=== PATIENT | female | born 1950 | race African-American/Black ===

== ENCOUNTER 2019-09-17 02:02 | Inpatient (IN) | payer MEDICARE, BC ==
[~2019-09-17] VITALS: Ht 162.6 cm; Wt 114.5 kg
--- NOTE | ~2019-09-17 | HEMODYNAMI ---
PATIENT:RENEE HELM MEDICAL RECORD: [id number] : 48 [facility] AD[facility] DATE: 09/17/19 Generatedon:09/23/201911:48 Patient name: RENEE HELM Patient #: [id number] SSN: [id number] : 1950 Date of study: 09/23/2019 Page: Of Hemodynamic Procedure Report Patient Data Patient Demographics Procedure consent was obtained First Name: RENEE Gender: Female Last Name: ALICJA : 1950 Patient #: [id number] Age: 69 year(s) Race: Black SSN: [id number] Additional ID: [id number] Contact details Address: [address] [place] [address] State: [place] City: [place] Zip code: [address] Past Medical History Allergies Allergen Reaction Date Comments Reported Other allergy 09/18/2019 CONTRAST, TAPE, CEPHALEXIN, LATEX Other allergy 09/19/2019 IODINATED CONTRAST/TAPE/MORE SEE LIST Sulfa drugs 09/23/2019 IV contrast dye 09/23/2019 Admission Admission Data Admission Date: 09/17/2019 Admission Time: 3:59 Arrival Date: 09/18/2019 Arrival Time: 0:00 Admit Source: Other Insurance Payor: Medicare Room #: D.CV02 [facility] #: [id number] Height (in.): 64 BSA: 2.24 (m2) Height (cm.): 162.56 BMI: 47.03 (kg/m2) Weight (lbs.): 274 Weight (kg.): 124.28 Lab Results Lab Result Date: 09/18/2019 Lab Result Time: 0:00 Biochemistry Name Units Result Min Max BUN mg/dl 66 --(----)-* 7 18 Creatinine mg/dl 8.9 --(----)-* 0.6 1.3 eGFR ml/min 6 *-(----)-- 90 120 AM CBC Name Units Result Min Max Hematocrit % 42.2 --(*---)-- 42 54 Hemoglobin g/dl 13.4 -*(----)-- 13.5 17.5 Procedure Procedure Types Cath Procedure Peripheral Cath Diagnostic Procedure Elastic Assembler Peripheral Procedures IVC Filter Procedure Description Procedure Date Procedure Date: 09/23/2019 Procedure Start Time: 11:36 Procedure Staff Name Function Cosme Lynch MD Performing Physician Tejal Francisco RT Building Insulation Supervisor Tess Renteria RN Nurse Ameya Gurrola RT Scrub Procedure Data Cath Procedure Fluoroscopy Diagnostic fluoroscopy Total fluoroscopy Time: 1 time: 1 min min Diagnostic fluoroscopy Total fluoroscopy dose: 1 dose: 1 mGy mGy Contrast Material Contrast Material Type Amount (ml) Isovue 300 35 Diagnostic catheters Device Type Used For End Catheter Placement Phigenix Pharmaceutical CHG-B 5FR 65CM catheter ([id number]) Hemodynamics Rest BSA: 2.24 (m2) O2 Consumption: Estimated: 304.64 (ml/min) O2 Consumption indexed : Estimated:136 (ml/min/m) Pre Cath Intra NCS Post Cath Procedure Log Time Note 10:28:29 Patient Height : 64 inches 10:28:29 Patient Weight : 274 lbs 10:35:41 Use device set IR Diagnostic 10:59:46 DOC .035 wire (L59923) opened to sterile field. 10:59:47 SHEATH 5FR Carson (JRC558) opened to sterile field. 10:59:49 TUBING Contrast Injection High Pressure (MMZ801B) opened to sterile field. 10:59:50 PERCUTANEOUS ENTRY 19GA needle opened to sterile field. 10:59:50 Tegaderm 4 x 4 (1626W) opened to sterile field. 10:59:52 Sterile Angiographic Pack opened to sterile field. 10:59:53 Bag Decanter () opened to sterile field. 10:59:53 ACIST Manifold (78316) opened to sterile field. 10:59:54 ACIST Hand Control (75613) opened to sterile field. 10:59:56 ACIST Syringe (75572) opened to sterile field. 10:59:59 - 17:39 Time tracking: Call back (After hours or weekends) 11:18:33 Plan of Care:Hemodynamics will remain stable., Cardiac rhythm will remain stable., Comfort level will be maintained., Respiratory function will remain adequate., Patient/ family verbilizes understanding of procedure., Procedure tolerated without complication., Recovers from procedure without complications.. :18:39 Patient received from CVICU to IR On ventilator. Tansferred to table in Supine position. 11:18:46 Signed procedure consent form obtained from guardian. 11:18:54 H&P Date Dictated: 09/23/2019 Within 30 days and on chart.. 11:19:01 - 11:19:09 Family in waiting room. 11:19:12 Patient NPO since Midnight. 11:20:17 Patient allergic to Sulfa drugs 11:20:24 Patient allergic to IV contrast dye 11:20:48 - 11:20:49 ----Pre-sedation anethsthesia assessment.----unable to obtain information due to patient on ventilator 11:22:00 Left groin area was prepped with chlora-prep and draped in sterile fashion 11:22:05 Right groin area was prepped with chlora-prep and draped in sterile fashion 11:22:08 - 11:22:16 Fire Safety Assessment: A--An alcohol-based skin anteseptic being used preoperatively., C--Open oxygen or nitrous oxide is being used. 11:22:53 5) <15 or on dialysis Very severe, or end stage kidney failure. 11:31:36 monitoring with portable monitor 11:34:25 Physician arrived 11:34:26 --------ALL STOP TIME OUT------ 11:: Final Timeout: patient, procedure, and site verified with staff and physician. All members of the team are in agreement. 11:36:52 Procedure started. 11:36:53 Full Disclosure recording started 11:36:56 Local anesthetic to right femoral artery with Lidocaine 1% by Cosme Lynch MD.INITIAL ACCESS ONLY 11:43:40 Cristy Femoral IVC filter was placed below renal veins. 11:44:11 FILTER Cristy Vena Cava ([id number]) opened to sterile field. 11:44:33 Procedure ended.(Physican Out) 11:45:21 A Phigenix Pharmaceutical CHG-B 5FR 65CM catheter ([id number]) was advanced over the wire and used for . 11:46:49 Fluoroscopy time 01.00 minutes. 11:47:31 Fluoroscopy dose: 1 mGy 11:47:31 Flurop Dose total: 1 11:47:35 Dose Area Product 331 mGy/cm. 11:47:43 Contrast amount:Isovue 300 35ml. 11:47:45 Procedure and supply charges have been captured, reviewed, submitted an d are correct. 11:48:25 Report given to CVICU. Device Usage Item Name Manufacture Quantity Catalog Hospital Part Current Minimal Lot# / Number Charge Number Stock Stock Serial# Code DOC .035 Cook Medical 1 [id number] [id number] 5 wire ([id number]) SHEATH 5FR Terumo 1 [id number] 970212 239809 535854 5 Carson (KFW523) TUBING Merit 1 [id number] 665810 541805 545892 5 Contrast Medical Injection High Pressure (JRD078W) PERCUTANEOUS Cook Medical 1 H06353 696383 536335 5 [id number] ENTRY 19GA needle Tegaderm 4 x 3M 1 1626W 394155 560513 624637 5 4 (1626W) Sterile Cardinal 1 [id number] 776487 951855 5 Angiographic Health Pack Bag Decanter Microtek 1 2001S 606041 23704 784439 5 (2001S) Medical Inc. ACIST Acist 1 44708 694584 340416 953912 5 Manifold Medical (33641) Systems Inc ACIST Hand Acist 1 23683 361846 408556 012594 5 Control Medical (87288) Systems Inc ACIST Acist 1 66235 468215 392486 503844 20 Syringe Medical (87091) Systems Inc FILTER Bard 1 ZR273D 248535 217665 103396 5 [id number] Cristy Vena Cava (JJ703B) Cook CHG-B Phigenix Pharmaceutical Medical 1 N40529 951965 509111 504981 5 5FR 65CM catheter (N65398) Signature Audit [place] Stage Time Signature Unsigned Intra-Procedure 09/23/2019 Tejal Francisco 11:48:39 AM RT(R) [id number] [place] [address]
--- NOTE | ~2019-09-17 | HEMODYNAMI ---
PATIENT:RENEE HELM MEDICAL RECORD: [id number] : 48 LOCATION:[facility] D213 ADMISSION DATE: 09/17/19 Generatedon:09/19/201917:17 Patient name: RENEE HELM Patient #: [id number] SSN: [id number] : 1950 Date of study: 09/19/2019 Page: Of Hemodynamic Procedure Report Patient Data Patient Demographics Procedure consent was obtained First Name: RENEE Gender: Female Last Name: ALICJA : 1950 Patient #: [id number] Age: 69 year(s) Race: Black SSN: [id number] Additional ID: [id number] Contact details [address]: [address] [place] [address] State: [place] City: [place] Zip code: [address] Past Medical History Allergies Allergen Reaction Date Comments Reported Other allergy 09/18/2019 CONTRAST, TAPE, CEPHALEXIN, LATEX Other allergy 09/19/2019 IODINATED CONTRAST/TAPE/MORE SEE LIST Admission Admission Data Admission Date: 09/17/2019 Admission Time: 3:59 Arrival Date: 09/18/2019 Arrival Time: 0:00 Admit Source: Other Insurance Payor: Medicare Room #: D.2131 [facility] #: [id number] Height (in.): 64 BSA: 2.06 (m2) Height (cm.): 162.56 BMI: 38.87 (kg/m2) Weight (lbs.): 226.46 Weight (kg.): 102.72 Lab Results Lab Result Date: 09/18/2019 Lab Result Time: 0:00 Biochemistry Name Units Result Min Max BUN mg/dl 66 --(----)-* 7 18 Creatinine mg/dl 8.9 --(----)-* 0.6 1.3 eGFR ml/min 6 *-(----)-- 90 120 AM CBC Name Units Result Min Max Hematocrit % 42.2 --(*---)-- 42 54 Hemoglobin g/dl 13.4 -*(----)-- 13.5 17.5 Procedure Procedure Types Cath Procedure Diagnostic Procedure Intra-Aortic Balloon Pump Sedation Charges Moderate Sedation up to 15 minutes Procedure Description Procedure Date Procedure Date: 09/19/2019 Procedure Start Time: 16:41 Procedure End Time: 16:54 Procedure Staff Name Function Jassi Bryan MD Performing Physician Yasmin Suarez RT Monitor Aisha Musa RT Scrub Rahul Zarate RN Nurse Shaila Saunders RT Scrub Procedure Data Cath Procedure Fluoroscopy Diagnostic fluoroscopy Total fluoroscopy Time: 1.6 time: 1.6 min min Diagnostic fluoroscopy Total fluoroscopy dose: 114 dose: 114 mGy mGy Contrast Material Contrast Material Type Amount (ml) Isovue 300 0 Entry Location Entry Primary Successful Side Size Upsize Upsize Entry Closure Succes sful Closure Location (Fr) 1 (Fr) 2 (Fr) Remarks Device Remarks Femoral Right 7 Fr Sheath artery Short sutured in place Estimated blood loss: 5 ml Procedure Complications No complications Procedure Medications Medication Administration Route Dosage Oxygen etCO2 Nasal cannula 2 l/min Lidocaine 2% added to field 20 Heparin Flush Bag added to field 2 bags (1000units/500ml NS) 0.9% NaCl I.V. Versed I.V. 1 mg Fentanyl I.V. 100 mcg Versed I.V. 1 mg Fentanyl I.V. 50 mcg Fentanyl I.V. 50 mcg Heparin Drip I.V. drip 800 units/hr (21864kkhzv/250 D5W) Mechanical Ventricular Support IABP: Inserted during procedure and prior to PCI Hemodynamics Rest BSA: 2.06 (m2) HGB: 13.4 (g/dl) O2 Consumption: Estimated: 209.25 (ml/min) O2 Co nsumption indexed: Estimated:101.58 (ml/min/m) Heart Rate: 95 (bpm) Snapshots Pre Cath Intra NCS Post Cath Vital Signs Time Heart Resp SPO2 etCO2 NIBP Rhythm Pain Sedation Rate (ipm) (%) (mmHg) (mmHg) Status Level (bpm) 16:35:33 84 16 96 25.4 158/49(93) NSR 0 (11) 10(A) , No pain 16:39:51 90 14 96 13.4 117/65(90) NSR 0 (11) 10(A) , No pain 16:44:58 89 13 100 19.4 129/60(87) NSR 0 (11) 9(A) , No pain 16:49:12 86 15 100 32.9 135/46(81) NSR 0 (11) 9(A) , No pain 16:55:33 87 12 100 32.9 Out of NSR 0 (11) 10(A) range , No pain 16:59:27 88 10 100 33.7 Time NSR 0 (11) 10(A) Exceeded , No pain Medications Time Medication Route Dose Verified Delivered Reason No kathy Effectiveness by by 16:34:27 Oxygen etCO2 2 l/min Jassi Kay used for Nasal St Pedro Zarate RN procedure cannula 16:34:36 Lidocaine 2% added 20ml Jassi Jassi for local to vial [facility] anesthetic field MD ELY 16:34:42 Heparin Flush added 2 bags Jassi Jassi used for Bag to [facility] procedure (1000units/500ml field MD ELY NS) 16:34:51 0.9% NaCl I.V. kvo Jassi aKy Per physician ml/hr St Pedro Zarate RN, MD 16:40:00 Fentanyl I.V. 100 mcg Jassi Kay for sedation [facility] Pedro Zarate RN, MD 16:40:55 Versed I.V. 1 mg Jassi Kay for sedation St Pedro Zarate RN, MD 16:45:49 Versed I.V. 1 mg Jassi Kay for sedation St Pedro Zarate RN, MD 16:45:54 Fentanyl I.V. 50 mcg Jassi aKy for sedation St Pedro Zarate RN, MD 16:50:06 Fentanyl I.V. 50 mcg Jassi Kay for sedation St Pedro Zarate RN, MD 16:58:46 Heparin Drip I.V. 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 16:09:28 Rahul Zarate RN sent for patient. Start room use. 16:17:59 Time tracking: Regular hours (M-F 7:00 - 5:00) 16:18:08 Plan of Care:Hemodynamics will remain stable., Cardiac rhythm will remain stable., Comfort level will be maintained., Respiratory function will remain adequate., Patient/ family verbilizes understanding of procedure., Procedure tolerated without complication., Recovers from procedure without complications.. 16:19:00 Patient allergic to Other allergyIODINATED CONTRAST/TAPE/MORE SEE LIST 16:34:14 Vital chart was started 16:34:27 Oxygen 2 l/min etCO2 Nasal cannula was administered by Rahul Zarate RN; used for procedure; Verbal order read back and verified. 16:34:36 Lidocaine 2% 20ml vial added to field was administered by Jassi Bryan MD; for local anesthetic; Verbal order read back and verified. 16:34:42 Heparin Flush Bag (1000units/500ml NS) 2 bags added to field was administered by Jassi Bryan MD; used for procedure; Verbal order read back and verified. 16:34:51 0.9% NaCl kvo ml/hr I.V. was administered by Rahul Zarate RN; Per physician; Verbal order read back and verified. 16:37:12 IABP : Inserted during procedure and prior to PCI 16:37:19 Patient received from Med II to CCL 2 Alert and oriented. Tansferred to table in Supine position. 16:37:21 Signed procedure consent form obtained from patient. 16:37:21 Warm blankets applied, and kristan hugger turned on for patient comfort. 16:37:22 Correct patient and procedure confirmed by team. 16:37:22 ECG and BP/O2 sat monitors applied to patient. 16:37:23 Baseline sample Acquired. 16:37:28 Rhythm: sinus rhythm 16:37:29 Full Disclosure recording started 16:37:32 H&P Date Dictated: 09/19/2019 Within 30 days and on chart., H&P Addendum completed by physician on day of procedure. (MUST COMPLETE FOR ALL OUTPATIENTS). 16:37:33 Pre-procedure instructions explained to patient. 16:37:34 Pre-op teaching completed and patient verbalized understanding. 16:37:36 Family in patients room. 16:37:37 Patient NPO since Midnight. 16:37:40 Is the patient allergic to Iodine/contrast media? Yes. 16:38:45 Was the patient premedicated? Yes 16:38:47 Is patient on blood thinner?Yes 16:38:53 ACC The patient was administered the following blood thiners within the last 24 hours: ACCHeparin 16:39:00 Patient diabetic? No. 16:39:02 Previous problem with sedation/anesthesia? No ? 16:39:04 Snore? Yes 16:39:05 Sleep apnea? Yes 16:39:06 Deviated septum? No 16:39:07 Opens mouth fully? Yes 16:39:08 Sticks out tongue? Yes 16:39:15 Airway obstruction? No ? 16:39:17 Dentures? No ? 16:39:20 Pre procedure: right dorsailis pedis pulse 1+ Palpable, but thready & weak; easily obliterated 16:39:29 Pre procedure: left dorsailis pedis pulse 1+ Palpable, but thready & weak; easily obliterated 16:39:31 Patient pain scale 0/10 ?. 16:39:37 IV patent on arrival in right antecubital with 0.9% NaCl at [facility]. 16:39:40 Lab results completed and on chart. 16:39:48 Right groin area was prepped with chlora-prep and draped in sterile fashion 16:39:49 Alarms reviewed by R. N. 16:39:49 Sharps counted by scrub and verified by R.N. 16:39:50 Physician arrived 16:39:51 --------ALL STOP TIME OUT------ 16:39:51 Final Timeout: patient, procedure, and site verified with staff and physician. All members of the team are in agreement. 16:39:53 Right groin site verified by team. 16:39:56 Fire Safety Assessment: A--An alcohol-based skin anteseptic being used preoperatively., C--Open oxygen or nitrous oxide is being used., D--An ESU, laser, or fiber-optic light is being used. 16:39:59 Physical assessment completed. ASA score P 2 - A patient with mild systemic disease as per Jassi Bryan MD. 16:40:00 Fentanyl 100 mcg I.V. was administered by Rahul Zarate RN; for sedation; Verbal order read back and verified. 16:40:13 5) <15 or on dialysis Very severe, or end stage kidney failure. 16:40:23 Maximum allowable contrast dose (3.7 X eGFR X 0.75)11 ml. 16:40:28 Sedation plan: IV Moderate Sedation Medication:Versed, Fentanyl 16:40:38 Use device set CATH PACK 16:40:40 ACIST Syringe (39992) opened to sterile field. 16:40:40 ACIST Hand Control (13940) opened to sterile field. 16:40:41 ACIST Manifold (15332) opened to sterile field. 16:40:41 Medline Cath Pack ([id number]) opened to sterile field. 16:40:42 Bag Decanter (2002S) opened to sterile field. 16:40:55 Versed 1 mg I.V. was administered by Rahul Zarate RN; for sedation; Verbal order read back and verified. 16:40:55 TUBING High Pressure Extension (IABP) opened to sterile field. 16:40:57 IABP 34cm balloon catheter ([id number]) opened to sterile field. 16:41:00 Procedure started. 16:41:03 Local anesthetic to right femoral artery with Lidocaine 2% by Jassi Bryan MD.INITIAL ACCESS ONLY 16:41:14 A 7 Fr Short sheath was inserted into the Right Femoral artery 16:43:40 SHEATH 7FR Wellman (HBZ780) opened to sterile field. 16:43:56 34cc IABP inserted into the RFA . 16:43:58 Augmentation: 1:1 per physician. 16:45:49 Versed 1 mg I.V. was administered by Rahul Zarate RN; for sedation; Verbal order read back and verified. 16:45:54 Fentanyl 50 mcg I.V. was administered by Rahul Zarate RN; for sedation; Verbal order read back and verified. 16:48:48 Trigger: Pressure 16:50:06 Fentanyl 50 mcg I.V. was administered by Rahul Zarate RN; for sedation; Verbal order read back and verified. 16:52:46 2-0 Silk 685H opened to sterile field. 16:52:47 2-0 Silk 685H opened to sterile field. 16:52:53 Tegaderm 4 x 4 (1626W) opened to sterile field. 16:52:54 Tegaderm 4 x 4 (1626W) opened to sterile field. 16:52:54 Tegaderm 4 x 4 (1626W) opened to sterile field. 16:53:33 Sheath removed intact; hemostasis achieved with Sheath sutured in place to the Right Femoral artery. 16:53:35 Procedure ended.(Physican Out) 16:53:46 Fluoroscopy time 01.60 minutes. 16:53:49 Fluoroscopy dose: 114 mGy 16:53:49 Flurop Dose total: 114 16:53:55 Dose Area Product 29646 mGy/cm. 16:54:00 Contrast amount:Isovue 300 0ml. 16:54:02 Maximum allowable dose exceeded? No. 16:54:03 Sharps counted by scrub and verified by R.N. 16:54:04 Insertion/operative site no bleeding no hematoma. 16:54:16 Post right femoral artery:stable 16:54:18 Post Procedure Pulses reassessed and unchanged 16:54:20 Post procedure rhythm: unchanged. 16:54:23 Estimated blood loss: 5 ml 16:54:24 Post procedure instruction explained to patient.Patient verbalizes understanding. 16:54:24 Patient needs reinforcement of post procedure teaching. 16:54:39 Procedure type changed to Cath procedure, Diagnostic procedure, Intra-Aortic Balloon Pump, Sedation Charges, Moderate Sedation up to 15 minutes 16:54:40 Procedure and supply charges have been captured, reviewed, submitted and are correct. 16:54:45 Procedure Complication : No complications 16:54:47 Vital chart was stopped 16:54:50 Operative report dictated upon procedure completion. 16:54:51 See physician's report for complete and final results. 16:54:54 Report given to CVICU. 16:54:57 Patient transfered to CVICU with Stretcher. 16:54:59 Procedure ended. 16:54:59 Full Disclosure recording stopped 16:55:03 End room use (Document Last) 16:58:03 End room use (Document Last) 16:58:46 Heparin Drip (34343jonqa/250 D5W) 800 units/hr I.V. drip was administered by Rahul Zarate RN; for anticoagulation; verified with jamia farmer rn Verbal order read back and verified. Device Usage Item Name Manufacture Quantity Catalog Number [facility] Minimal Lot# / Charge Number Stock Stock Serial# Code ACIST Syringe Acist 1 89045 595287 975969 [id number] 20 (18406) Photo Rankr Inc ACIST Hand Acist 1 37287 816172 099702 848927 5 Control (46858) Medical Systems Inc ACIST Manifold Acist 1 32742 019681 255927 058154 5 (79843) Medical Systems Inc Medline Cath Medline 1 [id number] 176224 77277 572940 5 Pack ([id number]) Bag Decanter Microtek 1 2002S 757419 72548 466077 5 (2001S) Medical Inc. TUBING High Merit 1 [id number] 590919 160007 420572 5 Pressure Medical Extension (IABP) IABP [facility]cm [facility] 1 [id number] 323474 425742 242329 1 Relead [facility] catheter (233297) ([id number]) SHEATH 7FR Terumo 1 IGO126 676061 457437 887848 5 Wellman (JDH754) 2-0 Silk 685H Ethicon 2 685H 929892 18460 266920 5 Tegaderm 4 x 4 3M 3 1626W 196915 949648 616868 5 (1626W) Signature Audit [place] Stage Time Signature Unsigned Intra-Procedure 09/19/2019 Yasmin Suarez 4:57:43 PM RT(R) Intra-Procedure 09/19/2019 Rahul Zarate RN 4:58:03 PM Intra-Procedure 09/19/2019 Jassi Schmitz 5:17:13 PM Pedro ELY Signatures Performing Physician : Signature : Jassi Bryan MD Date : Time : Monitor : Yasmin Suarez RT Signature : Date : Time : Nurse : Rahul Zarate RN Signature : Date : Time : [facility] [address] [place] [address]
--- NOTE | ~2019-09-17 | HEMODYNAMI ---
PATIENT:RENEE HELM MEDICAL RECORD: [id number] : 48 [facility] ADMISSION DATE: 09/17/19 Generatedon:09/18/20198:15 Patient name: RENEE HELM Patient #: [id number] SSN: [id number] : 1950 Date of study: 09/18/2019 Page: Of Hemodynamic Procedure Report Patient Data Patient Demographics Procedure consent was obtained First Name: RENEE Gender: Female Last Name: ALICJA : 1950 Patient #: [id number] Age: 69 year(s) Race: Black SSN: [id number] Additional ID: [id number] Contact details [address]: [address] [place] [address] State: [place] City: [place] Zip code: [address] Past Medical History Allergies Allergen Reaction Date Comments Reported Other allergy 09/18/2019 CONTRAST, TAPE, CEPHALEXIN, LATEX Admission Admission Data Admission Date: 09/17/2019 Admission Time: 3:59 Arrival Date: 09/18/2019 Arrival Time: 0:00 Admit Source: Other Insurance Payor: Medicare Room #: D.2131 [facility] #: [id number] Height (in.): 64 BSA: 2.06 (m2) Height (cm.): 162.56 BMI: 38.87 (kg/m2) Weight (lbs.): 226.46 Weight (kg.): 102.72 Lab Results Lab Result Date: 09/18/2019 Lab Result Time: 0:00 Biochemistry Name Units Result Min Max BUN mg/dl 66 --(----)-* 7 18 Creatinine mg/dl 8.9 --(----)-* 0.6 1.3 eGFR ml/min 6 *-(----)-- 90 120 AM CBC Name Units Result Min Max Hematocrit % 42.2 --(*---)-- 42 54 Hemoglobin g/dl 13.4 -*(----)-- 13.5 17.5 Procedure Procedure Types Cath Procedure Diagnostic Procedure [facility] w/Coronaries Sedation Charges Moderate Sedation up to 15 minutes Procedure Description Procedure Date Procedure Date: 09/18/2019 Procedure Start Time: 7:48 Procedure End Time: 8:14 Procedure Staff Name Function Tez Samson MD Performing Physician Vivek Dxion RN Nurse Ida Taylor RT Monitor Aisha Musa RT Scrub Procedure Data Cath Procedure Fluoroscopy Diagnostic fluoroscopy Total fluoroscopy Time: 2.2 time: 2.2 min min Diagnostic fluoroscopy Total fluoroscopy dose: 926 dose: 926 mGy mGy Contrast Material Contrast Material Type Amount (ml) Isovue 370 57 Entry Location Entry Primary Successful Side Size Upsize Upsize Entry Closure Succes sful Closure Location (Fr) 1 (Fr) 2 (Fr) Remarks Device Remarks Femoral Right 5 Fr Exoseal artery Estimated blood loss: 5 ml Diagnostic catheters Device Type Used For End Catheter Placement MULTIPACK JL 4.0 5Fr Procedure catheter MULTIPACK 3DRC 5Fr Procedure catheter MULTIPACK Pigtail 5 Fr Procedure catheter Procedure Complications No complications Procedure Medications Medication Administration Route Dosage 0.9% NaCl I.V. 10 ml/hr Oxygen etCO2 Nasal cannula 2 l/min Heparin Flush Bag added to field 2 bags (1000units/500ml NS) Lidocaine 2% added to field 20 Versed I.V. 1 mg Fentanyl I.V. 50 mcg Fentanyl I.V. 50 mcg Versed I.V. 1 mg Hemodynamics Rest BSA: 2.06 (m2) HGB: 13.4 (g/dl) O2 Consumption: Estimated: 213.51 (ml/min) O2 Co nsumption indexed: Estimated:103.65 (ml/min/m) Heart Rate: 100 (bpm) Pressure Samples Time Site Value (mmHg) Purpose Heart Use Rate(bpm) 7:58 LV 97/20,29 Snapshot 99 7:59 AO 97/54(70) Pullback 99 7:59 LV 101/12,20 Pullback 99 Gradients Valve Time Site 1 Site 2 Mean SEP/DFP Peak To Heart Use (mmHg) (sec/min) Peak Rate (mmHg) (bpm) Aortic 7:59 LV AO 11 11 4 99 101/12,20 97/54(70) Calculations Valve P-P Mean Valve Index Valve Source Name Gradient Area Flow (cm2) Aortic 4 11 4 11 Snapshots Pre Cath Intra NCS Post Cath Vital Signs Time Heart Resp SPO2 etCO2 NIBP (mmHg) Rhythm Pain Sedation Rate (ipm) (%) (mmHg) Status Level (bpm) 7:38:08 102 14 95 35 129/93(109) NSR 0 (11) 10(A) , No pain 7:42:34 98 18 93 32.8 110/65(81) NSR 0 (11) 10(A) , No pain 7:47:03 103 14 96 34.3 112/69(84) NSR 0 (11) 10(A) , No pain 7:51:25 105 13 94 33.5 132/92(104) NSR 0 (11) 10(A) , No pain 7:56:01 99 16 97 32.8 124/71(94) NSR 0 (11) 9(A) , No pain 8:00:36 98 13 98 44.8 122/73(95) NSR 0 (11) 9(A) , No pain 8:05:04 99 13 99 38.8 123/73(101) NSR 0 (11) 9(A) , No pain 8:09:34 99 25 99 36.6 113/98(106) NSR 0 (11) 9(A) , No pain Medications Time Medication Route Dose Verified Delivered Reason Notes Effe ctiveness by by 7:36:31 0.9% NaCl I.V. 10 Vivek Vivek Per ml/hr Destiny Dixon physician RN RN 7:36:44 Oxygen etCO2 2 Vivek Vivek for low 02 Nasal l/min Lorigan Lorigan sats cannula RN RN 7:36:55 Heparin Flush added 2 Vivek Vivek used for Bag to bags Lorigan Lorigan procedure (1000units/500ml field RN RN NS) 7:37:05 Lidocaine 2% added 20ml Vivek Vivek for local to vial Lorigan Lorigan anesthetic field RN RN 7:51:17 Versed I.V. 1 mg Vivek Vivek for Lorigan Lorigan sedation RN RN 7:51:26 Fentanyl I.V. 50 Vivek Vivek for mcg Lorigan Lorigan sedation RN RN 7:54:00 Fentanyl I.V. 50 Vivek Vivek for mcg Lorigan Lorigan sedation RN RN 7:55:27 Versed I.V. 1 mg Vivek Vivek for Lorigan Destiny sedation RN video poker floorman Log Time Note 7:03:11 Informed consent obtained and on chart 7:06:07 Diagnostic Cath Status : Urgent 7:06:36 Admit Source: Other 7:06:42 ACC Patient presents with Non-STEMI CCS Anginal Class 2--Slight limitation of ordinary activity. 7:06:45 Procedure Status Urgent Heart Cath (IP). 7:06:52 Charlotte Dasilva RT(R) sent for patient. Start room use. 7:07:43 Arrival Date: 09/18/2019 12:00:00 AM 7:07:50 Insurance Payor : Medicare 7:08:14 Patient Height : 64 inches 7:08:23 Patient Weight : 226.46 lbs 7:09:02 Lab Result : BUN 66 mg/dl 7:09:02 Lab Result : Hemoglobin 13.4 g/dl 7:09:02 Lab Result : eGFR AM 6 ml/min 7:09:02 Lab Result : Creatinine 8.9 mg/dl 7:09:02 Lab Result : Hematocrit 42.2 % 7:09:55 Patient allergic to Other allergyCONTRAST, TAPE, CEPHALEXIN, LATEX 7:10:08 Time tracking: Regular hours (M-F 7:00 - 5:00) 7:10:13 Plan of Care:Hemodynamics will remain stable., Cardiac rhythm will remain stable., Comfort level will be maintained., Respiratory function will remain adequate., Patient/ family verbilizes understanding of procedure., Procedure tolerated without complication., Recovers from procedure without complications.. 7:10:24 H&P Date Dictated: 09/17/2019 Within 30 days and on chart.. 7:10:26 Pre-procedure instructions explained to patient. 7:10:26 Pre-op teaching completed and patient verbalized understanding. 7:10:29 Patient NPO since Midnight. 7:10:35 Lab results completed and on chart. 7:10:39 Stress Test: no; N/A ? 7:12:29 Risk of Mortality: 0.8 7:12:32 Risk of blood transfusion: 3.1 7:12:36 Risk of FRANCIA: 13.0 7:12:38 Alarms reviewed by R. N. 7:12:39 Sharps counted by scrub and verified by R.N. 7:23:18 Patient received from [email or web address] to CCL 1 Alert and oriented. Tansferred to table in Supine position. 7:23:20 Warm blankets applied, and kristan hugger turned on for patient comfort. 7:23:21 Correct patient and procedure confirmed by team. 7:23:22 ECG and BP/O2 sat monitors applied to patient. 7:36:31 0.9% NaCl 10 ml/hr I.V. was administered by Vivek Dixon RN; Per physician; Verbal order read back and verified. 7:36:33 Vital chart was started 7:36:44 Oxygen 2 l/min etCO2 Nasal cannula was administered by Vivek Dixon RN; for low 02 sats; Verbal order read back and verified. 7:36:55 Heparin Flush Bag (1000units/500ml NS) 2 bags added to field was administered by Vivek Dixon RN; used for procedure; Verbal order read back and verified. 7:37:05 Lidocaine 2% 20ml vial added to field was administered by Vivek Dixon RN; for local anesthetic; Verbal order read back and verified. 7:39:46 Baseline sample Acquired. 7:39:47 Full Disclosure recording started 7:39:55 Rhythm: sinus tachycardia 7:40:00 Is the patient allergic to Iodine/contrast media? Yes. 7:40:02 Was the patient premedicated? Yes 7:40:04 Is patient on blood thinner?Yes 7:40:09 ACC The patient was administered the following blood thiners within the last 24 hours: ACCAspirin, ACCHeparin 7:40:12 Patient diabetic? Yes. 7:40:14 If diabetic: On Metformin? No 7:40:17 Patient not . Patient is over age 55. 7:40:17 ----Pre-sedation anethsthesia assessment.---- 7:40:22 Previous problem with sedation/anesthesia? No ? 7:40:22 Snore? Yes 7:40:24 Sleep apnea? Yes 7:40:25 Deviated septum? No 7:40:26 Opens mouth fully? Yes 7:40:27 Sticks out tongue? Yes 7:40:32 Airway obstruction? Yes ASTHMA 7:40:34 Dentures? No ? 7:40:48 Patient pain scale 0/10 PAIN ALL OVER. 7:40:56 IV patent on arrival in right forearm with 0.9% NaCl at [facility]. 7:41:03 Right groin area was prepped with chlora-prep and draped in sterile fashion 7:41:07 Use device set Femoral Dx 7:41:09 ACIST Syringe (05356) opened to sterile field. 7:41:09 Bag Decanter (2002S) opened to sterile field. 7:41:10 Medline Cath Pack ([id number]) opened to sterile field. 7:41:11 ACIST Hand Control (59129) opened to sterile field. 7:41:11 ACIST Manifold (48958) opened to sterile field. 7:41:12 DIAGNOSTIC Multipack 5Fr catheter set (OF5679) opened to sterile field. 7:41:13 SHEATH 5FR [place] (LOQ515) opened to sterile field. 7:41:14 EMERALD Guide Wire (648-512) opened to sterile field. 7:43:04 --------ALL STOP TIME OUT------ 7:43:05 Final Timeout: patient, procedure, and site verified with staff and physician. All members of the team are in agreement. 7:43:06 Right groin site verified by team. 7:43:18 Fire Safety Assessment: A--An alcohol-based skin anteseptic being used preoperatively., C--Open oxygen or nitrous oxide is being used., D--An ESU, laser, or fiber-optic light is being used. 7:43:24 Physical assessment completed. ASA score P 2 - A patient with mild systemic disease as per Tez Samson MD. 7:43:28 5) <15 or on dialysis Very severe, or end stage kidney failure. 7:43:31 Maximum allowable contrast dose (3.7 X eGFR X 0.75)22 ml. 7:43:35 Sedation plan: IV Moderate Sedation Medication:Versed, Fentanyl 7:48:21 Procedure started. 7:48:46 Local anesthetic to right femoral artery with Lidocaine 2% by Tez Samson MD.INITIAL ACCESS ONLY 7:50:51 A 5 Fr sheath was inserted into the Right Femoral artery 7:51:17 Versed 1 mg I.V. was administered by Vivek Dixon RN; for sedation; Verbal order read back and verified. 7:51:26 Fentanyl 50 mcg I.V. was administered by Vivek Dixon RN; for sedation; Verbal order read back and verified. 7:52:27 A MULTIPACK JL 4.0 5Fr catheter was advanced over the wire and used for Procedure. 7:52:30 LCA angiography performed. 7:54:00 Fentanyl 50 mcg I.V. was administered by Vivek Dixon RN; for sedation; Verbal order read back and verified. 7:54:11 Catheter exchanged over wire. 7:55:12 A MULTIPACK 3DRC 5Fr catheter was advanced over the wire and used for Procedure. 7:55:17 RCA angiography performed. 7:55:27 Versed 1 mg I.V. was administered by Vivek Dixon RN; for sedation; Verbal order read back and verified. 7:55:34 ACCDominant side:Co-Dominant 7:56:35 Catheter exchanged over wire. 7:57:20 A MULTIPACK Pigtail 5 Fr catheter was advanced over the wire and used for Procedure. 7:58:20 LV gram done using RODGERS 7:58:31 Injector settings: Ml/sec: 5, Volume: 15, 7:58:33 LV hemodynamics recorded. 7:58:52 EF : 40 % 8:03:08 Catheter exchanged over wire. 8:03:19 GOING BACK IN WITH JL4. 8:04:05 LCA angiography performed. 8:07:53 Catheter removed. 8:07:57 EXOSEAL 5Fr (EX500) opened to sterile field. 8:08:26 Sheath removed intact; hemostasis achieved with Exoseal to the Right Femoral artery. 8:08:31 Fluoroscopy time 02.20 minutes. 8:08:37 Fluoroscopy dose: 926 mGy 8:08:37 Flurop Dose total: 926 8:08:44 Dose Area Product 08942 mGy/cm. 8:08:48 Contrast amount:Isovue 370 57ml. 8:08:51 Maximum allowable dose exceeded? Yes. 8:09:01 Procedure ended.(Physican Out) 8:09:15 Sharps counted by scrub and verified by R.N. 8:09:20 Post-op/insertion site Right Femoral artery dressed using a 4 x 4 and Tegaderm. 8:09:26 Post right femoral artery:stable, soft, clean and dry 8:09:29 Post Procedure Pulses reassessed and unchanged 8:09:34 Post-procedure physical assessment completed. ASA score P 2 - A patient with mild systemic disease as per Tez Samson MD. 8:09:37 Post procedure rhythm: unchanged. 8:09:40 Estimated blood loss: 5 ml 8:09:42 Post procedure instruction explained to patient.Patient verbalizes understanding. 8:09:42 Patient needs reinforcement of post procedure teaching. 8:10:45 Procedure type changed to Cath procedure, Diagnostic procedure, LHC, [facility] w/Coronaries, Sedation Charges, Moderate Sedation up to 15 minutes 8:11:03 Procedure and supply charges have been captured, reviewed, submitted and are correct. 8:11:08 Procedure Complication : No complications 8:11:12 Vital chart was stopped 8:11:22 [facility] Findings: MVD- MD will discuss options w/ pt 8:11:26 Operative report dictated upon procedure completion. 8:11:27 See physician's report for complete and final results. 8:11:29 Report given to [facility]. 8:11:33 Patient transfered to [facility] with Bed. 8:14:05 Procedure ended. 8:14:05 Full Disclosure recording stopped 8:14:26 End room use (Document Last) 8:14:49 End room use (Document Last) Device Usage Item Name Manufacture Quantity Catalog Hospital Part Current Minimal L ot# / Number Charge Number Stock Stock Serial# Code ACIST Acist 1 16364 [id number] 028953 514497 20 Syringe Medical (95324) Systems Inc Bag Microtek 1 2001S 890042 08932 599767 5 Decanter Medical Inc. () Medline Medline 1 [id number] 033136 09223 675778 5 Cath Pack ([id number]) ACIST Hand Acist 1 77960 899031 079846 824782 5 Control Medical (80592) Systems Inc ACIST Acist 1 25808 600394 417444 456307 5 Manifold Medical (99582) Systems Inc DIAGNOSTIC Cardinal 1 RF7037 906149 63982 411105 30 Multipack 120 Sports 5Fr catheter set (NU8451) SHEATH 5FR Terumo 1 OTM263 684335 952272 667465 5 [place] (UMB476) EMERALD Cardinal 1 502-455 078087 888601 474965 5 Guide Wire 120 Sports (502-455) MULTIPACK Cardinal 1 560837 5 JL 4.0 5Fr Health catheter MULTIPACK Cardinal 1 518143 5 3DRC 5Fr Health catheter MULTIPACK Cardinal 1 487546 5 Pigtail 5 Health Fr catheter EXOSEAL 5Fr Cardinal 1 EX500 373205 675238 647600 10 (EX500) Health Signature Audit [place] Stage Time Signature Unsigned Intra-Procedure 09/18/2019 Ida Taylor 8:14:26 AM RT(R) Intra-Procedure 09/18/2019 Vivek 8:14:49 AM Destiny STILES Intra-Procedure 09/18/2019 Tez Samson MD 8:15:20 AM [facility] [address] [id number]
--- NOTE | 2019-09-17 00:40 | NUR ---
I have reviewed this patient and I concur with the Shift Assessment completed by the Licensed Practical Nurse today this shift.
[2019-09-17 03:02] LABS: BASOPHILS 0.4 % (0-2); EOSINOPHILS 1.7 % (0-7); HEMATOCRIT 44.5 % (36.0-48.0); HEMOGLOBIN 14.7 g/dL (12-16); IMMATURE GRANULOCYTES 0.5 % (0-5); LYMPHOCYTES 17.3 % (15-50); MCH 30.8 pg (26.0-34.0); MCV 93.3 fL (80.0-100.0); MEAN PLATELET VOLUME 9.4 fL (7.4-10.4); MONOCYTES 5.8 % (2-11); NEUTROPHILS 74.3 % (40-80); PLATELET COUNT 312 10x3/uL (130-400); RBC 4.77 10x6/uL (4.00-5.40); RDW 15.3 % (11.5-14.5); WBC 12.1 10x3/uL (4.8-10.8)
[2019-09-17] MEDS ORDERED: NORCO-7.51 TAB PO (03:06)
[2019-09-17] MEDS ORDERED: PROTONIX40 MG PO (03:06)
[2019-09-17] MEDS ORDERED: NITROSTAT0.4 MG SL (03:07)
[2019-09-17] MEDS ORDERED: ATARAX 25 MG TA25 MG PO (03:07)
[2019-09-17] MEDS ORDERED: ALPHAGAN P15 ML EACH EYE (03:08)
[2019-09-17] MEDS ORDERED: PAZEO2.5 ML EACH EYE (03:08)
[2019-09-17] MEDS ORDERED: MIDODRINE HCL5 MG PO (03:08)
[2019-09-17] MEDS ORDERED: DOK100 MG PO (03:08)
[2019-09-17] MEDS ORDERED: SINGULAIR10 MG PO (03:09)
[2019-09-17] MEDS ORDERED: SODIUM BICARBO650 MG PO (03:09)
[2019-09-17] MEDS ORDERED: FOSRENOL1000 MG PO (03:10)
[2019-09-17] MEDS ORDERED: TUMS X-STR300 MG PO (03:10)
[2019-09-17] MEDS ORDERED: XALATAN 0.0052.5 ML EACH EYE (03:10)
[2019-09-17] MEDS ORDERED: MUCINEX DM ER1 EAC1 PO (03:12)
[2019-09-17] MEDS ORDERED: VITAMIN B COMPLEX (03:13)
[2019-09-17] MEDS ORDERED: VITAMIN D10000 UNI1 PO (03:14)
[2019-09-17] MEDS ORDERED: BAYER CHEWABLE81 MG PO (03:14)
[2019-09-17] MEDS ORDERED: INCRUSE ELLI62.5 MCG INH (03:14)
[2019-09-17] MEDS ORDERED: FLUTICASONE PRO16 GM NASAL (03:15)
[2019-09-17 03:32] LABS: ALBUMIN 3.8 g/dL (3.4-5.0); ALKALINE PHOSPHATASE 91 U/L (30-120); ALT (SGPT) 21 U/L (10-68); BILIRUBIN - TOTAL 0.46 mg/dL (0.2-1.3); CALC OSMOLALITY 302 mosm/kg (275-300); CALCIUM 9.6 mg/dL (8.5-10.1); CARBON DIOXIDE 20.9 mmol/L (21.0-32.0); CHLORIDE - SERUM 95 mmol/L (98-107); CKMB 24.8 U/L (0.0-3.6); CREATINE KINASE 161 UL (21-215); CREATININE - SERUM 11.8 mg/dL (0.6-1.3); GLUCOSE 105 mg/dL (74-106); SODIUM 135 mmol/L (136-145); UREA NITROGEN 104 mg/dL (7-18); eGFR NON AFRICAN AMERICAN 3 mL/min (90-120)
[2019-09-17 03:34] LABS: POTASSIUM - SERUM 6.2 mmol/L (3.5-5.1); TROPONIN-I 3.478 ng/mL (0.000-0.060)
[2019-09-17 03:36] VITALS: BP 99/63
[2019-09-17 04:39] VITALS: BP 97/50
[2019-09-17 04:57] VITALS: BP 96/58
--- NOTE | 2019-09-17 05:48 | NUR ---
RECEIVED VIA STRECHER FROM ER, TISHA @10-R.WRIST, PLACED ON TELEMTRY, BED IS LOW, SRX2, CALL LIGHT IN REACH,PT HAS OWN C-PAP AT BEDSIDE, FAMILY AT BEDSIDE, WILL CONTINUE PLAN OF CARE
--- NOTE | 2019-09-17 05:55 | NUR ---
ARRIVED AT PT ROOM TO DO HER ICT SUPPORT ENGINEER ASSESSMENT. ALL LIGHTS OUT IN ROOM, PT ASLEEP ON HER CPAP AND BOTH PARENTS AT BEDSIDE INDICATED THAT PT WAS SLEEPING AND NOT TO BE BOTHERED. HEPARIN DRIP INFUSING AT 10ML/HR. WHEN ATTEMPTED TO JUST TRY AND SEE PATIENT, ROOM WAS TOO DARK. DAYSHIFT NURSE INFORMED THAT ICT SUPPORT ENGINEER ASSESSMENT NEEDS TO BE DONE THIS AM.
[2019-09-17 08:43] VITALS: BP 115/70
[2019-09-17 09:20] LABS: CHOL - HDL RATIO 4.2 ratio (2.3-4.1); LDL-HDL RATIO 2.9 ratio (1.5-3.5)
--- NOTE | 2019-09-17 12:45 | NUR ---
PT AWAKE AND ORIENTED, CURRENTLY IN DIALYISIS . BATHED THIS A.M. PT HAS DIFFICULTY MOVING D/T SEVERE BACK PAIN. DIFFICULT TO ROLL. NO COMPLAITNS O R CONCERNS AT THIS TIME, ANSWERED QUESTIONS TO THE BEST OF MY ABILITY.PT HAS TRILOGY IN ROOM. AND DAUGHTER AT BEDSIDE. CL IN REACH, SRX2.
[2019-09-17 15:02] VITALS: BMI 38.9
[2019-09-17 17:02] VITALS: BMI 38.9
--- NOTE | 2019-09-17 18:21 | NUR ---
I have reviewed this patient and I concur with the Shift Assessment completed by the Licensed Practical Nurse today this shift.
--- NOTE | 2019-09-17 18:33 | NUR ---
PT AWAKE AND ORIENTED. AFTER SPEAKING IWTH HER AND DAUGHTER, CHECKING BLOOD SUGAR, PT STATES SHE TAKE NOVALOG AT HOME, ON A WEIRD SCALE WHICH SHE DETERMINES HERSELF, FOR INSTANCE SHE IS HAVING A SANDWHICH AND WS 229, SHE STATES SHE NEEDS 20 UNITS WHERE SHE WOULD USUALLY TAKE 48U BEFORE EACH MEAL REGARDLESS UNSLESS SHE FEELS OTHERWISE. SPOKE TO PHARMACY, WE DONT CARE NOVALOG. PT STATES SHE'LL TAKE HUMALOG TONIGHT AND TOMORROW HAVE HER DAUGHTER BRING HER NOVALOG AND THEN BEGIN TAKING THAT INSTEAD. CALLED FELICITY PINON, SHE STATES THAT THE IS AN OK ROUT TO TAKE. ORDERS PLACED. CL IN REACH, SRX2, DAUGHTER AT BEDSIDE.
--- NOTE | 2019-09-17 19:00 | NUR ---
EVENING ROUNDS COMPLETE. PT SITTING UP IN BED. NO SIGNS OF DISTRESS. PT DENIES ANY PAIN OR NEEDS AT THIS TIME. CL IN REACH, BED IN LOWEST POSITION.
[2019-09-17 20:34] VITALS: BP 92/59
[2019-09-18 00:31] VITALS: BP 91/54
[2019-09-18 05:19] VITALS: BP 91/59
[2019-09-18 06:05] LABS: BASOPHILS 0.1 % (0-2); EOSINOPHILS 0 % (0-7); HEMATOCRIT 42.2 % (36.0-48.0); HEMOGLOBIN 13.4 g/dL (12-16); IMMATURE GRANULOCYTES 0.5 % (0-5); LYMPHOCYTES 13.4 % (15-50); MCHC 31.8 g/dL (31.0-37.0); MCV 94.6 fL (80.0-100.0); MEAN PLATELET VOLUME 9.3 fL (7.4-10.4); MONOCYTES 11.1 % (2-11); NEUTROPHILS 74.9 % (40-80); PLATELET COUNT 292 10x3/uL (130-400); RBC 4.46 10x6/uL (4.00-5.40); RDW 15.7 % (11.5-14.5); WBC 11.3 10x3/uL (4.8-10.8)
[2019-09-18 06:23] LABS: ANION GAP 22.6 mmol/L (8-16); CALCIUM 9.1 mg/dL (8.5-10.1); CARBON DIOXIDE 24.4 mmol/L (21.0-32.0); CREATININE - SERUM 8.9 mg/dL (0.6-1.3); MAGNESIUM - SERUM 2.8 mg/dL (1.8-2.4); PHOSPHOROUS 7.2 mg/dL (2.5-4.9)
[2019-09-18 09:55] LABS: APTT 29.6 SECONDS (22.8-39.4); INR 1.05 (0.85-1.17); PROTIME 13.6 SECONDS (11.6-15.0)
[2019-09-18 10:11] VITALS: BP 106/69
--- NOTE | 2019-09-18 11:22 | NUR ---
PT LYING SEMI FOWLERS. CALL LIGHT W/I REACH. FAMILY AT BEDSIDE. RR EVEN AND UNLABORED ON CPAP. RIGHT FEMORAL CATH SITE IS C/D/I WITH NO S/S OF HEMATOMA PRESENT. PERIPHERAL PULSES BILATERALLY EVEN AND STRONG. ONE TIME 5000UNIT OF HEPARIN DOSE ADMININSTERED FOLLOWED BY HEPARIN DRIP @800UNITS/HER VIA R.HAND PIV. D50 AND INSULIN ADMININSTERED PER ORDER. WILL CTM.
[2019-09-18 14:23] VITALS: BP 121/69
[2019-09-18 14:28] VITALS: Ht 162.6 cm; Wt 114.5 kg
[2019-09-18 16:00] VITALS: BP 100/56
--- NOTE | 2019-09-18 16:04 | NUR ---
I have reviewed this patient and I concur with the Shift Assessment completed by the Licensed Practical Nurse today this shift.
[2019-09-18 16:22] LABS: BASOPHILS 0 % (0-2); EOSINOPHILS 0 % (0-7); HEMATOCRIT 38.9 % (36.0-48.0); HEMOGLOBIN 12.5 g/dL (12-16); IMMATURE GRANULOCYTES 0.3 % (0-5); LYMPHOCYTES 4.9 % (15-50); MCH 30.1 pg (26.0-34.0); MCHC 32.1 g/dL (31.0-37.0); MCV 93.7 fL (80.0-100.0); MEAN PLATELET VOLUME 8.8 fL (7.4-10.4); MONOCYTES 1.2 % (2-11); NEUTROPHILS 93.6 % (40-80); PLATELET COUNT 268 10x3/uL (130-400); RBC 4.15 10x6/uL (4.00-5.40); RDW 15.4 % (11.5-14.5); WBC 13.8 10x3/uL (4.8-10.8)
[2019-09-18 17:07] LABS: ALBUMIN 3.4 g/dL (3.4-5.0); ANION GAP 22.4 mmol/L (8-16); BILIRUBIN - TOTAL 0.43 mg/dL (0.2-1.3); CALCIUM 8.4 mg/dL (8.5-10.1); CARBON DIOXIDE 23.5 mmol/L (21.0-32.0); PHOSPHOROUS 7.2 mg/dL (2.5-4.9); POTASSIUM - SERUM 5.9 mmol/L (3.5-5.1); PROTEIN - SERUM 6.6 g/dL (6.4-8.2); T4 THYROXIN - FREE 0.83 ng/dL (0.76-1.46); THYROID STIMULATING HORMONE 0.72 uIU/mL (0.36-3.74); URIC ACID 6.2 mg/dL (2.6-7.2)
[2019-09-18 17:33] LABS: APTT 102.4 SECONDS (22.8-39.4); INR 1.46 (0.85-1.17); PROTIME 17.6 SECONDS (11.6-15.0)
--- NOTE | 2019-09-18 17:59 | NUR ---
STOPPED HEPARIN @1750 PER PROTOCOL. WILL DECREASE TO 600UNITS/HR @1820. WILL CTM.
--- NOTE | 2019-09-18 19:52 | NUR ---
EVENING ROUNDS COMPLETE. PT LAYING IN BED. NO SIGNS OF DISTRESS. AAOX4. PT DENIES ANY PAIN OR NEEDS AT THIS TIME. CL IN REACH, BED IN LOWEST POSITION.
[2019-09-18 21:17] VITALS: BP 111/62
[2019-09-19] VITALS (28 sets, daily range): BP systolic 90–120; BP diastolic 37–88
--- NOTE | 2019-09-19 07:10 | NUR ---
REPORT RECEIVED FROM RAILROAD OPERATOR AND PATIENT CARE ASSUMED. PATIENT LAYING IN BED ON BACK AWAKE, ALERT AND ORIENTED X 4. PATIENT IS STABLE AND VSS. PATIENT NPO AWAITING BALLOON PROCEDURE. FAMILY AT BS. WILL CONTINUE WITH PLAN OF CARE. SR UP X 2 BED IN LOW POSITION AND CALL LIGHT IN REACH.
[2019-09-19 08:43] LABS: BASOPHILS 0.1 % (0-2); EOSINOPHILS 0 % (0-7); HEMATOCRIT 40.9 % (36.0-48.0); HEMOGLOBIN 13.4 g/dL (12-16); IMMATURE GRANULOCYTES 0.6 % (0-5); LYMPHOCYTES 14.5 % (15-50); MCH 30.2 pg (26.0-34.0); MCHC 32.8 g/dL (31.0-37.0); MCV 92.3 fL (80.0-100.0); MEAN PLATELET VOLUME 9.7 fL (7.4-10.4); MONOCYTES 7.8 % (2-11); PLATELET COUNT 278 10x3/uL (130-400); RBC 4.43 10x6/uL (4.00-5.40); RDW 15.6 % (11.5-14.5); WBC 12.6 10x3/uL (4.8-10.8)
[2019-09-19 09:48] LABS: ANION GAP 20.8 mmol/L (8-16); CALCIUM 8.6 mg/dL (8.5-10.1); CARBON DIOXIDE 24.4 mmol/L (21.0-32.0); CREATININE - SERUM 10.9 mg/dL (0.6-1.3); POTASSIUM - SERUM 5.2 mmol/L (3.5-5.1)
--- NOTE | 2019-09-19 12:28 | NUR ---
UNABLE TO CLLECT URINE SPECIMEN, PATIENT IS ANURIC.
--- NOTE | 2019-09-19 12:30 | NUR ---
PATIENT RETURNED FROM DIALYSIS VIA HOSPITAL BED AND ACCOMPANIED BY HOSPITAL STAFF. PATIENT IS STABLE AND VSS. PATIENT DENIES ANY NEEDS OR PAIN. WILL CONTINUE TO MONITOR. SR UP X 2 BED IN LOW POSITION AND CALL LIGHT IN REACH.
--- NOTE | 2019-09-19 15:18 | NUR ---
PATIENT RESTING QUIETLY WITH FAMILY AT BS. PATIENT IS STABLE AND VSS. PATIENT DENIES ANY NEEDS OR PAIN. PATIENT REMAINS NPO AWAITING BALLOON PROCEDURE. WILL CONTINUE TO MONITOR. SR UP X 2 BED IN LOW POSITION AND CALL LIGHT IN REACH.
--- NOTE | 2019-09-19 15:31 | NUR ---
PATIENT IS STABLE AND VSS. PATIENT TO DIALYSIS VIA HOPSITAL BED ACCOMPANIED BY HOSPITAL STAFF.
--- NOTE | 2019-09-19 16:20 | NUR ---
PATIENT IS STABLE AND VSS. PATIENT DENIES ANY NEEDS OR PAIN. PATIENT TO REFUGE WORKER VIA HOSPITAL BED ACCOMPANIED BY REFUGE WORKER STAFF.
--- NOTE | 2019-09-19 17:01 | NUR ---
PER CAFE AIDE TEAM, PATIENT TRANSFER TO CVICU POST CATH. PATIENT FAMILY AND BELONGINGS TAKEN TO CVICU.
--- NOTE | 2019-09-19 17:15 | NUR ---
PT RECIEVED FROM [facility] VIA BED. MONITOR EQUIP ESTABLISHED. VSS. AFEBRILE. AWAKE AND ORIENTED. PULSES PALPABLE. DENIESE PAIN. IABP. VERBALIZES UNDERSTANDING OF IMPORTANCE OF KEEPING LEG STRAIGHT.
--- NOTE | 2019-09-19 17:40 | NUR ---
PRESSURE BAG FOR IABP IS LEAKING THE PRESSURE OFF AND BLOOD IS RETURNED INTO TUBE. UNABLE TO FLUSH TUBE. GO TUTTLE ATTEMPTED TO FLUSH WELL WITH NO SUCCESS. PRESSURE BAG REPLACED. WILL CALL DR MARTINEZ.
--- NOTE | 2019-09-19 18:10 | NUR ---
PRESSURE LINE IS FLUSHED AND MARGARETTE PRESSURE MATCHES CUFF PRESSURE AFTER BEING LEVELED AND ZEROED.
--- NOTE | 2019-09-19 18:10 | NUR ---
TALKED WITH DR MARTINEZ VIA PHONE. UPDATED ON IABP PRESSURE TUBING. ORDER RECIEVED TO FLUSH LINE WITH HEPARIN AND IF THAT DOESNT WORK IT CAN BE FIXED TOMORROW.
--- NOTE | 2019-09-19 20:00 | NUR ---
[employer] FAMILY MEM[employer]ERS VISITING PT, UPDATED AND QUESTIONS ANSWERED, WILL CONTINUE TO ASSESS NEEDS, PT AWAKE AND ALERT RESTING IN BED WITH BLE STRAIGHT, IABP 1:1 FREQUENCY SETTING, PT TOLLERATING WITH NO S/S OF ACUTE DISTRESS, VSS, REPOSITIONED PT FOR COMFORT FREQUENTLY D/T LOWER BACK DISCOMFORT, ICE CHIPS GIVEN PER REQUEST NO SWALLOWING DIFFICULTY NOTED, PRODUCTIVE COUGH NOTED WITH GUERRA/YELLOW THICK MUCOUS PRODUCED, PT DENIES FURTHER NEEDS AT THIS TIME, WILL CONTINUE TO MONITOR
[2019-09-20] VITALS (63 sets, daily range): BP systolic 54–125; BP diastolic 23–87
--- NOTE | 2019-09-20 01:11 | NUR ---
CALLED R/T SBP ON IABP AND ART LINE BELOW 90, UPDATE GIVEN INCLUDING V/S, PT AAOx4 CALM DENIES PAIN, NO Sx OF BLEEDING NOTED ALL DRSG'S C/D/I, NO ORDERS RECEIVED FROM AND IS OKAY WITH PT, NO FURTHER AT THIS TIME, WILL CONTINUE TO MONITOR
--- NOTE | 2019-09-20 03:40 | NUR ---
PAGED R/T CONCERNS WITH PT BLOOD PRESSURE ON IABP/ART/NIBP, UPDATE GIVEN, NO NEW ORDERS RECEIVED FROM , WILL CONTINUE TO MONITOR
--- NOTE | 2019-09-20 05:38 | NUR ---
DR. NIÑO CALLED CVICU, ORDERS RECEIVED TO GIVE PREOP MEDS, CONSENTS SIGNED AND IN PT CHART, NO FURTHER AT THIS TIME
--- NOTE | 2019-09-20 05:45 | NUR ---
ORDERS RECEIVED FROM TO STOP HEPRIN DRIP NOW, NO FURTHER AT THIS TIME
[2019-09-20 06:33] LABS: BASOPHILS 0.2 % (0-2); HEMATOCRIT 39.5 % (36.0-48.0); HEMOGLOBIN 12.6 g/dL (12-16); IMMATURE GRANULOCYTES 0.9 % (0-5); LYMPHOCYTES 22.3 % (15-50); MCH 29.9 pg (26.0-34.0); MCHC 31.9 g/dL (31.0-37.0); MCV 93.8 fL (80.0-100.0); MEAN PLATELET VOLUME 9.3 fL (7.4-10.4); MONOCYTES 9.4 % (2-11); NEUTROPHILS 65.2 % (40-80); PLATELET COUNT 265 10x3/uL (130-400); RBC 4.21 10x6/uL (4.00-5.40); RDW 15.6 % (11.5-14.5); WBC 11.3 10x3/uL (4.8-10.8)
[2019-09-20 06:51] LABS: ANION GAP 23.7 mmol/L (8-16); CALCIUM 8.2 mg/dL (8.5-10.1); CARBON DIOXIDE 21.8 mmol/L (21.0-32.0); CREATININE - SERUM 9.6 mg/dL (0.6-1.3); POTASSIUM - SERUM 5.5 mmol/L (3.5-5.1)
--- NOTE | 2019-09-20 07:08 | NUR ---
IABP MEAN 57, CARDIAC INDEX 1.5. LEVOPHED AT 0.07MCG/KG/MIN. DR. EATON NOTIFIED.
--- NOTE | 2019-09-20 12:29 | NUR ---
Nutrition Follow-up: Noted plans for CABG today. woven label designer yesterday. Wt: 238# (09/19); 226# (09/16) Last BM: 09/18 per chart Labs noted: Na 133, K+ 5.5, Glu 158, Ca 8.2 Meds noted: Reglan, Pepcid, Tums, Protonix, Colace, Zofran, Fosrenol, Humalog -Rec resume renal ADA diet following surgery as medically feasible. -Monitor wt. -RD following.
--- NOTE | 2019-09-20 15:00 | NUR ---
PT ARRIVED TO UNIT AT 1450. ON VENT, IABP IN PLACE. RIGHT RADIAL MARGARETTE. MIDSTERSNAL INCISION WITH DRESSING C/D/I. SUBSTERNAL CT X 2 CONNECTED TO 20CM SUCTION. NO AIR LEAK NOTED. LARGE AMOUNT OF BLOODY DRAINAGE NOTED. CHAD DRAIN IN PLACE WITH BLOODY DRAINAGE NOTED. BARAJAS CATHETER IN PLACE. NO URINE NOTED. RIGHT LEG WRAPPED IN COBAND DRESSING. SWAN KAREEM TO LEFT IJ. PLASMOLYTE AT 100, AMIODARONE AT 33.3 ML/HR. BETH AT 0.7MCG/KG/MIN. WRIST RESTRAINTS APPLIED UPON ARRIVAL PER ORDER. CONNECTED TO CLINICAL DOCUMENTATION NURSE. WILL CONTINUE TO MONITOR.
--- NOTE | 2019-09-20 15:12 | NUR ---
IABP MEAN 56-[address] EATON NOTIFIED. ORDERED 1 UNIT PRBCS.
--- NOTE | 2019-09-20 15:30 | NUR ---
PEDAL PULSES NOT AUIDBLE WITH DOPPLER. DR. EATON MADE AWARE.
--- NOTE | 2019-09-20 15:35 | NUR ---
RECEIVED PATIENT TO ROOM CV02 AT APPROX. 1505 AND PLACED ON VENTILATOR. PER DR. EATON WILL NOT TRY AND WEAN OFF VENTILATOR AT THIS TIME. AFTER X-RAY PER DR EATON PULLED ETT TO 19CM. DECREASED FIO2 TO 40% PER ABG RESULTS.
--- NOTE | 2019-09-20 15:36 | NUR ---
BS 259 AT THIS TIME. INSULIN DRIP INITIATED AT 5UNITS/HR PER DR. EATON.
--- NOTE | 2019-09-20 15:38 | NUR ---
2 AMPS OF BICARB GIVEN PER DR. EATON'S ORDERS.
[2019-09-20 15:39] LABS: INR 1.26 (0.85-1.17); PROTIME 15.7 SECONDS (11.6-15.0)
[2019-09-20 15:40] LABS: HEMATOCRIT 31.1 % (36.0-48.0); HEMOGLOBIN 9.9 g/dL (12-16); MCH 29.1 pg (26.0-34.0); MCHC 31.8 g/dL (31.0-37.0); MCV 91.5 fL (80.0-100.0); MEAN PLATELET VOLUME 8.7 fL (7.4-10.4); PLATELET COUNT 261 10x3/uL (130-400); RDW 16.6 % (11.5-14.5)
--- NOTE | 2019-09-20 16:00 | NUR ---
PT REMAINS HYPOTENSIVE. CARDIAC INDEX 1.5. 250ML BOLUS TO BE GIVEN OVER [address] EATON.
--- NOTE | 2019-09-20 16:19 | NUR ---
1 AMP BICARB GIVEN PER DR. EATON.
[2019-09-20 16:28] LABS: EOSINOPHILS 1 % (0-7); LYMPHOCYTES 9 % (15-50); MONOCYTES 3 % (2-11); NEUTROPHILS 87 % (40-80); PLATELET ESTIMATE NORMAL
--- NOTE | 2019-09-20 16:34 | NUR ---
BLOOD GLUCOSE 249. INSULIN INCREASED TO 10UNITS.
--- NOTE | 2019-09-20 16:58 | NUR ---
250CC FROM CHEST TUBES NOTED AT THIS TIME. DR. EATON NOTIFIED. ORDERED 1 UNIT FFP, 250 BOLUS OVER 1HR, AND 1 AMP BICARB TO BE GIVEN OVER 3MIN.
--- NOTE | 2019-09-20 17:16 | NUR ---
BLOOD GLUCOSE 205. INSULIN DRIP INCREASED TO 11.5 PER SLIDING SCALE.
--- NOTE | 2019-09-20 17:16 | NUR ---
BS 205; INSULIN INCREASED TO 11.5 PER PROTOCOL.
--- NOTE | 2019-09-20 17:22 | NUR ---
IABP MEAN 45. DR. EATON NOTIFIED. 2 UNITS PRBC'S ORDERED. 1 AMP OF CALCIUM ORDERED.
--- NOTE | 2019-09-20 18:20 | NUR ---
CHEST TUBE CANISTER CHANGED AT THIS TIME.
--- NOTE | 2019-09-20 18:30 | NUR ---
IABP MEAN 75. BLOOD INFUSING. UP DATE GIVEN TO DR. EATON. ORDERED TO WEAN LEVOPHED.
--- NOTE | 2019-09-20 19:08 | NUR ---
IABP 57, CARDIAC INDEX 1.5, LEVOPHED AT 0.07MCG/KG/MIN. DR. EATON NOTIFIED. ABG'S ORDERED.
--- NOTE | 2019-09-20 19:16 | NUR ---
NOTIFIED DR. EATON OF [facility]. ORDERED 1 G CALCIUM. ORDERED 2 UNITS PRBC'S TO BE INFUSED OVER 1HR.
--- NOTE | 2019-09-20 19:50 | NUR ---
REPORT RECEIVED, SHIFT ASSESSMENT COMPLETED PER FLOW SHEET, SEE FOR DETAILS. INFORMED BY DAY SHIFT RN Dain PAZ THAT DR. EATON AWARE OF BLOOD CLOTS IN LEFT CHAD DRAIN, HE IS AWARE OF ABSENT PEDAL PULSES, AND PER DR. EATON ORDERS KEEP IABP MEAN 60 OR GREATER.
--- NOTE | 2019-09-20 21:59 | NUR ---
SPOKE TO DR. EATON, INFORMED HIM OF PATIENT'S STATUS, VITAL SIGNS, IABP, CI/CO, IV DRIPS AND I&0'S REVIEWED, NEW ORDERS RECEIVED FOR 200 ML NS BOLUS WHILE WAITING ON BLOOD PRODUCTS, 1 AMP OF BICARB-50 MEQ, SEE ORDERS FOR DETAILS. 2200 [address] ML [address]ING PER [address]. EATON'S ORDERS. 2300 REASSESSMENT COMPLETED PER FLOW SHEET, SEE FOR DETAILS. 0100 NO ACUTE DISTRESS NOTED, WILL CONTINUE TO MONITOR. 0300 REASSESSMENT COMPLETED PER FLOW SHEET, SEE FOR DETAILS. 0500 SUBSTERNAL DRESSING CHANGED, TOLERATED WELL, WILL CONTINUE TO MONITOR.
[2019-09-21] VITALS (86 sets, daily range): BP systolic 86–135; BP diastolic 31–79
--- NOTE | 2019-09-21 04:50 | NUR ---
SPOKE TO DR. EATON, UPDATED HIM ON PATIENT'S STATUS, INFORMED HIM OF RECENT ABG'S, VITAL SIGNS, IV DRIPS, CI/CO, IABP, I&O'S, NEW ORDERS FOR 1 AMP OF BICARB-50 MEQ, CONTINUE TO TITRATE LEVOPHED, AND ABG IN 1 HR.
[2019-09-21 05:21] LABS: BASOPHILS 0.1 % (0-2); EOSINOPHILS 0.1 % (0-7); HEMOGLOBIN 9.3 g/dL (12-16); LYMPHOCYTES 3.5 % (15-50); MCH 29.2 pg (26.0-34.0); MCHC 34.4 g/dL (31.0-37.0); MEAN PLATELET VOLUME 9.1 fL (7.4-10.4); MONOCYTES 8.2 % (2-11); NEUTROPHILS 87.1 % (40-80); RBC 3.19 10x6/uL (4.00-5.40); WBC 15.2 10x3/uL (4.8-10.8)
[2019-09-21 05:38] LABS: MCV 84.6 fL (80.0-100.0); PLATELET COUNT 142 10x3/uL (130-400)
--- NOTE | 2019-09-21 06:15 | NUR ---
SPOKE TO DR. EATON, UPDATED HIM ON PATIENT'S STATUS, ORDERS RECEIVED TO GIVE 1 AMP OF BICARB-50 MEQ.
[2019-09-21 07:38] LABS: ALBUMIN 2.7 g/dL (3.4-5.0); ANION GAP 29.2 mmol/L (8-16); BILIRUBIN - TOTAL 0.58 mg/dL (0.2-1.3); CALCIUM 8.8 mg/dL (8.5-10.1); CARBON DIOXIDE 21.3 mmol/L (21.0-32.0); CREATININE - SERUM 8.5 mg/dL (0.6-1.3); POTASSIUM - SERUM 5.5 mmol/L (3.5-5.1)
--- NOTE | 2019-09-21 09:20 | OP ---
PATIENT NAME: RENEE HELM MEDICAL RECORD: [id number] :48 LOCATION:D.CVI D.CV02 ADMISSION DATE:09/17/19 SURGEON: LUIS EATON MD DATE OF OPERATION: 09/20/2019 SURGEON: Luis Eaton MD PROCEDURE: 1. Coronary artery bypass graft times 3 (left internal mammary to LAD, reverse saphenous vein graft from aorta to first diagonal and aorta to distal PDA). 2. Endoscopic saphenous vein harvest. PREOPERATIVE DIAGNOSES: Coronary artery disease including severe left main stenosis, myocardial infarction, and chronic kidney failure, on hemodialysis. ANESTHESIA: General endotracheal anesthesia. ESTIMATED BLOOD LOSS: Total cardiopulmonary bypass with Cell Saver retransfusion, 1 packed red blood cells 2, platelets, 2 FFP. COMPLICATIONS: Coagulopathy. SPECIMENS: None. CONDITION: Critical. DISPOSITION: ICU. OPERATIVE FINDINGS: 1. Good quality greater saphenous vein harvested endoscopically right lower extremity. 2. Good quality left internal mammary artery. There was somewhat thin walled and a relatively restrictive chest. 3. Large right heart as expected in a patient on hemodialysis with left upper extremity arteriovenous fistula. 4. Transesophageal echocardiography with 2+ mitral regurgitation, 1+ tricuspid regurgitation, 40% ejection fraction with septal dyskinesis. Prior cardiopulmonary bypass slightly improved septal wall motion after bypass of the LAD. 5. Severe disease all vessels throughout with anastomosis only in the mid portion of the LAD where the wall still had some eggshell type calcification, in one site of the diagonal, and at the very distal and deep intramyocardial portion of the PDA. The obtuse marginal was completely calcified top to bottom and no site for distal anastomosis. 6. LAD 2.0 intramyocardial. 7. First diagonal 1.5 mm. 8. Distal posterior descending artery 1.5 and deep intramyocardial. OPERATIVE INDICATION: Coronary artery disease, myocardial infarction. DESCRIPTION OF PROCEDURE: The patient was brought to the operating suite. General anesthesia was obtained, the patient was prepped and draped. Greater saphenous vein harvested endoscopically, right lower extremity. Side branch divided with electrocautery. Vessel was ligated proximally and distally, removed. Side branches were clipped or tied and made ready for anastomosis. OPERATIVE REPORT [id number] RENEE HELM The leg was irrigated and closed in 2 layers. Medial sternotomy incision was made. Subcutaneous tissue was divided by electrocautery. The sternum was divided with a saw. The left hemisternum was elevated. Left pleural cavity was entered. The left internal mammary vein was taken as a pedicle graft. Sternal retractor was placed. Pericardium was opened. Heparin was given. Aorta was cannulated. Dual stage venous cannula was inserted. Activated clotting time was appropriately elevated. The patient was placed on cardiopulmonary bypass. The sites for distal anastomoses were selected. The internal mammary was clipped distally and made ready for anastomosis. Antegrade cardioplegic cannula was inserted. The patient was cooled. Crossclamp was placed. Cardioplegia was given antegrade and this was repeated at 15-minute intervals including down the completed vein grafts. Distal anastomosis was performed in standard technique. Proximal anastomosis with single cross-clamp technique. Aorta root was deaired. Proximal anastomoses tied down. The vein graft deaired. The proximal and distal anastomosis sites inspected for bleeding. Some bleeding from the intramyocardial portion of the posterior descending artery. The patient with good Doppler signal, fully rewarmed, weaned from cardiopulmonary bypass and was stable. The patient was decannulated. The cannula sites were oversewn. Protamine was given. Thorough irrigation was undertaken. A long period of observation due to coagulopathy and platelets and FFP were given. A drain was placed in the mediastinum and left pleural cavity. Pericardial fat was approximated over the great vessels. Internal mammary harvest site inspected for bleeding. The left chest was evacuated and irrigated with the chest closed and stable. Fascia was closed. Subcutaneous tissue was closed. Skin was closed with clips. The patient to CV ICU. TRANSINT:[id number] Voice Confirmation ID: [id number] DOCUMENT ID: [id number] LUIS EATON MD at 0920 CC: ALESSIA JENSEN M.D. [id number] DICTATION DATE: 09/20/19 1555 DIRECTOR OF CLOUD SERVICES: 09/21/19 0043 ADM IN [facility] [address] [id number]
[2019-09-21 10:35] LABS: INR 1.34 (0.85-1.17); PROTIME 16.5 SECONDS (11.6-15.0)
--- NOTE | 2019-09-21 11:29 | NUR ---
0700-RECIEVED PT PER FLOW SHEET-RESPONDS TO VERBAL-R GROING IABP IN PLACE-SITE INTACT-1;1-R RADIAL MARGARETTE TO MONITOR-EVANS SERNA TO REINFORCING ROD LAYER MONITOR 0715-ABG DRAWN-CHEMISTRY REDRAWN -RESULTS SENT TO DR EATON 0800-DR EATON AT BEDSIDE-BROUGHT DAUGHTER TO BEDSIDE REQUESTED BY DR EATON-CURRENT CONDITION AND PLANNED COURSE OF ACTION OUTLINED BY DR EATON-BENEFIT TO PT -CONSENTS OBTAINED FROM DAUGHTER FOR EXPLORATION OF CHEST 899-DR KIM AT BEDSIDE-SPOKE WITH DR EATON -D50W 10UNITS OF INSULIN AND 1 AMP OF CAGLUCONATE GIVEN DIRECTED 0945-PT TO OR WITH CARDIAC OR TEAM-BAGGED 100%-AIR OVERLAY ORDERED
--- NOTE | 2019-09-21 12:25 | NUR ---
Nutrition Follow-up: Intubated. POD 1 CABG. Noted plans to return to OR today for washout. Diet: NPO Wt: 257.9# (09/20); 238# (09/19); 226.6# (09/16); noted I/Os (+1936.6 cc on 09/19) Last BM: 09/18 per chart Labs noted: Na 146, K+ 5.5, Glu 201, Alb 2.7 Meds noted: Levophed, Diprivan, Calcium Chloride, Sodium Bicarbonate -If pt remains intubated, rec initiate support within 24-48 hrs if [address]. RD available for assistance if needed. -Monitor wt. -RD following.
[2019-09-21 13:37] LABS: BASOPHILS 0.1 % (0-2); EOSINOPHILS 0.1 % (0-7); IMMATURE GRANULOCYTES 0.8 % (0-5); LYMPHOCYTES 7.9 % (15-50); MCH 29.8 pg (26.0-34.0); MCHC 34.5 g/dL (31.0-37.0); MCV 86.4 fL (80.0-100.0); MEAN PLATELET VOLUME 9.3 fL (7.4-10.4); MONOCYTES 7.6 % (2-11); NEUTROPHILS 83.5 % (40-80); RBC 3.76 10x6/uL (4.00-5.40); RDW 16.2 % (11.5-14.5)
[2019-09-21 13:39] LABS: HEMATOCRIT 32.5 % (36.0-48.0); HEMOGLOBIN 11.2 g/dL (12-16); PLATELET COUNT 64 10x3/uL (130-400); WBC 19.2 10x3/uL (4.8-10.8)
[2019-09-21 13:52] LABS: ALBUMIN 2.7 g/dL (3.4-5.0); ANION GAP 22.9 mmol/L (8-16); BILIRUBIN - TOTAL 0.63 mg/dL (0.2-1.3); CALCIUM 9.3 mg/dL (8.5-10.1); CARBON DIOXIDE 25.1 mmol/L (21.0-32.0); CREATININE - SERUM 7.9 mg/dL (0.6-1.3); PROTEIN - SERUM 5.2 g/dL (6.4-8.2)
[2019-09-21 14:19] LABS: PLATELET ESTIMATE DECREASED
--- NOTE | 2019-09-21 16:23 | NUR ---
1230-RECIEVED FROM OR WITH HEART TEAM-PLACED TO VENT-A/C 14 550 60%-PT ABLE TO RESPOND TO VERBAL STIMULI-L IJ PLACED TO SETTER OFF SG--IABP IN SITU-1:1-R PP WITH DOPPLER-NOTED GENERALIZED EDEMA TO ALL EXTREMITIES EPINEPHRINE GTT TITRATED TO 0.019MCG PER MEAN PARAMETER-65 1300-EPINEPHRINE GTT TIT
--- NOTE | 2019-09-21 17:18 | NUR ---
1600-FAMILY AT BEDSIDE-EXPRESSED CONCERN REGARDING VENT AND PT COUGHING AGAINST VENT-DAUGHTER STATED PT HAS OBSTRUCTIVE APNEA-PT ON AIR MATTRESS AND REVERSE TRENDELENBURG OF 10 10 DEGREES-ATTEMPTED TO PLACE PILLOW BEHIND HEAD-PEAK VENT PRESSURES INCREASED FROM 24 TO 36-REMOVED PILLOW WITH PEAK RETURN TO 26-POOR UNDERSTANDING FROM FAMILY MEMBER-STRESSED ET TUBE IS OPEN TUBE-NO CHANCE OF OBSTRUCTION FROM SLEEP OBSTRUCTION DISORDER-NOTED AN OBSTRUCTION WHEN HEAD ON PILLOW-CAUSING KINK OR BEND IN TUBING
--- NOTE | 2019-09-21 19:10 | NUR ---
REPORT REC'D AND CARE ASSUMED, REC'D PT SEDATED ON VENT, WILL OPEN EYES TO VERBAL STIMULI, NODS HEAD YES AND NO APPROPRIATELY, GENERALIZED EDEMA 2-3+ EDEMA, SCLERAL EDEMA NOTED, ON VENT VIA 7.5 ETT TAPED SECURELY @ 22CM LIPLINE, SEE FLOWSHEET FOR VENT SETTINGS, CM-SR @ 95, MIDSTERNAL DRSG CDI, LIJ SWAN KAREEM WITH CORDIS MANNIFOLDS TO PROXIMAL INJECTATE WITH PLASMALYTE @ 100CC/HR, INSULIN @ 3 UNITS/HR, NEXTERONE @ 0.5 MG/MIN OR 16.7CC/HR, DIPRIVAN @ 5MCG/KG/MIN OR 3.2CC/HR, AND EPINEPHRINE 0.02 MCG/KG/MIN OR 13CC/HR, RIGHT RADIAL MARGARETTE WITH FLEXION BOARD IN USE, LINE LEVELED AND ZEROED WITH RETURN OR APPROPRIATE WAVEFORM, MEDIASTINAL CT'S X 2 AND LEFT SUBSTERNAL CHAD DRAIN COMPRESSED WITH SEROSANGUINOUS DRAINAGE, CT'S TO 20CM H2O SUCTION, NO AIR LEAK NOTED, ABD ROUND BS ABSENT, RIGHT GROIN IABP 1:1 WITH ECG TRIGGER, DRSG CDI NO BLEEDING OR HEMATOMA NOTED, COBAN DRSG INTACT TO RIGHT LEG, BARAJAS PATENT WITH NO DRAINAGE NOTED, PT WITH ESRD, LEFT UPPER ARM FISTULA, AUDIBLE BRUIT, RADIAL PULSES WEAK TO PALPATION, LOWER EXT'S COOL TO TOUCH, PULSES INTERMITTENT WITH DOPPLER, AIR OVERLAY MATTRESS IN USE, BILAT SOFT WRIST RESTRAINTS INTACT, 1:1 NURSING IN USE.
[2019-09-21 19:11] LABS: HEMATOCRIT 31.6 % (36.0-48.0); MCH 29.6 pg (26.0-34.0); MCHC 34.8 g/dL (31.0-37.0); MCV 85.2 fL (80.0-100.0); MEAN PLATELET VOLUME 9.5 fL (7.4-10.4); RBC 3.71 10x6/uL (4.00-5.40); WBC 19.5 10x3/uL (4.8-10.8)
[2019-09-21 19:23] LABS: ANION GAP 27.7 mmol/L (8-16); CALCIUM 9.1 mg/dL (8.5-10.1); CARBON DIOXIDE 22.8 mmol/L (21.0-32.0); CREATININE - SERUM 8.2 mg/dL (0.6-1.3); MAGNESIUM - SERUM 2.7 mg/dL (1.8-2.4); PHOSPHOROUS 7.1 mg/dL (2.5-4.9); POTASSIUM - SERUM 5.5 mmol/L (3.5-5.1)
--- NOTE | 2019-09-21 20:15 | NUR ---
FAMILY @ BS, UPDATE GIVEN AND QUESTIONS ANSWERED.
--- NOTE | 2019-09-21 21:00 | NUR ---
EVENING MEDS GIVEN, PT REPOSITIONED FOR COMFORT, ORAL CARE PROVIDED, FAMILY AT BS INTERMITTENTLY FOR UPDATES.
--- NOTE | 2019-09-21 21:31 | MORECARE ---
CASE MANAGEMENT DISCHARGE SUMMARY PATIENT: RENEE HELM UNIT: [id number] ADM DATE: 09/17/19 AGE: 69 : 49 SEX: F ROOM/BED: [facility] [place] AUTHOR: DILEEP RAMIREZ PHYSICIAN: REFERRING PHYSICIAN: BARBARA MAC MD DATE OF SERVICE: 09/21/19 Discharge Plan Patient Name: RENEE HELM [facility] [facility] 1950 Planned Disposition: Anticipated Discharge Date: Discharge Date: Expected LOS: Initial Reviewer: [email or web address] Initial Review Date: 09/17/2019 Generated: 09/21/19 10:30 pm Patient Name: RENEE HELM Page [phone] at 2131 All edits/amendments must be made on the electronic document DICTATION DATE: 09/21/192129 SELF RISING FLOUR MIXER: EDWAR 09/21/192129 RPT#: [id number] DC DATE: STATUS: ADM IN [facility] [address] [place] [address] END OF REPORT
--- NOTE | 2019-09-21 21:37 | MORECARE ---
CASE MANAGEMENT DISCHARGE SUMMARY PATIENT: RENEE HELM UNIT: [id number] ADM DATE: 09/17/19 AGE: 69 : 49 SEX: F [facility] AUTHOR: DILEEP RAMIREZ PHYSICIAN: REFERRING PHYSICIAN: BARBARA MAC MD DATE OF SERVICE: 09/21/19 Discharge Plan Patient Name: RENEE HELM [facility] : 1950 Planned Disposition: Anticipated Discharge Date: Discharge Date: Expected LOS: Initial Reviewer: [email or web address] Initial Review Date: 09/17/2019 Generated: 09/21/19 10:37 pm DCPIA - Discharge Planning Initial Assessment Updated by [email or web address]: Lesia Hernandez on 09/21/19 9:32 pm * How many steps to enter\exit or inside your home? * PCP SINDI RYDER * [facility]acy [facility] * Preadmission Environment Home with Family * ADLs Independent * Equipment CPAP * Other Equipment W/C, WALKER * List name and contact numbers for known caregivers / representatives who currently or will assist patient after discharge: ANNMARIE HELM - DAUGHTER- [phone] * Verbal permission to speak to the caregivers and representatives has been obtained from the patient. N/A * Community resources currently utilized None * Additional services required to return to the preadmission environment? No * Can the patient safely return to the preadmission environment? Yes * Has this patient been hospitalized within the prior 30 days at any hospital? No Last DP export: 09/21/19 8:31 pm Patient Name: RENEE HELM Page [phone] at 2137 All edits/amendments must be made on the electronic document DICTATION DATE: 09/21/192136 ACCOUNTS PAYABLE REPRESENTATIVE: EDWAR 09/21/192136 RPT#: [id number] DC DATE: STATUS: ADM IN [facility] [address] [place] [address] END OF REPORT
--- NOTE | 2019-09-21 21:51 | MORECARE ---
CASE MANAGEMENT DISCHARGE SUMMARY PATIENT: RENEE HELM UNIT: [id number] ADM DATE: 09/17/19 AGE: 69 : 49 SEX: F ROOM/BED: [facility] AUTHOR: ASHLEY,DOC PHYSICIAN: REFERRING PHYSICIAN: BARBARA MAC MD DATE OF SERVICE: 09/21/19 Discharge Plan Patient Name: RENEE HELM Facility: [facility]:[place] : 1950 Planned Disposition: Anticipated Discharge Date: Discharge Date: Expected LOS: Initial Reviewer: [email or web address] Initial Review Date: 09/17/2019 Generated: 09/21/19 10:50 pm Comments DCP- Discharge Planning Updated by [email or web address]: Lesia Hernandez on 09/21/19 8:[address] Patient Name: RENEE HELM Admission Status: ER Accout number: [id number] Admission Date: 09-17-2019 : 1950 Admission Diagnosis: Attending: BARBARA MAC Current LOS: 4 Anticipated DC Date: Planned Disposition: Primary Insurance: MEDICARE A & B Discharge Planning Comments: CM met with patient's daughter Grzegorz to complete initial dc planning assessment. CM educated Grzegorz on the CM role and verbal consent given by patient to complete assessment. Patient lives at home with her daughter and spouse where she is partially dependent with her care. CM discussed with daughter Inpatient rehab options SHERRY signed for [facility] CM discussed availability of home health, rehab services, and medical equipment. Patient has dialysis MWF in [place] @ 0600. Patient's daughter transports her. Patient's daughter uncertain of discharge needs at this time. CM will continue to follow and will assist as needed with dc plans/needs. Instrument Checker: Lesia Hernandez DCPIA - Discharge Planning Initial Assessment Updated by [email or web address]: Lesia Hernandez on 09/21/19 9:32 pm * How many steps to enter\exit or inside your home? * PCP SINDI RYDER * Pharmacy [facility] * Preadmission Environment Home with Family * ADLs Independent * Equipment CPAP * Other Equipment W/C, WALKER * List name and contact numbers for known caregivers / representatives who currently or will assist patient after discharge: GRZEGORZ HELM - DAUGHTER- [phone] * Verbal permission to speak to the caregivers and representatives has been obtained from the patient. N/A * Community resources currently utilized None * Additional services required to return to the preadmission environment? No * Can the patient safely return to the preadmission environment? Yes * Has this patient been hospitalized within the prior 30 days at any hospital? No Last DP export: 09/21/19 8:37 pm Patient Name: RENEE HELM Page [phone] at 2151 All edits/amendments must be made on the electronic document DICTATION DATE: 09/21/192149 PLASTIC FABRICATOR: EDWAR 09/21/192149 RPT#: [id number] DC DATE: STATUS: ADM IN [facility] [address] [place] [address] END OF REPORT
--- NOTE | 2019-09-21 22:05 | NUR ---
DR. VIGIL AT BS, INFORMED OF DECREASED MEAN 58-60, VERBAL ORDER REC'D TO RESUME NEOSYNEPHRINE TO MAINTAIN MEAN GREATER THAN 60.
--- NOTE | 2019-09-21 23:00 | NUR ---
REASSESSMENT COMPLETED, TITRATING INSULIN FOR EFFECT, BP IMPROVED AFTER NEOSYNEPRHINE RESUMED, WILL MONITOR CLOSELY FOR CHANGES.
[2019-09-22] VITALS (99 sets, daily range): BP systolic 77–138; BP diastolic 35–65
--- NOTE | 2019-09-22 01:24 | NUR ---
NO CHANGES IN STATUS AT THIS TIME, GLUCOSE 145, INSULIN CONTINUES @ 4 UNITS/HR WILL CONT TO MONITOR CLOSELY FOR CHANGES.
[2019-09-22 06:08] LABS: HEMATOCRIT 29.1 % (36.0-48.0); MCH 29.3 pg (26.0-34.0); MCHC 34.4 g/dL (31.0-37.0); MCV 85.3 fL (80.0-100.0); MEAN PLATELET VOLUME 9.4 fL (7.4-10.4); PLATELET COUNT 71 10x3/uL (130-400); RBC 3.41 10x6/uL (4.00-5.40); RDW 16.4 % (11.5-14.5); WBC 22.9 10x3/uL (4.8-10.8)
[2019-09-22 06:10] LABS: ALBUMIN 2.5 g/dL (3.4-5.0); ANION GAP 20.3 mmol/L (8-16); BILIRUBIN - TOTAL 0.85 mg/dL (0.2-1.3); CALCIUM 8.5 mg/dL (8.5-10.1); CARBON DIOXIDE 26.7 mmol/L (21.0-32.0); CREATININE - SERUM 8.5 mg/dL (0.6-1.3)
[2019-09-22 07:16] LABS: ANISOCYTOSIS 1+; LYMPHOCYTES 7 % (15-50); MONOCYTES 8 % (2-11); NEUTROPHILS 82 % (40-80); PLATELET ESTIMATE DECREASED
--- NOTE | 2019-09-22 09:39 | NUR ---
0800-DAUGHTER AT BEDSIDE-NOTED PT MADE STRONG EFFORT-DEMONSTRATED BY FACIAL MOVEMENT TO WAKE UP-PT POSITIONED TO SUPINE/REVERSE TREDELENBERG 10DEGREES-MARKED UPPER TORSO EDEMA 0900-R RADIAL BLOOD CULTURE SENT
--- NOTE | 2019-09-22 09:48 | NUR ---
DR VIGIL CALLED UNIT-ORDER GIVEN TO CHANGE IABP 1:2-SAME DONE-1 PLATELET UNIT ORDERED DIRECTED
--- NOTE | 2019-09-22 17:51 | NUR ---
1140-DR VIGIL AT BEDSIDE-DIRECTED TO GIVE PLATELET UNIT FOR PRE PROCEDURAL REMOVAL OF IABP-SETTING CHANGED TO 1:[address] VIGIL-R PP WITH DOPPLE ONLY WARM TO TOUCH-PLATELET UNIT STARTED VIA L JUGULAR 1215-DR VIGIL AT BEDSIDE-R GROIN DRG REMOVED AND PENICULUM SECURED FOR CLEAR VIEW OF R FEM ENTRY POINT-DIPRIVAN TITRATED TO 40MCG-TO PREVENT MOVEMENT BY PT -AND PREVENTION OF HIGH RISK R FEMEROL HEMATOMA-FEMSTOP PLACED PER DIRECTION OF DR VIGIL-IABP PLACED ON HOLD 1230-IABP PULLED AND FEMSTOP PLACED AT 60MMHG-LOSS OF PP WITH DOPPLER-DECREASED PRESSURE TO 55HG-WITH RETURN OF PP WITH DOPPLER-HEMOSTASIS OBTAINED AT GROIN ENTRY SITE-FEMSTOP REMAINS IN FLATED -PT KARIN 1 DIRECTED-DR MCKINLEY AT BEDSIDE-STATUS REPORT GIVEN-DR ARNOLD AT BEDSIDE -STATUS REPORT GIVEN 1245-PP WITH DOPPLER -NO HEMATOMA OR SANG DRAINAGE-FEMSTOP DECREASED TO 50MMHG 1300-PP WITH DOPPLER -NO HEMATOMA /SANG DRAINAGE-FEMSTOP DECREASED TO 45-KARIN AT 1-PT REMAINS FLAT [id number]-[id number]-CN WITH DOP.-NO HEMATOMA/SANG-DECREASED TO 40 1330-PP WITH DOPPLER-FEMSTOP DECREASED TO 35-SITE REMAINS STABLE-1345 SITE RDKYOG-FIWIGZVWG-YEPLRZJDM TO 30 1400-PPD -SITE STABLE -FEMSTOP REMAINS AT 30-TO PROVIDE SPLINTING AGAINST FREQUENT UQRWXSOA-1622-RACDR 1-NO FURTHER COUGHING AT THIS TIME-SITE STABLE PP WITH DOPPLER-DECREASED TO 20-1445DIALYSIS SET UP IN PROGRESS-NEOSYNEPHRINE STARTED AT 0.1 FOR BP SUPPORT DURING DIALYSIS-MEAN 74 1500-FAMILY AT [facility] -CONCERNS ADDRESSED -OUTLINED INTENT FOR DIALYSIS-NEED FOR INCREASED SEDATION FEMSTOP USAGE AND PURPOSE-GOAL REMOVAL FOR DIALYSIS VOLUME-1515DIALYSIS MUBYLBURD-9933-RMGADNHIDXKZK INCREASED TO 0.2-TO MAINTAIN MEAN OF 66-RPP WITH DOPPLER-FEMSTOP SITE STABLE AND DECREASED TO 10-KARIN 1 1600-DR MCKINLEY CALLED UNIT REGARDING CURRENT STATUS AND COURSE OF ACTION-DIALYSIS CONTINUED NEOSYNEPHRINE TITRATED TO 0.3 TO MAINTAIN PARAMETER OF >60 MEAN NOTED SVR 863-9148-KNSPPUAXGENBF TITRATED TO .4-MAINTAIN PARAMETER 1630-DIALYSIS IN PROGRESS-FEMSTOP BELT REMAINS ON SPLINT FOR FREQUENT COUGH-SITE REMAINS STABLE-NEOSYNEPHRINE GTT TITRATED TO 0.5 --SVR 998-MEAN 83-0617-EOJXFLVKMNXMH AT 0.6-R GROIN SITE REMAINS STABLE-KARIN 1 1715-GROIN STABLE -PP WITH RPQWPXY-1596-PXFGYWLS CONTINUED-BETH TITRATED TO 0.8 1815-BETH TITRATED TO 0.9 DIALYSIS IN PROGRESS R PPD -R GROIN SITE STABLE FEM STOP BELT REMAINS IN PLACE SPLINT-KARIN 1 182-DIALYSIS COMPLETED-RESP RX STARTED -SUCTIONED FOR COPIOUS AMOUNT OF YELLOW MUCOUS-US AT BEDSIDE FOR REPEAT DVT ASSESSMENT 60
--- NOTE | 2019-09-22 19:00 | NUR ---
PT ASSESSMENT COMPLETED AT THIS TIME, NO CHANGES NOTED FROM NURSE REPORT, PT SEDATED ON VENT SUPPORT, PT WILL REPSOND TO LIGHT STIMULATION, NURSE REPORT VSS MORE STABLE WITH TITRATION OF BETH-SYNEPHRINE DRIP, WILL MONITOR AND TITRATE MEDS ORDERED
--- NOTE | 2019-09-22 21:05 | NUR ---
DR VIGIL CALLED AND UPDATED ON PATIENTS COND, NEW ORDERS GIVEN FOR ABG, AND TO CALL BACK WITH RESULTS
--- NOTE | 2019-09-22 23:00 | NUR ---
PT REASSESSMENT COMPLETED AT THIS TIME, NO CHANGES NOTED FROM PREVIOUS EXAM, VSS MORE STABLE AT THIS TIME, WILL MONITOR FOR CHANGES
[2019-09-23] VITALS (88 sets, daily range): BP systolic 85–148; BP diastolic 38–93
--- NOTE | 2019-09-23 01:00 | NUR ---
PT SEDATED ON VENT SUPPORT, NO CHANGES NOTED, WEANING OFF BETH-SYNEPHRINE AT THIS TIME, VSS, WILL MONITOR FOR CHANGES
--- NOTE | 2019-09-23 03:00 | NUR ---
PT REASSESSMENT COMPLETED AT THIS TIME, NO CHANGES NOTED FROM PREVIOUS EXAM, VSS, WILL MONITOR FOR CHANGES
[2019-09-23 06:23] LABS: BASOPHILS 0 % (0-2); EOSINOPHILS 0.3 % (0-7); HEMATOCRIT 26.5 % (36.0-48.0); HEMOGLOBIN 8.8 g/dL (12-16); IMMATURE GRANULOCYTES 0.9 % (0-5); LYMPHOCYTES 7.3 % (15-50); MCH 29.6 pg (26.0-34.0); MCHC 33.2 g/dL (31.0-37.0); MCV 89.2 fL (80.0-100.0); MEAN PLATELET VOLUME 10.3 fL (7.4-10.4); MONOCYTES 8.4 % (2-11); NEUTROPHILS 83.1 % (40-80); PLATELET COUNT 121 10x3/uL (130-400); RBC 2.97 10x6/uL (4.00-5.40); WBC 21.3 10x3/uL (4.8-10.8)
[2019-09-23 06:44] LABS: ANION GAP 18.9 mmol/L (8-16); BILIRUBIN - TOTAL 0.92 mg/dL (0.2-1.3); CALCIUM 8.7 mg/dL (8.5-10.1); CARBON DIOXIDE 28.5 mmol/L (21.0-32.0); MAGNESIUM - SERUM 2.5 mg/dL (1.8-2.4); POTASSIUM - SERUM 4.4 mmol/L (3.5-5.1); PROTEIN - SERUM 5.7 g/dL (6.4-8.2)
[2019-09-23 06:46] LABS: ALBUMIN 3.3 g/dL (3.4-5.0); CREATININE - SERUM 6.1 mg/dL (0.6-1.3)
--- NOTE | 2019-09-23 18:38 | NUR ---
0715-COMPLETE AM CARE DONE-LIFTING PAD PLACED BEHIND PT--URINE SENT FOR C AND S-SPUTUM SENT FOR C AND S-CHEST TUBE DRG CHANGED-PER ORDER-PACER WIRES INTACT-CHEST TUBES X3 IN PLACE AND SECURED WITH SUTURE-L LATERAL CHAD IN PLACE-DIPRIVI AT 40MCG-KARIN AT 1-R FEMSTOP BELT REMOVED-BETADINE AND OPSITE PLACED- 929-RADIOLOGY CALLED UNIT STATED PT SCHEDULED NOW FOR IVC FILTER 939-DR MCKINLEY CALLED UNIT AND GAVE ORDER FOR IVC FILTER WITH DR MEDLEY-DAUGHTER CALLED WITH UPDATE AND CURRENT PLAN-CONSENT OBTAINED 1010-DAUGHTER AT BEDSIDE-GIVEN PAPER INFO FOR IVC FILTER AND BENEFIT VERSUS RISK-BENEFIT OUT [place] RISK OF CRITICAL TRANSPORT TO SPECIAL SUITE-DR MEDLEY CALLED UNIT WITH ORDER TO GIVE 200MG HYDROCORTISONE IV STAT AND 50MG BENEDRYL 1040-PT TRANSPORTED ON PORT VENT AND MONITOR TO SPECIAL WITH RRTX2-RNX2 RESP THERAPIST X2-PLACED ON SPECIAL TABLE AND MONITORED BY SAME-DR MCKINLEY AND GALINDO PRESENT AND SPOKE WITH DAUGHTER REGARDING PROCEDURE AND ADDITIONAL PLANNED IFFAKVFZGH-6922-VHKBJMEG TO CV2-PLACED TO MONITORS-NO CHANGE IN IV GTSS-R GROIN USED FOR INSERTION-SOFT TO TOUCH NO YEPEKUSW-1623-FH WARREN AT BEDSIDE-STATUS REPORT GIVEN -AGREED WITH DR ARNOLD PLAN TO DIALYSIS 3-4L TODAY WELL-R GROIN SOFT TO LBFEM-UHYS-5804-DR MCKINLEY AT BEDSIDE -BRONCH STARTED--SEE PAPER NOTE OF DR MCKINLEY FOR NCKOYKWG-3261-VYBNHNMP STARTED AT UEPTTTJ-3447-EVCF-77-INSULIN GTT TURNED OFF 1600-TOLERATING DIALYSIS WELL NEOSYNEPHRINE-TITIRATED FOR MEAN >07-7838-CCVVKXZS COMPLETED-LAB DRAWN FOR VANCOMYCIN R LEVEL ORDERED BY DR ARNOLD-NEOSYNEPHRINE AT 0.5
--- NOTE | 2019-09-23 19:00 | NUR ---
PT ASSESSMENT COMPLETED AT THIS TIME, NO CHANGES NOTED FROM NURSE REPORT, VSS STABLE WITH TITRATION OF BETH-SYNEPHRINE, PT SEDATED ON VENT SUPPORT, ARTIERAL LINE TO RIGHT WRIST, SWAN GIOVANNAUNZ TO LEFT IJ, WILL MONITOR FOR CHANGES
--- NOTE | 2019-09-23 21:00 | NUR ---
PT'S FAMILY AT BEDSIDE AND UPDATED ON PATIENTS COND. VSS, ON VASSOPRESSORS, WILL MONITOR FOR CHANGES
--- NOTE | 2019-09-23 23:00 | NUR ---
PT REASSESSMENT COMPLETED AT THIS TIME, PT SEDATED ON VENT SUPPRTO, NO CHANGES, IV DRIPS CHANGED TO REFLECT UPDATED WEIGHT, SOME RATE CHANGES NOTED DUE TO PAITENTS RAPID WEIGHT LOSS. VSS, WILL MONITOR FOR CHANGES
[2019-09-24] VITALS (105 sets, daily range): BP systolic 86–138; BP diastolic 33–68
--- NOTE | 2019-09-24 01:00 | NUR ---
PT SEDATED ON VENT SUPPORT. VSS AT THIS TIME, NO DISTRESS NOTED, WILL MONITOR FOR CHANGES
--- NOTE | 2019-09-24 03:00 | NUR ---
PT REASSESSMENT COMPLETED AT THIS TIME, NO CHANGES NOTED FROM PREVIOUS EXAM, VSS, WILL MONITOR FOR CHANGES
[2019-09-24 06:45] LABS: HEMATOCRIT 27.8 % (36.0-48.0); HEMOGLOBIN 9.2 g/dL (12-16); MCH 29.4 pg (26.0-34.0); MCHC 33.1 g/dL (31.0-37.0); MCV 88.8 fL (80.0-100.0); MEAN PLATELET VOLUME 10.4 fL (7.4-10.4); RBC 3.13 10x6/uL (4.00-5.40); RDW 16.8 % (11.5-14.5); WBC 23.2 10x3/uL (4.8-10.8)
--- NOTE | 2019-09-24 07:00 | NUR ---
SHIFT REPORT RECEIVED. ON VENT AC, R-14, TV 550, FIO2 40%, PEEP 5. ETT 7.5 24CM AT LIP LEFT SIDE. SWAN KAREEM TO LEFT IJ APPROX 52CM. DRESSING CHANGED AT THIS TIME. RIGHT RADIAL LINE SECURED IN PLACE WITH WRIST PROTECTOR. MIDSTERNAL DRESSING C/D/I. SUBTERNAL CT X 2 TO 20CM SUCTION. NO AIR LEAK NOTED. LEFT CHAD DRAIN IN PLACE WITH SMALL AMOUNT OF SEROSANG DRAINAGE NOTED. TPM WIRES IN PLACE. RIGHT LE HARVEST SITES [employer]. RIGHT GROIN DRESSING C/D/I. BARAJAS CATH IN PLACE. NO URINE NOTED. PEDAL PULSES AUDIBLE WITH DOPPLER. WRIST RESTRAINTS IN PLACE PER ORDER. CHG BATH GIVEN. MODERATE AMOUNT OF YELLOW/BRONW STOOL NOTED AT THIS TIME. BARAJAS CATHETER CARE PROVIDED. RIJ DRESSING CHANGED PER PROTOCOL. COMPLETE LINEN CHANGE PROVIDED. NO FURTHER NEEDS AT THIS TIME. SAFETY MEASURES IN PLACE. WILL CONTINUE TO MONITOR.
[2019-09-24 07:31] LABS: ANION GAP 18.2 mmol/L (8-16); BILIRUBIN - TOTAL 0.61 mg/dL (0.2-1.3); CARBON DIOXIDE 26.9 mmol/L (21.0-32.0); CREATININE - SERUM 5.2 mg/dL (0.6-1.3); POTASSIUM - SERUM 4.1 mmol/L (3.5-5.1); PROTEIN - SERUM 5.8 g/dL (6.4-8.2); VANCOMYCIN - RANDOM 26.2 ug/mL (10.0-20.0)
--- NOTE | 2019-09-24 09:00 | NUR ---
RESTING COMFORTABLY. CONTINUES ON VENT. NURSE AT BEDSIDE FOR CLOSE MONITORING. WILL CONTINUE TO MONITOR.
--- NOTE | 2019-09-24 10:46 | NUR ---
EPINEPHRINE DRIP DECREASED TO 0.01MCG/KG/MIN PER DR. EATON.
--- NOTE | 2019-09-24 10:50 | OP ---
PATIENT NAME: RENEE HELM MEDICAL RECORD: [id number] :[birth year] LOCATION:D.CVI D.CV02 ADMISSION DATE:09/17/19 SURGEON: LUIS EATON MD DATE OF OPERATION: 09/21/2019 SURGEON: Luis Eaton MD PROCEDURE: Mediastinal exploration for hemorrhage. DIAGNOSES: Mediastinal hematoma status post coronary artery bypass graft with postoperative coagulopathy and chronic kidney disease on hemodialysis. ANESTHESIA: General endotracheal anesthesia. ESTIMATED BLOOD LOSS: 100 cc. COMPLICATIONS: None. SPECIMENS: None. CONDITION: Critical. DISPOSITION: ICU. OPERATIVE FINDINGS: Well-formed hematoma and clotted blood inferior to the right ventricle in the area of the deep intramyocardial dissection for the PDA graft, no active bleeding. Moderate left hemothorax evacuated. No other active bleeding at the sternal edges, proximal or distal anastomoses, internal mammary harvest site. Good Doppler signal during diastole in all grafts. INDICATION: Mediastinal hematoma and hypotension. DESCRIPTION OF PROCEDURE: The patient was brought to the operating suite, prepped and draped, old skin closure and sutures were removed. Wires were removed. No significant clotted blood anteriorly and the chest tubes were patent. The clot below the right ventricle was removed. The deep opening in the inferior wall of the right ventricle over the posterior descending artery was thoroughly visualized and had no active bleeding. Thorough irrigation was undertaken. FloSeal was applied to this area. Left chest was evacuated and irrigated. Grafts lay appropriately and had good Doppler signals. Antibiotic irrigation of left chest, closure with wires, fascia, subcutaneous and subcuticular, and returned to the ICU. TRANSINT:[id number] Voice Confirmation ID: [id number] DOCUMENT ID: [id number] LUIS EATON MD at 1050 CC: [id number] DICTATION DATE: 09/21/19 1152 NAIL MAKING MACHINE TENDER: 09/21/19 1506 ADM IN [facility] [id number] [place] [address]
--- NOTE | 2019-09-24 11:25 | NUR ---
EVANS SERNA DC'D AT THIS TIME PER ORDER. PROPOFOL DECREASED TO 15MCG/KG/MIN. WILL CONTINUE TO MONITOR.
--- NOTE | 2019-09-24 12:51 | OP ---
PATIENT NAME: RENEE HELM MEDICAL RECORD: [id number] :49 LOCATION:D.CVI D.CV02 ADMISSION DATE:09/17/19 SURGEON: HERIBERTO MARTINEZ MD DATE OF OPERATION: 09/19/2019 PROCEDURE: Intraaortic balloon pump placement. DESCRIPTION OF PROCEDURE: Right femoral artery was cannulated via modified Seldinger technique under fluoroscopic guidance. The intraaortic balloon was placed at the level of the kiana and sutured in place. Balloon augmentation was begun at 1:1 inflation. The sheath and balloon pump itself were then sewn in place. IMPRESSION: Successful balloon pump placement on Renee Helm. COMPLICATIONS: None. DISPOSITION: To the ICU on heparin drip. TRANSINT:[id number] Voice Confirmation ID: [id number] DOCUMENT ID: [id number] HERIBERTO MARTINEZ MD at 1251 CC: TOMA CAMACHO MD [id number] DICTATION DATE: 09/19/19 165 TELEGRAPH MESSENGER: 09/20/19 0351 ADM IN [facility] [address] [place] [address]
--- NOTE | 2019-09-24 13:04 | NUR ---
Nutrition Follow-up: POD 4 CABG. Remains intubated. No nutrition support. Wt: 268.8# (09/23); 257.9# (09/20); 226.6# (09/16) Last BM: 09/23 per chart Labs noted: K+ 4.1, Glu 174, Ca 8.0, elev LFTs, Alb 3.0 Meds noted: Protonix, Diprivan, Humulin -If pt is to remain intubated, rec start nutrition support; NPO since CABG on 09/19. -Monitor wt. -RD following.
--- NOTE | 2019-09-24 13:43 | NUR ---
EPINEPHRINE DRIP OFF AT THIS TIME PER DR. EATON.
--- NOTE | 2019-09-24 14:29 | NUR ---
PROPOFOL OFF AT THIS TIME PER DR. FONSECA.
--- NOTE | 2019-09-24 14:32 | NUR ---
ON CPAP TRIAL AT THIS TIME. FIO2 40%. DR. FONSECA SPOKE WITH DAUGHTER VIA PHONE. NO FURTHER NEEDS. WILL CONTINUE TO MONITOR.
--- NOTE | 2019-09-24 15:19 | NUR ---
DR. FONSECA PAGED TO DISCUSS NUTRITION FOR PATIENT.
--- NOTE | 2019-09-24 15:32 | NUR ---
SPOKE WITH DR. FONSECA REGARDING NUTRITION. WILL ADDRESS NUTRITION STATUS T[place] WHEN PT IS EXTUBATED.
--- NOTE | 2019-09-24 16:22 | NUR ---
PT CONTINUES ON CPAP TRIAL. SEDETION REMAINS OFF. OPENS EYES AND FOLLOWS COMMANDS. DAUGTHER AT BEDSIDE AT THIS TIME. NO FURTHER NEEDS. WILL CONTINUE TO MONITOR.
--- NOTE | 2019-09-24 17:23 | NUR ---
MARGARETTE HAS POOR WAVE FORM. FLUSHED LINE SEVERAL TIMES. CONTINUED TO HAVE POOR WAVE FORM. DR. EATON NOTIFIED. OKAY TO CECILY PFEIFFER.
--- NOTE | 2019-09-24 19:00 | NUR ---
PT ASSESSMENT COMPLETED AT THIS TIME, NO CHANGES NOTED FROM NURSE REPORT, PT SEDATED ON VENT SUPPORT, PT AWAKES AND OPENS EYES TO NAME, PT SHAKES HEAD YES AND NO FOR ANSWERS. VSS AT THIS TIME, WILL MONITOR AND TITRATE MEDS NEEDED
--- NOTE | 2019-09-24 21:00 | NUR ---
PT RESTING ON SEDATION WITH VENT SUPPORT, PT WILL WAKE UP AND SHAKE HEAD YES AND NO, VSS AT THIS TIME, WILL MONITOR FOR CHANGES
--- NOTE | 2019-09-24 23:00 | NUR ---
PT REASSESSMENT COMPLETED AT THIS TIME, NO CHANGES NOTED FROM PREVIOUS EXAM, VSS, WILL MONITOR FOR CHANGES
[2019-09-25] VITALS (93 sets, daily range): BP systolic 82–131; BP diastolic 32–70
--- NOTE | 2019-09-25 02:47 | NUR ---
PT SEDATED ON VENT SUPPORT, NO CHANGES NOTED AT THIS TIME WILL MONTIOR FOR CHANGES
--- NOTE | 2019-09-25 05:00 | NUR ---
PT SEDATED ON VENT, VSS STABLE AT THIS TIME ON BETH-SYNEPHRINE DRIP, WILL MONTIOR FOR CHANGES
[2019-09-25 06:47] LABS: ALBUMIN 2.6 g/dL (3.4-5.0); ANION GAP 19.6 mmol/L (8-16); BILIRUBIN - TOTAL 0.64 mg/dL (0.2-1.3); CALCIUM 7.7 mg/dL (8.5-10.1); CARBON DIOXIDE 25.6 mmol/L (21.0-32.0); CREATININE - SERUM 6.4 mg/dL (0.6-1.3); POTASSIUM - SERUM 4.2 mmol/L (3.5-5.1); PROTEIN - SERUM 5.5 g/dL (6.4-8.2)
[2019-09-25 06:54] LABS: PHOSPHOROUS 6.8 mg/dL (2.5-4.9)
[2019-09-25 07:22] LABS: HEMATOCRIT 27.4 % (36.0-48.0); HEMOGLOBIN 8.9 g/dL (12-16); MCH 29.2 pg (26.0-34.0); MCHC 32.5 g/dL (31.0-37.0); MCV 89.8 fL (80.0-100.0); MEAN PLATELET VOLUME 10.4 fL (7.4-10.4); RBC 3.05 10x6/uL (4.00-5.40); RDW 17.1 % (11.5-14.5); WBC 19.6 10x3/uL (4.8-10.8)
--- NOTE | 2019-09-25 08:27 | NUR ---
0700 PT RECIEVED LIGHTLY SEDATED ON VENT, AROUSES AND ABLE TO FOLLOW COMMANDS, ETT SECURED, R IJ CVL DRESSING INTACT, SEE IV FLOWSHEET, MIDSTERNAL AND SUBSTERNAL DRESSINGS CDI WITH SUBSTERNAL TPM WIRES ATTACHED TO TPM AND TPM OFF, CTX3 WITH 2 Y'D TOGETHER, 20CM SUCTION NO AIR LEAK, CHAD DRAIN COMPRESSED, RLE HARVEST SITES CDI, TEDS IN PLACE, PULSES DOPPLERED, BARAJAS IN PLACE, ANEURIC, LUE FISTULA THRILL AND BRUIT PRESENT [address] FONSECA FOR SPONTANOUS TRAILS, RT NOTIFIED 0820 FAMILY HERE FOR VISITATION
--- NOTE | 2019-09-25 11:11 | NUR ---
[address] aleman to ask if dialysis nurse could start soon, called dialysis unit multiple times and paged overhead with no response
--- NOTE | 2019-09-25 11:23 | NUR ---
RECIEVED CALL FROM DR FONSECA ORDERS FOR [facility]
--- NOTE | 2019-09-25 11:44 | NUR ---
[facility] CALLED TO DR FONSECA, ORDERS FOR NIF AND VITAL AND STATED HE WOULD BE IN UNIT SHORTLY, RT AWARE. DR EATON NOTIFIED, STATED TO DANGLE AT BEDSIDE WHEN ABLE AFTER EXTUBATION
--- NOTE | 2019-09-25 12:19 | NUR ---
[address] aleman, orders to extubate 1210 extubated and restraints removed, on bipap 40%. daughter spoke with dr aleman
--- NOTE | 2019-09-25 13:19 | NUR ---
PT CONTINUES ON BIPAP WITHOUT ANY DIFFICULTY, DR FONSECA CALLED FOR UPDATE
--- NOTE | 2019-09-25 14:30 | NUR ---
CT DCD BY DR EATON. A LINE DCD TIP INTACT NO SIGNS OF BLEEDING
--- NOTE | 2019-09-25 16:07 | NUR ---
BIPAP REMOVED, 4L O2 NC, 500X10 BREATHES ON IS, TOLERATING ICE CHIPS WELL, DIALYSIS NURSE AT BEDSIDE AND INITIALIZING DIALYSIS
--- NOTE | 2019-09-25 16:16 | NUR ---
CULTURE RESULTS CALLED TO DR FONSECA NO NEW ORDERS
--- NOTE | 2019-09-25 17:27 | NUR ---
PAGED FURNITURE DELIVERY DRIVER RENAL MD THROUGH ANSWERING SERVICE TO NOTIFY THAT PT HAS HAD PVCS INCREASING IN FREQUENCY SINCE BEGINNING DIALYSIS APPROX 1.5 HOURS AGO. AWAITING CALL BACK
--- NOTE | 2019-09-25 17:53 | NUR ---
SPOKE WITH DR ARNOLD ABOUT PVCS, STATED IF THEY INCREASED OR REMAINED VERY FREQUENT TO HAVE DIALYSIS NURSE SLOW RATE AND IF CONTINUED TO ORDER CMP AFTER DIALYSIS.
[2019-09-25 18:08] LABS: ACID FAST SMEAR Negative (()); AFB SPECIMEN PROCESSING Concentration (())
--- NOTE | 2019-09-25 18:30 | NUR ---
PT USING IS HOURLY WITH ENCOURAGEMENT FROM STAFF AND DAUGHTER
[2019-09-25 20:38] LABS: ALBUMIN 2.7 g/dL (3.4-5.0); ANION GAP 18.4 mmol/L (8-16); BILIRUBIN - TOTAL 0.61 mg/dL (0.2-1.3); CARBON DIOXIDE 27.3 mmol/L (21.0-32.0); POTASSIUM - SERUM 3.7 mmol/L (3.5-5.1); PROTEIN - SERUM 5.9 g/dL (6.4-8.2)
[2019-09-25 20:55] LABS: CREATININE - SERUM 4.5 mg/dL (0.6-1.3)
--- NOTE | 2019-09-25 21:00 | NUR ---
DAUGHTER AT BEDSIDE, UPDATE GIVEN AND QUESTIONS ANSWERED, NO FURTHER NEEDS AT THIS TIME, PT AAOx4 DENIES PAIN OR NEEDS, VSS, WILL CONTINUE TO MONITOR
--- NOTE | 2019-09-25 21:21 | NUR ---
NOTIFIED OF [facility]MP LAB'S S/P DIALYSIS, INFORMED K+ 3.7 WITH OCCASIONAL PVC'S ON CM, ASKED IF HE WOULD LIKE TO TREAT POTASSIU, STATED "NO", WILL CONTINUE TO MONITOR
--- NOTE | 2019-09-25 22:30 | NUR ---
PT C/O ITCHING IN BOTH EYES, PT BELEIVES IT IS THE EYE DROP MEDICATION SHE RECEIVES, PT STATES SHE HAS TO TAKE PERSONAL EYE MEDICATION "XALATAN 0.005% DROPS" AND " ALPHAGAN P 0.1% DROPS", PT STATED HER DAUGHTER HAS HOME EYE DROPS, INFORMED PT AND DAUGHTER THAT PHARMACY AND PHYSICIAN WILL HAVE TO REVIEW MEDICATION IN MORNING AND THAT THEY WILL BE NOTIFIED, PT'S EYES CLEANED WITH FLUSH, PT STATED "EYES FEEL BETTER", VSS, WILL CONTINUE TO MONITOR, DAUGHTER AT BEDSIDE, NO FURTHER NEEDS STATED AT THIS TIME
--- NOTE | 2019-09-25 23:00 | NUR ---
REASSESSMENT COMPLETE PER FLOW SHEET, NO ACUTE CHANGES FROM PRIOR ASSESSMENT, PT AWAKE AND ALERT, DENIES PAIN OR NEEDS AT THIS TIME, ORAL CARE COMPLETED, REPOSITIONED IN BED FOR COMFORT, EXTREMITIES ELEVATED ON PILLOWS, ROM COMPLETED IN EXTREMITIES, OCCASIONAL PRODUCTIVE COUGH WITH THICK GUERRA MUCOUS SUCTIONED FROM MOUTH, ALL DRSG'S C/D/I, SUBSTERNAL CHAD DRAIN COMPRESSED, PULSES PRESENT IN ALL EXTREMITIES, TAISHA HOSE ON BLE, I/S COMPLETED [id number], TCDB DONE WITH GOOD EFFORT, CALL LIGHT PLACED IN PT HAND AND REVIEWED TEACHING OF USE WITH PT, BED ALARM ON, VSS, NSR WITH OCCASIONAL PVC'S NOTED ON CM, ICE CHIPS AND SMALL SIPS OF ICE WATER GIVEN PER REQUEST, NO DIFFICULTY SWALLOWING NOTED, WILL CONTINUE TO MONITOR
--- NOTE | 2019-09-25 23:30 | NUR ---
PT PLACED ON BIPAP @ 40% FiO2, VSS, NO ACUTE S/S OF DISTRESS, WILL CONTINUE TO MONITOR
[2019-09-26] VITALS (92 sets, daily range): BP systolic 86–137; BP diastolic 19–87
--- NOTE | 2019-09-26 00:30 | NUR ---
BIPAP REMOVED PER REQUEST, PLACED ON 4L/MIN O2 VIA NC, I/S COMPLETED [id number], TCDB DONE WITH PRODUCTIVE COUGH WITH THICK GUERRA MUCOUS SUCTIONED FROM MOUTH, VSS, REPOSITIONED PT FOR COMFORT, ICE CHIPS GIVEN PER REQUEST, FSBG 122 NO INTERVENTION DONE PER ORDERS/MAR, PT DENIES PAIN OR NEEDS AT THIS TIME, CALL LIGHT IN HAND, PT WATCHING TV CALM AND COMFORTABLE IN BED, ROM COMPLETED IN ALL EXTREMITIES, WILL CONTINUE TO MONITOR
--- NOTE | 2019-09-26 00:50 | NUR ---
PT PRESSED CALL LIGHT, PT PRODUCTIVE COUGHING THICH GUERRA MUCOUS AND NEEDED ASSISTANCE WITH SUCTIONING, I/S COMPLETED [id number] WITH GOOD EFFORT, SpO2 SENSOR REPLACED AND GOOD WAVEFORM NOTED ON MONIOTOR, OTHER VSS, PT DENIES OTHER NEEDS, WILL CONTINUE TO MONITOR
--- NOTE | 2019-09-26 02:30 | NUR ---
I/S COMPLETED [id number], TCDB DONE, PRODUCTIVE STRONG COUGH WITH THICK GUERRA MUCOUS SUCTIONED FROM MOUTH, VSS, REPOSITIONED FOR COMFORT, CALL LIGHT IN HAND, WILL CONTINUE TO MONITOR
--- NOTE | 2019-09-26 05:00 | NUR ---
CHG BATH AND COMPLETE LINEN AND GOWN CHANGED, PT TOLLERATED BATH WITH NO ACUTE S/S OF DISTRESS, VSS, LEFT IJ CVL DRSG CHANGED PER PROTOCOL, CVL SITE AND DRSG C/D/I, REPOSITIONED PT FOR COMFORT, DAUGHTER AT BEDSIDE, WILL CONTINUE TO MONITOR
[2019-09-26 06:27] LABS: HEMATOCRIT 29.4 % (36.0-48.0); HEMOGLOBIN 9.5 g/dL (12-16); MCH 28.9 pg (26.0-34.0); MCHC 32.3 g/dL (31.0-37.0); MCV 89.4 fL (80.0-100.0); MEAN PLATELET VOLUME 9.8 fL (7.4-10.4); RBC 3.29 10x6/uL (4.00-5.40); RDW 16.9 % (11.5-14.5); WBC 15.9 10x3/uL (4.8-10.8)
--- NOTE | 2019-09-26 08:04 | NUR ---
0700 PT RECIEVED IN BED ALERT, VSS, DENIES ALL NEEDS, O2 4L NC, L IJ CVLDRESSING CDI WITH PLASMALYTE AND BETH INFUSING SEE IV FLOWSHEET, MIDSTERNAL AND SUBSTERNAL DRESSINGS CDI WITH SUBSTERNAL TPM WIRES COILED, CHAD DRAIN COMPRESSED, RLE HARVEST SITES CHIEF RADIOLOGIC TECHNOLOGIST, BARAJAS IN PLACE, LUE FISTULA THRILL AND BRUIT PRESENT, CALL LIGHT WITHIN REACH, IS X10 BREATHES PULLING 1000, GOOD EFFORT WITH COUGH, WILL CONTINUE TO MONITOR
--- NOTE | 2019-09-26 08:58 | NUR ---
PER DR EATON CALLED DR MAC TO ASK ABOUT SWITCHING INSULIN TO SUBQ FROM A GTT, SPOKE WITH ALE IN DIALYSIS OFFICE AND SHE STATED SHE WOULD ASK DR MAC AND CALL BACK.
--- NOTE | 2019-09-26 09:31 | NUR ---
PER DR EATON CALLED VASCULAR ACCESS FOR PICC LINE, STATED SHE NEEDED RENAL APPROVAL,CALLED RENAL OFFICE AND THEY STATED SHE WOULD PAGE ARCHITECT INTERNSHIP MD
--- NOTE | 2019-09-26 09:41 | NUR ---
dr jarrett with renal returned call and okayed picc line placement. bobo vascular access notified
--- NOTE | 2019-09-26 10:57 | NUR ---
0900 ASSISTED UP TO CHAIR BY THERAPY, HAD JERE BM, JENN DCD BY PROJECT ENGINEERING DIRECTOR CLAUDIO ESPARZA
--- NOTE | 2019-09-26 11:21 | NUR ---
Nutrition Follow-up: Extubated yesterday. ST eval pending. Receiving no nutrition at this time. Diet: NPO Wt: 268.9# (09/25); 268.8# (09/23); 226.6# (admit) Last BM: 09/25 Labs reviewed Meds reviewed -Rec ADAT to renal carb consistent when ok with ST. If unable to advance diet, pt will need nutrition support. -Monitor wt. -RD following.
[2019-09-26 12:10] LABS: FUNGUS STAIN Final report (())
--- NOTE | 2019-09-26 13:35 | NUR ---
PT THROUGHOUT DAY COMPLAINING OF PAIN TO BUTTOCKS FROM SITTING IN CHAIR, PINK EGG CRATE CUSHION APPLIED, PILLOWS APPLIED TO ASSIST IN SHIFTING SIDE TO SIDE AND PULLED UP FREQUENTLY FOR REPOSITIONING UPON REQUEST, PTS DAUGHTER STATED SHE WANTED PT IN BED AND EXPLAINED THAT PER DR EATON PT IS TO STAY IN CHAIR FOR BENEFITS TO LUNGS AND TO PREVENT BEDSORES, PTS DAUGHTER STATED SHE HAS A SORE SPOT FROM A PREVIOUS HOSPITALIZATION. ASSURED DAUGHTER THAT PT HAS NO OPEN AREAS ON BOTTOM BUT THAT I WILL NOTIFY DR WYMAN NURSE, ALSO REQUESTED LIDOCAINE PATCH. SPOKE WITH DR WYMAN NURSE MAMTA WHO STATED SHE WOULD TELL DR EATON AND HE CAN SPEAK WITH PTS DAUGHTER SHORTLY AND THAT PT HAS TO STAY IN THE CHAIR. PT AND DAUGHTER NOTIFIED.
--- NOTE | 2019-09-26 15:08 | NUR ---
PT ASSISTED BACK TO BED BY THERAPY. PTS DAUGHTER SPOKE WITH DR EATON AND STATED SHE UNDERSTOOD PT BEING IN CHAIR. PT CONTINUES TO DENY NEEDS
--- NOTE | 2019-09-26 17:26 | NUR ---
L IJ CORDIS DCD TIP INTACTNO SIGNS OF BLEEDING
--- NOTE | 2019-09-26 18:29 | NUR ---
PT ATE 50% DINNER WITH ASSIST
[2019-09-27] VITALS (94 sets, daily range): BP systolic 81–185; BP diastolic 12–109
--- NOTE | 2019-09-27 06:10 | NUR ---
AT BEDSIDE, UPDATE GIVEN, DR. MAC WOULD LIKE BETH INFUSION TO BE TITRATED DOWN MUCH POSSIBLE, PT DAUGHTER AT BEDSIDE AT TIME PHYSICIAN IN ROOM, QUESTIONS ANSWERED, PT AWAKE AND ALERT, DENIES NEEDS AT THIS TIME, BATH GIVEN WITH ASSIST FROM DAUGHTER PER REQUEST OF PT, AM LABS DRAWN AND SENT TO LAB, WILL CONTINUE TO MONITOR
[2019-09-27 06:31] LABS: HEMATOCRIT 30.7 % (36.0-48.0); HEMOGLOBIN 10.1 g/dL (12-16); MCH 29.3 pg (26.0-34.0); MCHC 32.9 g/dL (31.0-37.0); MEAN PLATELET VOLUME 9.4 fL (7.4-10.4); RBC 3.45 10x6/uL (4.00-5.40); RDW 16.8 % (11.5-14.5); WBC 15.2 10x3/uL (4.8-10.8)
[2019-09-27 08:15] LABS: ALBUMIN 2.5 g/dL (3.4-5.0); ANION GAP 19.6 mmol/L (8-16); BILIRUBIN - TOTAL 0.48 mg/dL (0.2-1.3); CALCIUM 7.3 mg/dL (8.5-10.1); POTASSIUM - SERUM 3.6 mmol/L (3.5-5.1); PROTEIN - SERUM 5.7 g/dL (6.4-8.2)
[2019-09-27 08:20] LABS: CREATININE - SERUM 6.4 mg/dL (0.6-1.3)
--- NOTE | 2019-09-27 10:49 | NUR ---
0700 PT RECIEVED ALERT AND ORIENTED VSS DENIES PAIN SEE SHIFT ASSESSMENT FOR DETAILS [address] EATON ABOUT BP CUFF NOT READING CONSISTENTLY IN RFA DUE TO PT MOVEMENT AND UNABLE TO OBTAIN IN RLE DUE TO SIZE, FISTULA IN L ARM AND DVT IN LLE. STATED TO ATTEMPT TO TAKE A BP IN RUE OVER PICC LINE ONCE AN HOUR, PT DENIES ALL SYMPTOMS OF HYPOTENSION 0930 SPOKE WITH CINDI COBB ABOUT PTS BP CUFF, STATED TO TREAT THE PT SHE IS ASYMPTOMATIC. PTS DAUGHTER SPOKE WITH MYSELF AND CINDI ABOUT PTS BP. PT HOB LOWERED WITH NO CHANGE IN BP, INCREASED BETH WITH NO CHANGE IN BP, PT STATED "I AM JUST SLEEPY QUIT BOTHERING ME ABOUT IT" 1000 SPOKE WITH CINDI COBB AGAIN ABOUT DAUGHTERS CONCERNS AND THAT PT STATED SHE IS FINE, MOVES ALL EXTREMETIES ON COMMAND ETC NO NEW ORDERS 1030 ASSISTED TO SITTING ON SIDE OF BED WITH THERAPY, TOLERATED WELL
--- NOTE | 2019-09-27 11:16 | NUR ---
REHAB PRESCREENING Rehab referral received and chart reviewed. Ms. Fair is a good candidate for Acute Inpatient Rehab. Rehab would like to see patient be able to take a few steps as PT notes currently state bed mobility is max assist and that the patient is unable to take steps from bed to chair. Rehab will continue to follow for increased mobility. We will then accept this patient when approvals are in place and her physicians feel she is appropriate for discharge. Thank you for this referral! Tiffani Younger, BEATER OUT Rehab PD
--- NOTE | 2019-09-27 17:26 | NUR ---
OT NOTE: PT COMPLETED UE AAROM EXS FOR INCREASED ROM WITH FUNCTIONAL TASKS. [id number] THANK YOU,ORLIN MALDONADO
--- NOTE | 2019-09-27 18:31 | NUR ---
[address] EATON AND RENAL FIRE SPRINKLER INSPECTOR ABOUT BP CUFF WITH NO NEW ORDERS 1700 ATE 50% DINNER WITH MUCH ENCOURAGEMENT FROM STAFF AND DAUGHTER 1800 SMALL BM NOTED, LINENS CHANGED WITH PERICARE PROVIDED
--- NOTE | 2019-09-27 20:26 | NUR ---
CONTACTED HUSEYIN JOHNSON APN TO DISCUSS WHETHER OR NOT I SHOULD PROCEED WITH DIALYSIS TREATMENT, WE WERE CUT OFF AND UNABLE TO RESUME CONVERSATION. CONTACTED KATHRIN BALL APN, WAS GIVEN ORDERS TO GIVE PATIENT PROAMATINE 10MG PO NOW, GO AHEAD AND INITIATE DIALYSIS, KEEP BP READINGS ABOUT THE SAME THEY ARE NOW, IF PATIENT APPEARS TO NOT BE TOLERATING TO TAKE HER OFF TREATMENT.
--- NOTE | 2019-09-27 21:30 | NUR ---
WITH NEPHROLOGY AT BEDSIDE, DISCUSSED LABILE B/P WITH NIBP CUFF PLACEMENT DIFFICULTY, UPDATED ON PT WITH PAST Hx AND LABS, DISCUSSED WITH THERAPEUTIC RECREATION ASSISTANT MARIELLA ABOUT DIALYSIS Tx PLAN FOR TONIGHT, PT AWAKE AND ALERT RESTING IN BED, NO ACUTE DISTRESS NOTED, WILL CONTINUE TO MONITOR, DAUGHTER AT BEDSIDE THROUGHOUT
--- NOTE | 2019-09-27 22:45 | NUR ---
PT AND DAUGHTER STATED CONCERNS OF GLUCOSE CONTROLL MEDICATION INSULIN TYPE, PT STATED SHE TAKES "NOVOLOG" AT HOME AND [facility] HOME MEDICATION WOULD CONTROL GLUCOSE BETTER THAN WHAT SHE IS RECEIVING CURRENTLY, PT AND DAUGHTER WOULD LIKE TO DISCUSS WITH IN THE MORNING ABOUT TAKING NOVOLOG, WILL NOTIFY DAY SHIFT RN AND IN MORNING PER FAMILY REQUEST
[2019-09-28] VITALS (74 sets, daily range): BP systolic 63–155; BP diastolic 10–95
[2019-09-28 06:06] LABS: HEMATOCRIT 28.2 % (36.0-48.0); HEMOGLOBIN 9.2 g/dL (12-16); MCH 29.2 pg (26.0-34.0); MCHC 32.6 g/dL (31.0-37.0); MCV 89.5 fL (80.0-100.0); RBC 3.15 10x6/uL (4.00-5.40); RDW 16.8 % (11.5-14.5); WBC 16.5 10x3/uL (4.8-10.8)
[2019-09-28 07:47] LABS: ALBUMIN 2.7 g/dL (3.4-5.0); ANION GAP 18.1 mmol/L (8-16); BILIRUBIN - TOTAL 0.52 mg/dL (0.2-1.3); CALCIUM 7.1 mg/dL (8.5-10.1); CARBON DIOXIDE 25.6 mmol/L (21.0-32.0); CREATININE - SERUM 5.8 mg/dL (0.6-1.3); MAGNESIUM - SERUM 2.4 mg/dL (1.8-2.4); PHOSPHOROUS 6.1 mg/dL (2.5-4.9); POTASSIUM - SERUM 3.7 mmol/L (3.5-5.1)
--- NOTE | 2019-09-28 11:00 | NUR ---
Nutrition Follow-up: Daughter reports pt has been eating fairly well overall. Reports nausea without vomiting last night requiring Zofran but none at time of visit this AM. Daughter requests diet info. Diet: Renal ADA, Mech Soft w/ Ground Meat Wt: 271.7# (09/27); 268.9# (09/25); 226.6# (admit) Last BM: 09/26 per chart Labs noted: Glu 181, K+ 3.7, PO4 6.1, Ca 7.1, Alb 2.7 Meds noted: Humalog, Protonix, Zofran -Encourage PO intake and honor food preferences within diet restrictions. -MD may consider PO4 binder 2/2 hyperphosphatemia. -Monitor wt. -Discussed diet with diet; will provide written info as well prior to d/c. -RD following.
--- NOTE | 2019-09-28 19:00 | NUR ---
REPORT RECEIVED. RECEIVED PATIENT IN BED RESTING WITH EYES CLOSED, EASILY ROUSED AND ALERT. MONITORS CONNECTED TO PATIENT WITH ALARMS SET. VSS. ASSESSMENT COMPLETED PER FLOW SHEET WITH NO ACUTE DISTRESS OBSERVED. CALL LIGHT IN REACH AND ABLE TO UTILIZE TO MAKE NEEDS KNOWN.
--- NOTE | 2019-09-28 21:00 | NUR ---
RESTING WITH EYES CLOSED, EASILY ROUSED AND ALERT. DAUGHTER AT BEDSIDE. QUESTIONS ANSWERED.
--- NOTE | 2019-09-28 23:00 | NUR ---
REASSESSMENT COMPLETED PER FLOW SHEET WITH NO ACUTE DISTRESS OBSERVED. VSS. CALL LIGHT IN REACH
[2019-09-29] VITALS (87 sets, daily range): BP systolic 72–164; BP diastolic 12–89
--- NOTE | 2019-09-29 01:00 | NUR ---
RESTING WITH EYES CLOSED, EASILY ROUSED AND ALERT. VSS
--- NOTE | 2019-09-29 03:00 | NUR ---
REASSESSMENT COMPLETED PER FLOW SHEET WITH NO ACUTE DISTRESS OBSERVED. VSS. CALL LIGHT IN REACH
--- NOTE | 2019-09-29 05:00 | NUR ---
RESTING WITH EYES CLOSED, EASILY ROUSED AND ALERT. VSS. CALL LIGHT IN REACH
[2019-09-29 06:40] LABS: ANION GAP 17.4 mmol/L (8-16); BILIRUBIN - TOTAL 0.48 mg/dL (0.2-1.3); CALCIUM 7.3 mg/dL (8.5-10.1); CARBON DIOXIDE 27.2 mmol/L (21.0-32.0); CREATININE - SERUM 5.1 mg/dL (0.6-1.3); POTASSIUM - SERUM 3.6 mmol/L (3.5-5.1); PROTEIN - SERUM 5.7 g/dL (6.4-8.2)
--- NOTE | 2019-09-29 18:33 | NUR ---
ORAL CARE DONE WITH PERIDEX
--- NOTE | 2019-09-29 19:00 | NUR ---
REPORT RECEIVE AND CARE ASSUMED. RECEIVED PATIENT SITTING UP IN BED. AWAKE ALERT AND ORIENTED X 4. VISITING WITH DAUGHTER AT BEDSIDE. ASSESSMENT COMPLETED PER FLOW SHEET WITH NO ACUTE DISTRESS OBSERVED. MONITORS CONNECTED TO PATIENT WITH ALARMS SET. VSS. CONTINUES ON IV PRESSOR TITRATED PER ORDER. DENIES COMPLAINTS AT THIS TIME. CALL LIGHT IN REACH AND ABLE TO UTILIZE TO MAKE NEEDS KNOWN.
--- NOTE | 2019-09-29 21:00 | NUR ---
RESTING WITH EYES CLOSED, EASILY ROUSED AND ALERT. VSS. PM MEDS ADMIN WITHOUT DIFF. CALL LIGHT IN REACH
--- NOTE | 2019-09-29 23:00 | NUR ---
REASSESSMENT COMPLETED PER FLOW SHEET WITH NO ACUTE DISTRESS OBSERVED. VSS. CALL LIGHT IN REACH
[2019-09-30] VITALS (41 sets, daily range): BP systolic 83–159; BP diastolic 14–52
--- NOTE | 2019-09-30 01:00 | NUR ---
RESTING WITH EYES CLOSED, EASILY ROUSED AND ALERT. VSS
--- NOTE | 2019-09-30 03:00 | NUR ---
REASSESSMENT COMPLETED PER FLOW SHEET WITH NO ACUTE DISTRESS OBSERVED. VSS. CALL LIGHT IN REACH
--- NOTE | 2019-09-30 05:00 | NUR ---
RESTING WITH EYES CLOSED, EASILY ROUSED AND ALERT. VSS. CALL LIGHT IN REACH
[2019-09-30 05:49] LABS: BASOPHILS 0.1 % (0-2); EOSINOPHILS 2.4 % (0-7); HEMATOCRIT 27.6 % (36.0-48.0); HEMOGLOBIN 8.9 g/dL (12-16); IMMATURE GRANULOCYTES 1.4 % (0-5); LYMPHOCYTES 9.6 % (15-50); MCHC 32.2 g/dL (31.0-37.0); MCV 89.9 fL (80.0-100.0); MEAN PLATELET VOLUME 8.8 fL (7.4-10.4); MONOCYTES 11.7 % (2-11); NEUTROPHILS 74.8 % (40-80); PLATELET COUNT 331 10x3/uL (130-400); RBC 3.07 10x6/uL (4.00-5.40)
[2019-09-30 07:36] LABS: ALBUMIN 2.8 g/dL (3.4-5.0); ANION GAP 18.7 mmol/L (8-16); BILIRUBIN - TOTAL 0.45 mg/dL (0.2-1.3); CALCIUM 7.2 mg/dL (8.5-10.1); CARBON DIOXIDE 26.7 mmol/L (21.0-32.0); MAGNESIUM - SERUM 2.2 mg/dL (1.8-2.4); POTASSIUM - SERUM 3.4 mmol/L (3.5-5.1); PROTEIN - SERUM 5.6 g/dL (6.4-8.2)
[2019-09-30 07:38] LABS: CREATININE - SERUM 6.4 mg/dL (0.6-1.3)
[2019-10-01] VITALS (47 sets, daily range): BP systolic 73–150; BP diastolic 12–97
--- NOTE | 2019-10-01 10:05 | NUR ---
0700 PT RECIEVED AWAKE ALERT AN DORIENTED VSS DENIES PAIN R PICC SL, L FISTULA BRUIT AND THRILL PRESENT, DENIES ALL NEEDS, REPOSITIONED 0800 REPOSITIONED FOR BREAKFAST 0930 PTS DAUGHTER STATED SHE FEELS PT IS NOT NEUROLOGICALLY SHE WAS BEFORE SURGERY, DR EATON NOTIFIED WITH ORDERS TO CONSULT NEURO,NO NEURO COVERAGE UNTIL TUESDAY AND DR EATON AWARE, SHE IS ALSO CONCERNED ABOUT BP CUFF AND DR EATON TOLD HER HE DOES NOT FEEL IT IS ACCURATE.
[2019-10-01 10:06] LABS: BASOPHILS 0.3 % (0-2); EOSINOPHILS 2.3 % (0-7); HEMATOCRIT 27.5 % (36.0-48.0); HEMOGLOBIN 8.7 g/dL (12-16); IMMATURE GRANULOCYTES 1.1 % (0-5); LYMPHOCYTES 9.5 % (15-50); MCH 28.8 pg (26.0-34.0); MCHC 31.6 g/dL (31.0-37.0); MCV 91.1 fL (80.0-100.0); MEAN PLATELET VOLUME 9.3 fL (7.4-10.4); MONOCYTES 10.5 % (2-11); NEUTROPHILS 76.3 % (40-80); PLATELET COUNT 374 10x3/uL (130-400); RBC 3.02 10x6/uL (4.00-5.40); RDW 17.2 % (11.5-14.5); WBC 16.7 10x3/uL (4.8-10.8)
[2019-10-01 10:08] LABS: FUNGUS MYCOLOGY CULTURE Preliminary report (())
[2019-10-01 10:14] LABS: ALBUMIN 2.7 g/dL (3.4-5.0); ANION GAP 20.8 mmol/L (8-16); BILIRUBIN - TOTAL 0.44 mg/dL (0.2-1.3); CARBON DIOXIDE 23.8 mmol/L (21.0-32.0); CREATININE - SERUM 7.7 mg/dL (0.6-1.3); POTASSIUM - SERUM 3.6 mmol/L (3.5-5.1); PROTEIN - SERUM 6.2 g/dL (6.4-8.2)
--- NOTE | 2019-10-01 10:52 | NUR ---
CHAD [place] TPM WIRES DCD BY DR EATON
--- NOTE | 2019-10-01 11:01 | NUR ---
PT TO CT WITH CT STAFF
--- NOTE | 2019-10-01 11:20 | NUR ---
BACK FROM CT, HALF OF MIDSTERNAL YSABEL REMOVED
--- NOTE | 2019-10-01 12:10 | NUR ---
PER DR EATON WHEN PICC LINE DCD MOVED BP CUFF TO RUE, BP CUFF READING LOW BUT PT STATES SHE FEELS FINE, CALLED DR WYMAN NURSE MAMTA AND RELAYED THAT DR EATON HAD SAID THAT HE DID NOT BELIEVE BP CUFF WAS ACCURATE BEFORE AND WHERE DID THEY WANT BP TAKEN/ WHAT TO DO ABOUT CUFF READING IN 70S. DR MAC ENTERED UNIT AND STATED TO GIVE PROAMATINE TIME TO WORK AND THAT PT SEEMED CONFUSED AND TO MOVE CUFF TO FOREARM. CUFF MOVED TO FOREARM WITH BP IN 90S. WHEN MOVING CUFF PT CLEARLY STATED "WHEN IS DIALYSIS HE DIDNT TELL ME" EXPLAINED THAT DR THOUGHT SHE WAS CONFUSED WHEN HE TALKED TO HER AND SHE STATED "I AM NOT CONFUSED I ASKED WHEN DIALYSIS WAS I AM FINE". DR MAC GONE FROM UNIT AT THIS TIME AND UNABLE TO LOCATE IN ANOTHER UNIT. CALLED DR WYMAN NURSE AND NOTIFIED OF THIS AND SHE STATED TO CALL DR MAC AND NOTIFY OF CONVERSATION AND THAT DR EATON DID WANT PT TO HAVE DIALYSIS TODAY. AWAITING PAGE BACK FROM DR MAC
--- NOTE | 2019-10-01 12:32 | NUR ---
Nutrition Follow-up: Nursing reports pt ate well this AM. Diet: Renal ADA, Mech Soft w/ Ground Meat PO intake: 75% avg x 6 meals Wt: 254# (09/30); 271.1# (09/27); 226.6# (admit) Last BM: 09/30 Labs noted: Glu 174, K+ 3.6, PO4 7.6, Ca 7.0, Alb 2.7 Meds noted: Humalog, Protonix, Zofran -Continue current diet as tolerated. -MD may consider PO4 binders 2/2 hyperphosphatemia. -Monitor wt. -RD following.
--- NOTE | 2019-10-01 14:03 | NUR ---
DR MCKINLEY NOTIFIED OF UNABLE TO GIVE ABT DUE TO NO IV ACCESS AND POOR VEINS. NO NEW ORDERS
--- NOTE | 2019-10-01 14:19 | NUR ---
Rehab Note- Reviewed patient's medical record and noted not ready for transfer per Nephrology at this time due to hypotensive and unable to HD at this time due to being unstable. Spoke with MARCELA Graf and we will continue to follow at this time. Thank you for this referral! Bella Roberts RN CLinical Liaison, [facility] Re[facility]
--- NOTE | 2019-10-01 15:18 | NUR ---
OT NOTE: ASSISTED PT WITH BED MOB INCLUDING ROLLING SIDE TO SIDE WITH MAX ASSIST; SUPINE TO SIT WITH MAX ASSIST; MOD/MAX ASSIST FOR UPRIGHT STATIC SITTING. EDUCATION ON POSITIONING AND TRUNK CONTROL; A/AROM EXS..PT REMAINS VERY WEAK IN UES. BACK TO BED WITH MAX ASSIST; EXT ASSIST WITH ADLS INCLUDING HOLDING YONKER FOR PHLEM REMOVAL. ELYSSA YUSUF, OTR/L [phone]
--- NOTE | 2019-10-01 16:47 | NUR ---
PT REPOSITIONED AND DINNER TRAY SERVED
--- NOTE | 2019-10-01 18:34 | NUR ---
DIALYSIS NURSE MARTINA IN ROOM AND STATED SHE WOULD NOT BE DOING DIALYSIS BECAUSE BP CUFF DOES NOT READ CORRECTLY AND READS LOW DUE TO PLACEMENT ON FOREARM, CHECKED BP ON DIALYSIS MACHINE BP 97/17 MAP 44, MARTINA STATED SHE WOULD BE BACK IN AM TO DO DIALYSIS.
--- NOTE | 2019-10-01 19:16 | NUR ---
ORAL CARE DONE WITH PERIDEX
--- NOTE | 2019-10-01 19:55 | NUR ---
PT RECEIVED WITH EYES CLOSED AND CHEST RISING. ON HOME CPAP. EASILY AWOKEN TO VERBAL STIMULI. NO COMPLAINTS OF PAIN NOTED. FRESH ICE WATER GIVEN PER REQUEST. NO S/S OF DISTRESS. CALL LIGHT IN REACH. WILL CONTNUE TO OBSERVE.
--- NOTE | 2019-10-01 21:55 | NUR ---
MEDICATIONS RECEIVED, TOLERATED WELL. NO NEEDS MADE KNOWN. CALL LIGHT IN REACH. DAUGHTER IN RM ON PHONE, OFF PHONE SHORTLY UPON ENTRY, ANSWERED QUESTIONS. WILL CONTINUE TO OBSERVE.
--- NOTE | 2019-10-01 22:15 | NUR ---
DAUGHTER LEFT ROOM AND WENT TO WAITING ROOM.
--- NOTE | 2019-10-01 23:33 | NUR ---
PT WITH EYES OPEN WATCHING TV. NO NEEDS OR COMPLAINTS MADE KNOWN. CALL LIGHT IN REACH. WILL CONTINUE TO OBSERVE.
[2019-10-02] VITALS (35 sets, daily range): BP systolic 79–146; BP diastolic 13–92
--- NOTE | 2019-10-02 02:01 | NUR ---
PT RESTING WITH EYES CLOSED AND CHEST RISING. NO S/S OF DISTRESS. CONTINUES HOME CPAP. WILL CONTINUE TO OBSERVE.
--- NOTE | 2019-10-02 03:45 | NUR ---
PT RESTING WITH EYES CLOSED AND CHEST RISING. EASILY AWOKEN TO VERBAL STIMULI. CONTINUES HOME CPAP. NO NEEDS MADE KNOWN. WILL CONTINUE TO OBSERVE.
--- NOTE | 2019-10-02 06:11 | NUR ---
PT WITH MEDIUM SOFT FORMED BM. PERICARE AND BATH GIVEN. SUBSTERNAL DRESSING CHANGED. CHANGED TO N/C AT 2LPM PRIOR TO BATH AND BACK TO HOME CPAP PER REQUEST WHEN COMPLETED. PT TOLERATED WELL. WILL CONTINUE TO OBSERVE.
--- NOTE | 2019-10-02 07:00 | NUR ---
RECEIVED BEDSIDE REPORT ON PATIENT AND ASSUMED CARE. PATIENT RESTING QUIETLY ON HOME CPAP MACHINE, EASILY AROUSED BY VOICE, ALERT AND ORIENTED X 4, VSS. BBS - CLEAR, DIMINISHED IN THE BASES, SHALLOW, SPO2 98%, PLACED ON NC AT 2 LPM. HEAD TO TOE ASSESSMENT COMPLETED. REPOSITIONED IN BED.
[2019-10-02 07:57] LABS: BASOPHILS 0.2 % (0-2); EOSINOPHILS 1.6 % (0-7); HEMATOCRIT 26.9 % (36.0-48.0); HEMOGLOBIN 8.3 g/dL (12-16); IMMATURE GRANULOCYTES 1.1 % (0-5); LYMPHOCYTES 7.7 % (15-50); MCH 28.5 pg (26.0-34.0); MCHC 30.9 g/dL (31.0-37.0); MCV 92.4 fL (80.0-100.0); MONOCYTES 6.4 % (2-11); PLATELET COUNT 376 10x3/uL (130-400); RBC 2.91 10x6/uL (4.00-5.40); RDW 17.3 % (11.5-14.5); WBC 17.8 10x3/uL (4.8-10.8)
--- NOTE | 2019-10-02 08:05 | NUR ---
PATIENT GIVEN BREAKFAST TRAY AND ASSISTED WITH MEAL SETUP. GIVEN MORNING MEDS PER SEP.
[2019-10-02 08:24] LABS: ALBUMIN 2.6 g/dL (3.4-5.0); ANION GAP 20.7 mmol/L (8-16); BILIRUBIN - TOTAL 0.5 mg/dL (0.2-1.3); CARBON DIOXIDE 25.1 mmol/L (21.0-32.0); CREATININE - SERUM 9.1 mg/dL (0.6-1.3); PHOSPHOROUS 8.2 mg/dL (2.5-4.9); POTASSIUM - SERUM 3.8 mmol/L (3.5-5.1); PROTEIN - SERUM 5.8 g/dL (6.4-8.2)
--- NOTE | 2019-10-02 08:45 | NUR ---
[employer] FLAT[employer]ED TRUCK DRIVER AT ROOM UPDATED AND EXAMINES PATIENT.
--- NOTE | 2019-10-02 09:00 | NUR ---
WOUND CARE NURSE ASSISTED WITH TURNING PATIENT AND ASSESSING PATIENTS BUTTOCKS. MEPIPLEX IN PLACE, C/D/I, TWO HEALED OLD PRESSURE ULCERS NOTED. PATIENT TURNED AND REPOSITIONED IN BED.
--- NOTE | 2019-10-02 10:10 | NUR ---
DIALYSIS AT ROOM SETTING UP FOR DIALYSIS.
--- NOTE | 2019-10-02 11:05 | NUR ---
REASSESSMENT COMPLETE. TURNED AND REPOSITONED IN BED. VSS. DIALYSIS ONGOING.
--- NOTE | 2019-10-02 11:38 | NUR ---
PT HAS A HX OF PRESSURE INJURIES EVIDENCED BY SCARRING ON THE BUTTOCKS. SHE HAS 2 1CM X 1CM FLAKY AREAS ON HER LEFT BUTTOCK FROM PREVIOUS BREAKDOWN. BUTTOCKS / SACRUM IS BEING COVERED AND PROTECTED WITH MEPILEX SACRAL DRESSING. LEFT HEEL HAS A BRUISED AREA THAT MEASURES 4CM X 4CM. PT'S DAUGHTER STATES THIS TOO IS AN OLD AREA OF BREAKDOWN THAT SHE HAS BEEN WORKING ON FOR SEVERAL WEEKS. THE LEFT #4 TOE HAS A SCAB FROM THE TOENAIL BEING REMOVED AND THE RIGHT #5 TOE HAS A 0.3CM X 0.3CM X 0.5CM CHRONIC WOUND THAT IS BEING TREATED AT THE WOUND CLINIC IN [place]. DAUGHTER STATES THAT SHE HAS BEEN USING MEDIHONEY ON TOE WOUNDS. 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 MEPILEX BORDER HEEL WAS APPLIED TO BOTH HEELS FOR ADDITIONAL PROTECTION, ALONG WITH HEEL BRIDGING. PT IS ON AN AIR OVERLAY MATTRESS AND IS BEING TURNED/REPOSITIONED Q 2 HOURS ON SCHEDULE. SHE IS RECEIVING DAILY AND NEEDED PERSONAL CARE SHE IS INCONTINENT OF BOWELS. WOUND CARE WILL CONTINUE MONITORING
--- NOTE | 2019-10-02 13:42 | NUR ---
Rehab Note- Have been following the patient, continues to have hypotension documented in her medical record and also the patient is unable to participate physically for the required 3hrs/day of therapy per Medicare guidelines. Will continue to follow at this time for progression. VM left for MARCELA Graf. Thank you for this referral! Bella Roberts RN Clinical Liaison, [facility] Rehab
--- NOTE | 2019-10-02 14:10 | NUR ---
DIALYSIS COMPLETED. PATIENT TOLERATED WELL, 2 L REMOVED.
--- NOTE | 2019-10-02 14:42 | NUR ---
PATIENT INCONTINENT LARGE SOFT BROWN BM, PATIENT CLEANED, LINENS CHANGED AND REPOSITIONED IN BED. VSS. ASSISTED WITH SETTING UP MEAL TRAY.
--- NOTE | 2019-10-02 19:51 | NUR ---
PT RECEIVED WITH EYES CLOSED AND CHEST RISING. EASILY AWOKEN WITH VERBAL STIMULI. ON HOME CPAP. DENIES ANY NEEDS AT THIS TIME. WILL CONTNUE TO OBSERVE.
--- NOTE | 2019-10-02 22:19 | NUR ---
PT WITH EYES CLOSED AND CHEST RISING. CONTINUES HOME CPAP. RECEIVED MEDICATIONS PER SEP, TOLERATED WELL. NO OTHER NEEDS MADE KNOWN. DINNER PLACE IN REFRIDGERATOR DUE TO PT NOT WANTING IT AT THIS TIME. DAUGHTER IN ROOM AT 2009 IN CHAIR AT BEDSIDE. PT IN WAITING ROOM AT THIS TIME. WILL CONTINUE TO OBSERVE.
--- NOTE | 2019-10-02 23:14 | NUR ---
PT WITH EYES CLOSED AND CHEST RISING. CONTINUE HOME CPAP. NO S/S OF DISTRESS. WILL CONTINUE TO OBSERVE.
[2019-10-03] VITALS (33 sets, daily range): BP systolic 83–144; BP diastolic 11–78
--- NOTE | 2019-10-03 01:19 | NUR ---
PT RESTING WITH EYES CLOSED AND CHEST RISING. EASILY AWOKEN TO VERBAL STIMULI. CONTINUES HOME CPAP. DRINK OF WATER GIVEN PER REQUEST. NO OTHER NEEDS MADE KNOWN. WILL CONTINUE TO OBSERVE.
--- NOTE | 2019-10-03 03:13 | NUR ---
PT WITH EYES CLOSED AND CHEST RISING. NO S/S OF DISTRESS. CONTINUES HOME CPAP. WILL CONTINUE TO OBSERVE.
[2019-10-03 04:53] LABS: HEMATOCRIT 26.1 % (36.0-48.0); HEMOGLOBIN 8.2 g/dL (12-16); MCHC 31.4 g/dL (31.0-37.0); MCV 92.2 fL (80.0-100.0); MEAN PLATELET VOLUME 9.2 fL (7.4-10.4); PLATELET COUNT 378 10x3/uL (130-400); RBC 2.83 10x6/uL (4.00-5.40); RDW 17.2 % (11.5-14.5); WBC 20.8 10x3/uL (4.8-10.8)
[2019-10-03 05:04] LABS: ANION GAP 17.5 mmol/L (8-16); CALCIUM 7.6 mg/dL (8.5-10.1); CARBON DIOXIDE 26.9 mmol/L (21.0-32.0); POTASSIUM - SERUM 3.4 mmol/L (3.5-5.1)
[2019-10-03 05:05] LABS: CREATININE - SERUM 6.4 mg/dL (0.6-1.3); PHOSPHOROUS 5.4 mg/dL (2.5-4.9)
[2019-10-03 05:10] LABS: ANISOCYTOSIS OCC; EOSINOPHILS 2 % (0-7); LYMPHOCYTES 12 % (15-50); MONOCYTES 1 % (2-11); NEUTROPHILS 84 % (40-80); PLATELET ESTIMATE NORMAL
[2019-10-03 05:11] LABS: TEAR DROP CELLS OCC
--- NOTE | 2019-10-03 10:03 | NUR ---
Nutrition Follow-up: Eating breakfast at time of visit. Reports not wanting to eat as much 2/2 multiple loose BMs yesterday. States that she will try to drink Nepro provided. HD yesterday (-2 L). Diet: Renal ADA, Mech Soft with Ground Meat PO intake: 0-90% yesterday Wt: 249.1# (10/02); 254# (09/30); 268.8# (09/23); 226.6# (09/16) Last BM: 10/01 Labs noted: K+ 3.4, Glu 154, Ca 7.6, PO4 5.4 Meds noted: Protonix, Humalog -Encourage PO intake and honor food preferences within diet restrictions. -MD may consider probiotic. -Monitor wt. -RD following.
--- NOTE | 2019-10-03 10:09 | NUR ---
DR. LOMAS NOTIFIED OF CONSULT. ORDERED CMP, MRI AND UA. WILL SEE PT LATER TODAY.
--- NOTE | 2019-10-03 11:08 | NUR ---
LIQUID BROWN STOOL NOTED AT THIS TIME. STOOL SAMPLE COLLECTED. UNABLE TO COLLECT URINE SAMPLE. ATTEMPTED IN AND OUT CATH. PT ANURIC. COMPLETE LINEN CHANGE PROVIDED. WILL CONTINUE TO MONITOR.
[2019-10-03 12:25] LABS: ALBUMIN 2.9 g/dL (3.4-5.0); ANION GAP 21.5 mmol/L (8-16); BILIRUBIN - TOTAL 0.55 mg/dL (0.2-1.3); CALCIUM 7.6 mg/dL (8.5-10.1); CARBON DIOXIDE 23.4 mmol/L (21.0-32.0); POTASSIUM - SERUM 3.9 mmol/L (3.5-5.1); PROTEIN - SERUM 6.2 g/dL (6.4-8.2)
--- NOTE | 2019-10-03 12:34 | NUR ---
UNABLE TO OBTAIN MRI DUE TO YSABEL ON CHEST TUBE.
--- NOTE | 2019-10-03 12:43 | NUR ---
DR. LOMAS NOTIFIED THAT PT IS UNABLE TO HAVE MRI AND UNABLE TO COLLECT UA. ORDERED CT OF HEAD WITHOUT CONTRAST.
--- NOTE | 2019-10-03 13:45 | NUR ---
NOT IN ROOM AT THIS TIME. WENT DOWN TO IMAGING FOR CT SCAN.
--- NOTE | 2019-10-03 14:05 | NUR ---
PT BACK IN ROOM.
--- NOTE | 2019-10-03 14:27 | NUR ---
OT NOTE: PT COMPLETED BUE HAND PROM . PT VERY FATIGUED. [phone] THANK YOU,ORLIN MALDONADO
--- NOTE | 2019-10-03 17:58 | NUR ---
VANCOMYCIN INFUSING TO RIGHT WRIST 20G PIV. REFUSES TO EAT. DAUGTHER AT BEDSIDE. WILL CONTINUE TO MONITOR.
--- NOTE | 2019-10-03 19:08 | NUR ---
REPORT RECEIVED, SHIFT ASSESSMENT COMPLETED PER FLOW SHEET, SEE FOR DETAILS. PATIENT LETHARGIC, AWAKENS EASILY BUT DRIFTS OFF TO SLEEP, INFORMED BY DAY SHIFT RN THAT PATIENT HAS BEEN LETHARGIC AND THAT DR. LOMAS HAS BEEN CONSULTED AND WILL COME TO EXAMINE PATIENT. PATIENT INCONTINENT, DIARRHEA NOTED, PATIENT CLEANED, PERINEAL CARE PROVIDED, BED LINEN CHANGE, REPOSITIONED IN BED, WILL CONTINUE TO MONITOR.
--- NOTE | 2019-10-03 20:27 | NUR ---
DR. LOMAS IN UNIT, INFORMED HIM OF PATIENT'S STATUS AND BEING LETHARGIC, NO NEW ORDERS RECEIVED. DR. LOMAS SPEAKING TO DAUGHTER.
--- NOTE | 2019-10-03 20:33 | NUR ---
DR. LOMAS AT BEDSIDE EXAMINING PATIENT.
--- NOTE | 2019-10-03 21:14 | NUR ---
PATIENT MORE AWAKE AND ALERT, SPEAKING TO DAUGHTER, FOLLOWING COMMANDS, SCHEDULED MEDS GIVEN, TOLERATED WELL, NO DIFFICULTY SWALLOWING. WILL CONTINUE TO MONITOR.
--- NOTE | 2019-10-03 23:07 | NUR ---
REASSESSMENT COMPLETED PER FLOW SHEET, SEE FOR DETAILS. 0100 PATIENT INCONTINENT OF DIARRHEA, PATIENT CLEANED. CHG BATH GIVEN. COMPLETE BED LINEN CHANGE PROVIDED, PERINEAL CARE PROVIDED, REPOSITIONED IN BED. DENIES NEEDS. WILL CONTINUE TO MONITOR.
[2019-10-04] VITALS (31 sets, daily range): BP systolic 89–165; BP diastolic 14–60
--- NOTE | 2019-10-04 03:06 | NUR ---
REASSESSMENT COMPLETED PER FLOW SHEET, SEE FOR DETAILS. 0500 RESTING, NO ACUTE CHANGES NOTED, WILL CONTINUE TO MONITOR.
[2019-10-04 06:39] LABS: BASOPHILS 0.1 % (0-2); EOSINOPHILS 0.2 % (0-7); HEMATOCRIT 26.7 % (36.0-48.0); HEMOGLOBIN 8.5 g/dL (12-16); LYMPHOCYTES 7.7 % (15-50); MCH 29.1 pg (26.0-34.0); MCHC 31.8 g/dL (31.0-37.0); MCV 91.4 fL (80.0-100.0); MEAN PLATELET VOLUME 9.2 fL (7.4-10.4); MONOCYTES 6.5 % (2-11); NEUTROPHILS 84.5 % (40-80); PLATELET COUNT 319 10x3/uL (130-400); RBC 2.92 10x6/uL (4.00-5.40); RDW 17.2 % (11.5-14.5); WBC 20.1 10x3/uL (4.8-10.8)
[2019-10-04 07:25] LABS: ANION GAP 20.4 mmol/L (8-16); CALCIUM 7.5 mg/dL (8.5-10.1); CARBON DIOXIDE 25.3 mmol/L (21.0-32.0); POTASSIUM - SERUM 3.7 mmol/L (3.5-5.1); VANCOMYCIN - RANDOM 22.8 ug/mL (10.0-20.0)
--- NOTE | 2019-10-04 09:45 | NUR ---
SMALL AMOUNT OF LIQUID, BROWN STOOL NOTED AT THIS TIME. PERICARE AND COMPLETE LINEN CHANGE PROVIDED. PULLED UP AND REPOSITIONED FOR COMFORT. MEPILEX DRESSING ON BUTTOCKS CHANGED. NO CURRENT OPEN SKIN NOTED ON BUTTOCKS. DAUGHTER AT BEDSIDE. NO FURTHER NEEDS AT THIS TIME.
--- NOTE | 2019-10-04 10:40 | NUR ---
Bedside report taken and patient care assumed at this time.
--- NOTE | 2019-10-04 12:40 | NUR ---
Patient up in bedside chair eating lunch. Although pace is slow she is successful at eating independently.
--- NOTE | 2019-10-04 13:16 | NUR ---
OT NOTE: PT DOING VERY WELL TODAY. BED MOB WITH MAX ASSIST X 2; PT ABLE TO PERFORM STATIC SITTING WITHOUT SUPPORT TODAY X 14 MIN; PRACTICED UE/LE EXS..PT ABLE TO PERFORM LE ROM EXS WITHOUT ASSIST; INCREASED WEAKNESS IN L UE AND REQUIRED A/AROM WITH L UE; SUPERVISOR DYER STRENGTH IMPROVING; PERFORMED AROM EXS WITH B HANDS. CONT TO REQUIRE EXTENSIVE ASSIST WITH ALL ADLS. ELYSSA YUSUF, OTR/L [phone]
--- NOTE | 2019-10-04 14:38 | NUR ---
Assisted patient back to bed from bedside recliner; max assist. Dialysis now at bedside.
--- NOTE | 2019-10-04 14:58 | NUR ---
OT NOTE: PT COMPLETED BUE AROM EXS WHILE SEATED. PT COMPLETED SITTING BALANCE ACTIVITIES WITH CGA. PT COMPLETED SELF FEEDING TASKS WITH SETUP-MIN A. [phone] THANK YOU,ORLIN MALDONADO
--- NOTE | 2019-10-04 18:35 | NUR ---
Dialysis remains at bedside. Bed is locked and in low position.
--- NOTE | 2019-10-04 19:00 | NUR ---
BEDSIDE REPORT AND SHIFT ASSESSMENT COMPLETE, SEE FLOWSHEET. VSS, NO SIGNS OF ACUTE DISTRESS NOTED. NSR ON MONITOR, RATE 60'S. L UPPER ARM FISTULA WNL. PT PULLED UP IN BED AND REPOSITIONED FOR COMFORT. MEAL TRAY PROVIDED AND ASSISTANCE GIVEN OPENING UP FOOD ITEMS. PT DENIES ANY OTHER NEEDS AT THIS TIME. CALL LIGHT IN REACH, WILL MONITOR.
--- NOTE | 2019-10-04 22:30 | NUR ---
MEDS GIVEN PER MAR AND TOLERATED BY PT. CHG BATH AND LINEN CHANGE COMPLETE.
--- NOTE | 2019-10-04 23:00 | NUR ---
REASSESSMENT COMPLETE, SEE FLOWSHEET.
--- NOTE | 2019-10-04 23:30 | NUR ---
ELECTRIC SWITCH REPAIRER NOTIFIED OF MISSING ABX THAT IS DUE AT 2300. STATES SHE WILL CALL ON-CALL PHARMACIST.
[2019-10-05] VITALS (24 sets, daily range): BP systolic 77–104; BP diastolic 32–57
--- NOTE | 2019-10-05 01:00 | NUR ---
ABX BROUGHT UP BY TOMATO GRADER. ADMINISTERED TO PT.
[2019-10-05 06:37] LABS: ANION GAP 16.3 mmol/L (8-16); CALCIUM 7.6 mg/dL (8.5-10.1); CREATININE - SERUM 6.6 mg/dL (0.6-1.3); POTASSIUM - SERUM 3.3 mmol/L (3.5-5.1)
[2019-10-05 08:16] LABS: HEMATOCRIT 26.1 % (36.0-48.0); HEMOGLOBIN 8.3 g/dL (12-16); MCH 29.1 pg (26.0-34.0); MCHC 31.8 g/dL (31.0-37.0); MCV 91.6 fL (80.0-100.0); MEAN PLATELET VOLUME 9.3 fL (7.4-10.4); PLATELET COUNT 372 10x3/uL (130-400); RBC 2.85 10x6/uL (4.00-5.40); RDW 17.5 % (11.5-14.5); WBC 22.4 10x3/uL (4.8-10.8)
[2019-10-05 09:14] LABS: ANISOCYTOSIS OCC; LYMPHOCYTES 4 % (15-50); MONOCYTES 4 % (2-11); NEUTROPHILS 91 % (40-80); PLATELET ESTIMATE NORMAL
--- NOTE | 2019-10-05 09:18 | NUR ---
Nutrition Consult/Follow-up: Spoke with pt's daughter who reports pt ate better yesterday but is not wanting to eat much this AM. Daughter also hesitant to give pt Nepro 2/2 diarrhea. Daughter agreed to give pt Ray BID; pt drinks Ray at home as well. Diet: Renal ADA, Low Residue, Mech Soft with Ground Meat Wt: 262.3# (10/04); 249.1# (10/02); 226.6# (admit) Labs noted: K+ 3.3, Glu 211, Ca 7.6 Meds noted: Protonix, Humalog, Florajen3, Veltassa -+Ray BID -Encourage PO intake and honor food preferences within diet restrictions. -Monitor wt. -RD following.
--- NOTE | 2019-10-05 09:47 | CN ---
PATIENT NAME:RENEE HELM MEDICAL RECORD: [id number] : 48 LOCATION:[facility] ADMIT DATE: 09/17/19 ACCOUNT: [id number] CONSULTING PHYSICIAN: SHERRI EAGLE MD REFERRING PHYSICIAN: BARBARA MAC MD DATE OF CONSULTATION: 10/03/2019 Otolaryngology Consultation CONSULT FROM: Tha Patterson MD REASON FOR THE CONSULT: Sinusitis. HISTORY OF PRESENT ILLNESS: Ms. Helm recently had Mi and she recently had some change in mental status, elevated white count. A CT of the head was done, which showed some sinusitis. On looking at the CT, she has some fluid in both maxillary sinuses, a little bit of fluid in the sphenoid sinus. Mastoids are fairly clear, maybe a little bit on the left side, some mucosal thickening, but overall not bad, ostomy complex everything looks open, just looks fairly typical like someone who has been intubated for a week, nothing particularly out of the ordinary. No opacification of any of the sinuses. She does not really complain of any drainage. Her daughter is with her. She is awake, somewhat alert, but there is hard to tell if it is some confusion or decrease in her hearing that makes it difficult for a response. She is on nasal CPAP mask. PHYSICAL EXAMINATION: EYES: Sclerae and conjunctivae are normal. EARS: Canals and TMs are normal. NOSE: There is a little bit of wax in the right ear, but the TMs are both intact. There does not appear to be any fluid in the middle ear. No infection, that looked fine. Nose, wide open bilaterally. No congestion at all. She has got some dry crusting in both sides of the nose, but I can see all the way back to the nasopharynx on both sides, cannot see any drainage. ORAL CAVITY AND OROPHARYNX: Normal with no postnasal drainage. NECK: Has no masses. LABORATORY DATA: She has a white count of 21,000. I did some culture swabs of the posterior middle meatus, superior meatus on that right side. IMPRESSION: She has some air-fluid levels and some of the sinuses, not much. It looks fairly typical for someone who has been intubated for a week, cannot really even say for sure that she has a sinusitis, but it is consistent with a mild acute sinusitis with normal sinus anatomy, so no obstruction. I would not expect a white count of 21,000, altered mental status based on that sinusitis alone, I got cultures just in case it might be useful, may grow same thing in case she has some pneumonia, respiratory infection, although she is not really coughing or does not seem like that. They cannot get any urine, but I got those cultures. I think, she will probably need to start on some empiric antibiotic therapy, but continue searching for another source of potential infection. TRANSINT:[id number] Voice Confirmation ID: [id number] DOCUMENT ID: [id number] CONSULT REPORT [id number] RENEE HELM ERIC MD at 0947 CC: [id number] DICTATION DATE: 10/03/19 1616 MICROWAVE REMOTE SENSING SCIENTIST: 10/04/19 0031 ADM IN [facility] [address] [place] [address]
[2019-10-05 10:09] LABS: FUNGUS STAIN Final report (())
--- NOTE | 2019-10-05 10:42 | NUR ---
OT NOTE: PT MORE LETHARGIC TODAY; BLOOD PRESSURE LOWER THAN YESTERDAY. BED MOB WITH MAX ASSIST; ABLE TO MAINTAIN STATIC SITTING ON EOB WITH OCCASSIONAL ASSIST; UE/LE EXS WITH CONSTANT VERBAL CUES. PT REMAINED LETHARGIC WHILE SITTING UP ON EOB. PT WAS ABLE TO WIPE NOSE AND MOUTH WITH TISSUE TODAY. DTR AT BEDSIDE AND EDUCATED HER ON IMPORTANCE OF HAVING PT BEGIN TO USE UES/HANDS MUCH POSSIBLE. PT WITH WEAK CONFIGURATION MANAGEMENT MANAGER AND NURSING REPORTS THAT SHE HAS BEEN WRAPPING CLOTH AROUND UTENSILS TO INCREASE SIZE OF HANDLE. ENCOURAGED AND DEMONSTRATED EXS THAT DTR COULD ASSIST PT WITH TO IMPROVE UE STRENGTH AND CONFIGURATION MANAGEMENT MANAGER STRENGTH. ELYSSA YUSUF, OTR/L [phone]
--- NOTE | 2019-10-05 11:25 | TEE ---
PATIENT:RENEE HELM MEDICAL RECORD: [id number] LOCATION:[place] [address] AGE OF PATIENT: 69 ADMISSION DATE: 09/17/19 SEX: F REFERRING PHYSICIAN: INTERPRETING PHYSICIAN: JADEN LUCERO MD TRANSESOPHAGEAL ECHOCARDIOGRAM Date: 09/20/19 ALEJANDRO CHARGE Y INDICATIONS: CABG PREMEDICATIONS: PATIENT'S RESPONSE PROCEDURE DOPPLER MEASUREMENTS: LVIT LA 3.1 PA RA LVOT RVOT Asc. Ao AV Gradient Peak AV Mean AV Area MV Gradient Peak MV Mean MV Area INTERPRETATION: Doppler: 2-D: COLOR FLOW DOPPLER NORMAL SALINE STUDY: MISCELLANOUS: DIAGNOSIS: PLAN: Director Of Accreditation:1 Dr. Lucero Harmonic Analyst: Ray MASTERSON COMMENTS: UMA/MIKEY PATIENT DATE OF SERVICE: PROCEDURE: Transesophageal echo evaluation of valvular structures during bypass surgery. FINDINGS: 1. Left ventricular chamber size is within normal limits. Left ventricular systolic function is preserved at 50%. 2. Left atrium, right atrium, and right ventricular chamber sizes are within TRANSESOPHAGEAL ECHOCARDIOGRAM REPORT [id number] RENEE HELM normal limits. 3. Valvular structures have normal structure and motion. 4. Doppler interrogation reveals only mild mitral regurgitation, mild tricuspid regurgitation, no other valvular insufficiency or stenosis. 5. No evidence of pericardial effusion or left ventricular thrombus. TRANSINT:[id number] Voice Confirmation ID: [id number] DOCUMENT ID: [id number] at 1125 CC: [id number] DICTATION DATE: 09/21/19 1053 DYE WEIGHER HELPER: 09/21/19 1155 ADM IN [place] [id number] [place] [address]
--- NOTE | 2019-10-05 11:26 | TEE ---
PATIENT:RENEE HELM MEDICAL RECORD: [id number] LOCATION:[place] [address] AGE OF PATIENT: 69 ADMISSION DATE: 09/17/19 SEX: F REFERRING PHYSICIAN: INTERPRETING PHYSICIAN: JADEN LUCERO MD TRANSESOPHAGEAL ECHOCARDIOGRAM Date: 09/21/19 ALEJANDRO CHARGE Y INDICATIONS: CABG PREMEDICATIONS: PATIENT'S RESPONSE PROCEDURE DOPPLER MEASUREMENTS: LVIT LA 3.1 PA RA LVOT RVOT Asc. Ao AV Gradient Peak AV Mean AV Area MV Gradient Peak MV Mean MV Area INTERPRETATION: Doppler: 2-D: COLOR FLOW DOPPLER NORMAL SALINE STUDY: MISCELLANOUS: DIAGNOSIS: PLAN: Piggery Worker:1 Dr. Lucero Operational Test Mechanic: Ray MASTERSON COMMENTS: EATON/MIKEY PATIENT DATE OF SERVICE: 09/21/2019 PROCEDURE: Transesophageal echo. Mrs. Helm was brought back to the operating room second time after yesterday's cardiac surgery. Transesophageal echo was reperformed on this patient. FINDINGS: 1. Left ventricular chamber size is mildly dilated. Left ventricular systolic TRANSESOPHAGEAL ECHOCARDIOGRAM REPORT [id number] RENEE HELM function is mildly reduced at 45%. 2. Left atrium, right atrium, and right ventricular chamber sizes are as well mildly dilated. 3. Valvular structures have normal structure and motion. 4. Doppler interrogation reveals mild mitral regurgitation, mild tricuspid regurgitation, no other valvular insufficiency or stenosis. 5. No evidence of pericardial effusion or left ventricular thrombus. TRANSINT:[id number] Voice Confirmation ID: [id number] DOCUMENT ID: [id number] at 1126 CC: [id number] DICTATION DATE: 09/25/19 1030 MATERIAL CONTROL CLERK: 09/26/19 0606 ADM IN [place] [address] [place] [address]
--- NOTE | 2019-10-05 11:26 | TEE ---
PATIENT:RENEE HELM MEDICAL RECORD: [id number] LOCATION:[place] [address] AGE OF PATIENT: 69 ADMISSION DATE: 09/17/19 SEX: F REFERRING PHYSICIAN: INTERPRETING PHYSICIAN: JADEN LUCERO MD TRANSESOPHAGEAL ECHOCARDIOGRAM Date: 09/21/19 ALEJANDRO CHARGE Y INDICATIONS: CABG PREMEDICATIONS: PATIENT'S RESPONSE PROCEDURE DOPPLER MEASUREMENTS: LVIT LA 3.1 PA RA LVOT RVOT Asc. Ao AV Gradient Peak AV Mean AV Area MV Gradient Peak MV Mean MV Area INTERPRETATION: Doppler: 2-D: COLOR FLOW DOPPLER NORMAL SALINE STUDY: MISCELLANOUS: DIAGNOSIS: PLAN: Rotoformer Backtender:1 Dr. Lucero Automotive Services Manager: Ray MASTERSON COMMENTS: UMA/MIKEY PATIENT DATE OF SERVICE: FINDINGS: 1. Left ventricular chamber size is within normal limits. Left ventricular systolic function is mildly depressed at 45%. 2. Left atrium, right atrium, and right ventricular chamber sizes are upper limits of normal. 3. Valvular structures have normal structure and motion. 4. Doppler interrogation reveals mild tricuspid regurgitation, mild mitral TRANSESOPHAGEAL ECHOCARDIOGRAM REPORT [id number] RENEE HELM regurgitation, no other valvular insufficiency or stenosis. 5. No evidence of pericardial effusion or left ventricular thrombus. TRANSINT:[id number] Voice Confirmation ID: [id number] DOCUMENT ID: [id number] at 1126 CC: [id number] DICTATION DATE: 09/21/19 1601 STATISTICAL MACHINE SERVICER: 09/22/19 1115 ADM IN [place] [id number] [place] [address]
--- NOTE | 2019-10-05 19:00 | NUR ---
PT ASSESSMENT COMPLETED AT THIS TIME, PT AWAKES TO NAME AND FOLLOWS SIMPLES COMMANDS, PT THEN DRIFTS BACK TO SLEEP, NO CHANGES NOTED FROM NURSE REPORT, B/P LOW, BUT NURSE REPORTS SOME LOW B/P WILL MONITOR FOR CHANGES
--- NOTE | 2019-10-05 21:48 | NUR ---
PT GIVEN MEDS AT THIS TIME, NO DISTRESS NOTED, VSS, WILL MONITOR FOR CHANGES
--- NOTE | 2019-10-05 23:00 | NUR ---
PT REASSESSMENT COMEPLTED AT THIS TIME, NO CHANGES NOTED FROM PREVIOUS EXAM, VSS, WILL MONITOR FOR CHANGES
[2019-10-06] VITALS (24 sets, daily range): BP systolic 66–108; BP diastolic 13–53
--- NOTE | 2019-10-06 01:00 | NUR ---
pt resting with eyes closed, resp even and non-labored, vss, will monitor for changes
--- NOTE | 2019-10-06 03:00 | NUR ---
PT REASSESSMENT COMPLETED AT THIS TIME, NO CHANGES NOTED FROM PREVIOUS EXAM, VSS, WILL MONITOR FOR CAHNGES
--- NOTE | 2019-10-06 05:00 | NUR ---
PT RESTING WITH EYES CLOSED, RESP EVEN AND NON-LABORED, VSS, WILL MONITOR FOR CHANGES
[2019-10-06 05:48] LABS: BASOPHILS 0.3 % (0-2); EOSINOPHILS 1.3 % (0-7); HEMATOCRIT 25.7 % (36.0-48.0); HEMOGLOBIN 8.1 g/dL (12-16); IMMATURE GRANULOCYTES 0.9 % (0-5); LYMPHOCYTES 7.4 % (15-50); MCH 28.9 pg (26.0-34.0); MCHC 31.5 g/dL (31.0-37.0); MCV 91.8 fL (80.0-100.0); MEAN PLATELET VOLUME 9.1 fL (7.4-10.4); MONOCYTES 8.8 % (2-11); NEUTROPHILS 81.3 % (40-80); PLATELET COUNT 368 10x3/uL (130-400); RDW 17.5 % (11.5-14.5); WBC 19.6 10x3/uL (4.8-10.8)
--- NOTE | 2019-10-06 06:10 | NUR ---
STOOL SAMPLE COLLECTED AND SENT TO LAB, SMALL AMOUNT OF BROWN/GUERRA MUCOID STOOL SENT
[2019-10-06 06:26] LABS: ANION GAP 23.7 mmol/L (8-16); CALCIUM 7.5 mg/dL (8.5-10.1); CARBON DIOXIDE 21.6 mmol/L (21.0-32.0); CREATININE - SERUM 7.9 mg/dL (0.6-1.3); POTASSIUM - SERUM 3.3 mmol/L (3.5-5.1); VANCOMYCIN - RANDOM 22.7 ug/mL (10.0-20.0)
--- NOTE | 2019-10-06 06:30 | NUR ---
PT C/O FEELING NAUSEATED AND ASKING FOR SOMETHING, PRN ZOFRAN GIVEN AT THIS TIME
--- NOTE | 2019-10-06 09:45 | NUR ---
IV R WRIST INFILTRATED. IV STARTED ON 1ST ATTEMPT IN R AC WITH 22G.
--- NOTE | 2019-10-06 15:00 | NUR ---
SAT ON SIDE OF BED X 20 MIN WITH MAX ASSIST TO REACH SIDE OF BED. ONCE THERE SHE WAS ABLE TO HOLD SELF UPRIGHT AND DO LEG EXERCISES.
--- NOTE | 2019-10-06 19:00 | NUR ---
PT ASSESSMENT COMPLETED AT THIS TIME, PT AAOX3, PT IS TALKING WITH FAMILY AT THE BEDSIDE AND EATING HER DINNER TRAY, PT DENIES COMPLAINTS AT THIS TIME, NO CHANGES NOTED FROM NURSE REPORT, VSS, WILL MONITOR FOR CHANGES
--- NOTE | 2019-10-06 21:10 | NUR ---
PT GIVEN MEDS AT THIS TIME, NO DISTRESS NOTED, PT TOOK MEDS WITHOUT PROBLEMS, VSS, WILL MONITOR FOR CHANGES
--- NOTE | 2019-10-06 23:00 | NUR ---
PT REASSESSMENT COMPLETED AT THIS TIME, NO CHANGES NOTED FROM OREVIOUS EXAM, VSS, WILL MONITOR FOR CHANGES
[2019-10-07] VITALS (23 sets, daily range): BP systolic 76–120; BP diastolic 10–55
--- NOTE | 2019-10-07 01:00 | NUR ---
PT RESTING WITH EYES CLOSED, RESP EVEN AND NON-LABORED, NO DISTRESS NOTED, WILL MONITOR FOR CHANGES
--- NOTE | 2019-10-07 03:00 | NUR ---
PT REASSESSMENT COMPLETED AT THIS TIME, NO CHANGES NOTED FROM PREVIOUS EXAM, WILL MONITOR FOR CHANGES
--- NOTE | 2019-10-07 05:00 | NUR ---
PT RESTING WITH EYES CLOSED, RESP EVEN AND NON-LABORED, VSS, WILL MONITOR FOR CHANGES
[2019-10-07 06:49] LABS: BASOPHILS 0.3 % (0-2); EOSINOPHILS 1.3 % (0-7); HEMATOCRIT 25.2 % (36.0-48.0); HEMOGLOBIN 7.9 g/dL (12-16); IMMATURE GRANULOCYTES 1.2 % (0-5); LYMPHOCYTES 8.3 % (15-50); MCH 28.7 pg (26.0-34.0); MCHC 31.3 g/dL (31.0-37.0); MCV 91.6 fL (80.0-100.0); MEAN PLATELET VOLUME 9.2 fL (7.4-10.4); MONOCYTES 9.2 % (2-11); NEUTROPHILS 79.7 % (40-80); PLATELET COUNT 422 10x3/uL (130-400); RBC 2.75 10x6/uL (4.00-5.40); WBC 16.8 10x3/uL (4.8-10.8)
[2019-10-07 06:56] LABS: ANION GAP 19.9 mmol/L (8-16); CALCIUM 7.8 mg/dL (8.5-10.1); CARBON DIOXIDE 24.5 mmol/L (21.0-32.0); POTASSIUM - SERUM 3.4 mmol/L (3.5-5.1); VANCOMYCIN - RANDOM 20.4 ug/mL (10.0-20.0)
[2019-10-07 06:57] LABS: CREATININE - SERUM 5.7 mg/dL (0.6-1.3)
--- NOTE | 2019-10-07 08:50 | NUR ---
UP TO CHAIR WITH ASSISTANCE X 2.
--- NOTE | 2019-10-07 19:48 | NUR ---
PT RECEIVED WITH EYES CLOSED AND CHEST RISING. ON HOME CPAP. EASILY AWOKEN WITH VERBAL STIMULI. PT REPOSTIONED AND FAN TURNED ON PER REQUEST. NO OTHER NEEDS OR REQUEST MADE KNOWN. CALL LIGHT IN REACH. WILL CONTINUE TO OBSERVE.
--- NOTE | 2019-10-07 21:53 | NUR ---
PT RECEIVED PM MEDICATIONS, TOLERATED WELL. NO OTHER NEEDS MADE KNOWN AT THIS TIME. CONTINE HOME CPAP. CALL LIGHT IN REACH. WILL CONTINUE TO OBSERVE.
--- NOTE | 2019-10-07 23:13 | NUR ---
PT RESTING WITH EYES CLOSED AND CHEST RISING. CONTINUES HOME CPAP. NO S/S OF DISTRESS NOTED. WILL CONTINUE TO OBSERVE.
[2019-10-08] VITALS (21 sets, daily range): BP systolic 83–143; BP diastolic 15–109
--- NOTE | 2019-10-08 01:29 | NUR ---
PT RESTING WITH EYES CLOSED AND CHEST RISING. NO S/S OF DISTRESS NOTED. CONTINUES HOME CPAP. EASILY AWOKEN WITH VERBAL STIMULI. RECEIVED SCHEDULED MEDICATIONS. WILL CONTINUE TO OBSERVE.
[2019-10-08 06:53] LABS: ANION GAP 20.5 mmol/L (8-16); CALCIUM 7.5 mg/dL (8.5-10.1); CARBON DIOXIDE 24.8 mmol/L (21.0-32.0); CREATININE - SERUM 6.8 mg/dL (0.6-1.3); POTASSIUM - SERUM 3.3 mmol/L (3.5-5.1); VANCOMYCIN - RANDOM 17.7 ug/mL (10.0-20.0)
[2019-10-08 08:26] LABS: HEMATOCRIT 26.7 % (36.0-48.0); HEMOGLOBIN 8.5 g/dL (12-16); LYMPHOCYTES 10.3 % (15-50); MCH 29.1 pg (26.0-34.0); MCHC 31.8 g/dL (31.0-37.0); MCV 91.4 fL (80.0-100.0); MEAN PLATELET VOLUME 9.2 fL (7.4-10.4); NEUTROPHILS 81.4 % (40-80); PLATELET COUNT 436 10x3/uL (130-400); RBC 2.92 10x6/uL (4.00-5.40); RDW 18.2 % (11.5-14.5)
--- NOTE | 2019-10-08 09:14 | NUR ---
Nutrition Follow-up: Visited with pt during breakfast. Daughter reports that she ate better this morning than she had over the weekend. Drinking some of the Ray sent. Has decreased Nepro intake and daughter reports more formed stools. Diet: Renal ADA, Low Residue, Mech Soft with Ground Meat, Ray BID Wt: 263.4# (10/07); 262.3# (10/06) Labs noted: K+ 3.3, Glu 156, Ca 7.5 Meds noted: Protonix, Humalog, Florajen3 -Encourage PO intake and honor food preferences within diet restrictions. -Monitor wt. -RD following.
--- NOTE | 2019-10-08 12:05 | NUR ---
PT UP TO CHAIR THIS AM AT 0715 AND STAYED TILL SHE HAD A BM AT 1025 STOOD WITH ASSISTANCE FOR 5 MIN TO CLEAN. PT BACK TO BED FOR PARACENTISIS. BEFORE PROCEDURE SET TO SIDE OF BED AT 1125. BACK TO BED AND POSITIONED FOR COMFORT. DIALYSIS NURSE AT BEDSIDE. WILL CONTINUE TO MONITOR.
--- NOTE | 2019-10-08 16:01 | NUR ---
PT TX COMPLETE. HAD THORENCENTESIS PRIOR TO DIALYSIS. PT HAD SEVERAL PVC'S THROUGHOUT TX, BIGEMINAL. 2L FLUID OFF. PT HAS SLEPT FOR MOST OF PROCEDURE.
--- NOTE | 2019-10-08 19:13 | NUR ---
PT RECEIVED WITH EYES CLOSED AND CHEST RISING. ON HOME CPAP. EASILY AWOKEN TO VERBAL STIMULI. NO S/S OF DISTRESS. SMALL BM NOTED, PT STATED THAT SHE FELT THAT SHE WAS NOT FINISHED AND ASKED FOR A LITTLE TIME TO FINISH. WILL RECHECK AND PROVIDE PERICARE WHEN PT READY. CALL LIGHT IN REACH. WILL CONTINUE TO OBSERVE.
--- NOTE | 2019-10-08 20:24 | NUR ---
PT INCONTINENT OF BM WITH LARGE LOOSE WITH SOFT FORMED NOTED. PERICARE PROVIDED WITH CREAM APPLIED AND GOWN AND PAD CHANGED. PT TOLERATED WELL, PT ABLE TO HOLD SELF ON SIDE WITH ASSIST WITH ROLLING. PT STATES SHE IS COMFORTABLE, CALL LIGHT IN REACH ALONG WITH SUCTION. CONTINUES HOME CPAP. WILL CONTINUE TO OBSERVE.
--- NOTE | 2019-10-08 21:50 | NUR ---
MEDICATIONS GIVEN, PT TOLERATED WELL. NO OTHER NEEDS MADE KNOWN. WILL CONTINUE TO OBSERVE.
[2019-10-09] VITALS (14 sets, daily range): BP systolic 82–118; BP diastolic 17–58
--- NOTE | 2019-10-09 01:05 | NUR ---
PT RESTING WITH EYES CLOSED AND CHEST RISING. NO S/S OF DISTRESS. CONTINUES HOME CPAP. CALL LIGHT IN REACH. WILL CONTINUE TO OBSERVE.
--- NOTE | 2019-10-09 03:35 | NUR ---
PT RESTING WITH EYES CLOSED AND CHEST RISING. NO S/S OF DISTRESS. CALL LIGHT IN REACH. WILL CONTINUE TO OBSERVE.
--- NOTE | 2019-10-09 05:45 | NUR ---
PT WITH BM. BM LOOSE WITH SOME SOFT FORMED. PERICARE PROVIDED WITH BATH GIVEN AND COMPLETE LINEN CHANGE. PT TOLERATED WELL. WILL CONTINUE TO OBSERVE.
[2019-10-09 06:08] LABS: HEMATOCRIT 29.2 % (36.0-48.0); HEMOGLOBIN 9.2 g/dL (12-16); LYMPHOCYTES 10.4 % (15-50); MCHC 31.5 g/dL (31.0-37.0); MCV 92.1 fL (80.0-100.0); MEAN PLATELET VOLUME 8.7 fL (7.4-10.4); NEUTROPHILS 79.8 % (40-80); PLATELET COUNT 430 10x3/uL (130-400); RBC 3.17 10x6/uL (4.00-5.40); RDW 18.3 % (11.5-14.5); WBC 10.9 10x3/uL (4.8-10.8)
[2019-10-09 06:26] LABS: ANION GAP 19.7 mmol/L (8-16); CALCIUM 7.9 mg/dL (8.5-10.1); CARBON DIOXIDE 26.4 mmol/L (21.0-32.0); CREATININE - SERUM 5.5 mg/dL (0.6-1.3); POTASSIUM - SERUM 3.1 mmol/L (3.5-5.1); VANCOMYCIN - RANDOM 15.4 ug/mL (10.0-20.0)
--- NOTE | 2019-10-09 11:05 | OP ---
PATIENT NAME: RENEE HELM MEDICAL RECORD: [id number] :48 LOCATION:[facility] ADMISSION DATE:09/17/19 SURGEON: LUIS EATON MD DATE OF OPERATION: 10/08/2019 SURGEON: Luis Eaton MD PROCEDURE: Attempted right ultrasound-guided thoracentesis. DESCRIPTION OF PROCEDURE: With the patient seated upright in the cardiovascular intensive care unit with a heart rate, blood pressure, and pulse oximetry monitored, a window for aspiration, although somewhat difficult was obtained from the right chest. The area was prepped, anesthetized, but the needle would not reach from the skin, even with a 2 inch needle and 22 gauge. A 2 mm skin incision was made and thoracentesis catheter was inserted over the superior surface of the rib and into the pleural cavity, but no fluid return was obtained and the procedure was aborted. There were no apparent complications. Chest x-ray is pending. Plan for CT chest and possible CT-guided thoracentesis. TRANSINT:[id number] Voice Confirmation ID: [id number] DOCUMENT ID: [id number] LUIS EATON MD at 1105 CC: [id number] DICTATION DATE: 10/08/19 1205 PLANT ETIOLOGIST: 10/08/19 1551 ADM IN [place] [id number] [place] [address]
--- NOTE | 2019-10-09 13:14 | NUR ---
OT NOTE: PT DOING MUCH BETTER TODAY. PT MORE ALERT AND VERBALLY RESPONSIVE. BED MOB REMAINS AT MAX ASSIST, HOWEVER, EOB SITTING WITH CGA. PT WAS ABLE TO PERFORM SIT TO STAND WITH OT AND PT WITH WALKER AND MOD ASSIST; ABLE TO AMB APPROX 9 FT FROM BED TO CHAIR WITH MIN/MOD ASSIST X 2. IMPROVEMENT IN L HAND FLEX/EXT..CONT TO REPORT INCREASED PAIN IN R HAND. TOLERATING SITTING UP IN CHAIR FOR LONGER PERIOD OF TIME. RECOMMEND IP REHAB. ELYSSA YUSUF, OTR/L [id number]
--- NOTE | 2019-10-09 15:28 | MORECARE ---
CASE MANAGEMENT DISCHARGE SUMMARY PATIENT: RENEE HELM UNIT: [id number] ADM DATE: 09/17/19 AGE: 69 : [birth year] SEX: F [facility] AUTHOR: ASHLEY,DOC PHYSICIAN: REFERRING PHYSICIAN: BARBARA MAC MD DATE OF SERVICE: 10/09/19 Discharge Plan Patient Name: RENEE HELM Facility: [facility]:[place] : 1950 Planned Disposition: Anticipated Discharge Date: Discharge Date: 10/09/2019 Expected LOS: Initial Reviewer: [email or web address] Initial Review Date: 09/17/2019 Generated: 10/09/19 4:28 pm Comments DCP- Discharge Planning Updated by [email or web address]: Lesia Hernandez on 10/09/19 2:[address] Patient Name: RENEE HELM Encounter No: [id number] : 1950 Primary Insurance: MEDICARE A & B Anticipated DC Date: 10/09/19 Planned Disposition: External Planned Provider: : INPATIENT REHAB [facility] DCP follow-up note: Patient and family in agreement with discharge plan. No changes to plan. Case management will follow and assist as needed. D/C IMM SIGNED 10/09/19 @ 1254 Lesia Hernandez DCP- Discharge Planning Updated by [email or web address]: Lesia Hernandez on 09/21/19 7:[address] Patient Name: RENEE HELM Admission Status: ER Accout number: [id number] Admission Date: 09-17-2019 : 1950 Admission Diagnosis: Attending: BARBARA MAC Current LOS: 4 Anticipated DC Date: Planned Disposition: Primary Insurance: MEDICARE A & B Discharge Planning Comments: CM met with patient's daughter Grzegorz to complete initial dc planning assessment. CM educated Grzegorz on the CM role and verbal consent given by patient to complete assessment. Patient lives at home with her daughter and spouse where she is partially dependent with her care. CM discussed with daughter Inpatient rehab options SHERRY signed for [facility] CM discussed availability of home health, rehab services, and medical equipment. Patient has dialysis MWF in [place] @ 0600. Patient's daughter transports her. Patient's daughter uncertain of discharge needs at this time. CM will continue to follow and will assist as needed with dc plans/needs. Lactation Coordinator: Lesia Hernandez DCPIA - Discharge Planning Initial Assessment Updated by [id number]: Lesia Hernandez on 09/21/19 9:32 pm * How many steps to enter\exit or inside your home? * PCP SINDI RYDER * [facility] * Preadmission Environment Home with Family * ADLs Independent * Equipment CPAP * Other Equipment W/C, WALKER * List name and contact numbers for known caregivers / representatives who currently or will assist patient after discharge: GRZEGORZ HELM - DAUGHTER- [phone] * Verbal permission to speak to the caregivers and representatives has been obtained from the patient. N/A * Community resources currently utilized None * Additional services required to return to the preadmission environment? No * Can the patient safely return to the preadmission environment? Yes * Has this patient been hospitalized within the prior 30 days at any hospital? No Coverage Notice Reviewer: [id number] - Lesia Hernandez Notice Issued Date-Time: 10/09/2019 12:54 Notice Type: IM Discharge Notice Notice Delivered To: Family Member Relationship to Patient: Daughter Coal Carrier Name: GRZEGORZ HELM Delivery Method: HAND - Hand Delivered Malena Days: Prior Verbal Notification: Yes Recipient Understood Notice: Yes Recipient Signature: Blade Rec Note Co-signed by Attending: Coverage Notice Comment: Last DP export: 09/21/19 7:51 pm Patient Name: RENEE HELM Page [phone] at 1528 All edits/amendments must be made on the electronic document DICTATION DATE: 10/09/19 1528 PHYSICAL SECURITY ENGINEER: EDWAR 10/09/19 1528 RPT#: [id number] DC DATE:10/09/19 STATUS: DIS IN [facility] [address] [place] [address] END OF REPORT
--- NOTE | 2019-10-09 15:37 | MORECARE ---
CASE MANAGEMENT DISCHARGE SUMMARY PATIENT: RENEE HELM UNIT: [id number] ADM DATE: 09/17/19 AGE: 69 : [birth year] SEX: F [facility] AUTHOR: ASHLEY,DOC PHYSICIAN: REFERRING PHYSICIAN: BARBARA MAC MD DATE OF SERVICE: 10/09/19 Discharge Plan Patient Name: RENEE HELM Facility: [facility]:[place] : 1950 Planned Disposition: Anticipated Discharge Date: Discharge Date: 10/09/2019 Expected LOS: Initial Reviewer: [email or web address] Initial Review Date: 09/17/2019 Generated: 10/09/19 4:37 pm Comments DCP- Discharge Planning Updated by [email or web address]: Lesia Hernandez on 10/09/19 2:[address] Patient Name: RENEE HELM Encounter No: [id number] : 1950 Primary Insurance: MEDICARE A & B Anticipated DC Date: 10/09/19 Planned Disposition: External Planned Provider: : INPATIENT REHAB [facility] DCP follow-up note: Patient and family in agreement with discharge plan. No changes to plan. Case management will follow and assist as needed. D/C IMM SIGNED 10/09/19 @ 1254 Lesia Hernandez DCP- Discharge Planning Updated by [email or web address]: Lesia Hernandez on 09/21/19 7:[address] Patient Name: RENEE HELM Admission Status: ER Accout number: [id number] Admission Date: 09-17-2019 : 1950 Admission Diagnosis: Attending: BARBARA MAC Current LOS: 4 Anticipated DC Date: Planned Disposition: Primary Insurance: MEDICARE A & B Discharge Planning Comments: CM met with patient's daughter Grzegorz to complete initial dc planning assessment. CM educated Grzegorz on the CM role and verbal consent given by patient to complete assessment. Patient lives at home with her daughter and spouse where she is partially dependent with her care. CM discussed with daughter Inpatient rehab options SHERRY signed for [facility] CM discussed availability of home health, rehab services, and medical equipment. Patient has dialysis MWF in [place] @ 0600. Patient's daughter transports her. Patient's daughter uncertain of discharge needs at this time. CM will continue to follow and will assist as needed with dc plans/needs. Office Clerk Assistant: Lesia Hernandez DCPIA - Discharge Planning Initial Assessment Updated by [email or web address]: Lesia Hernandez on 09/21/19 9:32 pm * How many steps to enter\exit or inside your home? * PCP SINDI RYDER * [facility] * Preadmission Environment Home with Family * ADLs Independent * Equipment CPAP * Other Equipment W/C, WALKER * List name and contact numbers for known caregivers / representatives who currently or will assist patient after discharge: GRZEGORZ HELM - DAUGHTER- [phone] * Verbal permission to speak to the caregivers and representatives has been obtained from the patient. N/A * Community resources currently utilized None * Additional services required to return to the preadmission environment? No * Can the patient safely return to the preadmission environment? Yes * Has this patient been hospitalized within the prior 30 days at any hospital? No Coverage Notice Reviewer: [id number] - Lesia Hernandez Notice Issued Date-Time: 10/09/2019 12:54 Notice Type: IM Discharge Notice Notice Delivered To: Family Member Relationship to Patient: Daughter Semiconductor Assembler Name: GRZEGORZ HELM Delivery Method: HAND - Hand Delivered Malena Days: Prior Verbal Notification: Yes Recipient Understood Notice: Yes Recipient Signature: Blade Rec Note Co-signed by Attending: Coverage Notice Comment: Last DP export: 10/09/19 2:28 p Patient Name: RENEE HELM Page [id number] at 1537 All edits/amendments must be made on the electronic document DICTATION DATE: 10/09/19 1537 TERRAZZO WORKER HELPER: EDWAR 10/09/19 1537 RPT#: [id number] DC DATE:10/09/19 STATUS: DIS IN [facility] [address] [place] [address] END OF REPORT
== END 2019-10-09 15:24 | DRG 233 ==
LOC: D.ER 02:02 → EDBD 02:02 → D.CVICU 03:59 → D.M2 03:59 → D.CVICU 09-19 17:23
PROVIDERS: Family Medicine; Internal Medicine Cardiovascular Disease; Internal Medicine Nephrology; Psychiatry & Neurology Neurology; Thoracic Surgery (Cardiothoracic Vascular Surgery); ADMIT Internal Medicine Nephrology; ATTEND Internal Medicine Nephrology
PROC: B2151ZZ Fluoroscopy of Left Heart using Low Osmolar Contrast (ICD-10-PCS; 2019-09-18)
PROC: 4A023N7 Measurement of Cardiac Sampling and Pressure, Left Heart, Percutaneous Approach (ICD-10-PCS; 2019-09-18)
PROC: B2111ZZ Fluoroscopy of Multiple Coronary Arteries using Low Osmolar Contrast (ICD-10-PCS; principal; 2019-09-18 07:06)
PROC: 5A02210 Assistance with Cardiac Output using Balloon Pump, Continuous (ICD-10-PCS; 2019-09-19)
PROC: 02100Z9 Bypass Coronary Artery, One Artery from Left Internal Mammary, Open Approach (ICD-10-PCS; 2019-09-20)
PROC: 021109W Bypass Coronary Artery, Two Arteries from Aorta with Autologous Venous Tissue, Open Approach (ICD-10-PCS; 2019-09-20)
PROC: 06BP4ZZ Excision of Right Saphenous Vein, Percutaneous Endoscopic Approach (ICD-10-PCS; 2019-09-20)
PROC: 5A1221Z Performance of Cardiac Output, Continuous (ICD-10-PCS; 2019-09-20)
PROC: B24BZZ4 Ultrasonography of Heart with Aorta, Transesophageal (ICD-10-PCS; 2019-09-20)
PROC: 5A1955Z Respiratory Ventilation, Greater than 96 Consecutive Hours (ICD-10-PCS; 2019-09-20)
PROC: 0BH17EZ Insertion of Endotracheal Airway into Trachea, Via Natural or Artificial Opening (ICD-10-PCS; 2019-09-20)
PROC: 02CN0ZZ Extirpation of Matter from Pericardium, Open Approach (ICD-10-PCS; 2019-09-21)
PROC: 0B968ZZ Drainage of Right Lower Lobe Bronchus, Via Natural or Artificial Opening Endoscopic (ICD-10-PCS; 2019-09-23)
PROC: B5091ZZ Plain Radiography of Inferior Vena Cava using Low Osmolar Contrast (ICD-10-PCS; 2019-09-23)
PROC: 05HY33Z Insertion of Infusion Device into Upper Vein, Percutaneous Approach (ICD-10-PCS; 2019-09-26)
DX: I21.4 Non-ST elevation (NSTEMI) myocardial infarction (principal); N18.6 End stage renal disease; J95.821 Acute postprocedural respiratory failure; G93.41 Metabolic encephalopathy; J18.9 Pneumonia, unspecified organism; I12.0 Hypertensive chronic kidney disease with stage 5 chronic kidney disease or end stage renal disease; I82.402 Acute embolism and thrombosis of unspecified deep veins of left lower extremity; Z68.42 Body mass index [BMI] 45.0-49.9, adult; I97.631 Postprocedural hematoma of a circulatory system organ or structure following cardiac bypass; J94.2 Hemothorax; G72.81 Critical illness myopathy; J98.11 Atelectasis; Z99.2 Dependence on renal dialysis; E11.22 Type 2 diabetes mellitus with diabetic chronic kidney disease; E87.5 Hyperkalemia; I25.5 Ischemic cardiomyopathy; I95.9 Hypotension, unspecified; D64.9 Anemia, unspecified; E66.01 Morbid (severe) obesity due to excess calories; I51.3 Intracardiac thrombosis, not elsewhere classified; R53.81 Other malaise; E78.5 Hyperlipidemia, unspecified; J01.90 Acute sinusitis, unspecified

== ENCOUNTER 2019-10-09 15:22 | Inpatient (IN) | payer MEDICARE, BC ==
[~2019-10-09] VITALS: Ht 162.6 cm; Wt 108.9 kg
--- NOTE | ~2019-10-09 | RHP ---
PATIENT: RENEE HELM MEDICAL RECORD: [id number] ACCOUNT: [id number] LOCATION:[facility] [address] : [birth year] ADMISSION DATE: 10/09/19 REHABILITATION HISTORY AND PHYSICAL EXAMINATION POST ADMISSION PHYSICIAN EXAMINATION ADMITTING DIAGNOSIS: Critical illness myopathy. HISTORY OF PRESENT ILLNESS: The patient is a 69-year-old morbidly obese female that was transferred from [facility] in [place], where she presented with substernal chest pain, nausea and vomiting. It showed evidence of a non-ST segment elevation myocardial infarction. Her potassium was also elevated. The patient has got a history of diabetes, hypertension, end-stage renal disease, chronic pain, hyperlipidemia. She had an infection in the perineal region in [place] 2 years ago. The patient more recently has had some sciatic nerve problems. The patient's troponin went up to 3.8. She was started on heparin drip. She had cardiology consulted. She had heart cath done, which showed 3-vessel coronary artery disease with main involvement. Joya-dw-[id number] left ventricular dysfunction. The patient had a cardiovascular consult. She had placement of an intraaortic balloon pump and underwent coronary artery bypass grafting on 09/19. The patient had pulmonary consult for ventilatory management also during her stay. She has been on CPAP and BiPAP during her stay and supplemental oxygen. She has had some mental status changes and had a CT done of her head, which showed nothing acute. The patient has had a prolonged hospitalization postop CABG. She has received 7 units of fresh frozen plasma, 9 units of red blood cells, 4 units of pheresed platelets. She has also had prolonged hospitalization and postop complications. She has been receiving speech therapy, occupational therapy and PT during her stay. She has been on supplemental O2, status post extubation, the patient is being monitored for chronic hypotension, pain control, monitor surgical wounds. She has got monitoring her lab values, has proximal muscle weakness, balance deficits, decreased activity tolerance, decreased range of motion, decreased strength, gait disturbance, limited safety awareness and the risk for falls. She has cues for equipment, low endurance, unsteady gait and balance, fatigues easily and self-care deficits. These are all barriers to her discharge home, lives at home with her daughter and spouse and was independent with ADLs and mobility using a rolling walker. She is set up for max assist for ADLs, max assist with her mobility. She and her family would like for return home at her prior level of functioning or better. COMORBIDITIES: Include weakness, pleural effusion, deep venous thrombosis, critical illness myopathy. Got a history of Moraxella catarrhalis on UA. She is on Merrem. She has got obstructive sleep apnea, cough, got a history of end-stage renal cell dialysis, hyperlipidemia, chronic hypotension, morbid obesity, pressure ulcers, anemia and debility. PAST MEDICAL HISTORY: Significant for neuropathy, weakness, glaucoma, hypotension, chronic pain, morbid obesity, pressure ulcers. PAST SURGICAL HISTORY: Includes appendectomy, hysterectomy, thyroid surgery, fistula and multiple surgical debridements. ALLERGIES: IODINATED CONTRAST, LASIX, SULFA, KEFLEX AND TAPE. CURRENT MEDICATIONS: Include a glucose replacement protocol. She is on a HISTORY AND PHYSICAL [id number] GREEN,RENEE Lidoderm patch to apply daily, Flonase nasal spray daily, Lexapro 10 mg daily, calcium carbonate 500 mg daily, aspirin chewable 81 mg daily, potassium chloride 40 mEq as needed. She is on Patanol eyedrops 1 drop b.i.d. She is on Singulair 10 mg at bedtime, Flagyl 500 mg t.i.d., Xalatan eyedrops 1 drop bedtime. She is on Fosrenol 1000 mg b.i.d. She is on Atarax 25 mg t.i.d., Mucinex D 1 tab b.i.d., Florinef 0.1 mg t.i.d. She is on Colace 100 mg b.i.d. She is on heparin on a pump for dialysis. She is on triamterene 5 mg t.i.d. She is on polyethylene glycol 17 grams in 8 ounces of water daily, Protonix 40 mg b.i.d. and she is on Humalog sliding scale intermediate resistance. HABITS: No alcohol or tobacco use. FAMILY HISTORY: Noncontributory. SOCIAL HISTORY: The patient hopes to return back home and get back to her prior level of functioning. REVIEW OF SYSTEMS: GENERAL: Does complain of weakness and fatigue. HEENT: Denies cold, cough, or congestion. CARDIOVASCULAR: Denies any chest pain. PHYSICAL EXAMINATION: VITAL SIGNS: Stable, afebrile. GENERAL: A morbidly obese female, in no distress upon exam. HEENT: Normocephalic and atraumatic. Mucosa moist. NECK: Supple. No lymphadenopathy. LUNGS: Clear at this time with no wheezing, rhonchi or rales. HEART: Regular rate and rhythm. No murmurs, rubs or gallops. ABDOMEN: Soft, benign, and nondistended. Positive bowel sounds times 4. EXTREMITIES: No clubbing, cyanosis or edema. NEUROLOGIC: She does have noted proximal muscle weakness. LABORATORY DATA: White count is 9.6, H&H of 9 and 29, and platelet count is 430. Her sodium is 137, potassium 3.0, BUN and creatinine of 37 and 6.5 and blood sugar is noted to be 131. ASSESSMENT: This is a 69-year-old female patient admitted to rehab with a working diagnosis of critical illness myopathy secondary to a prolonged hospitalization and coronary artery bypass grafting. The patient has potential to make improvement. We instituted the following multidisciplinary therapies including, but not limited to physical, occupational, respiratory, speech, nutritional services, prosthetics and orthotics. Given her complex medical condition and risks for more complications, rehabilitation services cannot be provided at a low level of care such a skilled nurse facility. PLAN: 1. Admit to [facility] for inpatient therapy to include the following disciplines; A. Physical therapy to improve gait, all transfer skills and bed mobility to a modified independent level. B. Occupational therapy to a modified independent level. C. Case management to assist with discharge planning and placement options. D. Nutrition to assist with nutritional needs. E. Rehabilitation nursing to assist in monitoring the patient's underlying HISTORY AND PHYSICAL [id number] GREEN,RENEE medical conditions and to assist with any type of bowel or bladder management. 2. The patient's current medication and medical care will be continued. 3. Placed on standard fall precautions. 4. The patient's estimated length of stay is approximately 7-10 days. 5. We will discuss this patient during care team staff meeting this week. We will continue on meds where appropriate. We will watch her potassium level closely and appreciate nephrology consult. I will go ahead and talk with our care team today at lunch. TRANSINT:[id number] Voice Confirmation ID: [id number] DOCUMENT ID: [id number] CLEOPATRA notes whether there has been none or any medical/functional change since admission: - No change since pre-admission screen. CLEOPATRA attests patient continues to be appropriate for IRF: - Continues to be appropriate. JONA JORDAN MD CC: [id number] DICTATION DATE: 10/10/19 1146 SHAPER MACHINE HAND: 10/10/19 1242 ADM IN [place] [id number] [place] [address]
[~2019-10-09 15:22] MED LIST: ALPHAGAN P15 ML EACH EYE; ATARAX 25 MG TA25 MG PO; BAYER CHEWABLE81 MG PO; DOK100 MG PO; FLUTICASONE PRO16 GM NASAL; FOSRENOL1000 MG PO; INCRUSE ELLI62.5 MCG INH; MIDODRINE HCL5 MG PO; MUCINEX DM ER1 EAC1 PO; NITROSTAT0.4 MG SL; NORCO-7.51 TAB PO; PAZEO2.5 ML EACH EYE; PROTONIX40 MG PO; SINGULAIR10 MG PO; SODIUM BICARBO650 MG PO; TUMS X-STR300 MG PO; VITAMIN B COMPLEX; VITAMIN D10000 UNI1 PO; XALATAN 0.0052.5 ML EACH EYE
--- NOTE | 2019-10-09 15:28 | NUR ---
PATIENT ADMITTED TO REHAB FROM ACUTE FLOOR. UNABLE TO SPEAK WITH PATIENT AT THIS TIME. WILL CONTINUE TO FOLLOW WITH PATIENT.
[2019-10-09 15:37] VITALS: BMI 41.3
--- NOTE | 2019-10-09 19:23 | NUR ---
NEW ADMIT PT IN BED, DAUGHTER IN ROOM, CPAP ON, FLUIDS/CALL LIGHT WITHIN REACH, FALL PRECAUTIONS IN PLACE
[2019-10-10 00:12] VITALS: BP 93/49
--- NOTE | 2019-10-10 02:23 | NUR ---
PT ASLEEP, BIPAP ON, AROUSES TO TOUCH ([place]) FLUIDS/CALL LIGHT WITHIN REACH, NO NEEDS NOTED, FALL PRECAUTIONS IN PLACE/FUNCTIONING
[2019-10-10 05:46] LABS: ANION GAP 17.3 mmol/L (8-16); CALCIUM 7.2 mg/dL (8.5-10.1); CARBON DIOXIDE 26.7 mmol/L (21.0-32.0); CREATININE - SERUM 6.5 mg/dL (0.6-1.3)
[2019-10-10 05:58] VITALS: BP 94/48
[2019-10-10 06:16] LABS: HEMATOCRIT 29.4 % (36.0-48.0); HEMOGLOBIN 9.1 g/dL (12-16); MCH 28.7 pg (26.0-34.0); MCV 92.7 fL (80.0-100.0); MEAN PLATELET VOLUME 8.9 fL (7.4-10.4); NEUTROPHILS 68.4 % (40-80); PLATELET COUNT 430 10x3/uL (130-400); RBC 3.17 10x6/uL (4.00-5.40); WBC 9.6 10x3/uL (4.8-10.8)
--- NOTE | 2019-10-10 06:39 | NUR ---
TARA NORIEGA FSBS 145, REMOVED IV RIGHT AC NON WORKING, PT IS A HARD STICK, PT ASLEEP, AROUSES EASILY TO TOUCH, FLUIDS/CALL LIGHT WITHIN REACH, FALL PRECAUTIONS IN PLACE FUNCTIONING
--- NOTE | 2019-10-10 07:31 | NUR ---
PT RESTING IN BED WITH EYES OPEN CALL LIGHT IN REACH WILL MONITER
[2019-10-10 08:00] VITALS: BP 115/38
[2019-10-10 10:17] VITALS: Ht 162.6 cm; Wt 108.9 kg
--- NOTE | 2019-10-10 14:39 | NUR ---
CARE TEAM MEETING: PATIENT IS NEW TO UNIT AND WILL BE RA AT NEXT MEETING. WILL CONTINUE TO FOLLOW WITH PATIENT. FAMILY T BEDSIDE.
--- NOTE | 2019-10-10 15:16 | NUR ---
PT TAKEN TO DIALYSIS VIA BED WITH C-PAP PT HAS 3 LITERS O2 WITH C-PAP PT TOLERATED WELL WILL MONITER
--- NOTE | 2019-10-10 18:25 | NUR ---
PT IN DIALYSIS
--- NOTE | 2019-10-10 19:52 | NUR ---
RETURN FROM DIALYSIS. TOLERATED WELL. NO IN BED EATING SUPPER. RESPIRATIONS UNLABORED. LEFT FISTURAL INTACT WITH BANDAIDE OVER SITE. DAUGHTER AT BEDSIDE.
[2019-10-10 21:00] VITALS: BP 83/44
--- NOTE | 2019-10-10 21:28 | NUR ---
BP 88/44 HEART RATE 79. DIALYSIS WAS DONE AND FINISHED AT 1900. DIALYSIS NURSE STATES SHE PULLED OF 1-2 LITERS. PROAMITINE WAS GIVEN AND LOWER EXTREMITIES ELEVATED. NO C/O DISCOMFORTS. WILL RECHECK BP AT MIDNIGHT. JOSHUA BERGERON STATED "HELADIO ALREADY HAD THAT" DAUGHTER AT BEDSIDE.
[2019-10-10 23:54] VITALS: BP 100/50
[2019-10-10 23:58] VITALS: BP 100/50
--- NOTE | 2019-10-10 23:59 | NUR ---
MANUAL BLOOD PRESSURE 100/50. LEGS ELEVATED. NO ACUTE DISTRESS NOTED. DAUGHTER AT BEDSIDE.
--- NOTE | 2019-10-11 03:29 | NUR ---
RESTING IN BED WITH EYES CLOSED AND RESPIRATIONS UNLABORED. NO DISTRESS NOTED. BIPAP ON.
--- NOTE | 2019-10-11 05:07 | NUR ---
QUIET HOURS. NO ACUTE CHANGES IN CONDITION. RESTING WITH NO ACUTE DISTRESS NOTED.
[2019-10-11 06:09] VITALS: BP 98/49
--- NOTE | 2019-10-11 12:00 | NUR ---
I have reviewed this patient and I concur with the Shift Assessment completed by the Licensed Practical Nurse today this shift.
[2019-10-11 12:26] VITALS: BP 111/33
[2019-10-11 18:00] VITALS: BP 124/47
--- NOTE | 2019-10-11 18:03 | NUR ---
PT RESTING IN BED WITH EYES OPEN CALL LIGHT IN REACH WILL MONITER
[2019-10-11 18:38] VITALS: BP 124/47
--- NOTE | 2019-10-11 20:00 | NUR ---
PATIENT RECEIVED LAYING IN BED TAKING CARE OF PATIENT BM INCONTINENCE. THIS NURSE HELPED WITH OBTAINING SUPPLIES. DAUGHTER SHOWED THIS NURSE ALL THE AREAS ON PATIENT TO CLEAN AFTER INCONTINENT BM. BED LOW. CALL LIGHT WITHIN REACH. WILL CONTINUE TO MONITOR.
--- NOTE | 2019-10-11 21:10 | NUR ---
PATIENT ASSESSMENT & VITAL SIGNS DONE. BIPAP ON. NO C/O PAIN OR DISTRESS. ALARM ON. CALL LIGHT WITHIN REACH. WILL CONTINUE TO MONITOR.
[2019-10-12 00:20] VITALS: BP 133/27
--- NOTE | 2019-10-12 02:07 | NUR ---
I have reviewed this patient and I concur with the Shift Assessment completed by the Licensed Practical Nurse today this shift.
--- NOTE | 2019-10-12 03:38 | NUR ---
PATIENT EYES CLOSED. BIPAP CONTINUES. PATIENT PHONE & CALL LIGHT WITHIN REACH. ALARM ON. WILL CONTINUE TO MONITOR.
[2019-10-12 05:30] LABS: BASOPHILS 0.3 % (0-2); EOSINOPHILS 5.2 % (0-7); HEMATOCRIT 30.7 % (36.0-48.0); HEMOGLOBIN 9.3 g/dL (12-16); IMMATURE GRANULOCYTES 1.1 % (0-5); LYMPHOCYTES 15.9 % (15-50); MCH 28.3 pg (26.0-34.0); MCHC 30.3 g/dL (31.0-37.0); MCV 93.3 fL (80.0-100.0); MEAN PLATELET VOLUME 9.1 fL (7.4-10.4); MONOCYTES 7.9 % (2-11); NEUTROPHILS 69.6 % (40-80); PLATELET COUNT 370 10x3/uL (130-400); RBC 3.29 10x6/uL (4.00-5.40); WBC 11.5 10x3/uL (4.8-10.8)
[2019-10-12 05:44] LABS: ANION GAP 16.9 mmol/L (8-16); CALCIUM 7.9 mg/dL (8.5-10.1); CREATININE - SERUM 6.7 mg/dL (0.6-1.3)
[2019-10-12 05:45] VITALS: BP 125/44
[2019-10-12 05:46] LABS: POTASSIUM - SERUM 2.9 mmol/L (3.5-5.1)
--- NOTE | 2019-10-12 05:53 | NUR ---
PATIENT DRESSINGS CHANGED PER ORDER. PATIENT TOLERATED IT WELL. CALL LIGHT WITHIN REACH. WILL CONTINUE TO MONITOR.
--- NOTE | 2019-10-12 06:05 | NUR ---
PATIENT CONTINUES ON BIPAP. VITAL SIGNS TAKEN. BP 125/44. MIDODRINE HELD. FSBS 115. CALL LIGHT WITHIN REACH. WILL CONTINUE TO MONITOR.
--- NOTE | 2019-10-12 08:00 | NUR ---
PATIENT IS ALERT/ORIENT. FIRST STEP MATTRESS ON BED. CALL LIGHT WITHIN REACH. VOICES NO NEEDS AT THIS TIME. WILL CONTINUE WITH PLAN OF CARE
--- NOTE | 2019-10-12 10:15 | NUR ---
PATIENT IS A TOTAL ASST. MADHURI LIFT X 2 TO GET PATIENT OUT OF BED. TAKEN DOWN TO REHAB ROOM FOR THERAPY
[2019-10-12 12:21] VITALS: BP 101/56
--- NOTE | 2019-10-12 13:18 | NUR ---
PATIENT TAKEN DOWN IN BED TO DIALYSIS CLINIC.
[2019-10-12 18:00] VITALS: BP 114/58
[2019-10-12 20:00] VITALS: BP 99/51
--- NOTE | 2019-10-12 20:00 | NUR ---
PATIENT RECEIVED SITTING UP IN BED. ASSESSMENT & VITAL SIGNS DONE. PATIENT CLEAN & DRY. BED LOW. CALL LIGHT WITHIN REACH. WILL CONTINUE TO MONITOR.
[2019-10-13] VITALS (9 sets, daily range): BP systolic 103–130; BP diastolic 21–64
--- NOTE | 2019-10-13 03:47 | NUR ---
PATIENT EYES CLOSED. RESPIRATIONS 18 & EVEN. CONTINUES ON BIPAP. BED LOW. CALL LIGHT WITHIN REACH. WILL CONTINUE TO MONITOR.
--- NOTE | 2019-10-13 04:30 | NUR ---
PATIENT GIVEN BED BATH. DRESSINGS CHANGED. MEDICATION GIVEN FOR LOOSE STOOL. BED LOW. CALL LIGHT WITHIN REACH. WILL CONTINUE TO MONITOR.
[2019-10-13 06:20] LABS: ALBUMIN 2.8 g/dL (3.4-5.0); ANION GAP 18.1 mmol/L (8-16); BILIRUBIN - TOTAL 0.65 mg/dL (0.2-1.3); CALCIUM 8.2 mg/dL (8.5-10.1); CARBON DIOXIDE 24.3 mmol/L (21.0-32.0); CREATININE - SERUM 5.1 mg/dL (0.6-1.3); PROTEIN - SERUM 6.8 g/dL (6.4-8.2)
[2019-10-13 06:23] LABS: PHOSPHOROUS 3.5 mg/dL (2.5-4.9); POTASSIUM - SERUM 3.4 mmol/L (3.5-5.1)
[2019-10-13 06:31] LABS: BASOPHILS 0.3 % (0-2); EOSINOPHILS 3.9 % (0-7); HEMATOCRIT 32.3 % (36.0-48.0); HEMOGLOBIN 9.8 g/dL (12-16); IMMATURE GRANULOCYTES 0.8 % (0-5); LYMPHOCYTES 10.8 % (15-50); MCH 28.6 pg (26.0-34.0); MCHC 30.3 g/dL (31.0-37.0); MCV 94.2 fL (80.0-100.0); MEAN PLATELET VOLUME 8.7 fL (7.4-10.4); MONOCYTES 7.5 % (2-11); NEUTROPHILS 76.7 % (40-80); PLATELET COUNT 378 10x3/uL (130-400); RBC 3.43 10x6/uL (4.00-5.40); RDW 19.4 % (11.5-14.5); WBC 11.6 10x3/uL (4.8-10.8)
--- NOTE | 2019-10-13 08:45 | NUR ---
PHYSICAL THERAPY IN ROOM, WORKING WITH PATIENT. PATIENT SITTING UP BY THE SIDE OF THE BED EATTING BREAKFAST. PATIENT IS A TOTAL ASST WITH TRANSFERS. CALL LIGHT WITHIN REACH. WILL CONTINUE WITH PLAN OF CARE
--- NOTE | 2019-10-13 09:54 | NUR ---
Syed BOWIE APN INTO SEE PATIENT. NEW ORDERS RECEIVED
--- NOTE | 2019-10-13 18:50 | NUR ---
BEDSIDE REPORT COMPLETE. PT LYING IN BED SUPINE, HOB 15 DEGREES, EYES CLOSED RESTING COMFORTABLY. BIPAP ON. NO SIGNS OF ACUTE DISTRESS NOTED. CALL LIGHT AND WATER WITHIN REACH. FALL PRECAUTIONS IN PLACE. WILL CONTINUE TO MONITOR
[2019-10-14 00:25] VITALS: BP 125/67
--- NOTE | 2019-10-14 01:10 | NUR ---
PT LYING IN BED EYES CLOSED RESTING COMFORTABLY. RR EVEN AND UNLABORED. BIPAP IN USE. CALL LIGHT AND WATER WITHIN REACH. FALL PRECAUTIONS IN PLACE. WILL CONTINUE TO MONITOR
--- NOTE | 2019-10-14 04:24 | NUR ---
PT LYING IN BED EYES CLOSED RESTING COMFORTABLY. BIPAP IN USE. RR EVEN AND UNLABORED. CALL LIGHT AND WATER WITHIN REACH. FALL PRECAUTIONS IN PLACE. WILL CONTINUE TO MONITOR
[2019-10-14 04:29] VITALS: BP 108/46
[2019-10-14 06:40] LABS: BASOPHILS 0.4 % (0-2); EOSINOPHILS 4.5 % (0-7); HEMATOCRIT 33.4 % (36.0-48.0); HEMOGLOBIN 10.1 g/dL (12-16); IMMATURE GRANULOCYTES 0.8 % (0-5); MCH 28.8 pg (26.0-34.0); MCHC 30.2 g/dL (31.0-37.0); MCV 95.2 fL (80.0-100.0); MEAN PLATELET VOLUME 8.7 fL (7.4-10.4); MONOCYTES 7.4 % (2-11); NEUTROPHILS 73.9 % (40-80); PLATELET COUNT 362 10x3/uL (130-400); RBC 3.51 10x6/uL (4.00-5.40); RDW 19.6 % (11.5-14.5); WBC 10.6 10x3/uL (4.8-10.8)
[2019-10-14 06:55] LABS: ALBUMIN 2.9 g/dL (3.4-5.0); ANION GAP 18.8 mmol/L (8-16); BILIRUBIN - TOTAL 0.77 mg/dL (0.2-1.3); CALCIUM 8.4 mg/dL (8.5-10.1); CARBON DIOXIDE 24.2 mmol/L (21.0-32.0); PROTEIN - SERUM 6.8 g/dL (6.4-8.2)
[2019-10-14 06:56] LABS: CREATININE - SERUM 6.5 mg/dL (0.6-1.3)
--- NOTE | 2019-10-14 08:15 | NUR ---
PT RESTING IN BED WITH EYES OPEN CALL LIGHT IN REACH WILL MONITER
[2019-10-14 12:00] VITALS: BP 127/30
[2019-10-14 13:14] VITALS: BP 127/30
[2019-10-14 13:23] VITALS: BP 183/89
[2019-10-14 18:52] VITALS: BP 86/41
--- NOTE | 2019-10-14 19:00 | NUR ---
BEDSIDE REPORT COMPLETE. PT LYING IN BED, HOB 30 DEGREES, EYES CLOSED RESTING COMFORTABLY. BIPAP IN USE. EASILY AROUSED WITH VERBAL STIMULI. DENIES ANY NEEDS OR PAIN. NO SIGNS OF ACUTE DISTRESS NOTED. CALL LIGHT AND WATER WITHIN REACH. FALL PRECAUTIONS IN PLACE. WILL CONTINUE TO MONITOR
--- NOTE | 2019-10-15 | NUR ---
INCONTINENCE CARE PROVIDED. MED LOOSE BM. CALMOSEPTINE APPLIED TO BUTTOCKS AND [place]KA AREA. CALL LIGHT AND WATER WITHIN REACH. CPOC
[2019-10-15 00:13] VITALS: BP 101/52
--- NOTE | 2019-10-15 04:29 | NUR ---
PT LYING IN BED EYES CLOSED RESTING. HOB ELEVATED. RR EVEN AND UNLABORED. BIPAP IN USE. CALL LIGHT AND WATER WITHIN REACH. CPOC
[2019-10-15 05:53] LABS: ALBUMIN 2.7 g/dL (3.4-5.0); ANION GAP 17.2 mmol/L (8-16); BILIRUBIN - TOTAL 0.78 mg/dL (0.2-1.3); CALCIUM 8.3 mg/dL (8.5-10.1); CREATININE - SERUM 7.4 mg/dL (0.6-1.3); PHOSPHOROUS 4.2 mg/dL (2.5-4.9); POTASSIUM - SERUM 4.2 mmol/L (3.5-5.1); PROTEIN - SERUM 6.5 g/dL (6.4-8.2)
[2019-10-15 06:10] VITALS: BP 131/55
[2019-10-15 06:11] LABS: BASOPHILS 0.2 % (0-2); EOSINOPHILS 4.8 % (0-7); HEMATOCRIT 31.8 % (36.0-48.0); HEMOGLOBIN 9.7 g/dL (12-16); IMMATURE GRANULOCYTES 0.6 % (0-5); LYMPHOCYTES 15.5 % (15-50); MCHC 30.5 g/dL (31.0-37.0); MCV 94.9 fL (80.0-100.0); MEAN PLATELET VOLUME 8.9 fL (7.4-10.4); MONOCYTES 8.9 % (2-11); PLATELET COUNT 347 10x3/uL (130-400); RBC 3.35 10x6/uL (4.00-5.40); RDW 19.1 % (11.5-14.5); WBC 10.8 10x3/uL (4.8-10.8)
--- NOTE | 2019-10-15 07:25 | NUR ---
RESTING QUIETLY WITH EYES CLOSED. RESP EVEN AND UNLABORED WITH BI PAP INUSE. CALL LIGHT IN REACH, BED IN LOW LOCKED POSITION AND NO NEEDS NOTED AT THIS TIME.
[2019-10-15 12:00] VITALS: BP 99/37
--- NOTE | 2019-10-15 13:29 | NUR ---
Nutrition follow-up: Diet: Renal ADA PO intake 100% of last 3 meals Pt continues with diarrhea Labs reviewed Wt: 239# Continues with BIPAP PO intake has improved RDN following.
[2019-10-15 18:54] VITALS: BP 115/54
--- NOTE | 2019-10-15 19:30 | NUR ---
PT IS RESTING IN BED WITH EYES OPEN. ALERT AND ORIENTED X 3. CABG INCISIONS ARE HEALING WELL. O2 IS ON @ 3LPM PER NC. NO SOB NOTED. LEFT ARM FISTULA NOTED WITH GOOD BRUITT AND THRILL. SR'S ARE UP X 3 IN BED. CALL LIGHT AND BEDSIDE TABLE ARE WITHIN EASY REACH.
[2019-10-15 19:49] VITALS: BP 114/57
--- NOTE | 2019-10-15 21:54 | NUR ---
PT INC. OF A SMALL AMOUNT OF LOOSE STOOL. INC. CARE GIVEN AND CALMOSEPTINE APPLIED. NO FURTHER NEEDS VOICED.
[2019-10-16 00:14] VITALS: BP 112/60
--- NOTE | 2019-10-16 02:46 | NUR ---
I have reviewed this patient and I concur with the Shift Assessment completed by the Licensed Practical Nurse today this shift.
[2019-10-16 06:15] VITALS: BP 103/58
[2019-10-16 06:51] LABS: BASOPHILS 0.2 % (0-2); EOSINOPHILS 5.5 % (0-7); HEMATOCRIT 33.3 % (36.0-48.0); HEMOGLOBIN 9.9 g/dL (12-16); IMMATURE GRANULOCYTES 0.8 % (0-5); LYMPHOCYTES 16.3 % (15-50); MCH 28.4 pg (26.0-34.0); MCHC 29.7 g/dL (31.0-37.0); MCV 95.7 fL (80.0-100.0); MEAN PLATELET VOLUME 8.8 fL (7.4-10.4); MONOCYTES 10.7 % (2-11); NEUTROPHILS 66.5 % (40-80); PLATELET COUNT 291 10x3/uL (130-400); RBC 3.48 10x6/uL (4.00-5.40); RDW 19.4 % (11.5-14.5); WBC 8.5 10x3/uL (4.8-10.8)
[2019-10-16 06:58] LABS: ALBUMIN 2.8 g/dL (3.4-5.0); BILIRUBIN - TOTAL 0.69 mg/dL (0.2-1.3); CALCIUM 8.4 mg/dL (8.5-10.1); CARBON DIOXIDE 25.3 mmol/L (21.0-32.0); CREATININE - SERUM 5.9 mg/dL (0.6-1.3); POTASSIUM - SERUM 4.3 mmol/L (3.5-5.1); PROTEIN - SERUM 6.6 g/dL (6.4-8.2)
--- NOTE | 2019-10-16 07:33 | NUR ---
I have reviewed this patient and I concur with the Shift Assessment completed by the Licensed Practical Nurse today this shift.
--- NOTE | 2019-10-16 08:00 | NUR ---
INCONTINENT OF LARGE AMT LIGHT BROWN LIQUID STOOL. CLEANED AND LINENS CHANGED. DENIES ANY PAIN OR DISCOMFORT AT THIS TIME. HEELS BRIDGED ON PILLOW. SIDERAILS UP X 2, CALL LIGHT IN REACH AND BED IN LOW LOCKED POSITION. NO REQUESTS VOICED.
[2019-10-16 12:37] VITALS: BP 127/64
[2019-10-16 18:27] VITALS: BP 130/60
--- NOTE | 2019-10-16 19:12 | NUR ---
AWAKE AND ALERT. RESTING IN BED WATCHING TV. RESPIRAITONS UNLABORED. O2/3L ON PER NASAL CANNULA. LEFT AV FISTULA INTACT. NO ACUTE DISTRESS NOTED. CALL LIGHT IN REACH.
[2019-10-16 19:33] VITALS: BP 130/60
--- NOTE | 2019-10-16 22:55 | NUR ---
RESTING IN BED WITH EYES CLOSED AND RESPIRATIONS UNLABORED. NO DISTRESS NOTED.
[2019-10-17 00:08] VITALS: BP 114/62
--- NOTE | 2019-10-17 05:10 | NUR ---
QUIET HOURS. NO ACUTE CHANGES IN CONDITION THIS SHIFT. HAD ONE LOOSE STOOL THIS SHIFT. RESTING WITH NO DISTRESS NOTED.
[2019-10-17 05:51] VITALS: BP 111/69
[2019-10-17 06:52] LABS: BASOPHILS 0.5 % (0-2); HEMATOCRIT 33.5 % (36.0-48.0); HEMOGLOBIN 9.9 g/dL (12-16); IMMATURE GRANULOCYTES 0.6 % (0-5); LYMPHOCYTES 19.4 % (15-50); MCH 28.3 pg (26.0-34.0); MCHC 29.6 g/dL (31.0-37.0); MCV 95.7 fL (80.0-100.0); MEAN PLATELET VOLUME 9.1 fL (7.4-10.4); MONOCYTES 9.4 % (2-11); NEUTROPHILS 64.1 % (40-80); PLATELET COUNT 303 10x3/uL (130-400); WBC 8.4 10x3/uL (4.8-10.8)
[2019-10-17 07:03] LABS: ALBUMIN 2.9 g/dL (3.4-5.0); ANION GAP 16.8 mmol/L (8-16); BILIRUBIN - TOTAL 0.71 mg/dL (0.2-1.3); CALCIUM 8.2 mg/dL (8.5-10.1); CARBON DIOXIDE 24.9 mmol/L (21.0-32.0); CREATININE - SERUM 7.1 mg/dL (0.6-1.3); PHOSPHOROUS 4.3 mg/dL (2.5-4.9); POTASSIUM - SERUM 4.7 mmol/L (3.5-5.1); PROTEIN - SERUM 6.1 g/dL (6.4-8.2)
--- NOTE | 2019-10-17 08:10 | NUR ---
PT AM MEDS ADMINISTERED. PT SITTING UP IN BED EATING BREAKFAST, DENIES NEEDS. WCTM.
--- NOTE | 2019-10-17 11:26 | NUR ---
PT HAS HAD TWO EPISODES OF DIARRHEA. PT GIVEN PRN IMODIUM AT THIS TIME. WCTM.
--- NOTE | 2019-10-17 13:15 | NUR ---
PT TAKEN TO DIALYSIS. PT ALBUMIN AND RETACRIT TAKEN TO BE GIVEN DURING DIALYSIS.
--- NOTE | 2019-10-17 13:51 | NUR ---
CARE TEAM MEETING: PATIENT IS PROGRESSING VERY SLOWLY IN THERAPY. TENATIVE DISCHARGE DATE IS 10/25/2019. RECOMMENDATION IS THAT PATIENT WILL NEED SNF AT DISCHARGE. WILL CONTINUE TO FOLLOW WITH PATIENT.
--- NOTE | 2019-10-17 15:53 | NUR ---
PT RETURNED FROM DIALYSIS AT THIS TIME. PT RESTING IN BED, DENIES NEEDS. WCTM.
[2019-10-17 18:20] VITALS: BP 161/65
--- NOTE | 2019-10-17 18:55 | NUR ---
BEDSIDE REPORT COMPLETE. PT LYING IN BED AWAKE AND ALERT. BIPAP ON. HOB ELEVATED. 1ST STEP OVERLAY INFLATED. CALL LIGHT AND WATER WITHIN REACH. DENIES ANY NEEDS OR PAIN. CPOC
--- NOTE | 2019-10-17 23:15 | NUR ---
PT LYING IN BED EYES CLOSED RESTING. HOB ELEVATED. RR EVEN AND UNLABORED. BIPAP IN USE. CALL LIGHT WITHIN REACH. FALL PRECAUTIONS IN PLACE. CPOC
[2019-10-18 00:15] VITALS: BP 148/52
--- NOTE | 2019-10-18 03:14 | NUR ---
PT LYING IN BED EYES CLOSED RESTING COMFORTABLY. HOB ELEVATED. RR EVEN AND UNLABORED. CONTINUES ON BIPAP. CALL LIGHT WITHIN REACH. FALL PRECAUTIONS IN PLACE. CPOC
[2019-10-18 06:00] LABS: BASOPHILS 0.2 % (0-2); EOSINOPHILS 4.5 % (0-7); HEMATOCRIT 31.4 % (36.0-48.0); HEMOGLOBIN 9.4 g/dL (12-16); IMMATURE GRANULOCYTES 0.6 % (0-5); LYMPHOCYTES 18.9 % (15-50); MCH 28.4 pg (26.0-34.0); MCHC 29.9 g/dL (31.0-37.0); MCV 94.9 fL (80.0-100.0); MEAN PLATELET VOLUME 9.1 fL (7.4-10.4); MONOCYTES 9.3 % (2-11); NEUTROPHILS 66.5 % (40-80); PLATELET COUNT 269 10x3/uL (130-400); RBC 3.31 10x6/uL (4.00-5.40); RDW 18.6 % (11.5-14.5); WBC 8.6 10x3/uL (4.8-10.8)
[2019-10-18 06:11] LABS: ALBUMIN 3.1 g/dL (3.4-5.0); ANION GAP 15.3 mmol/L (8-16); BILIRUBIN - TOTAL 0.72 mg/dL (0.2-1.3); CALCIUM 8.4 mg/dL (8.5-10.1); CARBON DIOXIDE 25.9 mmol/L (21.0-32.0); CREATININE - SERUM 6.1 mg/dL (0.6-1.3); POTASSIUM - SERUM 4.2 mmol/L (3.5-5.1); PROTEIN - SERUM 6.4 g/dL (6.4-8.2)
[2019-10-18 06:52] VITALS: BP 110/45
--- NOTE | 2019-10-18 08:12 | NUR ---
PT AM MEDS ADMINISTERED. PT DENIES NEEDS. WCTM.
[2019-10-18 11:49] VITALS: BP 126/50
--- NOTE | 2019-10-18 18:50 | NUR ---
BEDSIDE REPORT COMPLETE. PT LYING IN BED TALKING ON PHONE. DENIES ANY NEEDS OR PAIN. NO SIGNS OF ACUTE DISTRESS NOTED. CONTINUES ON 3L VIA BIPAP. CALL LIGHT WITHIN REACH. FALL PRECAUTIONS IN PLACE. CPOC
[2019-10-18 19:00] VITALS: BP 118/62
[2019-10-18 21:17] VITALS: BP 111/75
--- NOTE | 2019-10-19 00:19 | NUR ---
PT LYING IN BED EYES CLOSED RESTING COMFORTABLY. HOB ELEVATED. RR EVEN AND UNLABORED. CALL LIGHT WITHIN REACH. CPOC
--- NOTE | 2019-10-19 04:40 | NUR ---
PT LYING IN BED EYES CLOSED RESTING COMFORTABLY. RR EVEN AND UNLABORED. CONTINUES ON 3L VIA BIPAP. CALL LIGHT WITHIN REACH. CPOC
[2019-10-19 05:32] VITALS: BP 142/71
[2019-10-19 05:51] LABS: ALBUMIN 3.1 g/dL (3.4-5.0); BILIRUBIN - TOTAL 0.86 mg/dL (0.2-1.3); CALCIUM 8.7 mg/dL (8.5-10.1); CARBON DIOXIDE 24.5 mmol/L (21.0-32.0); CREATININE - SERUM 7.5 mg/dL (0.6-1.3); PHOSPHOROUS 3.8 mg/dL (2.5-4.9); POTASSIUM - SERUM 4.5 mmol/L (3.5-5.1); PROTEIN - SERUM 6.6 g/dL (6.4-8.2)
[2019-10-19 06:19] LABS: HEMATOCRIT 32.7 % (36.0-48.0); HEMOGLOBIN 10.2 g/dL (12-16); MCH 29.3 pg (26.0-34.0); MCHC 31.2 g/dL (31.0-37.0); MEAN PLATELET VOLUME 9.3 fL (7.4-10.4); RBC 3.48 10x6/uL (4.00-5.40); RDW 17.9 % (11.5-14.5)
[2019-10-19 06:21] LABS: PLATELET COUNT 454 10x3/uL (130-400); WBC 15.6 10x3/uL (4.8-10.8)
[2019-10-19 07:12] LABS: BURR CELLS OCC; EOSINOPHILS 4 % (0-7); LYMPHOCYTES 34 % (15-50); MONOCYTES 9 % (2-11); NEUTROPHILS 53 % (40-80); PLATELET ESTIMATE INCREASED; SCHISTOCYTES OCC
[2019-10-19 07:13] LABS: ELLIPTOCYTES OCC
--- NOTE | 2019-10-19 08:45 | NUR ---
PT BACK FROM DIALYSIS VIA BED TOLERATED WELL
--- NOTE | 2019-10-19 11:57 | NUR ---
Dialysis Coordinator: Pt is from [facility]. OPHD schedule needs to be confirmed prior to discharge to make sure there are no changes d/t patient's prolonged hospitaliztion. [facility]. PLEASE CONTACT ME PRIOR TO DISCHARGING THIS PATIENT. ([phone]) ROSA TONY.
[2019-10-19 12:00] VITALS: BP 122/65
[2019-10-19 13:31] LABS: HEMATOCRIT 33.5 % (36.0-48.0); MCH 28.7 pg (26.0-34.0); MCHC 29.9 g/dL (31.0-37.0); MEAN PLATELET VOLUME 8.8 fL (7.4-10.4); RBC 3.48 10x6/uL (4.00-5.40); RDW 18.6 % (11.5-14.5); WBC 11.9 10x3/uL (4.8-10.8)
--- NOTE | 2019-10-19 14:00 | NUR ---
LAB HERE TO REDRAW BLOOD
[2019-10-19 14:08] LABS: MCV 96.3 fL (80.0-100.0); PLATELET COUNT 301 10x3/uL (130-400)
[2019-10-19 14:38] LABS: EOSINOPHILS 1 % (0-7); LYMPHOCYTES 14 % (15-50); MONOCYTES 1 % (2-11); NEUTROPHILS 84 % (40-80); PLATELET ESTIMATE NORMAL
--- NOTE | 2019-10-19 15:08 | NUR ---
PT TAKEN TO DIALYSIS IN BED WITH C-PAP MACHINE TOLERATED WELL
--- NOTE | 2019-10-19 20:09 | NUR ---
AWAKE AND ALERT. NOW EATING HER SUPPER MEAL. AC BLOOD SUGAR 116. RESPIRATIONS UNLABORED. LEFT AV FISTUAL INTACT. NO ACUTE DISTRESS NOTED. CALL LIGHT IN REACH.
[2019-10-19 21:45] VITALS: BP 115/61
--- NOTE | 2019-10-20 01:45 | NUR ---
SALINE LOCK STARTED IN RIGHT FOREARM X 2 STICKS WITH 23G IV CATH. TOLERATED WELL.
--- NOTE | 2019-10-20 04:51 | NUR ---
QUIET HOURS. NO ACUTE CHANGES IN CONDITION THIS SHIFT. SALINE LOCK INTACT TO RIGHT FOREARM. BIPAP ON. HAS HAD TWO LOOSE STOOLS THIS SHIFT.
[2019-10-20 05:36] LABS: BASOPHILS 0.3 % (0-2); EOSINOPHILS 3.4 % (0-7); HEMATOCRIT 32.5 % (36.0-48.0); HEMOGLOBIN 9.6 g/dL (12-16); IMMATURE GRANULOCYTES 0.6 % (0-5); LYMPHOCYTES 13.8 % (15-50); MCH 28.6 pg (26.0-34.0); MCHC 29.5 g/dL (31.0-37.0); MCV 96.7 fL (80.0-100.0); MEAN PLATELET VOLUME 8.8 fL (7.4-10.4); MONOCYTES 9.3 % (2-11); NEUTROPHILS 72.6 % (40-80); PLATELET COUNT 271 10x3/uL (130-400); RBC 3.36 10x6/uL (4.00-5.40); RDW 18.5 % (11.5-14.5)
[2019-10-20 05:49] LABS: WBC 8.8 10x3/uL (4.8-10.8)
[2019-10-20 05:58] LABS: ALBUMIN 2.9 g/dL (3.4-5.0); ANION GAP 7.4 mmol/L (8-16); BILIRUBIN - TOTAL 0.67 mg/dL (0.2-1.3); CALCIUM 8.4 mg/dL (8.5-10.1); CARBON DIOXIDE 26.3 mmol/L (21.0-32.0); CREATININE - SERUM 6.1 mg/dL (0.6-1.3); POTASSIUM - SERUM 3.7 mmol/L (3.5-5.1); PROTEIN - SERUM 6.4 g/dL (6.4-8.2); VANCOMYCIN - RANDOM 10.3 ug/mL (10.0-20.0)
--- NOTE | 2019-10-20 06:12 | NUR ---
HAD ANOTHER LOOSE BM. IMMODIUM ONE PO GIVEN.
[2019-10-20 06:44] VITALS: BP 134/73
--- NOTE | 2019-10-20 07:45 | NUR ---
RESTING QUIETLY WITH EYES CLOSED, RESP EVEN AND UNLABORED WITH CPAP ON. NO DISTRESS NOTED. SL PATENT TO RIGHT FOREARM WITH NO REDNESS OR EDEMA NOTED AT SITE. SIDERAILS UP X 2, CALL LIGHT AND WATER IN REACH, BED IN LOW LOCKED POSITION. WILL CONTINUE POC.
[2019-10-20 10:55] VITALS: BP 105/51
--- NOTE | 2019-10-20 13:00 | NUR ---
I have reviewed this patient and I concur with the Shift Assessment completed by the Licensed Practical Nurse today this shift.
[2019-10-21 00:26] VITALS: BP 105/54
--- NOTE | 2019-10-21 01:26 | NUR ---
I have reviewed this patient and I concur with the Shift Assessment completed by the Licensed Practical Nurse today this shift.
--- NOTE | 2019-10-21 05:15 | NUR ---
BED BATH GIVEN. TOLERATED WELL.
[2019-10-21 05:49] VITALS: BP 124/85
[2019-10-21 06:46] LABS: BASOPHILS 0.2 % (0-2); EOSINOPHILS 4.6 % (0-7); HEMATOCRIT 32.8 % (36.0-48.0); HEMOGLOBIN 9.5 g/dL (12-16); IMMATURE GRANULOCYTES 0.3 % (0-5); LYMPHOCYTES 8.9 % (15-50); MCH 28.1 pg (26.0-34.0); MONOCYTES 9.1 % (2-11); NEUTROPHILS 76.9 % (40-80); PLATELET COUNT 290 10x3/uL (130-400); RBC 3.38 10x6/uL (4.00-5.40); RDW 18.4 % (11.5-14.5)
[2019-10-21 07:01] LABS: ALBUMIN 2.9 g/dL (3.4-5.0); ANION GAP 15.5 mmol/L (8-16); BILIRUBIN - TOTAL 0.82 mg/dL (0.2-1.3); CALCIUM 8.6 mg/dL (8.5-10.1); CARBON DIOXIDE 24.5 mmol/L (21.0-32.0); PHOSPHOROUS 3.9 mg/dL (2.5-4.9); PROTEIN - SERUM 6.4 g/dL (6.4-8.2); VANCOMYCIN - RANDOM 19.7 ug/mL (10.0-20.0)
--- NOTE | 2019-10-21 07:30 | NUR ---
RESTING QUIETLY WITH EYES CLOSED. RESP EVEN AND UNLABORED WITH BIPAP IN USE. NO APPARENT PROBLEMS OR NEEDS AT THIS TIME. SIDERAILS UP X 2, CALL LIGHT IN REACH, BED IN LOW LOCKED POSITION. SL PATENT WITH REDNESS NOTED AT SITE. WILL CONITINUE POC.
[2019-10-21 08:02] VITALS: BP 107/65
--- NOTE | 2019-10-21 09:45 | NUR ---
I have reviewed this patient and I concur with the Shift Assessment completed by the Licensed Practical Nurse today this shift.
[2019-10-21 12:00] VITALS: BP 112/61
[2019-10-21 18:00] VITALS: BP 107/62
--- NOTE | 2019-10-21 19:10 | NUR ---
LYING IN BED. ALERT AND ORIENTED X4. CPAP IN USE. RESP LABORED, IRREG. REPORTS PROD COUGH WITH CLEAR SPUTUM. STATES SHE HAS BEEN HAVING LOOSE STOOLS, ESPECIALLY AFTER SHE EATS. 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 DRSG NOTED TO COCCYX AND BILAT FEET. 1ST STEP OVERLAY IN USE. EDEMA NOTED TO BLE. SALINE LOCK NOTED TO RT FOREARM. RESERVE LT ARM. LT AV FISTULA NOTED. SCABS NOTED TO BUE AND C/O ITCHING. NO ACUTE DISTRESS. SR ELEVATED X2. CL IN REACH.
--- NOTE | 2019-10-21 20:50 | NUR ---
MEDICATED IMODIUM AND ATARAX FOR C/O DIARRHE AND ITCHING. CL IN REACH.
--- NOTE | 2019-10-21 21:30 | NUR ---
INCONT OF BOWELS. PERICARE PERFORMED AT THIS TIME. CALMOSEPTINE APPLIED TO BUTTOCKS AND GROIN AREA. LINENS CHANGED. CL IN REACH.
[2019-10-22 00:08] VITALS: BP 138/70
--- NOTE | 2019-10-22 00:13 | NUR ---
V/S STABLE. DENIES NEEDS. NO DISTRESS. CPAP IN USE. CL IN REACH.
--- NOTE | 2019-10-22 02:11 | NUR ---
SALINE LOCKED FLUSHED AND IS INFILTRATED WITH KNOT NOTED. IV CATH REMOVED FROM RT FOREARM AT THIS TIME.
--- NOTE | 2019-10-22 03:35 | NUR ---
ATTEMPTED TO RESTART IV ON PT AFTER ATTEMPT X6 PER STAFF X3 WITHOUT SUCCESS. PT KIMBERLY WELL.
--- NOTE | 2019-10-22 05:12 | NUR ---
DRSG CHANGE DONE TO RT 5TH TOE AND LT 4TH TOE AT THIS TIME. WOUNDS CLEANED WITH WOUND CLEANSER. MEDIHONEY APPLIED AND COVERED WITH 4X4S AND SECURED WITH MEDIPORE TAPE. PT KIMBERLY WELL. RT 3RD TOE IS BLACK UNDERNEATH. NO S/S OF INFECTION. PT KIMBERLY WELL.
[2019-10-22 06:03] VITALS: BP 126/49
[2019-10-22 06:50] LABS: BASOPHILS 0.4 % (0-2); EOSINOPHILS 5.3 % (0-7); HEMATOCRIT 31.9 % (36.0-48.0); HEMOGLOBIN 9.5 g/dL (12-16); IMMATURE GRANULOCYTES 0.4 % (0-5); LYMPHOCYTES 13.6 % (15-50); MCH 28.6 pg (26.0-34.0); MCHC 29.8 g/dL (31.0-37.0); MCV 96.1 fL (80.0-100.0); MONOCYTES 10.2 % (2-11); NEUTROPHILS 70.1 % (40-80); PLATELET COUNT 285 10x3/uL (130-400); RBC 3.32 10x6/uL (4.00-5.40); RDW 18.1 % (11.5-14.5); WBC 9.5 10x3/uL (4.8-10.8)
[2019-10-22 07:08] LABS: ANION GAP 17.8 mmol/L (8-16); BILIRUBIN - TOTAL 0.94 mg/dL (0.2-1.3); CALCIUM 8.6 mg/dL (8.5-10.1); CARBON DIOXIDE 22.6 mmol/L (21.0-32.0); POTASSIUM - SERUM 5.4 mmol/L (3.5-5.1); PROTEIN - SERUM 6.7 g/dL (6.4-8.2); VANCOMYCIN - RANDOM 18.2 ug/mL (10.0-20.0)
--- NOTE | 2019-10-22 08:00 | NUR ---
PATIENT IS ALERT/ORIENT. ON A FIRST STEP MATTRESS. CALL LIGHT WITHIN REACH. VOICES NO NEEDS AT THIS TIME. WILL CONTINUE PLAN OF CARE
[2019-10-22 12:10] VITALS: BP 122/71
--- NOTE | 2019-10-22 12:35 | NUR ---
DR ELIZABETH CALLED AND NOTIFIED THAT SALINE LOCK IS OUT AND THAT IT TOOK SEVEN STICKS LAST NIGHT AND THE NURSES WERE STILL UNABLE TO INSERT SALINE LOCK. DR ELIZABETH STATED TO GIVE VANCOMYCIN IN DIALYSIS TODAY.
--- NOTE | 2019-10-22 16:00 | NUR ---
PATIENT TAKEN TO DIALYSIS CLINIC IN BED. TWO NURSES TRANSPORTED PATIENT.
--- NOTE | 2019-10-22 16:03 | NUR ---
DR LEUNG NOTIFIED THAT ER NURSE WAS UNABLE TO INSERT SALINE LOCK. VASCULAR NURSE NOTIFED. STATED SHE WILL BE OVER TO TRY AFTER SHE GETS DONE IN ER.
--- NOTE | 2019-10-22 19:35 | NUR ---
TRANSPORTED PT FROM DIALYSIS VIA BED. PT ALERT AND ORIENTED X4. VS STABLE. DENIES ANY NEEDS OR PAIN. RIGHT AC IV WITHOUT REDNESS OR SWELLING. DRESSING C/D/I. CONTINUES ON 2L VIA BIPAP. SET UP DINNER. CALL LIGHT AND PERSONAL ITEMS WITHIN REACH. FALL PRECAUTIONS IN PLACE. CPOC
[2019-10-23 00:01] VITALS: BP 123/65
--- NOTE | 2019-10-23 00:45 | NUR ---
INCONTINENCE CARE PROVIDED. MED BOWEL INCONTINENCE. LOOSE BROWN STOOL. CALMOSEPTINE APPLIED. DENIES ANY OTHER NEEDS OR PAIN. CALL LIGHT AND PERSONAL ITEMS WITHIN REACH. CPOC
--- NOTE | 2019-10-23 04:15 | NUR ---
PT LYING IN BED EYES CLOSED RESTING. HOB ELEVATED. CONTINUES ON 2L VIA CPAP. CALL LIGHT AND PERSONAL ITEMS WITHIN REACH. CPOC
[2019-10-23 06:05] VITALS: BP 136/98
[2019-10-23 06:26] LABS: PHOSPHOROUS 4.1 mg/dL (2.5-4.9); VANCOMYCIN - RANDOM 17.7 ug/mL (10.0-20.0)
--- NOTE | 2019-10-23 10:25 | NUR ---
PT AM MEDS ADMINISTERED. PT UMU YO. SIENNA.
[2019-10-23 12:04] VITALS: BP 155/75
--- NOTE | 2019-10-23 13:03 | NUR ---
Nutrition follow-up: Diet: Renal ADA PO intake ~40% average of last 6 meals; po intake has decreased over the last several days +BM, loose Labs reviewed; K has been elevated Wt: 239# Will continue to provide food choices with selective menus and honor food preferences within diet restrictions. RDN following.
[2019-10-23 17:19] VITALS: BP 131/66
--- NOTE | 2019-10-23 19:10 | NUR ---
BEDSIDE REPORT COMPLETE. PT SITTING UP IN BED AWAKE AND ALERT. ASSISTED PT TO BSC WITH ARJO. DENIES ANY OTHER NEEDS OR PAIN. RIGHT AC IV WITHOUT REDNESS OR SWELLING. DRESSING C/D/I. CONTINUES ON 2L VIA NC. CALL LIGHT WITHIN REACH. CPOC
--- NOTE | 2019-10-24 00:15 | NUR ---
PT LYING IN BED EYES CLOSED RESTING. HOB ELEVATED. HOME CPAP @ 2L O2. RR EVEN AND UNLABORED. CALL LIGHT AND WATER WITHIN REACH. FALL PRECAUTIONS IN PLACE. CPOC
[2019-10-24 00:38] VITALS: BP 136/66
--- NOTE | 2019-10-24 03:48 | NUR ---
PT LYING IN BED EYES CLOSED RESTING. HOB ELEVATED. CONTINUES ON HOME CPAP. RR EVEN AND UNLABORED. CALL LIGHT WITHIN REACH. CPOC
[2019-10-24 05:55] VITALS: BP 129/52
--- NOTE | 2019-10-24 06:20 | NUR ---
ASSISTED PT TO BSC WITH ARJO.
--- NOTE | 2019-10-24 06:35 | NUR ---
ASSISTED PT WITH TRANSFER FROM BSC TO BED WITH ARJO. DENIES ANY OTHER NEEDS OR PAIN. RR EVEN AND UNLABORED. CONTINUES ON 2L VIA CPAP. CALL LIGHT WITHIN REACH. CPOC
--- NOTE | 2019-10-24 10:12 | NUR ---
DUE TO CHANGE IN MEDICAL CONDTION PATIENT DISCHARGED FROM REHAB AND ADMITTED TO ACUTE FLOOR.
[2019-10-24] MEDS ORDERED: XALATAN 0.0052.5 ML EACH EYE (10:15)
[2019-10-24] MEDS ORDERED: PATOWN EACH EYE (10:17)
[2019-10-24] MEDS ORDERED: TYLENOL ARTHRI650 MG PO (10:18)
[2019-10-24] MEDS ORDERED: LEXAPRO20 MG PO ×2 (10:18→10:34)
[2019-10-24] MEDS ORDERED: ATARAX 25 MG TA25 MG PO ×2 (10:20→11:05)
[2019-10-24] MEDS ORDERED: CALMOSEPTINE OI71 GM TOPICAL ×2 (10:21→11:07)
[2019-10-24] MEDS ORDERED: QUESTRAN LIG1 PACKET PO ×2 (10:22→10:59)
[2019-10-24] MEDS ORDERED: ZOSYN 2.25 GM2.25 G1 IV ×2 (10:23→10:59)
[2019-10-24] MEDS ORDERED: HUMALOG 30100 UNITS/ SC (10:24)
[2019-10-24] MEDS ORDERED: EPOGEN4000 U/ML SC ×2 (10:24→11:00)
[2019-10-24] MEDS ORDERED: HUMULIN R100 UNIT/1 SC ×2 (10:25→11:02)
[2019-10-24] MEDS ORDERED: MIDODRINE HCL10 MG PO ×2 (10:27→11:02)
[2019-10-24] MEDS ORDERED: VANCOMYCIN 1 GM/1 G1 IV (10:29)
[2019-10-24] MEDS ORDERED: SINGULAIR10 MG PO (10:32)
[2019-10-24] MEDS ORDERED: PROTONIX FOR OR40 MG PT (10:32)
[2019-10-24] MEDS ORDERED: FLUTICASONE PRO16 GM NASAL (10:35)
[2019-10-24] MEDS ORDERED: LIDODERM 5 %1 PATCH TRANSDERM ×2 (10:36→11:04)
[2019-10-24] MEDS ORDERED: BAYER CHEWABLE81 MG PO (10:40)
[2019-10-24] MEDS ORDERED: FOSRENOL1000 MG PO (10:41)
[2019-10-24 11:01] LABS: BASOPHILS 0.4 % (0-2); EOSINOPHILS 4.2 % (0-7); HEMATOCRIT 33.2 % (36.0-48.0); IMMATURE GRANULOCYTES 0.4 % (0-5); LYMPHOCYTES 14.4 % (15-50); MCH 28.7 pg (26.0-34.0); MCHC 30.1 g/dL (31.0-37.0); MCV 95.4 fL (80.0-100.0); MEAN PLATELET VOLUME 8.7 fL (7.4-10.4); MONOCYTES 7.7 % (2-11); NEUTROPHILS 72.9 % (40-80); PLATELET COUNT 263 10x3/uL (130-400); RBC 3.48 10x6/uL (4.00-5.40); RDW 17.5 % (11.5-14.5); WBC 8.5 10x3/uL (4.8-10.8)
[2019-10-24] MEDS ORDERED: TUMS X-STR300 MG PO (11:03)
[2019-10-24] MEDS ORDERED: PROTONIX40 MG PO (11:04)
[2019-10-24] MEDS ORDERED: VANCOMYCIN 1 GM/1 G1 (11:04)
[2019-10-24] MEDS ORDERED: IMODIUM2 MG PO (11:07)
[2019-10-24] MEDS ORDERED: MIRALAX17 GM PO (11:08)
[2019-10-24] MEDS ORDERED: ACETAMINOPHEN325 MG PO (11:08)
--- NOTE | 2019-10-24 11:12 | NUR ---
RECEIVED PATIENT THIS MORNING. PATIENT WAS ALERT AND ORIENTED X3. SHE WAS SITTING UP IN BED EATING BREAKFAST. DENIED NEEDS. APPROX 0940, PATIENT WAS FOUND TO HAVE SIGNIFICANT RECTAL BLEEDING WITH CLOTS. BP WAS 95/53, HEART RATE 95, O2 99% ON 2 LITERS O2. RAPID RESPONSE WAS CALLED. DR. JORDAN NOTIFIED. PATIENT SENT TO [facility]. REPORT GIVEN TO SUKUMAR STILES.
[2019-10-24 11:21] LABS: ANION GAP 19.5 mmol/L (8-16); CALCIUM 8.3 mg/dL (8.5-10.1); CARBON DIOXIDE 23.6 mmol/L (21.0-32.0); CREATININE - SERUM 7.2 mg/dL (0.6-1.3); POTASSIUM - SERUM 4.1 mmol/L (3.5-5.1); VANCOMYCIN - RANDOM 16.4 ug/mL (10.0-20.0)
== END 2019-10-24 10:30 | disposition short-term general hospital (02) | DRG 91 ==
LOC: D.REHAB 15:22
PROVIDERS: Internal Medicine; ADMIT Emergency Medicine; ATTEND Emergency Medicine
DX: G72.81 Critical illness myopathy (principal); N18.6 End stage renal disease; J90 Pleural effusion, not elsewhere classified; I82.409 Acute embolism and thrombosis of unspecified deep veins of unspecified lower extremity; I12.0 Hypertensive chronic kidney disease with stage 5 chronic kidney disease or end stage renal disease; Z68.42 Body mass index [BMI] 45.0-49.9, adult; G47.33 Obstructive sleep apnea (adult) (pediatric); R53.1 Weakness; E11.22 Type 2 diabetes mellitus with diabetic chronic kidney disease; R53.81 Other malaise; E66.01 Morbid (severe) obesity due to excess calories; E78.5 Hyperlipidemia, unspecified; I95.9 Hypotension, unspecified; I25.10 Atherosclerotic heart disease of native coronary artery without angina pectoris; R19.7 Diarrhea, unspecified; D63.1 Anemia in chronic kidney disease; I95.89 Other hypotension; R13.12 Dysphagia, oropharyngeal phase; E87.5 Hyperkalemia; I25.5 Ischemic cardiomyopathy; J30.9 Allergic rhinitis, unspecified

== ENCOUNTER 2019-10-24 10:31 | Inpatient (IN) | payer MEDICARE, BC ==
[~2019-10-24] VITALS: Ht 162.6 cm; Wt 112.2 kg
[2019-10-24] VITALS (15 sets, daily range): BP systolic 88–149; BP diastolic 25–83; BMI 47.1
[~2019-10-24 10:31] MED LIST changes: +CALMOSEPTINE OI71 GM TOPICAL; +EPOGEN4000 U/ML SC; +HUMALOG 30100 UNITS/ SC; +HUMULIN R100 UNIT/1 SC; +LEXAPRO20 MG PO; +MIDODRINE HCL10 MG PO; +PATOWN EACH EYE; +QUESTRAN LIG1 PACKET PO; +TYLENOL ARTHRI650 MG PO; +VANCOMYCIN 1 GM/1 G1 IV; +ZOSYN 2.25 GM2.25 G1 IV
[2019-10-24] MEDS ORDERED: PROTONIX FOR OR40 MG PT (10:32)
[2019-10-24] MEDS ORDERED: SINGULAIR10 MG PO (10:32)
[2019-10-24] MEDS ORDERED: LEXAPRO20 MG PO (10:34)
[2019-10-24] MEDS ORDERED: FLUTICASONE PRO16 GM NASAL (10:35)
[2019-10-24] MEDS ORDERED: LIDODERM 5 %1 PATCH TRANSDERM ×2 (10:36→11:04)
[2019-10-24] MEDS ORDERED: BAYER CHEWABLE81 MG PO (10:40)
[2019-10-24] MEDS ORDERED: FOSRENOL1000 MG PO (10:41)
[2019-10-24] MEDS ORDERED: QUESTRAN LIG1 PACKET PO (10:59)
[2019-10-24] MEDS ORDERED: ZOSYN 2.25 GM2.25 G1 IV (10:59)
[2019-10-24] MEDS ORDERED: EPOGEN4000 U/ML SC (11:00)
[2019-10-24] MEDS ORDERED: HUMULIN R100 UNIT/1 SC (11:02)
[2019-10-24] MEDS ORDERED: MIDODRINE HCL10 MG PO (11:02)
[2019-10-24] MEDS ORDERED: TUMS X-STR300 MG PO (11:03)
[2019-10-24] MEDS ORDERED: VANCOMYCIN 1 GM/1 G1 (11:04)
[2019-10-24] MEDS ORDERED: PROTONIX40 MG PO (11:04)
[2019-10-24] MEDS ORDERED: ATARAX 25 MG TA25 MG PO (11:05)
[2019-10-24] MEDS ORDERED: IMODIUM2 MG PO (11:07)
[2019-10-24] MEDS ORDERED: CALMOSEPTINE OI71 GM TOPICAL (11:07)
[2019-10-24] MEDS ORDERED: ACETAMINOPHEN325 MG PO (11:08)
[2019-10-24] MEDS ORDERED: MIRALAX17 GM PO (11:08)
[2019-10-24 14:34] LABS: HEMATOCRIT 29.5 % (36.0-48.0); HEMOGLOBIN 8.8 g/dL (12-16)
--- NOTE | 2019-10-24 18:32 | NUR ---
1040- PT ARRIVED TO UNIT VIA BED. PLACED ON 2L NC. BLOODY STOOL NOTED AT THIS TIME. PARTIAL LINEN CHANGE PROVIDED. BUTTOCKS HAS OLD HEALING SORES/SCABS. SCABS NOTED ON SOFIYA LOWER EXTREMITIES. MIDSTERNAL AND SUBSTERNAL INCISION HEALING FROM PREVIOUS CABG SURGERY. 2 YSABEL NOTED TO MIDSLINE INCISION. FISTULA NOTED TO LEO. CONNECTED TO ICU PUMPER HEAD. NORMAL SINUS WITH HR IN 80S. PULLED UP AND REPOSITIONED. SAFETY MEASURES IN PLACE. WILL CONTINUE TO MONITOR. 1100- RED BLOODDY STOOL NOTED AT THIS TIME. PERICARE AND PARTIAL LINEN CHANGE PROVIDED. BARRIER CREAM APPLIED TO BUTTOCKS AND TAMEKA AREA. PULL UP AND REPOSITIONED FOR COMFORT. 1230- BLOODY STOOL NOTED AT THIS TIME. PERICARE PROVIDED. PULLED UP AND REPOSITIONED FOR COMFORT. 1333- BLOODY STOOL NOTED AT THIS TIME. PERICARE PROVIDED. BARRIER CREAM APPLIED TO BUTTOCKS. PULLED UP AND REPOSITIONED FOR COMFORT. 1400- UNABLE TO GET A BLOOD SAMPLE FOR H&H AT THIS TIME. VENOUS ACCESS NURSE CALLED FOR ASSISTANCE. 1710- DR. VENTURA AT BEDSIDE FOR CVL LINE PLACEMENT. 1752- 1MG ATIVAN GIVEN PER DR. LANDRY'S ORDER. 1800- UNABLE TO PLACE CVL. OFFERED DINNER TRAY. PT WAS GIVEN CHICKEN BROTH AROUND 1600. REFUSED MEAL TRAY AT THIS TIME. REPOSITIONED FOR COMFORT. NO FURTHER NEEDS. WILL CONTINUE TO MONITOR.
--- NOTE | 2019-10-24 19:45 | NUR ---
REPORT RECEIVED, SHIFT ASSESSMENT COMPLETED PER FLOW SHEET, SEE FOR DETIALS. AAOX4. NOTED BLOOD FROM RIGHT AC, PIV CATHETER NOTED TO BE OUT WITH TIP INTACT, PRESSURE HELD UNTIL HEMOSTASIS ACHIEVED. PATIENT INCONTINENT OF BLOODY STOOL, PATIENT CLEANED, TAMEKA CARE PROVIDED, BARRIER CREAM APPLIED TO BUTTOCKS, COMPLETE BED LINEN CHANGE PROVIDED, REPOSITIONED IN BED. ATTEMPTED TO PLACE PIV X2 WITHOUT SUCCESS. CALL LIGHT WITHIN REACH. PATIENT DENIES NEEDS. 2104- LAB PERSONNEL AT BEDSIDE ATTEMPTING TO OBTAIN LAB FOR SCHEDULED H&H. 2208- H&H RESULTS AVAILABLE, CALLED DR. JHA UNABLE TO REACH HIM AT THIS TIME AT PROVIDER CALL NUMBER. 221- OBTAINED PAGER NUMBER FOR DR. JHA, PAGED HIM AT THIS TIME, WILL WAIT FOR CALL BACK. 2212- DR. JHA RETURNED CALL, UPDATED HIM ON PATIENT'S STATUS, REVIEWED VITAL SIGNS AND LAB RESULTS, INFORMED HIM OF BLOODY STOOL, AND UNABLE TO OBTAIN IV ACCESS, NEW ORDERS RECEIVED- SEE ORDERS FOR DETAILS. 0018- LARGE LIQUID ORANGE STOOL AND SMALL AMOUNT OF BLOODY STOOL NOTED, PATIENT CLEANED, PERINEAL CARE PROVIDED, COMPLETE BEDLINEN CHANGE PROVIDED, BARRIER CREAM APPLIED TO BUTTOCKS, REPOSITIONED IN BED. TOLERATED WELL, WILL CONTINUE TO MONITOR.
[2019-10-24 22:01] LABS: HEMATOCRIT 30.1 % (36.0-48.0); HEMOGLOBIN 8.8 g/dL (12-16)
[2019-10-25] VITALS (14 sets, daily range): BP systolic 95–175; BP diastolic 33–75; BMI 45.6
--- NOTE | 2019-10-25 01:00 | NUR ---
NO ACUTE CHANGES NOTED, DENIES NEEDS, WILL CONTINUE TO MONITOR. 0313 REASSESSMENT COMPLETED PER FLOW SHEET, SEE FOR DETAILS. 0500 INCONTINENT OF LIQUID BM, CHG BATH GIVEN, COMPLETE BED LINEN CHANGE PROVIDED, PERINEAL CARE PROVIDED, BARRIER CREAM APPLIED TO BUTTOCKS, TOLERATED WELL. WILL CONTINUE TO MONITOR.
[2019-10-25 04:25] LABS: HEMATOCRIT 28.9 % (36.0-48.0); HEMOGLOBIN 8.5 g/dL (12-16)
--- NOTE | 2019-10-25 08:13 | NUR ---
SMALL AMOUNT OF YELLOW/ORANGE LIQUID STOOL NOTED AT THIS TIME. PERICARE AND PARTIAL LINEN CHANGE PROVIDED. PULLED UP AND REPOSITIONED FOR COMFORT. NO FURTHER NEEDS. WILL CONTINUE TO MONITOR.
--- NOTE | 2019-10-25 08:53 | NUR ---
PT NPO. MARTINA TO GIVE PROAMATINE PER DR. HUERTA WITH ANESTHESIA.
--- NOTE | 2019-10-25 09:30 | NUR ---
CONSENT FORMS FOR COLONOSCOPY SIGNED AT THIS TIME AND PLACED IN CHART. BLOOD CONSENT FORM SIGNED. GI GROUP AT BEDSIDE.
--- NOTE | 2019-10-25 10:19 | NUR ---
NO ACTIVE BLEED NOTED PER DR. JHA. HE SAID WE CAN RESTART DIET IF OKAY WITH REST OF TEAM. PT CAN TRANSFER TO FLOOR FROM HIS STAND POINT. HE WANTS PT TO BE IN OBSERVATION FOR 24HRS.
--- NOTE | 2019-10-25 11:00 | NUR ---
RE-ASSESSMENT COMPLETED. PT RESTING COMFORTABLY. WILL CONTINUE TO MONITOR.
[2019-10-25 12:48] LABS: BASOPHILS 0.2 % (0-2); EOSINOPHILS 5.4 % (0-7); HEMATOCRIT 29.1 % (36.0-48.0); HEMOGLOBIN 8.4 g/dL (12-16); IMMATURE GRANULOCYTES 0.5 % (0-5); LYMPHOCYTES 15.2 % (15-50); MCH 27.7 pg (26.0-34.0); MCHC 28.9 g/dL (31.0-37.0); MONOCYTES 8.9 % (2-11); NEUTROPHILS 69.8 % (40-80); PLATELET COUNT 304 10x3/uL (130-400); RBC 3.03 10x6/uL (4.00-5.40); RDW 17.4 % (11.5-14.5); WBC 8.4 10x3/uL (4.8-10.8)
--- NOTE | 2019-10-25 13:14 | NUR ---
DIALYSIS IN PROGRESS AT THIS TIME. 1 UNIT OF PRBC'S PICKED UP FROM BLOOD BANK TO BE GIVEN DURING DIALYSIS PER ORDER.
--- NOTE | 2019-10-25 14:43 | NUR ---
CONTINUES ON DIALYSIS. UNIT OF PRBC'S FINISHED INFUSING.
--- NOTE | 2019-10-25 16:07 | NUR ---
DIALYSIS TREATMENT FINISHED AT 1530. PULLED 1.5L. TREATMENT HAD TO STOP EARLY DUE TO PT HAVING FREQUENT PVC'S. DR. ELIZABETH AT BEDSIDE AT THIS TIME.
--- NOTE | 2019-10-25 17:00 | NUR ---
SMALL AMOUNT OF LIQUID YELLOW STOOL NOTED AT THIS TIME. PERICARE PROVIDED. CALMOSEPTINE CREAM APPLIED TO BUTTOCKS. COMPLETE LINEN CHANGE PROVIDED. PULLED UP AND REPOSITIONED FOR COMFORT. NO FURTHER NEEDS AT THIS TIME. WILL CONTINUE TO MONITOR.
--- NOTE | 2019-10-25 17:30 | NUR ---
UNABLE TO GIVE MAGNESIUM AT THIS TIME DUE TO VANCOMYCIN INFUSING.
--- NOTE | 2019-10-25 19:00 | NUR ---
PT TRANSFERRED TO ROOM 2112. HOME CPAP, CELL PHONE, FLARE STITCHER, AND BLACK HAT SENT WITH PATIENT. CASSETTE MEDS GIVEN TO RECEIVING NURSE. MEAL TRAY SENT WITH PT. DAUGHTER AWARE OF TRANSFER.
[2019-10-26] VITALS: BP 158/87
[2019-10-26 04:00] VITALS: BP 166/85
[2019-10-26 10:08] VITALS: BP 131/77
[2019-10-26 11:31] VITALS: BP 168/42
--- NOTE | 2019-10-26 11:50 | NUR ---
PIV TO RIGHT AC REMOVED PER DR. EATON. TELEMETRY SR WITH [employer] PVCS NOTED. LEAVING FOR DIALYSIS BY BED. WILL CONT. PLAN OF CARE.
--- NOTE | 2019-10-26 12:23 | NUR ---
Rehab Prescreening Consult recieved and the chart has been reviewed. She was discharged from rehab to acute on 10/24/19. At that time she was scheduled to discharge the following day. Her daughter was prepared to take her home with her. Recommend she be discharged home with her daughter and HH to follow. Discussed with the CM Gustavo Khalil. Mica Greenfield RN Clinical Liaison, Rehab
[2019-10-26 12:31] LABS: BASOPHILS 0.2 % (0-2); EOSINOPHILS 2.4 % (0-7); HEMATOCRIT 28.7 % (36.0-48.0); IMMATURE GRANULOCYTES 0.4 % (0-5); LYMPHOCYTES 15.7 % (15-50); MCH 28.6 pg (26.0-34.0); MCHC 31.4 g/dL (31.0-37.0); MEAN PLATELET VOLUME 8.7 fL (7.4-10.4); MONOCYTES 6.6 % (2-11); NEUTROPHILS 74.7 % (40-80); PLATELET COUNT 281 10x3/uL (130-400); RBC 3.15 10x6/uL (4.00-5.40); RDW 18.1 % (11.5-14.5); WBC 8.4 10x3/uL (4.8-10.8)
[2019-10-26 12:45] LABS: ANION GAP 16.8 mmol/L (8-16); CALCIUM 7.4 mg/dL (8.5-10.1); CARBON DIOXIDE 24.7 mmol/L (21.0-32.0); CREATININE - SERUM 5.7 mg/dL (0.6-1.3); POTASSIUM - SERUM 3.5 mmol/L (3.5-5.1)
[2019-10-26 12:58] LABS: MCV 91.1 fL (80.0-100.0)
--- NOTE | 2019-10-26 12:58 | NUR ---
JORDY FOR DR. JENSEN NOTIFIED OF FREQUENT PVCS. WILL MONITOR.
[2019-10-26 14:30] VITALS: Ht 162.6 cm; Wt 112.2 kg
--- NOTE | 2019-10-26 14:31 | NUR ---
SPOKE WITH EWELINA COBB ABOUT ORDER FOR HEPRIN GTT. STATES NOT TO START GTT TILL SEEN BY DR. PINEDA. SPOKE TO DR. HENDRICKS ABOUT TAKING OUT PIV PER DR. EATON AND THAT EWELINA WANTS ME TO WAIT ON STARTING HEPRIN AND THAT I WAS TOLOD BY DR. EATON TO DC PIV. DR. HENDRICKS INSISTS I RESTART IV AND START HEPRIN GTT HE ORDERED.
[2019-10-26 14:36] LABS: HEMATOCRIT 31.4 % (36.0-48.0); HEMOGLOBIN 9.9 g/dL (12-16)
[2019-10-26 14:42] LABS: APTT 36.5 SECONDS (22.8-39.4); INR 1.15 (0.85-1.17); PROTIME 14.6 SECONDS (11.6-15.0)
--- NOTE | 2019-10-26 17:00 | NUR ---
UNABLE TO START PIV. DR. HENDRICKS NOTIFIED. NEW ORDERS GIVEN.
--- NOTE | 2019-10-26 17:02 | MORECARE ---
CASE MANAGEMENT DISCHARGE SUMMARY PATIENT: RENEE HELM UNIT: [id number] ADM DATE: 10/24/19 AGE: 69 : 49 SEX: F ROOM/BED: D.3216 AUTHOR: ASHLEY,DOC PHYSICIAN: REFERRING PHYSICIAN: JONA JORDAN MD DATE OF SERVICE: 10/26/19 Discharge Plan Patient Name: RENEE HELM [facility] [facility] 1950 Planned Disposition: Home with Home Health Anticipated Discharge Date: 10/26/19 Discharge Date: Expected LOS: 2 Initial Reviewer: [email or web address] Initial Review Date: 10/26/2019 Generated: 10/26/19 6:01 pm DCP- Discharge Planning Updated by [email or web address]: Reuben Silverman on 10/26/19 4:[address] Patient Name: RENEE HELM Admission Status: Elective Accout number: [id number] Admission Date: 10-24-2019 : 1950 Admission Diagnosis: Attending: NORRIS JORDAN Current LOS: 2 Anticipated DC Date: 10-26-2019 Planned Disposition: Home with Home Health Primary Insurance: MEDICARE A & B PLANNED EXTERNAL PROVIDER: NO PREFERENCE Discharge Planning Comments: CM RECEIVED ORDER FOR INPATIENT REHAB PRESCREENING, CALLED PT'S DAUGHTERANNMARIE AT [phone]. CM DISCUSSED REHAB OPTIONS, LOCATIONS AND PROVIDERS. ANNMARIE STATES PT NOT HAPPY WITH REHAB AT [facility] AND DOES NOT WANT TO GO TO [facility] FOR [facility]HAB. THEY WANT HOME HEALTH WITH NO PROVIDER PREFERNECE. PT WILL RETURN HOME WITH DAUGHTERANNMARIE. CM VERIFIED ADDRESS AND PHONE NUMBERS FOR HOME HEALTH. CHOICE COMPLETED FOR NO PREFERENCE ON HOME HEALTH PROVIDER, DECLINED INPATIENT AND SNF REHAB. IMPORTANT MESSAGE FROM MEDICARE PROVIDED AND EXPLAINED. COPY MAILED TO [facility]. ANGUIANO TO MAIL MACHINE OPERATOR PT FOR TRANSPORTATION HOME. CM RECEIVED MESSAGE FROM JACKY, PT WILL NEED NEW OUTPATIENT DIALYSIS CLINIC ARRANGEMENT SHE HAS NOT HAD OUTPATIENT DIALYSIS IN 30 DAYS. PT WILL REQUIRE NEW LABS, XRAY AND REFERRAL. ORDERS OBTAINED, JESUSITA OF [facility] NOTIFIED. PT AND DAUGHTER REFUSED INPATIENT / SNF REHAB. PT WILL NEED NEW OUTPATIENT DIALYSIS CLINIC ARRANGEMENT. CM TO ARRANGE HOME HEALTH FOR DISCHARGE HOME WITH DAUGHTER WITH PHYSICIAN AGEEMENT AND ORDER; NO PROVIDER PREFERENCE. FAMILY TO TRANSPORT HOME AT DISCHARGE. Barrel Cooper: Reuben Silverman Coverage Notice Reviewer: [id number] - Reuben Silverman Notice Issued Date-Time: 10/26/2019 12:40 Notice Type: Patient Choice Letter Notice Delivered To: Family Member Relationship to Patient: Daughter Blanchard Grinder Operator Name: ANNMARIE HELM Delivery Method: PHONE - Phone Malena Days: Prior Verbal Notification: Recipient Understood Notice: Yes Recipient Signature: Med Rec Note Co-signed by Attending: Coverage Notice Comment: NO HOME HEALTH PROVIDER PREFERENCE Reviewer: [id number] - Reuben Silverman Notice Issued Date-Time: 10/26/2019 12:40 Notice Type: IM Discharge Notice Notice Delivered To: Family Member Relationship to Patient: Daughter Blanchard Grinder Operator Name: ANNMARIE HELM Delivery Method: CERT - Certified Mail Malena Days: Prior Verbal Notification: Recipient Understood Notice: Yes Recipient Signature: Med Rec Note Co-signed by Attending: Coverage Notice Comment: PHONE BY JENNIFER SILVERMAN CM WELL MAILED Patient Name: RENEE HELM Page [phone] at 1702 All edits/amendments must be made on the electronic document DICTATION DATE: 10/26/19 170 SHEET TAKER: EDWAR 10/26/19 170 RPT#: [id number] DC DATE: STATUS: ADM IN [facility] [address] [place] [address] END OF REPORT
--- NOTE | 2019-10-26 19:10 | NUR ---
REPORT RECEIVED. BEDSIDE SHIFT REPORT COMPLETE. PT IN BED CPAP ON. RR EVEN AND UNLABORED. NO S/SX OF DISTRESS OBSERVED. NO NEEDS EXPRESSED AT THIS TIME. CALL LIGHT IN REACH. NO PIV ACCESS. WILL CPOC.
[2019-10-26 20:00] VITALS: BP 137/60
[2019-10-27 00:30] VITALS: BP 106/76
[2019-10-27 04:00] VITALS: BP 157/64
[2019-10-27 06:37] LABS: BASOPHILS 0.2 % (0-2); HEMATOCRIT 31.6 % (36.0-48.0); HEMOGLOBIN 9.7 g/dL (12-16); IMMATURE GRANULOCYTES 0.5 % (0-5); LYMPHOCYTES 16.4 % (15-50); MCH 28.4 pg (26.0-34.0); MCHC 30.7 g/dL (31.0-37.0); MCV 92.7 fL (80.0-100.0); MEAN PLATELET VOLUME 8.6 fL (7.4-10.4); MONOCYTES 8.3 % (2-11); NEUTROPHILS 72.6 % (40-80); PLATELET COUNT 285 10x3/uL (130-400); RBC 3.41 10x6/uL (4.00-5.40); RDW 18.3 % (11.5-14.5); WBC 8.4 10x3/uL (4.8-10.8)
[2019-10-27 06:57] LABS: ANION GAP 15.1 mmol/L (8-16); CALCIUM 8.5 mg/dL (8.5-10.1); CARBON DIOXIDE 28.2 mmol/L (21.0-32.0); POTASSIUM - SERUM 3.3 mmol/L (3.5-5.1); VANCOMYCIN - RANDOM 20.2 ug/mL (10.0-20.0)
[2019-10-27 08:18] VITALS: BP 156/72
[2019-10-27 11:37] VITALS: BP 166/90
--- NOTE | 2019-10-27 13:04 | NUR ---
22 GAUGE IV PLACED TO RIGHT THUMB X 1 STICK, GOOD BLOOD RETURN, EASY FLUSH. TAPED, DATED, AND SECURED. PATIENT TOLERATED IV PLACEMENT WELL. NO DISTRESS.
--- NOTE | 2019-10-27 18:51 | NUR ---
I have reviewed this patient and I concur with the Shift Assessment completed by the Licensed Practical Nurse today this shift.
--- NOTE | 2019-10-27 19:00 | NUR ---
REPORT RECEIVED. BEDSIDE SHIFT REPORT COMPLETE. PT UP IN BED. RR EVEN AND UNLABORED ON CPAP. NO NEEDS EXPRESSED AT THIS TIME. NO S/SX OF DISTRESS OBSERVED. CALL LIGHT IN REACH. WILL CPOC.
[2019-10-27 20:00] VITALS: BP 134/84
[2019-10-28] VITALS: BP 121/60
[2019-10-28 04:00] VITALS: BP 123/43
[2019-10-28 05:18] LABS: BASOPHILS 0.2 % (0-2); EOSINOPHILS 3.8 % (0-7); HEMATOCRIT 30.5 % (36.0-48.0); HEMOGLOBIN 9.1 g/dL (12-16); IMMATURE GRANULOCYTES 0.7 % (0-5); LYMPHOCYTES 15.6 % (15-50); MCH 27.7 pg (26.0-34.0); MCHC 29.8 g/dL (31.0-37.0); MONOCYTES 9.7 % (2-11); PLATELET COUNT 300 10x3/uL (130-400); RBC 3.28 10x6/uL (4.00-5.40); WBC 8.9 10x3/uL (4.8-10.8)
[2019-10-28 05:32] LABS: INR 1.22 (0.85-1.17); PROTIME 15.4 SECONDS (11.6-15.0)
[2019-10-28 05:42] LABS: ANION GAP 15.3 mmol/L (8-16); CALCIUM 8.3 mg/dL (8.5-10.1); CARBON DIOXIDE 28.8 mmol/L (21.0-32.0); CREATININE - SERUM 5.9 mg/dL (0.6-1.3); POTASSIUM - SERUM 3.1 mmol/L (3.5-5.1); VANCOMYCIN - RANDOM 19.3 ug/mL (10.0-20.0)
--- NOTE | 2019-10-28 07:30 | NUR ---
PT SITTING UP, EYES CLOSED. RR EVEN AND UNLABORED. DENIES NEEDS OR PAIN AT THIS TIME. CALL LIGHT WITHIN REACH. CPAP MACHINE IN PLACE. BED IN LOWEST POSITION. WILL CONTINUE TO MONITOR.
[2019-10-28 09:25] VITALS: BP 157/50
[2019-10-28 14:00] VITALS: BP 147/64
--- NOTE | 2019-10-28 18:08 | NUR ---
I have reviewed this patient and I concur with the Shift Assessment completed by the Licensed Practical Nurse today this shift.
[2019-10-28 20:00] VITALS: BP 124/61
--- NOTE | 2019-10-28 20:00 | NUR ---
REPORT RECIEVED AND INITIAL ROUNDS COMPLETED. PT RESTING IN BED. ALERT/ORIENTED. IV TO RIGHT HAND . LEFT ARM RESERVED FOR AVF. NO DISTRESS. CPOC.
--- NOTE | 2019-10-28 23:00 | NUR ---
ALL BEDTIME MEDS GIVEN. PT CLEANED FOR STOOL INCONTINENCE AND PULLED UP AND REPOSITIONED. TELEMETRY SHOWING SR WITH PVCS AT TIMES. CALMOSEPTINE APPLIED TO ABDOMINAL FOLDS/GROIN/BUTTOCKS FOR EXCORIATION AREAS. CALL LIGHT IN REACH. CPOC.
[2019-10-29] VITALS: BP 134/75
[2019-10-29 04:00] VITALS: BP 144/65
--- NOTE | 2019-10-29 05:55 | NUR ---
PT HAS RESTED THROUGH THE NIGHT WITH NO DISTRESS. CPOC. CALL LIGHT IN REACH. HAS WORN HOME CPAP ALL NIGHT.
--- NOTE | 2019-10-29 07:20 | NUR ---
RECIEVE REPORT. RESTING IN BED WITH EYES CLOSED. SINUS RYTHM 69 ON TELEMETRY. NO SIGNS OF DISTRESS. CONTINUE PLAN OF CARE AND SAFETY PRECAUTIONS.
--- NOTE | 2019-10-29 07:20 | NUR ---
RECIEVE REPORT. RESTING IN BED WITH EYES CLOSED. CPAP ON. NO SIGNS OF DISTRESS. CONTINUE PLAN OF CARE AND SAFETY PRECAUTIONS.
[2019-10-29 07:40] LABS: BASOPHILS 0.2 % (0-2); EOSINOPHILS 5.7 % (0-7); HEMATOCRIT 31.1 % (36.0-48.0); HEMOGLOBIN 9.3 g/dL (12-16); IMMATURE GRANULOCYTES 0.4 % (0-5); LYMPHOCYTES 15.2 % (15-50); MCHC 29.9 g/dL (31.0-37.0); MCV 93.7 fL (80.0-100.0); MEAN PLATELET VOLUME 8.7 fL (7.4-10.4); MONOCYTES 10.3 % (2-11); NEUTROPHILS 68.2 % (40-80); PLATELET COUNT 288 10x3/uL (130-400); RBC 3.32 10x6/uL (4.00-5.40); RDW 17.8 % (11.5-14.5); WBC 8.4 10x3/uL (4.8-10.8)
[2019-10-29 08:01] LABS: ANION GAP 15.9 mmol/L (8-16); CALCIUM 8.3 mg/dL (8.5-10.1); CARBON DIOXIDE 28.6 mmol/L (21.0-32.0); CREATININE - SERUM 6.9 mg/dL (0.6-1.3); POTASSIUM - SERUM 3.5 mmol/L (3.5-5.1); VANCOMYCIN - RANDOM 16.9 ug/mL (10.0-20.0)
[2019-10-29 09:35] VITALS: BP 142/77
[2019-10-29 12:40] LABS: INR 1.41 (0.85-1.17); PROTIME 17.1 SECONDS (11.6-15.0)
--- NOTE | 2019-10-29 12:42 | NUR ---
NO TX GIVEN PT IN DIALYSIS
--- NOTE | 2019-10-29 13:06 | MORECARE ---
CASE MANAGEMENT DISCHARGE SUMMARY PATIENT: RENEE HELM UNIT: [id number] ADM DATE: 10/24/19 AGE: 69 : 49 SEX: F ROOM/BED: D.0631 AUTHOR: ASHLEY,DOC PHYSICIAN: REFERRING PHYSICIAN: JONA JORDAN MD DATE OF SERVICE: 10/29/19 Discharge Plan Patient Name: RENEE HELM [facility] [facility] 1950 Planned Disposition: Home with Home Health Anticipated Discharge Date: 10/26/19 Discharge Date: Expected LOS: 2 Initial Reviewer: [email or web address] Initial Review Date: 10/26/2019 Generated: 10/29/19 2:05 pm Comments DCP- Discharge Planning Updated by [email or web address]: Eunice Mendoza on 10/29/19 11:[address] Contacted Jesusita Levine regarding new HD days in [place]. Acute Hepatitis panel and Hepatitis Surface Antibiodies Qual ordered per request Jesusita Levine. DCP- Discharge Planning Updated by [email or web address]: Reuben Silverman on 10/26/19 4:[address] Patient Name: RENEE HELM Admission Status: Elective Accout number: [id number] Admission Date: 10-24-2019 : 1950 Admission Diagnosis: Attending: NORRIS JORDAN Current LOS: 2 Anticipated DC Date: 10-26-2019 Planned Disposition: Home with Home Health Primary Insurance: MEDICARE A & B PLANNED EXTERNAL PROVIDER: NO PREFERENCE Discharge Planning Comments: CM RECEIVED ORDER FOR INPATIENT REHAB PRESCREENING, CALLED PT'S DAUGHTERANNMARIE AT [phone]. CM DISCUSSED REHAB OPTIONS, LOCATIONS AND PROVIDERS. ANNMARIE STATES PT NOT HAPPY WITH REHAB AT [facility] AND DOES NOT WANT TO GO TO [facility] FOR [facility]HAB. THEY WANT HOME HEALTH WITH NO PROVIDER PREFERNECE. PT WILL RETURN HOME WITH DAUGHTERANNMARIE. CM VERIFIED ADDRESS AND PHONE NUMBERS FOR HOME HEALTH. CHOICE COMPLETED FOR NO PREFERENCE ON HOME HEALTH PROVIDER, DECLINED INPATIENT AND SNF REHAB. IMPORTANT MESSAGE FROM MEDICARE PROVIDED AND EXPLAINED. COPY MAILED TO [facility]. ANGUIANO TO HUMAN RESOURCES BENEFITS ASSISTANT PT FOR TRANSPORTATION HOME. [facility] WILL NEED NEW OUTPATIENT DIALYSIS CLINIC ARRANGEMENT SHE HAS NOT HAD OUTPATIENT DIALYSIS IN 30 DAYS. PT WILL REQUIRE NEW LABS, XRAY AND REFERRAL. ORDERS OBTAINED, JESUSITA OF [facility] NOTIFIED. PT AND DAUGHTER REFUSED INPATIENT / SNF REHAB. PT WILL NEED NEW OUTPATIENT DIALYSIS CLINIC ARRANGEMENT. CM TO ARRANGE HOME HEALTH FOR DISCHARGE HOME WITH DAUGHTER WITH PHYSICIAN AGEEMENT AND ORDER; NO PROVIDER PREFERENCE. FAMILY TO TRANSPORT HOME AT DISCHARGE. Cosmetic Sales Assistant: Reuben Silverman Coverage Notice Reviewer: [id number] - Reuben Silverman Notice Issued Date-Time: 10/26/2019 12:40 Notice Type: Patient Choice Letter Notice Delivered To: Family Member Relationship to Patient: Daughter Physician Office Assistant Name: ANNMARIE HELM Delivery Method: PHONE - Phone Malena Days: Prior Verbal Notification: Recipient Understood Notice: Yes Recipient Signature: Med Rec Note Co-signed by Attending: Coverage Notice Comment: NO HOME HEALTH PROVIDER PREFERENCE Reviewer: [id number] Rich Silverman Notice Issued Date-Time: 10/26/2019 12:40 Notice Type: IM Discharge Notice Notice Delivered To: Family Member Relationship to Patient: Daughter Physician Office Assistant Name: ANNMARIE HELM Delivery Method: CERT - Certified Mail Malena Days: Prior Verbal Notification: Recipient Understood Notice: Yes Recipient Signature: Med Rec Note Co-signed by Attending: Coverage Notice Comment: PHONE BY JENNIFER SILVERMAN CM WELL MAILED Last DP export: 10/26/19 4:02 p Patient Name: RENEE HELM Page [phone] at 1306 All edits/amendments must be made on the electronic document DICTATION DATE: 10/29/19 1305 SERVICE SPECIALIST: EDWAR 10/29/19 1305 RPT#: [id number] DC DATE: STATUS: ADM IN [facility] [address] [place] [address] END OF REPORT
--- NOTE | 2019-10-29 17:27 | MORECARE ---
CASE MANAGEMENT DISCHARGE SUMMARY PATIENT: RENEE HELM UNIT: [id number] ADM DATE: 10/24/19 AGE: 69 : 49 SEX: F ROOM/BED: D.1373 AUTHOR: ASHLEY,DOC PHYSICIAN: REFERRING PHYSICIAN: JONA JORDAN MD DATE OF SERVICE: 10/29/19 Discharge Plan Patient Name: RENEE HELM [facility] [facility] 1950 Planned Disposition: Home with Home Health Anticipated Discharge Date: 10/26/19 Discharge Date: Expected LOS: 2 Initial Reviewer: [id number] Initial Review Date: 10/26/2019 Generated: 10/29/19 6:27 pm Comments DCP- Discharge Planning Updated by [id number]: Eunice Mendoza on 10/29/19 4:[address] Contacted Jesusita Levine regarding new HD days in [place]. Acute Hepatitis panel and Hepatitis Surface Antibiodies Qual ordered per request Jesusita Levine. CM attempted to contact patient's daughterGrzegorz @[phone] & [phone], but was only able to leave a VM with a request a call 10/29 to my telephone number. CM will attempt to reach daughter 10/29. DCP- Discharge Planning Updated by [id number]: Reuben Silverman on 10/26/19 4:[address] Patient Name: RENEE HELM Admission Status: Elective Accout number: [id number] Admission Date: 10-24-2019 : 1950 Admission Diagnosis: Attending: NORRIS JORDAN Current LOS: 2 Anticipated DC Date: 10-26-2019 Planned Disposition: Home with Home Health Primary Insurance: MEDICARE A & B PLANNED EXTERNAL PROVIDER: NO PREFERENCE Discharge Planning Comments: CM RECEIVED ORDER FOR INPATIENT REHAB PRESCREENING, CALLED PT'S DAUGHTERGRZEGORZ AT [phone]. CM DISCUSSED REHAB OPTIONS, LOCATIONS AND PROVIDERS. GRZEGORZ STATES PT NOT HAPPY WITH REHAB AT [place] AND DOES NOT WANT TO GO TO [facility] FOR [facility]AB. THEY WANT HOME HEALTH WITH NO PROVIDER PREFERNECE. PT WILL RETURN HOME WITH DAUGHTERGRZEGORZ. CM VERIFIED ADDRESS AND PHONE NUMBERS FOR HOME HEALTH. CHOICE COMPLETED FOR NO PREFERENCE ON HOME HEALTH PROVIDER, DECLINED INPATIENT AND SNF REHAB. IMPORTANT MESSAGE FROM MEDICARE PROVIDED AND EXPLAINED. COPY MAILED TO GRZEGORZ. GRZEGORZ TO [employer] [facility] FOR TRANSPORTATION HOME. CM RECEIVED MESSAGE FROM [facility], PT WILL NEED NEW OUTPATIENT DIALYSIS CLINIC ARRANGEMENT SHE HAS NOT HAD OUTPATIENT DIALYSIS IN 30 DAYS. PT WILL REQUIRE NEW LABS, XRAY AND REFERRAL. ORDERS OBTAINED, JESUSITA OF [facility] NOTIFIED. PT AND DAUGHTER REFUSED INPATIENT / SNF REHAB. PT WILL NEED NEW OUTPATIENT DIALYSIS CLINIC ARRANGEMENT. CM TO ARRANGE HOME HEALTH FOR DISCHARGE HOME WITH DAUGHTER WITH PHYSICIAN AGEEMENT AND ORDER; NO PROVIDER PREFERENCE. FAMILY TO TRANSPORT HOME AT DISCHARGE. Circular Stuffer: Reuben Silverman Coverage Notice Reviewer: [id number] Rich Silverman Notice Issued Date-Time: 10/26/2019 12:40 Notice Type: Patient Choice Letter Notice Delivered To: Family Member Relationship to Patient: Daughter Shoe Trimmer Name: GRZEGORZ HELM Delivery Method: PHONE - Phone Malena Days: Prior Verbal Notification: Recipient Understood Notice: Yes Recipient Signature: Med Rec Note Co-signed by Attending: Coverage Notice Comment: NO HOME HEALTH PROVIDER PREFERENCE Reviewer: [id number] Rich Silverman Notice Issued Date-Time: 10/26/2019 12:40 Notice Type: IM Discharge Notice Notice Delivered To: Family Member Relationship to Patient: Daughter Shoe Trimmer Name: GRZEGORZ HLEM Delivery Method: CERT - Certified Mail Malena Days: Prior Verbal Notification: Recipient Understood Notice: Yes Recipient Signature: Med Rec Note Co-signed by Attending: Coverage Notice Comment: PHONE BY JENNIFER SILVERMAN CM WELL MAILED Last DP export: 10/29/19 12:06 p Patient Name: RENEE HELM Page [id number] at 1727 All edits/amendments must be made on the electronic document DICTATION DATE: 10/29/191726 CHOCOLATE REFINING ROLLER: EDWAR 10/29/191726 RPT#: [id number] DC DATE: STATUS: ADM IN [facility] [address] [place] [address] END OF REPORT
[2019-10-29 18:45] VITALS: BP 146/82
--- NOTE | 2019-10-29 19:43 | NUR ---
RECEIVED BEDSIDE REPORT. PATIENT IS ALERT AND ORIENTED, RESTING COMFORTABLY IN BED. RESPIRATIONS ARE EVEN AND UNLABORED. PATIENT CURRENTLY WEARING CPAP. NO S/S OF DISTRESS. NO C/O PAIN. CALL LIGHT WITHIN REACH. WILL CPOC.
[2019-10-29 20:00] VITALS: BP 162/54
[2019-10-30] VITALS: BP 153/65
[2019-10-30 04:00] VITALS: BP 155/86
[2019-10-30 05:47] LABS: BASOPHILS 0.1 % (0-2); EOSINOPHILS 4.4 % (0-7); HEMATOCRIT 31.8 % (36.0-48.0); HEMOGLOBIN 9.4 g/dL (12-16); IMMATURE GRANULOCYTES 0.5 % (0-5); LYMPHOCYTES 16.5 % (15-50); MCHC 29.6 g/dL (31.0-37.0); MCV 94.6 fL (80.0-100.0); MEAN PLATELET VOLUME 9.2 fL (7.4-10.4); MONOCYTES 9.1 % (2-11); NEUTROPHILS 69.4 % (40-80); PLATELET COUNT 331 10x3/uL (130-400); RBC 3.36 10x6/uL (4.00-5.40); RDW 17.5 % (11.5-14.5); WBC 7.9 10x3/uL (4.8-10.8)
[2019-10-30 06:07] LABS: INR 1.37 (0.85-1.17); PROTIME 16.7 SECONDS (11.6-15.0)
[2019-10-30 06:13] LABS: ANION GAP 14.7 mmol/L (8-16); CALCIUM 8.3 mg/dL (8.5-10.1); CARBON DIOXIDE 27.9 mmol/L (21.0-32.0); CREATININE - SERUM 5.3 mg/dL (0.6-1.3); POTASSIUM - SERUM 3.6 mmol/L (3.5-5.1); VANCOMYCIN - RANDOM 15.4 ug/mL (10.0-20.0)
[2019-10-30 07:09] LABS: CEA 3.2 ng/mL (0.0-4.7)
--- NOTE | 2019-10-30 07:20 | NUR ---
RECIEVE REPORT. RESTING IN BED WITH EYES CLOSED. CPAP ON. ON SIGNS OF DISTRESS. CONTINUE PLAN OF CARE AND SAFETY PRECAUTIONS.
[2019-10-30 07:54] LABS: HEPATITIS C ANTIBODY <0.1 S/CO RAT (0.0-0.9)
[2019-10-30 08:00] VITALS: BP 154/79
[2019-10-30 11:08] LABS: ACLA - IGG AB <9 GPL U/mL (0-14); ACLA - IGM AB <9 MPL U/mL (0-12)
--- NOTE | 2019-10-30 12:23 | NUR ---
Nutrition follow-up: Diet: Renal ADA PO intake ~60% average of last 2 meals; po intake has been poor. Labs reviewed Wt: 266# +BM Will continue to provide food choices and honor food preferences within diet restrictions. RDN following.
--- NOTE | 2019-10-30 19:30 | NUR ---
RECEIVED BEDSIDE. PATIENT IS ALERT AND ORIENTED, RESTING COMFORTABLY IN BED. PATIENT REMAINS ON HER CPAP. NEEDS MET. NO S/S OF DISTRESS. NO C/O PAIN. CALL LIGHT WITHIN REACH. WILL CPOC.
--- NOTE | 2019-10-30 20:00 | NUR ---
ANSWERED PATIENT CALL LIGHT. PATIENT ASKED TO BE WASHED UP PRIOR TO PT GETTING HERE. EXPLAINED TO PATIENT THAT IT WAS 2000 AT NIGHT AND THAT PT NORMALLY DOESN'T COME THIS LATE. PATIENT CONFUSED TO WHAT TIME OF DAY IT WAS. PATIENT STATED SHE HAD NOT HAS A BATH SINCE SHE HAS BEEN HERE. MADE A PLAN WITH PATIENT TO GIVE HER A BATH AND CHANGE LINENS TONIGHT.
[2019-10-30 21:12] VITALS: BP 148/91
[2019-10-31] VITALS: BP 133/69
--- NOTE | 2019-10-31 01:14 | NUR ---
PATIENT GIVEN BATH AND LINENS CHANGED. ALL NEEDS MET.
[2019-10-31 05:17] VITALS: BP 129/64
[2019-10-31 08:03] VITALS: BP 155/79
[2019-10-31 08:25] LABS: BASOPHILS 0.1 % (0-2); EOSINOPHILS 4.7 % (0-7); HEMATOCRIT 32.2 % (36.0-48.0); HEMOGLOBIN 9.5 g/dL (12-16); IMMATURE GRANULOCYTES 0.4 % (0-5); LYMPHOCYTES 17.1 % (15-50); MCHC 29.5 g/dL (31.0-37.0); MEAN PLATELET VOLUME 8.4 fL (7.4-10.4); NEUTROPHILS 69.7 % (40-80); PLATELET COUNT 279 10x3/uL (130-400); RBC 3.39 10x6/uL (4.00-5.40); RDW 17.4 % (11.5-14.5); WBC 8.3 10x3/uL (4.8-10.8)
[2019-10-31 08:35] LABS: INR 1.66 (0.85-1.17); PROTIME 19.4 SECONDS (11.6-15.0)
[2019-10-31 09:04] LABS: CALCIUM 8.6 mg/dL (8.5-10.1); CARBON DIOXIDE 30.3 mmol/L (21.0-32.0); CREATININE - SERUM 6.2 mg/dL (0.6-1.3); POTASSIUM - SERUM 3.3 mmol/L (3.5-5.1); VANCOMYCIN - RANDOM 15.3 ug/mL (10.0-20.0)
--- NOTE | 2019-10-31 10:20 | NUR ---
PT TAKEN TO DIALYSIS VIA BED.
[2019-10-31 12:08] LABS: CA 27-29 33.4 U/mL (0.0-38.6)
--- NOTE | 2019-10-31 13:37 | NUR ---
I have reviewed this patient and I concur with the Shift Assessment completed by the Licensed Practical Nurse today this shift.
--- NOTE | 2019-10-31 14:29 | NUR ---
PT RETURNED FROM DIALYSIS VIA BED. DIALYSIS REMOVED 2L.
--- NOTE | 2019-10-31 14:47 | NUR ---
FEET DRESSING CHANGE DONE ORDERED.
[2019-10-31 14:57] VITALS: BP 114/45
--- NOTE | 2019-10-31 15:11 | NUR ---
LEFT HEEL UNSTAGEABLE ULCER CLEANSED WITH WOUND CLEANSER PATTED DRY WITH 4X4'S AND PLACED MEPILEX ON HEEL.
[2019-10-31 20:00] VITALS: BP 123/63
--- NOTE | 2019-10-31 21:38 | NUR ---
CASHIER TICKET SELLING AT BED SIDE, BED BATH GIVEN DUE TO INCONTINENCE.
[2019-11-01 00:30] VITALS: BP 121/72
[2019-11-01 04:30] VITALS: BP 125/57
[2019-11-01 05:33] LABS: BASOPHILS 0.2 % (0-2); EOSINOPHILS 5.4 % (0-7); HEMATOCRIT 33.4 % (36.0-48.0); HEMOGLOBIN 9.7 g/dL (12-16); IMMATURE GRANULOCYTES 0.5 % (0-5); LYMPHOCYTES 14.5 % (15-50); MCH 27.6 pg (26.0-34.0); MCV 94.9 fL (80.0-100.0); NEUTROPHILS 67.4 % (40-80); PLATELET COUNT 300 10x3/uL (130-400); RBC 3.52 10x6/uL (4.00-5.40); RDW 17.4 % (11.5-14.5); WBC 8.1 10x3/uL (4.8-10.8)
--- NOTE | 2019-11-01 06:04 | NUR ---
I have reviewed this patient and I concur with the Shift Assessment completed by the Licensed Practical Nurse today this shift.
[2019-11-01 06:14] LABS: INR 1.96 (0.85-1.17); PROTIME 22.1 SECONDS (11.6-15.0)
[2019-11-01 06:15] LABS: ANION GAP 14.1 mmol/L (8-16); BILIRUBIN - TOTAL 0.65 mg/dL (0.2-1.3); CALCIUM 8.3 mg/dL (8.5-10.1); POTASSIUM - SERUM 3.1 mmol/L (3.5-5.1); VANCOMYCIN - RANDOM 12.7 ug/mL (10.0-20.0)
--- NOTE | 2019-11-01 07:26 | NUR ---
LAYING SUPINE RR EVEN AND UNLABORED. REMOVED WEDGES UNDER LEGS PER REQUEST AND REPOSITIONED TO COMFORT. DENIES FURTHER NEEDS OR PAIN AT THIS TIME. CALL LIGHT WITHIN REACH. BED IN LOWEST POSITION. WILL CONTINUE TO MONITOR.
[2019-11-01 08:09] LABS: HEXAGONAL PHASE PHOS 0 sec (0-11); LUPUS - INTERPRETATION Comment: (()); LUPUS - THROMBIN TIME 17.6 sec (0.0-23.0); LUPUS - dRVVT 45.8 sec (0.0-47.0); PTT-LA 61.7 sec (0.0-51.9); PTT-LA MIX 52.4 sec (0.0-48.9)
[2019-11-01 08:50] VITALS: BP 141/67
--- NOTE | 2019-11-01 11:51 | NUR ---
OT NOTE: PT PERFORMED MUCH BETTER TODAY. BED MOB WITH MOD/MAX ASSIST; GOOD SITTING BALANCE ON EOB. MOD ASSIST X 2 FOR SIT TO STAND WHILE ANOTHER ASSISTED WITH MAINTIANING WALKER AND KEEPING FEET FROM SLIDING. PT WAS FINALLY ABLE TO SHIFT WT FORWARD VS BACK ON HEELS, ALLOWING FOR IMPROVED STANDING BALANCE. THIS WAS PERFORMED 3 TIMES, AND EACH TIME SHE WAS ABLE TO STAND FOR APPROX 1 MIN..THEN APPROX 3-5 MIN REST BREAK FOLLOWING EACH SIT/STAND. PT WAS INSTRUCTED TO SIT UP ON EOB LONG POSSIBLE TO IMPROVE CORE STRENGTH. SET UP OF TRAY ; PT ABLE TO WASH HANDS AND FACE WITH CLOTH; FEEDING WITH SETUP ELYSSA YUSUF, OTR/L [phone]
--- NOTE | 2019-11-01 12:04 | NUR ---
DIALYSIS COORDINATOR: PTS RETURN TO [facility] DIALYSIS IS TENTATIVE UPON INFORMATION BELOW. PT NEEDS TO BE ABLE TO STAND - PIVOT - TRANSFER WITH MIN ASSISTANCE FROM WHEELCHAIR TO DIALYSIS CHAIR IN ORDER TO DISCHARGE TO HOME. PATIENT STATES PT WORKED W/ HER YESTERDAY AND SHE WAS ABLE TO STAND AT BEDSIDE, FAMILY HAS INSTALLED WC RAMPS AT HOME. IF PT IS TO BE D/C TO HOME, SHE WILL NEED TO BE STRONG ENOUGH TO TRANSFER IN/OUT OF VEHICLES/WC/DIALYSIS CHAIRS TO BE SAFELY TRANSPORTED TO/FROM OPHD CLINIC APPOINTMENTS. ROSA TONY.
--- NOTE | 2019-11-01 12:10 | MORECARE ---
CASE MANAGEMENT DISCHARGE SUMMARY PATIENT: RENEE HELM UNIT: [id number] ADM DATE: 10/24/19 AGE: 69 : 49 SEX: F ROOM/BED: D.2413 AUTHOR: ASHLEY,DOC PHYSICIAN: REFERRING PHYSICIAN: JONA JORDAN MD DATE OF SERVICE: 11/01/19 Discharge Plan Patient Name: RENEE HELM [facility] [facility] 1950 Planned Disposition: Home with Home Health Anticipated Discharge Date: 10/26/19 Discharge Date: Expected LOS: 2 Initial Reviewer: [id number] Initial Review Date: 10/26/2019 Generated: 11/01/19 1:09 pm Comments DCP- Discharge Planning Updated by [id number]: Eunice Mendoza on 10/29/19 4:[address] Contacted Jesusita Levine regarding new HD days in [place]. Acute Hepatitis panel and Hepatitis Surface Antibiodies Qual ordered per request Jesusita Levine. CM attempted to contact patient's daughterGrzegorz @[phone] & [phone], but was only able to leave a VM with a request a call 10/29 to my telephone number. CM will attempt to reach daughter 10/29. DCP- Discharge Planning Updated by [id number]: Reuben Silverman on 10/26/19 4:[address] Patient Name: RENEE HELM Admission Status: Elective Accout number: [id number] Admission Date: 10-24-2019 : 1950 Admission Diagnosis: Attending: NORRIS JORDAN Current LOS: 2 Anticipated DC Date: 10-26-2019 Planned Disposition: Home with Home Health Primary Insurance: MEDICARE A & B PLANNED EXTERNAL PROVIDER: NO PREFERENCE Discharge Planning Comments: CM RECEIVED ORDER FOR INPATIENT REHAB PRESCREENING, CALLED PT'S DAUGHTERGRZEGORZ AT [phone]. CM DISCUSSED REHAB OPTIONS, LOCATIONS AND PROVIDERS. GRZEGORZ STATES PT NOT HAPPY WITH REHAB AT [place] AND DOES NOT WANT TO GO TO CUSTODIAL FACILITY FOR REHAB. THEY WANT HOME HEALTH WITH NO PROVIDER PREFERNECE. PT WILL RETURN HOME WITH DAUGHTERGRZEGORZ. CM VERIFIED ADDRESS AND PHONE NUMBERS FOR HOME HEALTH. CHOICE COMPLETED FOR NO PREFERENCE ON HOME HEALTH PROVIDER, DECLINED INPATIENT AND SNF REHAB. IMPORTANT MESSAGE FROM MEDICARE PROVIDED AND EXPLAINED. COPY MAILED TO GRZEGORZ. GRZEGORZ TO [employer] PT FOR TRANSPORTATION HOME. CM RECEIVED MESSAGE FROM JACK[facility], PT WILL NEED NEW OUTPATIENT DIALYSIS CLINIC ARRANGEMENT SHE HAS NOT HAD OUTPATIENT DIALYSIS IN 30 DAYS. PT WILL REQUIRE NEW LABS, XRAY AND REFERRAL. ORDERS OBTAINED, JESUSITA OF [facility] NOTIFIED. PT AND DAUGHTER REFUSED INPATIENT / SNF REHAB. PT WILL NEED NEW OUTPATIENT DIALYSIS CLINIC ARRANGEMENT. CM TO ARRANGE HOME HEALTH FOR DISCHARGE HOME WITH DAUGHTER WITH PHYSICIAN AGEEMENT AND ORDER; NO PROVIDER PREFERENCE. FAMILY TO TRANSPORT HOME AT DISCHARGE. Waist Fitter: Reuben Silverman External Providers External Provider: OTHER-OTHER Next Contact Date: Service Request Date: Service Type: Resolution: Reviewer: Comments: Coverage Notice Reviewer: [id number] Rich Silverman Notice Issued Date-Time: 10/26/2019 12:40 Notice Type: Patient Choice Letter Notice Delivered To: Family Member Relationship to Patient: Daughter Coke Oven Mason Name: GRZEGORZ HELM Delivery Method: PHONE - Phone Malena Days: Prior Verbal Notification: Recipient Understood Notice: Yes Recipient Signature: Med Rec Note Co-signed by Attending: Coverage Notice Comment: NO HOME HEALTH PROVIDER PREFERENCE Reviewer: [id number] Rich Silverman Notice Issued Date-Time: 10/26/2019 12:40 Notice Type: IM Discharge Notice Notice Delivered To: Family Member Relationship to Patient: Daughter Coke Oven Mason Name: GRZEGORZ HELM Delivery Method: CERT - Certified Mail Malena Days: Prior Verbal Notification: Recipient Understood Notice: Yes Recipient Signature: Med Rec Note Co-signed by Attending: Coverage Notice Comment: PHONE BY JENNIFER SILVERMAN CM WELL MAILED Last DP export: 10/29/19 4:27 p Patient Name: RENEE HELM Page [phone] at 1210 All edits/amendments must be made on the electronic document DICTATION DATE: 11/01/19 120 CLEANING MACHINE OPERATOR: EDWAR 11/01/19 1209 RPT#: [id number] DC DATE: STATUS: ADM IN [facility] [address] [place] [address] END OF REPORT
[2019-11-01 14:11] VITALS: BP 144/83
--- NOTE | 2019-11-01 15:05 | NUR ---
OT NOTE: PT REQUIRED ASSISTANCE OF OTR/ORDAZ. PT EXHIBITED MUCH IMPROVED FUNCTIONAL PERFORMANCE THIS AM. PT REQUIRED MOD A FOR SUPINE TO SIT. PT ABLE TO MAINTAIN SITTING BALANCE AT EOB WITH NO PHYSICAL ASSIST. PT REQUIRED MIN-MOD A FOR SIT TO STAND. POSITIONING IS OF UTMOST IMPORTANCE...FEET BACK...NOSE OVER TOES IN ORDER TO BRING CENTER OF GRAVITY OVER ANKLES. PT FEET REQUIRED BLOCKING SECONDARY TO SLIPPING. PT COMPLETED SEVERAL HYGIENE TASKS AT EOB WITH SET UP. PT MUCH IMPROVED THIS AM. [phone] THANK YOU,ORLIN MALDONADO
--- NOTE | 2019-11-01 16:05 | MORECARE ---
CASE MANAGEMENT DISCHARGE SUMMARY PATIENT: RENEE HELM UNIT: [id number] ADM DATE: 10/24/19 AGE: 69 : 49 SEX: F ROOM/BED: D.7063 AUTHOR: ASHLEY,DOC PHYSICIAN: REFERRING PHYSICIAN: JONA JORDAN MD DATE OF SERVICE: 11/01/19 Discharge Plan Patient Name: RENEE HELM [facility]:[place] : 1950 Planned Disposition: Home with Home Health Anticipated Discharge Date: 10/26/19 Discharge Date: Expected LOS: 2 Initial Reviewer: [id number] Initial Review Date: 10/26/2019 Generated: 11/01/19 5:05 pm Comments DCP- Discharge Planning Updated by [id number]: Huong Frias on 11/01/19 2:[address] I have spoken to patient's daughter multiple times on the phone today concerning discharge needs. She would like me to call [facility] for the christa lift. I called [facility] for the lift and order and clinical faxed. I spoke with Jesusita (dialysis coordinator) and informed her that the labs are back. Jesusita states the [facility] will accept her when she is able to stand, pivot and sit by herself. Jesusita states that the family will be unable to come with her to help with getting her in and out of the chair. Jesusita states she will check on a christa lift, but will still need to be able to stand and pivot on her own. I spoke with Nishant with PT and he states at this time, she is a total assist with 2 people to stand. I spoke with the patient and informed her of above. I informed her that she would need to go short term to a rehab to be able to go to dialysis. She refuses rehab. States she is a door closer and she knows that she will be able to stand on her own tomorrow. I have spoken to Nikki Ruiz (my hematology supervisor) about this. SHERRY signed for declination of rehab. will continue to follow and assist with discharge planning/needs. [facility] [phone] Fax - [phone] [facility] [phone] F [phone] DCP- Discharge Planning Updated by [id number]: Eunice Yadavlroy on 10/29/19 4:[address] Contacted Jesusita Levine regarding new HD days in [place]. Acute Hepatitis panel and Hepatitis Surface Antibiodies Qual ordered per request Jesusita Levine. CM attempted to contact patient's daughter, Grzegorz Helm @[phone] & [phone], but was only able to leave a with a request a call 10/29 to my telephone number. CM will attempt to reach daughter 10/29. DCP- Discharge Planning Updated by [id number]: Reuben Silverman on 10/26/19 4:[address] Patient Name: RENEE HELM Admission Status: Elective Accout number: [id number] Admission Date: 10-24-2019 : 1950 Admission Diagnosis: Attending: NORRIS JORDAN Current LOS: 2 Anticipated DC Date: 10-26-2019 Planned Disposition: Home with Home Health Primary Insurance: MEDICARE A & B PLANNED EXTERNAL PROVIDER: NO PREFERENCE Discharge Planning Comments: CM RECEIVED ORDER FOR INPATIENT REHAB PRESCREENING, CALLED PT'S DAUGHTERGRZEGORZ AT [phone]. CM DISCUSSED REHAB OPTIONS, LOCATIONS AND PROVIDERS. GRZEGORZ STATES PT NOT HAPPY WITH REHAB AT [place] AND DOES NOT WANT TO GO TO [facility] FOR [facility]. THEY WANT HOME HEALTH WITH NO PROVIDER PREFERNECE. PT WILL RETURN HOME WITH DAUGHTERGRZEGORZ. CM VERIFIED ADDRESS AND PHONE NUMBERS FOR HOME HEALTH. CHOICE COMPLETED FOR NO PREFERENCE ON HOME HEALTH PROVIDER, DECLINED INPATIENT AND SNF REHAB. IMPORTANT MESSAGE FROM MED[employer]ARE PROVIDED AND EXPLAINED. COPY MAILED TO GRZEGORZ. GRZEGORZ TO [employer] PT FOR TRANSPORTATION HOME. CM RECEIVED MESSAGE FROM [facility], PT WILL NEED NEW OUTPATIENT DIALYSIS CLINIC ARRANGEMENT SHE HAS NOT HAD OUTPATIENT DIALYSIS IN 30 DAYS. PT WILL REQUIRE NEW LABS, XRAY AND REFERRAL. ORDERS OBTAINED, JESUSITA OF [facility] NOTIFIED. PT AND DAUGHTER REFUSED INPATIENT / SNF REHAB. PT WILL NEED NEW OUTPATIENT DIALYSIS CLINIC ARRANGEMENT. CM TO ARRANGE HOME HEALTH FOR DISCHARGE HOME WITH DAUGHTER WITH PHYSICIAN AGEEMENT AND ORDER; NO PROVIDER PREFERENCE. FAMILY TO TRANSPORT HOME AT DISCHARGE. Senior Ios Developer: Reuben Silverman Coverage Notice Reviewer: [id number] Rich Silverman Notice Issued Date-Time: 10/26/2019 12:40 Notice Type: Patient Choice Letter Notice Delivered To: Family Member Relationship to Patient: Daughter Beater Dumper Name: GRZEGORZ HELM Delivery Method: PHONE - Phone Malena Days: Prior Verbal Notification: Recipient Understood Notice: Yes Recipient Signature: Med Rec Note Co-signed by Attending: Coverage Notice Comment: NO HOME HEALTH PROVIDER PREFERENCE Reviewer: [id number] Rich Silverman Notice Issued Date-Time: 10/26/2019 12:40 Notice Type: IM Discharge Notice Notice Delivered To: Family Member Relationship to Patient: Daughter Beater Dumper Name: GRZEGORZ HELM Delivery Method: CERT - Certified Mail Malena Days: Prior Verbal Notification: Recipient Understood Notice: Yes Recipient Signature: Med Rec Note Co-signed by Attending: Coverage Notice Comment: PHONE BY JENNIFER SILVERMAN CM WELL MAILED Reviewer: [id number] Rich Frias Notice Issued Date-Time: 11/01/2019 16:00 Notice Type: Patient Choice Letter Notice Delivered To: Patient Relationship to Patient: Beater Dumper Name: Delivery Method: HAND - Hand Delivered Malena Days: Prior Verbal Notification: Recipient Understood Notice: Yes Recipient Signature: Yes Med Rec Note Co-signed by Attending: Coverage Notice Comment: SHERRY for [facility] Reviewer: [id number] Rich Frias Notice Issued Date-Time: 11/01/2019 13:30 Notice Type: IM Discharge Notice Notice Delivered To: Patient Relationship to Patient: Self Beater Dumper Name: Delivery Method: HAND - Hand Delivered Malena Days: Prior Verbal Notification: Recipient Understood Notice: Yes Recipient Signature: Yes Med Rec Note Co-signed by Attending: Coverage Notice Comment: IMM explained, signed, given, copy placed in MR Last DP export: 11/01/19 11:10 a Patient Name: RENEE HELM Page [phone] at 1605 All edits/amendments must be made on the electronic document DICTATION DATE: 11/01/19 1605 SPARK PLUG TESTER: EDWAR 11/01/19 1605 RPT#: [id number] DC DATE: STATUS: ADM IN [facility] [address] [place] [address] END OF REPORT
[2019-11-01 18:05] VITALS: BP 152/76
--- NOTE | 2019-11-01 18:41 | NUR ---
DRESSING TO BILATERAL FEET CHANGED, CDI. ASSISTED WITH SETTING UP TRAY. REPOSITIONED TO COMFORT. BED IN LOWEST POSITION. CALL LIGHT WITHIN REACH. WILL CONTINUE TO MONITOR.
--- NOTE | 2019-11-01 19:33 | NUR ---
PT IN BED WITH AIR MATRESS IN PLACE FEW NEEDS SEEN TO BED IS LOW AND LOCKED CALL LIGHT PLACED BACK IN PT REACH
[2019-11-01 20:00] VITALS: BP 147/57
--- NOTE | 2019-11-01 21:25 | NUR ---
PT CLEANED OF LOOSE STOOL AND BATHED BARRIER CREAM TO COCCYX LOTS OF SMALL NEEDS SEEN TO AT THIS TIME PT COMPLAINT OF NAUSEA WELL AND PRN GIVEN
[2019-11-02] VITALS: BP 133/64
[2019-11-02 04:00] VITALS: BP 115/61
[2019-11-02 05:03] LABS: BASOPHILS 0.1 % (0-2); EOSINOPHILS 4.1 % (0-7); HEMATOCRIT 32.5 % (36.0-48.0); HEMOGLOBIN 9.6 g/dL (12-16); IMMATURE GRANULOCYTES 0.4 % (0-5); MCHC 29.5 g/dL (31.0-37.0); MCV 94.8 fL (80.0-100.0); MONOCYTES 9.1 % (2-11); NEUTROPHILS 72.3 % (40-80); PLATELET COUNT 293 10x3/uL (130-400); RBC 3.43 10x6/uL (4.00-5.40); RDW 17.6 % (11.5-14.5)
[2019-11-02 05:26] LABS: PROTIME 25.6 SECONDS (11.6-15.0); WBC 10.4 10x3/uL (4.8-10.8)
[2019-11-02 05:27] LABS: INR 2.38 (0.85-1.17)
[2019-11-02 05:34] LABS: ALBUMIN 2.9 g/dL (3.4-5.0); ANION GAP 16.9 mmol/L (8-16); BILIRUBIN - TOTAL 0.72 mg/dL (0.2-1.3); CALCIUM 8.3 mg/dL (8.5-10.1); CARBON DIOXIDE 26.3 mmol/L (21.0-32.0); CREATININE - SERUM 6.2 mg/dL (0.6-1.3); POTASSIUM - SERUM 3.2 mmol/L (3.5-5.1); PROTEIN - SERUM 6.3 g/dL (6.4-8.2); VANCOMYCIN - RANDOM 13.8 ug/mL (10.0-20.0)
--- NOTE | 2019-11-02 10:40 | NUR ---
PT TAKEN TO DIALYSIS VIA BED.
[2019-11-02 10:56] VITALS: BP 123/63
--- NOTE | 2019-11-02 12:56 | MORECARE ---
CASE MANAGEMENT DISCHARGE SUMMARY PATIENT: RENEE HELM UNIT: [id number] ADM DATE: 10/24/19 AGE: 69 : 49 SEX: F ROOM/BED: D.2113 AUTHOR: ASHLEY,DOC PHYSICIAN: REFERRING PHYSICIAN: JONA JORDAN MD DATE OF SERVICE: 11/02/19 Discharge Plan Patient Name: RENEE HELM Facility: [facility]:[place] : 1950 Planned Disposition: Home with Home Health Anticipated Discharge Date: 10/26/19 Discharge Date: Expected LOS: 2 Initial Reviewer: [id number] Initial Review Date: 10/26/2019 Generated: 11/02/19 1:55 pm Comments DCP- Discharge Planning Updated by [id number]: Eunice Mendoza on 11/02/19 11:[address] CM returned call to daughter, who states "if the patient's HD cannot be set up due to patient's inability to stand and pivot, then she cannot come home." Daughter also states " will not agree to Hospice or SNF stay, the hospital will just have to keep her (patient)". Alessandro lift has been delivered to daughter's home. DCP- Discharge Planning Updated by [id number]: Huong Frias on 11/01/19 2:[address] I have spoken to patient's daughter multiple times on the phone today concerning discharge needs. She would like me to call [facility] for the alessandro lift. I called [facility] for the lift and order and clinical faxed. I spoke with Jesusita (dialysis coordinator) and informed her that the labs are back. Jesusita states the [place] dialysis center will accept her when she is able to stand, pivot and sit by herself. Jesusita states that the family will be unable to come with her to help with getting her in and out of the chair. Jesusita states she will check on a alessandro lift, but will still need to be able to stand and pivot on her own. I spoke with Nishant with PT and he states at this time, she is a total assist with 2 people to stand. I spoke with the patient and informed her of above. I informed her that she would need to go short term to a rehab to be able to go to dialysis. She refuses rehab. 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 I have spoken to Nikki Ruiz (my street light servicer supervisor) about this. SHERRY signed for declination of rehab. CM will continue to follow and assist with discharge planning/needs. [facility] [phone] Fax - [phone] [facility] P [phone] F [phone] DCP- Discharge Planning Updated by [id number]: Eunice Mendoza on 10/29/19 4:[address] Contacted Jesusita Levine regarding new HD days in [place]. Acute Hepatitis panel and Hepatitis Surface Antibiodies Qual ordered per request Jesusita Levine. CM attempted to contact patient's daughterGrzegorz @[phone] & [phone], but was only able to leave a VM with a request a call 10/29 to my telephone number. CM will attempt to reach daughter 10/29. DCP- Discharge Planning Updated by [id number]: Reuben Silverman on 10/26/19 4:[address] Patient Name: RENEE HELM Admission Status: Elective Accout number: [id number] Admission Date: 10-24-2019 : 1950 Admission Diagnosis: Attending: NORRIS JORDAN Current LOS: 2 Anticipated DC Date: 10-26-2019 Planned Disposition: Home with Home Health Primary Insurance: MEDICARE A & B PLANNED EXTERNAL PROVIDER: NO PREFERENCE Discharge Planning Comments: CM RECEIVED ORDER FOR INPATIENT REHAB PRESCREENING, CALLED PT'S DAUGHTERGRZEGORZ AT [phone]. CM DISCUSSED REHAB OPTIONS, LOCATIONS AND PROVIDERS. GRZEGORZ STATES PT NOT HAPPY WITH REHAB AT [place] AND DOES NOT WANT TO GO TO CUSTODIAL FACILITY FOR REHAB. THEY WANT HOME HEALTH WITH NO PROVIDER PREFERNECE. PT WILL RETURN HOME WITH DAUGHTERGRZEGORZ. CM VERIFIED ADDRESS AND PHONE NUMBERS FOR HOME HEALTH. CHOICE COMPLETED FOR NO PREFERENCE ON HOME HEALTH PROVIDER, DECLINED INPATIENT AND SNF REHAB. IMPORTANT MESSAGE FROM MEDICARE PROVIDED AND EXPLAINED. COPY MAILED TO ROBIN. ANGUIANO TO TRACTOR CRANE OPERATOR PT FOR TRANSPORTATION HOME. CM RECEIVED MESSAGE FROM JACKY, PT WILL NEED NEW OUTPATIENT DIALYSIS CLINIC ARRANGEMENT SHE HAS NOT HAD OUTPATIENT DIALYSIS IN 30 DAYS. PT WILL REQUIRE NEW LABS, XRAY AND REFERRAL. ORDERS OBTAINED, JESUSITA OF [facility] NOTIFIED. PT AND DAUGHTER REFUSED INPATIENT / SNF REHAB. PT WILL NEED NEW OUTPATIENT DIALYSIS CLINIC ARRANGEMENT. CM TO ARRANGE HOME HEALTH FOR DISCHARGE HOME WITH DAUGHTER WITH PHYSICIAN AGEEMENT AND ORDER; NO PROVIDER PREFERENCE. FAMILY TO TRANSPORT HOME AT DISCHARGE. Lens Polisher: Reuben Silverman Coverage Notice Reviewer: [id number] Rich Silverman Notice Issued Date-Time: 10/26/2019 12:40 Notice Type: Patient Choice Letter Notice Delivered To: Family Member Relationship to Patient: Daughter Lieutenant Firefighter Name: GRZEGORZ HELM Delivery Method: PHONE - Phone Malena Days: Prior Verbal Notification: Recipient Understood Notice: Yes Recipient Signature: Med Rec Note Co-signed by Attending: Coverage Notice Comment: NO HOME HEALTH PROVIDER PREFERENCE Reviewer: [id number] Rich Silverman Notice Issued Date-Time: 10/26/2019 12:40 Notice Type: IM Discharge Notice Notice Delivered To: Family Member Relationship to Patient: Daughter Lieutenant Firefighter Name: GRZEGORZ HELM Delivery Method: CERT - Certified Mail Malena Days: Prior Verbal Notification: Recipient Understood Notice: Yes Recipient Signature: Med Rec Note Co-signed by Attending: Coverage Notice Comment: PHONE BY JENNIFER SILVERMAN CM WELL MAILED Reviewer: [id number] Rich Frias Notice Issued Date-Time: 11/01/2019 16:00 Notice Type: Patient Choice Letter Notice Delivered To: Patient Relationship to Patient: Lieutenant Firefighter Name: Delivery Method: HAND - Hand Delivered Malena Days: Prior Verbal Notification: Recipient Understood Notice: Yes Recipient Signature: Yes Med Rec Note Co-signed by Attending: Coverage Notice Comment: SHERRY for [facility] and [facility]. Declines Rehab Reviewer: [id number] Rich Frias Notice Issued Date-Time: 11/01/2019 13:30 Notice Type: IM Discharge Notice Notice Delivered To: Patient Relationship to Patient: Self Lieutenant Firefighter Name: Delivery Method: HAND - Hand Delivered Malena Days: Prior Verbal Notification: Recipient Understood Notice: Yes Recipient Signature: Yes Med Rec Note Co-signed by Attending: Coverage Notice Comment: IMM explained, signed, given, copy placed in MR Last DP export: 11/01/19 3:05 p Patient Name: RENEE HELM Page [id number] at 1256 All edits/amendments must be made on the electronic document DICTATION DATE: 11/02/19 125 EXTENSION EDUCATOR: EDWAR 11/02/19 1255 RPT#: [id number] DC DATE: STATUS: ADM IN [facility] [address] [place] [address] END OF REPORT
--- NOTE | 2019-11-02 14:07 | NUR ---
Nutrition Follow-up: Pt in HD this AM. Chart reviewed. PO intake continues to fluctuate (from refusal to 100%). Continues to have loose stools. Diet: Renal ADA Wt: 265.6# (10/24) Labs noted: K+ 3.2, Glu 160, Ca 8.3, Alb 2.9 Meds noted: Humulin, Zofran, Coumadin, Questran, Fosrenol, Tums -Will add mech soft to current diet; received mech soft during previous admits and reported that it was easier for her. -Encourage PO intake and honor food preferences within diet restrictions. -Monitor wt. -RD following.
--- NOTE | 2019-11-02 15:13 | NUR ---
OT NOTE: PT PERFORMED WELL AGAIN TODAY. BED MOB WITH MOD ASSIST AND MOD ASSIST TO POSITION PT ON EOB WITH ANTERIOR TILT TO PREVENT HER FROM FALLLING BACKWARDS IN SITTING POSITION. ONCE PT HAS FEET ON FLOOR, SHE IS ABLE TO CORRECT WITH VERBAL CUES ONLY. PERFORMED EXS WHILE SITTING ON EOB. SIT TO STAND WITH MOD ASSIST X 2; PRACTICED WT SHIFTING FORWARD TO IMPROVE BALANCE. MODERATE VERBAL CUEING REQUIRED FOR PT TO UNDERSTAND THAT HER WT NEEDS TO BE MORE ON TOES THAN HEELS, SHE CONTINUALLY LEANS BACKWARDS. PT ALSO ABLE TO TAKE SIDE STEPS AND 2 SMALL STEPS FORWARD AND BACKWARDS.. CONTINUES TO REQUIRE APPROX 5 MIN REST BREAK BETWEEN EACH STANDING TASK. PT ALSO CONTINUES TO REQUIRE ASSIST OF 2-3 PEOPLE FOR STANDING. PT AGREEABLE TO SIT UP ON EOB FOR BREAKFAST TO IMPROVE TRUNK STRENGTH; SET UP OF TRAY FOR FEEDING; SET UP FOR GROOMING. ELYSSA [id number], OTR/L [phone]
--- NOTE | 2019-11-02 16:28 | NUR ---
OT NOTE: PT COMPLETED SUPINE TO SIT WITH MOD A. PT REQUIRED CUE FOR FOOT PLACEMENT FOR SIT TO STAND . PT COMPLETED EOB SITTING WITH SPV/MOD I. PT COMPLETED TRUNK CONTRL ACTIVITIES TO INCREASE I WITH SIT TO STAND. PT COMPLETED R SIDE STEPPING WITH RW AND REQUIRED MIN A. PT COMPLETED SELF FEEDING TASKS AT EOB WITH SET UP. PT COMPLETED BUE REACHING AND GRASPING AXS. PT EXHIBITED IMPROVED FUNCTIONAL ABILITY . [phone] THANK YOU,ORLIN MALDONADO
--- NOTE | 2019-11-02 16:30 | NUR ---
BILATERAL TOE DRESSING CHANGED ORDERED.
--- NOTE | 2019-11-02 17:53 | NUR ---
[facility] [place] STATES TO REMOVED CHEST YSABEL.
--- NOTE | 2019-11-02 18:10 | NUR ---
DC'D TWO YSABEL IN MIDDLE OF CHEST.
[2019-11-02 18:29] VITALS: BP 114/58
[2019-11-02 21:20] VITALS: BP 111/59
--- NOTE | 2019-11-02 23:25 | NUR ---
INITIAL ROUNDS COMPLETED AT 1915 HRS. PT DENIED ANY DISCOMFORT. ASSESSMENT COMPLETED AT 2005 HRS. SR PER CM HR 87. VSS. ALERT AND ORIENTED TO PERSON, PLACE AND TIME. LANTIGUA. OWN CPAP IN USE. LUNGS DIMINISHED IN BASES BILAT. LFA AVF WITH GOOD BRUIT AND THRILL. IV TO R THUMB SL. DRESSING TO L HEEL CLEAN,DRY AND INTACT. 4TH TOE OF R FOOT AND 3RD TOE OF L FOOT WITH NECROTIC SPOT. HEEL PROTECTORS IN USE. SCABS NOTED TO MID CHEST INCISION AND ABD. SCARRING NOTED AROUND BILAT THIGHS, BUTTOCK AND VAGINA PINK IN COLOR. PT ON 1ST STEP AIR OVERLAY MATTRESS. FSBS 180. 2 UNITS REG INSULIN GIVEN SUB-Q TO UPPER R ARM. PM MEDS GIVEN. ZOFRAN 4MG SIVP GIVEN FOR C/O NAUSEA. PT INCONTINENT OF STOOL. INCONTNENT CARE DONE. PT CURRENTLY RESTING WITH EYES CLOSED. RESP EVEN AND REGULAR. SR UP X2, CALL LIGHT WITHIN REACH AND BED ALARM ON.
--- NOTE | 2019-11-03 00:23 | NUR ---
PT RESTING WITH EYES CLOSED. RESP EVEN AND REGULAR. OWN CPAP IN USE. SR UP X2 CALL LIGHT WITHIN REACH.
[2019-11-03 01:30] VITALS: BP 140/63
--- NOTE | 2019-11-03 02:16 | NUR ---
PT RESTING WITH EYES CLOSED. RESP EVEN AND REGULAR. SR UP X2, CALL LIGHT WITHIN REACH.
--- NOTE | 2019-11-03 04:16 | NUR ---
VSS. PT DENIES ANY DISCOMFORT. CALL LIGHT WITHIN REACH.
[2019-11-03 04:43] VITALS: BP 143/62
--- NOTE | 2019-11-03 05:08 | NUR ---
PT INCONTINENT OF A SMALL AMOUNT OF STOOL. INCONTINENT CARE DONE. PT TOLERATED ACTIVITY WELL.
[2019-11-03 05:13] LABS: BASOPHILS 0.1 % (0-2); HEMATOCRIT 34.1 % (36.0-48.0); HEMOGLOBIN 10.1 g/dL (12-16); IMMATURE GRANULOCYTES 0.6 % (0-5); LYMPHOCYTES 14.3 % (15-50); MCH 28.3 pg (26.0-34.0); MCHC 29.6 g/dL (31.0-37.0); MCV 95.5 fL (80.0-100.0); MONOCYTES 10.3 % (2-11); NEUTROPHILS 68.7 % (40-80); PLATELET COUNT 312 10x3/uL (130-400); RBC 3.57 10x6/uL (4.00-5.40); RDW 17.8 % (11.5-14.5)
[2019-11-03 05:26] LABS: PROTIME 30.5 SECONDS (11.6-15.0)
[2019-11-03 05:29] LABS: INR 2.99 (0.85-1.17)
[2019-11-03 05:33] LABS: ANION GAP 14.8 mmol/L (8-16); BILIRUBIN - TOTAL 0.56 mg/dL (0.2-1.3); CALCIUM 8.3 mg/dL (8.5-10.1); CARBON DIOXIDE 28.3 mmol/L (21.0-32.0); POTASSIUM - SERUM 3.1 mmol/L (3.5-5.1); PROTEIN - SERUM 6.5 g/dL (6.4-8.2)
[2019-11-03 05:34] LABS: CREATININE - SERUM 4.3 mg/dL (0.6-1.3)
--- NOTE | 2019-11-03 06:33 | NUR ---
ATARAX PO GIVEN FOR C/O ITCHING. VSS THROUGHOUT NIGHT. SR PER CM. NEEDS MET; WILL CONTINUE TO MONITOR.
--- NOTE | 2019-11-03 07:00 | NUR ---
RECEIVED REPORT. ASSUMED CARE OF PATIENT. PATIENT RESTING WITH EYES CLOSED. HOME CPAP MACHINE IN USE. 1ST STEP OVERLAY PATENT. CALL LIGHT WITHIN REACH. RESP EVEN AND UNLABORED. NO DISTRESS. SR ON TELEMETRY, RATE OF 83.
[2019-11-03 10:20] VITALS: BP 118/61
--- NOTE | 2019-11-03 11:30 | NUR ---
FSBS 149. NO INSULIN PER SLIDING SCALE.
--- NOTE | 2019-11-03 12:12 | NUR ---
PATIENT SITTING TO SIDE OF BED CONSUMING NOON MEAL. NO DISTRESS.
[2019-11-03 14:18] VITALS: BP 121/56
--- NOTE | 2019-11-03 14:50 | NUR ---
THIS INVENTORY TAKER AND WASHER HAND PUTTING PATIENT BACK IN THE BED. PULLED PATIENT UP. ATTEMPTED TO SIT PATIENT HOB UP WITH SLIGHT ELEVATION OF LOWER EXTREMITIES TO PREVENT PATIENT FROM SLIDING TO BOTTOM OF 1ST STEP OVERLAY. WHEN THIS INVENTORY TAKER EXPLAINED WHAT SHE WAS ATTEMPTING TO DO, PATIENT SAID SHE KNOWS HER OWN BODY BETTER THAN ANYBODY AND DON'T TELL HER WHAT WORKS BEST AND THAT THE NURSES ON THIS FLOOR ARE TERRIBLE. THE NURSES ON ALL THE OTHER FLOORS IN THIS HOSPITAL ARE MUCH BETTER AND WHEN THE NURSE POWER DIGGER OPERATOR COMES TO HER ROOM AND DOES ROUNDS SHE IS GOING TO MAKE SURE SHE TELL THE POWER DIGGER OPERATOR HOW BAD THE NURSES ARE ON THIS UNIT. WASHER HAND CONTINUES TO PROVIDED CARES FOR PATIENT THIS INVENTORY TAKER IS CLEARING DIRTY LINEN FROM ROOM AND EXITS.
--- NOTE | 2019-11-03 16:38 | NUR ---
FSBS 157. 2 UNITS INSULIN PER SLIDING SCALE.
[2019-11-03 16:46] VITALS: BP 147/75
--- NOTE | 2019-11-03 17:06 | NUR ---
MEDICATED FOR NAUSEA AT THIS TIME. NO DISTRES.
--- NOTE | 2019-11-03 18:50 | NUR ---
INCONTINENT CARE COMPLETED, PATIENT REPOSITIONED, PM MEAL HEATED AND SET UP FOR PATIENT. CALL LIGHT WITHIN REACH. NO DISTRESS.
--- NOTE | 2019-11-03 19:20 | NUR ---
RECEIVED REPORT, WILL ASSUME CARE OF PT, DENIES ANY NEEDS AT THIS TIME, BED IS LOW, SRX2, CALL LIGHT IN REACH, WILL CONTINUE PLAN OF CARE
[2019-11-03 20:01] VITALS: BP 114/64
--- NOTE | 2019-11-03 21:15 | NUR ---
CLEANED PT UP AND REPOSITION PT, BED IS LOW, SRX2, CALL LIGHT IN REACH, WILL CONTINUE PLAN OF CARE
--- NOTE | 2019-11-03 21:30 | NUR ---
PT WANTS TO WAIT ON PM MEDS, FEELING NAUSEA
--- NOTE | 2019-11-04 02:42 | NUR ---
I have reviewed this patient and I concur with the Shift Assessment completed by the Licensed Practical Nurse today this shift.
[2019-11-04 04:00] VITALS: BP 129/36
[2019-11-04 05:16] LABS: BASOPHILS 0.1 % (0-2); EOSINOPHILS 3.6 % (0-7); HEMATOCRIT 34.2 % (36.0-48.0); HEMOGLOBIN 10.1 g/dL (12-16); IMMATURE GRANULOCYTES 0.3 % (0-5); LYMPHOCYTES 18.9 % (15-50); MCH 28.1 pg (26.0-34.0); MCHC 29.5 g/dL (31.0-37.0); MCV 95.3 fL (80.0-100.0); MEAN PLATELET VOLUME 9.7 fL (7.4-10.4); MONOCYTES 9.7 % (2-11); NEUTROPHILS 67.4 % (40-80); PLATELET COUNT 342 10x3/uL (130-400); RBC 3.59 10x6/uL (4.00-5.40); RDW 17.5 % (11.5-14.5); WBC 8.8 10x3/uL (4.8-10.8)
[2019-11-04 05:27] LABS: INR 1.86 (0.85-1.17); PROTIME 21.2 SECONDS (11.6-15.0)
[2019-11-04 05:56] LABS: ALBUMIN 3.1 g/dL (3.4-5.0); BILIRUBIN - TOTAL 0.73 mg/dL (0.2-1.3); CALCIUM 8.4 mg/dL (8.5-10.1); CARBON DIOXIDE 28.2 mmol/L (21.0-32.0); PROTEIN - SERUM 6.8 g/dL (6.4-8.2)
--- NOTE | 2019-11-04 05:59 | NUR ---
COMPLETE BED BATH/LINEN CHANGE
[2019-11-04 06:14] LABS: ANION GAP 13.9 mmol/L (8-16); CREATININE - SERUM 5.5 mg/dL (0.6-1.3); POTASSIUM - SERUM 4.1 mmol/L (3.5-5.1)
--- NOTE | 2019-11-04 07:20 | NUR ---
RECIEVE REPORT. RESTING IN BED WITH EYES CLOSED. CPAP ON. NO SIGNS OF DISTRESS. CONTINUE PLAN OF CARE AND SAFETY PRECAUTIONS.
[2019-11-04 10:35] VITALS: BP 140/69
--- NOTE | 2019-11-04 19:45 | NUR ---
REPORT RECIEVED AND INITIAL ROUNDS COMPLETED. PT RESTING IN BED. NO DISTRESS. HOME CPAP IN PLACE. SR PER TELEMETRY. CPOC.
[2019-11-04 20:00] VITALS: BP 136/61
--- NOTE | 2019-11-04 23:00 | NUR ---
ALL BEDTIME MEDS GIVEN. FSBS 230 AND 4 UNITS OF SLIDING SCALE ADMINISTERED. PT SAYING SHE IS "DIRTY" AND NEEDED TO BE CLEANED. RAGMAN/NURSE PROVIDED CARE, PT WAS NOT SOILED, SO SKIN CARE PROVIDED AND REPOSITIONING FOR COMFORT DONE AT THIS TIME. CALL LIGHT IN REACH.
[2019-11-05] VITALS: BP 108/53
[2019-11-05 04:00] VITALS: BP 150/77
[2019-11-05 05:22] LABS: ALBUMIN 3.1 g/dL (3.4-5.0); ANION GAP 14.1 mmol/L (8-16); BILIRUBIN - TOTAL 0.83 mg/dL (0.2-1.3); CALCIUM 8.3 mg/dL (8.5-10.1); CARBON DIOXIDE 27.9 mmol/L (21.0-32.0); CREATININE - SERUM 6.2 mg/dL (0.6-1.3); PROTEIN - SERUM 6.2 g/dL (6.4-8.2)
[2019-11-05 05:42] LABS: INR 1.21 (0.85-1.17); PROTIME 15.2 SECONDS (11.6-15.0)
--- NOTE | 2019-11-05 06:40 | NUR ---
REPORT TO ONCOMING NURSE. PT RESTING IWTH NO DISTRESS. HOME CPAP IN PLACE. CLEAN AND DRY. CPOC.
--- NOTE | 2019-11-05 07:15 | NUR ---
RECEIVED PT IN BED EYES CLOSED RESP UNLABORED SKIN W/D COLOR WNL NAD NOTED WILL CONTINUE TO MONITOR
[2019-11-05 07:21] LABS: BASOPHILS 0.3 % (0-2); EOSINOPHILS 6.3 % (0-7); HEMATOCRIT 32.7 % (36.0-48.0); HEMOGLOBIN 9.6 g/dL (12-16); IMMATURE GRANULOCYTES 0.1 % (0-5); LYMPHOCYTES 17.9 % (15-50); MCH 27.7 pg (26.0-34.0); MCHC 29.4 g/dL (31.0-37.0); MCV 94.5 fL (80.0-100.0); MEAN PLATELET VOLUME 9.2 fL (7.4-10.4); MONOCYTES 9.1 % (2-11); NEUTROPHILS 66.3 % (40-80); PLATELET COUNT 306 10x3/uL (130-400); RBC 3.46 10x6/uL (4.00-5.40); RDW 17.3 % (11.5-14.5); WBC 7.3 10x3/uL (4.8-10.8)
[2019-11-05 08:00] VITALS: BP 137/62
--- NOTE | 2019-11-05 15:30 | NUR ---
OT NOTE: PT COMPLETED BED MOB TASKS SIDE ROLLING WITH MOD A. PT REQUIRED MOD A WITH SUPINE TO SIT. PT COMPLETED EOB SITTING WITH SBA. PT COMPLETED SIT TO STAND WITH MOD A. PT COMPLETED LB DRESSING TASK WITH MAX A. [id number] THANK YOU,ORLIN MALDONADO
[2019-11-05 18:27] VITALS: BP 150/84
--- NOTE | 2019-11-05 19:29 | NUR ---
RECEIVED REPORT, WILL ASSUME CARE OF PT, TALKING ABOUT HER PLANS TO WORK WITH PT IN AM, SO SHE CAN GO HOME, DENIES ANY NEEDS AT THIS TIME, BED IS LOW, SRX2, CALL LIGHT IN REACH, WILL CONTINUE PLAN OF CARE
[2019-11-05 20:06] LABS: FACTOR II DNA ANALYSIS Negative (())
[2019-11-05 22:09] VITALS: BP 136/77
[2019-11-06 00:54] VITALS: BP 130/70
[2019-11-06 05:05] VITALS: BP 154/79
[2019-11-06 06:46] LABS: INR 1.1 (0.85-1.17); PROTIME 14.2 SECONDS (11.6-15.0)
--- NOTE | 2019-11-06 09:00 | NUR ---
CONSENTS SIGNED. TO SPECIALS BY BED.
--- NOTE | 2019-11-06 09:25 | NUR ---
BACK FROM CT. NO FLUID.
[2019-11-06 09:31] VITALS: BP 140/95
--- NOTE | 2019-11-06 11:43 | MORECARE ---
CASE MANAGEMENT DISCHARGE SUMMARY PATIENT: RENEE HELM UNIT: [id number] ADM DATE: 10/24/19 AGE: 69 : 48 SEX: F ROOM/BED: D.2113 AUTHOR: ASHLEY,DOC PHYSICIAN: REFERRING PHYSICIAN: JONA JORDAN MD DATE OF SERVICE: 11/06/19 Discharge Plan Patient Name: RENEE HELM Facility: [facility]:[place] : 1950 Planned Disposition: Home with Home Health Anticipated Discharge Date: 10/26/19 Discharge Date: Expected LOS: 2 Initial Reviewer: [id number] Initial Review Date: 10/26/2019 Generated: 11/06/19 12:42 pm Comments DCP- Discharge Planning Updated by [id number]: Eunice Mendoza on 11/02/19 11:[address] CM returned call to daughter, who states "if the patient's HD cannot be set up due to patient's inability to stand and pivot, then she cannot come home." Daughter also states " will not agree to Hospice or SNF stay, the hospital will just have to keep her (patient)". Alessandro lift has been delivered to daughter's home. DCP- Discharge Planning Updated by [id number]: Huong Frias on 11/01/19 2:[address] I have spoken to patient's daughter multiple times on the phone today concerning discharge needs. She would like me to call [facility] for the alessandro lift. I called [facility] for the lift and order and clinical faxed. I spoke with Jesusita (dialysis coordinator) and informed her that the labs are back. Jesusita states the [facility] will accept her when she is able to stand, pivot and sit by herself. Jesusita states that the family will be unable to come with her to help with getting her in and out of the chair. Jesusita states she will check on a alessandro lift, but will still need to be able to stand and pivot on her own. I spoke with Nishant with PT and he states at this time, she is a total assist with 2 people to stand. I spoke with the patient and informed her of above. I informed her that she would need to go short term to a rehab to be able to go to dialysis. She refuses rehab. 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 I have spoken to Nikki Ruiz (my general supervisor) about this. SHERRY signed for declination of rehab. CM will continue to follow and assist with discharge planning/needs. [facility] [phone] Fax - [phone] [facility] P [phone] F [phone] DCP- Discharge Planning Updated by [id number]: Eunice Mendoza on 10/29/19 4:[address] Contacted Jesusita Levine regarding new HD days in [place]. Acute Hepatitis panel and Hepatitis Surface Antibiodies Qual ordered per request Jesusita Levine. CM attempted to contact patient's daughterGrzegorz @[phone] & [phone], but was only able to leave a VM with a request a call 10/29 to my telephone number. CM will attempt to reach daughter 10/29. DCP- Discharge Planning Updated by [id number]: Reuben Silverman on 10/26/19 4:[address] Patient Name: RENEE HELM Admission Status: Elective Accout number: [id number] Admission Date: 10-24-2019 : 1950 Admission Diagnosis: Attending: NORRIS JORDAN Current LOS: 2 Anticipated DC Date: 10-26-2019 Planned Disposition: Home with Home Health Primary Insurance: MEDICARE A & B PLANNED EXTERNAL PROVIDER: NO PREFERENCE Discharge Planning Comments: CM RECEIVED ORDER FOR INPATIENT REHAB PRESCREENING, CALLED PT'S DAUGHTERGRZEGORZ AT [phone]. CM DISCUSSED REHAB OPTIONS, LOCATIONS AND PROVIDERS. GRZEGORZ STATES PT NOT HAPPY WITH REHAB AT [place] AND DOES NOT WANT TO GO TO PENITENTIARY FACILITY FOR REHAB. THEY WANT HOME HEALTH WITH NO PROVIDER PREFERNECE. PT WILL RETURN HOME WITH DAUGHTERGRZEGORZ. CM VERIFIED ADDRESS AND PHONE NUMBERS FOR HOME HEALTH. CHOICE COMPLETED FOR NO PREFERENCE ON HOME HEALTH PROVIDER, DECLINED INPATIENT AND SNF REHAB. IMPORTANT MESSAGE FROM MEDICARE PROVIDED AND EXPLAINED. COPY MAILED TO ROBIN. ANGUIANO TO PUBLICATIONS DISTRIBUTION CLERK PT FOR TRANSPORTATION HOME. CM RECEIVED MESSAGE FROM JACKY, PT WILL NEED NEW OUTPATIENT DIALYSIS CLINIC ARRANGEMENT SHE HAS NOT HAD OUTPATIENT DIALYSIS IN 30 DAYS. PT WILL REQUIRE NEW LABS, XRAY AND REFERRAL. ORDERS OBTAINED, JESUSITA OF [facility] NOTIFIED. PT AND DAUGHTER REFUSED INPATIENT / SNF REHAB. PT WILL NEED NEW OUTPATIENT DIALYSIS CLINIC ARRANGEMENT. CM TO ARRANGE HOME HEALTH FOR DISCHARGE HOME WITH DAUGHTER WITH PHYSICIAN AGEEMENT AND ORDER; NO PROVIDER PREFERENCE. FAMILY TO TRANSPORT HOME AT DISCHARGE. Radio Communication Coordinator: Reuben Silverman External Providers External Provider: [facility] Contact Date: Service Request Date: Service Type: Resolution: Reviewer: Comments: Coverage Notice Reviewer: [id number] Rich Silverman Notice Issued Date-Time: 10/26/2019 12:40 Notice Type: Patient Choice Letter Notice Delivered To: Family Member Relationship to Patient: Daughter Card Dealer Name: GRZEGORZ HELM Delivery Method: PHONE - Phone Malena Days: Prior Verbal Notification: Recipient Understood Notice: Yes Recipient Signature: Med Rec Note Co-signed by Attending: Coverage Notice Comment: NO HOME HEALTH PROVIDER PREFERENCE Reviewer: [id number] Rich Silverman Notice Issued Date-Time: 10/26/2019 12:40 Notice Type: IM Discharge Notice Notice Delivered To: Family Member Relationship to Patient: Daughter Card Dealer Name: GRZEGORZ HELM Delivery Method: CERT - Certified Mail Malena Days: Prior Verbal Notification: Recipient Understood Notice: Yes Recipient Signature: Med Rec Note Co-signed by Attending: Coverage Notice Comment: PHONE BY JENNIFER SILVERMAN CM WELL MAILED Reviewer: [id number] Rich Frias Notice Issued Date-Time: 11/01/2019 16:00 Notice Type: Patient Choice Letter Notice Delivered To: Patient Relationship to Patient: Card Dealer Name: Delivery Method: HAND - Hand Delivered Malena Days: Prior Verbal Notification: Recipient Understood Notice: Yes Recipient Signature: Yes Med Rec Note Co-signed by Attending: Coverage Notice Comment: SHERRY for [facility]. Declines Rehab Reviewer: [id number] Rich Frias Notice Issued Date-Time: 11/01/2019 13:30 Notice Type: IM Discharge Notice Notice Delivered To: Patient Relationship to Patient: Self Card Dealer Name: Delivery Method: HAND - Hand Delivered Malena Days: Prior Verbal Notification: Recipient Understood Notice: Yes Recipient Signature: Yes Med Rec Note Co-signed by Attending: Coverage Notice Comment: IMM explained, signed, given, copy placed in MR Last DP export: 11/02/19 11:56 a Patient Name: RENEE HELM Page [phone] at 1143 All edits/amendments must be made on the electronic document DICTATION DATE: 11/06/19 114 SPECIALTIES OPERATOR: EDWAR 11/06/19 1142 RPT#: [id number] DC DATE: STATUS: ADM IN [facility] [address] [place] [address] END OF REPORT
--- NOTE | 2019-11-06 11:57 | MORECARE ---
CASE MANAGEMENT DISCHARGE SUMMARY PATIENT: RENEE HELM UNIT: [id number] ADM DATE: 10/24/19 AGE: 69 : [birth year] SEX: F ROOM/BED: D.2113 AUTHOR: ASHLEY,DOC PHYSICIAN: REFERRING PHYSICIAN: JONA JORDAN MD DATE OF SERVICE: 11/06/19 Discharge Plan Patient Name: RENEE HELM Facility: [facility]:[place] : 1950 Planned Disposition: Home with Home Health Anticipated Discharge Date: 10/26/19 Discharge Date: Expected LOS: 2 Initial Reviewer: [email or web address] Initial Review Date: 10/26/2019 Generated: 11/06/19 12:56 pm Comments DCP- Discharge Planning Updated by [email or web address]: Huong Frias on 11/06/19 10:[address] I received a call from Bella that patient is not a candidate for [facility] inpatient rehab. I called Jil at [facility] in [place] and clinical faxed to see if she is a candidate for their inpatient rehab unit. I informed Jil that she must be able to stand, pivot and sit alone before dialysis can accept her back in [place]. They will review her clinical and call me with a decision. CM will continue to follow and assist with discharge planning/needs. DCP- Discharge Planning Updated by [id number]: Eunice Kelly on 11/02/19 11:[address] CM returned call to daughter, who states "if the patient's HD cannot be set up due to patient's inability to stand and pivot, then she cannot come home." Daughter also states " will not agree to Hospice or SNF stay, the hospital will just have to keep her (patient)". Alessandro lift has been delivered to daughter's home. DCP- Discharge Planning Updated by [id number]: Huong Frias on 11/01/19 2:[address] I have spoken to patient's daughter multiple times on the phone today concerning discharge needs. She would like me to call [facility] for the alessandro lift. I called [facility] for the lift and order and clinical faxed. I spoke with Jesusita (dialysis coordinator) and informed her that the labs are back. Jesusita states the [facility] dialysis center will accept her when she is able to stand, pivot and sit by herself. Jesusita states that the family will be unable to come with her to help with getting her in and out of the chair. Jesusita states she will check on a alessandro lift, but will still need to be able to stand and pivot on her own. I spoke with Nishant with PT and he states at this time, she is a total assist with 2 people to stand. I spoke with the patient and informed her of above. I informed her that she would need to go short term to a rehab to be able to go to dialysis. She refuses rehab. 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 I have spoken to Nikki Ruiz (my supervisor mail carriers) about this. SHERRY signed for declination of rehab. CM will continue to follow and assist with discharge planning/needs. [facility] [phone] Fax - [phone] [facility] [phone] F [phone] DCP- Discharge Planning Updated by [id number]: Eunice Mendoza on 10/29/19 4:[address] Contacted Jesusita Levine regarding new HD days in [place]. Acute Hepatitis panel and Hepatitis Surface Antibiodies Qual ordered per request Jesusita Levine. CM attempted to contact patient's daughter, Grzegorz Helm @[phone] & [phone], but was only able to leave a with a request a call 10/29 to my telephone number. CM will attempt to reach daughter 10/29. DCP- Discharge Planning Updated by [email or web address]: Reuben Silverman on 10/26/19 4:[address] Patient Name: RENEE HELM Admission Status: Elective Accout number: [id number] Admission Date: 10-24-2019 : 1950 Admission Diagnosis: Attending: NORRIS JORDAN Current LOS: 2 Anticipated DC Date: 10-26-2019 Planned Disposition: Home with Home Health Primary Insurance: MEDICARE A & B PLANNED EXTERNAL PROVIDER: NO PREFERENCE Discharge Planning Comments: CM RECEIVED ORDER FOR INPATIENT REHAB PRESCREENING, CALLED PT'S DAUGHTER, GRZEGORZ AT [phone]. CM DISCUSSED REHAB OPTIONS, LOCATIONS AND PROVIDERS. GRZEGORZ STATES PT NOT HAPPY WITH REHAB AT [place] AND DOES NOT WANT TO GO TO [facility] FOR REHAB. THEY WANT HOME HEALTH WITH NO PROVIDER PREFERNECE. PT WILL RETURN HOME WITH DAUGHTER, GRZEGORZ. CM VERIFIED ADDRESS AND PHONE NUMBERS FOR HOME HEALTH. CHOICE COMPLETED FOR NO PREFERENCE ON HOME HEALTH PROVIDER, DECLINED INPATIENT AND SNF REHAB. IMPORTANT MESSAGE FROM MEDICARE PROVIDED AND EXPLAINED. COPY MAILED TO GRZEGORZ. GRZEGORZ TO [employer] PT FOR TRANSPORTATION HOME. CM RECEIVED MESSAGE FROM DUNIA AZ[facility], PT WILL NEED NEW OUTPATIENT DIALYSIS CLINIC ARRANGEMENT SHE HAS NOT HAD OUTPATIENT DIALYSIS IN 30 DAYS. PT WILL REQUIRE NEW LABS, XRAY AND REFERRAL. ORDERS OBTAINED, JESUSITA OF PATIENT PATHWAYS NOTIFIED. PT AND DAUGHTER REFUSED INPATIENT / SNF REHAB. PT WILL NEED NEW OUTPATIENT DIALYSIS CLINIC ARRANGEMENT. CM TO ARRANGE HOME HEALTH FOR DISCHARGE HOME WITH DAUGHTER WITH PHYSICIAN AGEEMENT AND ORDER; NO PROVIDER PREFERENCE. FAMILY TO TRANSPORT HOME AT DISCHARGE. Suction Plate Roller Hand: Reuben Silverman Coverage Notice Reviewer: [id number] Rich Frias Notice Issued Date-Time: 11/01/2019 13:30 Notice Type: IM Discharge Notice Notice Delivered To: Patient Relationship to Patient: Self Blocking Machine Tender Name: Delivery Method: HAND - Hand Delivered Malena Days: Prior Verbal Notification: Recipient Understood Notice: Yes Recipient Signature: Yes Med Rec Note Co-signed by Attending: Coverage Notice Comment: IMM explained, signed, given, copy placed in MR Reviewer: [id number] - Reuben Silverman Notice Issued Date-Time: 10/26/2019 12:40 Notice Type: IM Discharge Notice Notice Delivered To: Family Member Relationship to Patient: Daughter Blocking Machine Tender Name: GRZEGORZ HELM Delivery Method: CERT - Certified Mail Malena Days: Prior Verbal Notification: Recipient Understood Notice: Yes Recipient Signature: Med Rec Note Co-signed by Attending: Coverage Notice Comment: PHONE BY JENNIFER SILVERMAN CM WELL MAILED Reviewer: [id number] Rich Frias Notice Issued Date-Time: 11/01/2019 16:00 Notice Type: Patient Choice Letter Notice Delivered To: Patient Relationship to Patient: Blocking Machine Tender Name: Delivery Method: HAND - Hand Delivered Malena Days: Prior Verbal Notification: Recipient Understood Notice: Yes Recipient Signature: Yes Med Rec Note Co-signed by Attending: Coverage Notice Comment: SHERRY for [facility]. Declines Rehab Reviewer: [id number] - Reuben Silverman Notice Issued Date-Time: 10/26/2019 12:40 Notice Type: Patient Choice Letter Notice Delivered To: Family Member Relationship to Patient: Daughter Blocking Machine Tender Name: GRZEGORZ HELM Delivery Method: PHONE - Phone Malena Days: Prior Verbal Notification: Recipient Understood Notice: Yes Recipient Signature: Med Rec Note Co-signed by Attending: Coverage Notice Comment: NO HOME HEALTH PROVIDER PREFERENCE Last DP export: 11/06/19 10:43 a Patient Name: RENEE HELM Page [phone] at 1157 All edits/amendments must be made on the electronic document DICTATION DATE: 11/06/19 1156 UNDERLAY STITCHER: EDWAR 11/06/19 1156 RPT#: [id number] DC DATE: STATUS: ADM IN [facility] [address] [place] [address] END OF REPORT
[2019-11-06 12:23] VITALS: BP 157/81
--- NOTE | 2019-11-06 12:46 | MORECARE ---
CASE MANAGEMENT DISCHARGE SUMMARY PATIENT: RENEE HELM UNIT: [id number] ADM DATE: 10/24/19 AGE: 69 : [birth year] SEX: F ROOM/BED: D.2113 AUTHOR: ASHLEY,DOC PHYSICIAN: REFERRING PHYSICIAN: JONA JORDAN MD DATE OF SERVICE: 11/06/19 Discharge Plan Patient Name: RENEE HELM Facility: [facility]:[place] : 1950 Planned Disposition: Home with Home Health Anticipated Discharge Date: 10/26/19 Discharge Date: Expected LOS: 2 Initial Reviewer: [email or web address] Initial Review Date: 10/26/2019 Generated: 11/06/19 1:45 pm Comments DCP- Discharge Planning Updated by [email or web address]: Huong Frias on 11/06/19 10:[address] I received a call from Bella that patient is not a candidate for [facility] inpatient rehab. I called Jil at [facility] in [place] and clinical faxed to see if she is a candidate for their inpatient rehab unit. I informed Jil that she must be able to stand, pivot and sit alone before dialysis can accept her back in [place]. They will review her clinical and call me with a decision. CM will continue to follow and assist with discharge planning/needs. DCP- Discharge Planning Updated by [id number]: Eunice Kelly on 11/02/19 11:[address] CM returned call to daughter, who states "if the patient's HD cannot be set up due to patient's inability to stand and pivot, then she cannot come home." Daughter also states " will not agree to Hospice or SNF stay, the hospital will just have to keep her (patient)". Alessandro lift has been delivered to daughter's home. DCP- Discharge Planning Updated by [email or web address]: Huong Frias on 11/01/19 2:[address] I have spoken to patient's daughter multiple times on the phone today concerning discharge needs. She would like me to call [facility] for the alessandro lift. I called [facility] for the lift and order and clinical faxed. I spoke with Jesusita (dialysis coordinator) and informed her that the labs are back. Jesusita states the [facility] dialysis center will accept her when she is able to stand, pivot and sit by herself. Jesusita states that the family will be unable to come with her to help with getting her in and out of the chair. Jesusita states she will check on a alessandro lift, but will still need to be able to stand and pivot on her own. I spoke with Nishant with PT and he states at this time, she is a total assist with 2 people to stand. I spoke with the patient and informed her of above. I informed her that she would need to go short term to a rehab to be able to go to dialysis. She refuses rehab. 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 I have spoken to Nikki Ruiz (my examination supervisor) about this. SHERRY signed for declination of rehab. CM will continue to follow and assist with discharge planning/needs. [facility] [phone] Fax - [phone] [facility] [phone] F [phone] DCP- Discharge Planning Updated by [id number]: Eunice Mendoza on 10/29/19 4:[address] Contacted Jesusita Levine regarding new HD days in [place]. Acute Hepatitis panel and Hepatitis Surface Antibiodies Qual ordered per request Jesusita Levine. CM attempted to contact patient's daughter, Grzegorz Helm @[phone] & [phone], but was only able to leave a with a request a call 10/29 to my telephone number. CM will attempt to reach daughter 10/29. DCP- Discharge Planning Updated by [id number]: Reuben Silverman on 10/26/19 4:[address] Patient Name: RENEE HELM Admission Status: Elective Accout number: [id number] Admission Date: 10-24-2019 : 1950 Admission Diagnosis: Attending: NORRIS JORDAN Current LOS: 2 Anticipated DC Date: 10-26-2019 Planned Disposition: Home with Home Health Primary Insurance: MEDICARE A & B PLANNED EXTERNAL PROVIDER: NO PREFERENCE Discharge Planning Comments: CM RECEIVED ORDER FOR INPATIENT REHAB PRESCREENING, CALLED PT'S DAUGHTER, GRZEGORZ AT [phone]. CM DISCUSSED REHAB OPTIONS, LOCATIONS AND PROVIDERS. GRZEGORZ STATES PT NOT HAPPY WITH REHAB AT [place] AND DOES NOT WANT TO GO TO [facility] FOR REHAB. THEY WANT HOME HEALTH WITH NO PROVIDER PREFERNECE. PT WILL RETURN HOME WITH DAUGHTER, GRZEGORZ. CM VERIFIED ADDRESS AND PHONE NUMBERS FOR HOME HEALTH. CHOICE COMPLETED FOR NO PREFERENCE ON HOME HEALTH PROVIDER, DECLINED INPATIENT AND SNF REHAB. IMPORTANT MESSAGE FROM MEDICARE PROVIDED AND EXPLAINED. COPY MAILED TO GRZEGORZ. GRZEGORZ TO [employer] PT FOR TRANSPORTATION HOME. CM RECEIVED MESSAGE FROM DUNIA [facility], PT WILL NEED NEW OUTPATIENT DIALYSIS CLINIC ARRANGEMENT SHE HAS NOT HAD OUTPATIENT DIALYSIS IN 30 DAYS. PT WILL REQUIRE NEW LABS, XRAY AND REFERRAL. ORDERS OBTAINED, JESUSITA OF PATIENT [facility]WAYS NOTIFIED. PT AND DAUGHTER REFUSED INPATIENT / SNF REHAB. PT WILL NEED NEW OUTPATIENT DIALYSIS CLINIC ARRANGEMENT. CM TO ARRANGE HOME HEALTH FOR DISCHARGE HOME WITH DAUGHTER WITH PHYSICIAN AGEEMENT AND ORDER; NO PROVIDER PREFERENCE. FAMILY TO TRANSPORT HOME AT DISCHARGE. Manager Of Internal: Reuben Silverman External Providers External Provider: [facility] Next Contact Date: Service Request Date: Service Type: Resolution: Reviewer: Comments: Coverage Notice Reviewer: [id number] Rich Silverman Notice Issued Date-Time: 10/26/2019 12:40 Notice Type: Patient Choice Letter Notice Delivered To: Family Member Relationship to Patient: Daughter Dust Collector Ore Crushing Name: GRZEGORZ HELM Delivery Method: PHONE - Phone Malena Days: Prior Verbal Notification: Recipient Understood Notice: Yes Recipient Signature: Med Rec Note Co-signed by Attending: Coverage Notice Comment: NO HOME HEALTH PROVIDER PREFERENCE Reviewer: [id number] Rich Silverman Notice Issued Date-Time: 10/26/2019 12:40 Notice Type: IM Discharge Notice Notice Delivered To: Family Member Relationship to Patient: Daughter Dust Collector Ore Crushing Name: GRZEGORZ HELM Delivery Method: CERT - Certified Mail Malena Days: Prior Verbal Notification: Recipient Understood Notice: Yes Recipient Signature: Med Rec Note Co-signed by Attending: Coverage Notice Comment: PHONE BY JENNIFER SILVERMAN CM WELL MAILED Reviewer: [id number] Rich Frias Notice Issued Date-Time: 11/01/2019 13:30 Notice Type: IM Discharge Notice Notice Delivered To: Patient Relationship to Patient: Self Dust Collector Ore Crushing Name: Delivery Method: HAND - Hand Delivered Malena Days: Prior Verbal Notification: Recipient Understood Notice: Yes Recipient Signature: Yes Med Rec Note Co-signed by Attending: Coverage Notice Comment: IMM explained, signed, given, copy placed in MR Reviewer: [id number] Rich Frias Notice Issued Date-Time: 11/01/2019 16:00 Notice Type: Patient Choice Letter Notice Delivered To: Patient Relationship to Patient: Dust Collector Ore Crushing Name: Delivery Method: HAND - Hand Delivered Malena Days: Prior Verbal Notification: Recipient Understood Notice: Yes Recipient Signature: Yes Med Rec Note Co-signed by Attending: Coverage Notice Comment: SHERRY for [facility] and [facility]. Declines Rehab Last DP export: 11/06/19 10:57 a Patient Name: RENEE HELM Page [id number] at 1246 All edits/amendments must be made on the electronic document DICTATION DATE: 11/06/19 1246 WATCH LEADER: EDWAR 11/06/19 1246 RPT#: [id number] DC DATE: STATUS: ADM IN [facility] [address] [place] [address] END OF REPORT
--- NOTE | 2019-11-06 13:17 | NUR ---
OT NOTE: PT REQUESTING TO HOLD THERAPY TODAY DUE TO REPORTED FREQ EPISODES OF VOMITTING. PT STATES THAT SHE KNOWS THAT ITS IMPORTANT FOR HER TO GET UP BUT SHE IS NOT FEELING WELL. STATES THAT SHE WANTS TO ATTEMPT TO STAND AND PIVOT TOMORROW BECAUSE SHE WAS TOLD IF SHE CAN DO THAT, SHE CAN GO HOME. I UNDERSTAND THAT PT WAS UNHAPPY WITH LAST COURSE OF IP REHAB, HOWEVER, EVEN IF PT IS ABLE TO PERFORM A PIVOT TRANSFER TOMORROW, SHE CONTINUES TO REQUIRE EXT ASSIST WITH MOBILTIY AND ADLS. CONT TO RECOMEND REHAB ELYSSA YUSUF, OTR/L
--- NOTE | 2019-11-06 14:52 | MORECARE ---
CASE MANAGEMENT DISCHARGE SUMMARY PATIENT: RENEE HELM UNIT: [id number] ADM DATE: 10/24/19 AGE: 69 : 48 SEX: F ROOM/BED: D.2113 AUTHOR: ASHLEY,DOC PHYSICIAN: REFERRING PHYSICIAN: JONA JORDAN MD DATE OF SERVICE: 11/06/19 Discharge Plan Patient Name: RENEE HELM Facility: [facility]:[place] : 1950 Planned Disposition: Home with Home Health Anticipated Discharge Date: 10/26/19 Discharge Date: Expected LOS: 2 Initial Reviewer: [id number] Initial Review Date: 10/26/2019 Generated: 11/06/19 3:52 pm Comments DCP- Discharge Planning Updated by [id number]: Huong Frias on 11/06/19 1:[address] Patient's daughter, Grzegorz, called me to ask if I have gotten home health set up. I informed her that patient needed rehab. That she was unable to stand alone and she could not go to dialysis until she could stand alone. Grzegorz states we are going to take her in her wheelchair. States that they will use alessandro lift to get her in the chair. They do not have a wc accessible vehicle, therefore they will have to get the patient from w/c into the vehicle and out again. I informed Grzegorz how she was doing with PT and Grzegorz spoke with her mother on the phone and patient has now agreed for a referral to [facility]. I informed patient that she would need to participate in therapy to be accepted to rehab and she agrees to participate. CM will continue to follow and assist with discharge planning/needs. DCP- Discharge Planning Updated by [id number]: Huong Swiftkiel on 11/06/19 10:[address] I received a call from Bella that patient is not a candidate for [facility] inpatient rehab. I called Jil at [facility] in [place] and clinical faxed to see if she is a candidate for their inpatient rehab unit. I informed Jil that she must be able to stand, pivot and sit alone before dialysis can accept her back in [place]. They will review her clinical and call me with a decision. CM will continue to follow and assist with discharge planning/needs. DCP- Discharge Planning Updated by [id number]: Eunice Mendoza on 11/02/19 11:[address] CM returned call to daughter, who states "if the patient's HD cannot be set up due to patient's inability to stand and pivot, then she cannot come home." Daughter also states " will not agree to Hospice or SNF stay, the hospital will just have to keep her (patient)". Alessandro lift has been delivered to daughter's home. DCP- Discharge Planning Updated by [id number]: Huong Frias on 11/01/19 2:[address] I have spoken to patient's daughter multiple times on the phone today concerning discharge needs. She would like me to call L[facility] for the alessandro lift. I called Luly for the lift and order and clinical faxed. I spoke with Jesusita (dialysis coordinator) and informed her that the labs are back. Jesusita states the [place] dialysis center will accept her when she is able to stand, pivot and sit by herself. Jesusita states that the family will be unable to come with her to help with getting her in and out of the chair. Jesusita states she will check on a alessandro lift, but will still need to be able to stand and pivot on her own. I spoke with Nishant with PT and he states at this time, she is a total assist with 2 people to stand. I spoke with the patient and informed her of above. I informed her that she would need to go short term to a rehab to be able to go to dialysis. She refuses rehab. 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 I have spoken to Nikki Ruiz (my supervisor furnace room) about this. SHERRY signed for declination of rehab. CM will continue to follow and assist with discharge planning/needs. [facility] [phone] Fax - [phone] [facility] P [phone] F [phone] DCP- Discharge Planning Updated by [id number]: Eunice Kelly on 10/29/19 4:[address] Contacted Jesusita Levine regarding new HD days in [place]. Acute Hepatitis panel and Hepatitis Surface Antibiodies Qual ordered per request Jesusita Levine. CM attempted to contact patient's daughter, Grzegorz Helm @[phone] & [phone], but was only able to leave a VM with a request a call 10/29 to my telephone number. CM will attempt to reach daughter 10/29. DCP- Discharge Planning Updated by [id number]: Reuben Silverman on 10/26/19 4:[address] Patient Name: RENEE HELM Admission Status: Elective Accout number: [id number] Admission Date: 10-24-2019 : 1950 Admission Diagnosis: Attending: NORRIS JORDAN Current LOS: 2 Anticipated DC Date: 10-26-2019 Planned Disposition: Home with Home Health Primary Insurance: MEDICARE A & B PLANNED EXTERNAL PROVIDER: NO PREFERENCE Discharge Planning Comments: CM RECEIVED ORDER FOR INPATIENT REHAB PRESCREENING, CALLED PT'S DAUGHTERGRZEGORZ AT [phone]. CM DISCUSSED REHAB OPTIONS, LOCATIONS AND PROVIDERS. GRZEGORZ STATES PT NOT HAPPY WITH REHAB AT [place] AND DOES NOT WANT TO GO TO [facility] FOR REHAB. THEY WANT HOME HEALTH WITH NO PROVIDER PREFERNECE. PT WILL RETURN HOME WITH DAUGHTERGRZEGORZ. CM VERIFIED ADDRESS AND PHONE NUMBERS FOR HOME HEALTH. CHOICE COMPLETED FOR NO PREFERENCE ON HOME HEALTH PROVIDER, DECLINED INPATIENT AND SNF REHAB. IMPORTANT MESSAGE FROM MEDICARE PROVIDED AND EXPLAINED. COPY MAILED TO ROBIN. ANGUIANO TO [employer]ER PT FOR TRANSPORTATION HOME. CM RECEIVED MESSAGE FROM [facility], PT WILL NEED NEW OUTPATIENT DIALYSIS CLINIC ARRANGEMENT SHE HAS NOT HAD OUTPATIENT DIALYSIS IN 30 DAYS. PT WILL REQUIRE NEW LABS, XRAY AND REFERRAL. ORDERS OBTAINED, JESUSITA OF PATIENT [facility] NOTIFIED. PT AND DAUGHTER REFUSED INPATIENT / SNF REHAB. PT WILL NEED NEW OUTPATIENT DIALYSIS CLINIC ARRANGEMENT. CM TO ARRANGE HOME HEALTH FOR DISCHARGE HOME WITH DAUGHTER WITH PHYSICIAN AGEEMENT AND ORDER; NO PROVIDER PREFERENCE. FAMILY TO TRANSPORT HOME AT DISCHARGE. Metal Miner Blasting: Rueben Silverman Coverage Notice Reviewer: [id number] - Reuben Silverman Notice Issued Date-Time: 10/26/2019 12:40 Notice Type: Patient Choice Letter Notice Delivered To: Family Member Relationship to Patient: Daughter Construction Code Administrator Name: GRZEGORZ HELM Delivery Method: PHONE - Phone Malena Days: Prior Verbal Notification: Recipient Understood Notice: Yes Recipient Signature: Med Rec Note Co-signed by Attending: Coverage Notice Comment: NO HOME HEALTH PROVIDER PREFERENCE Reviewer: [id number] Rich Silverman Notice Issued Date-Time: 10/26/2019 12:40 Notice Type: IM Discharge Notice Notice Delivered To: Family Member Relationship to Patient: Daughter Construction Code Administrator Name: GRZEGORZ HELM Delivery Method: CERT - Certified Mail Malena Days: Prior Verbal Notification: Recipient Understood Notice: Yes Recipient Signature: Med Rec Note Co-signed by Attending: Coverage Notice Comment: PHONE BY JENNIFER SILVERMAN CM WELL MAILED Reviewer: DELIA Frias Notice Issued Date-Time: 11/06/2019 14:39 Notice Type: Patient Choice Letter Notice Delivered To: Patient Relationship to Patient: Self Construction Code Administrator Name: Delivery Method: HAND - Hand Delivered Malena Days: Prior Verbal Notification: Recipient Understood Notice: Yes Recipient Signature: Yes Med Rec Note Co-signed by Attending: Coverage Notice Comment: SHRERY FOR [facility]/INPAT REHAB Reviewer: DELIA Frias Notice Issued Date-Time: 11/06/2019 14:39 Notice Type: IM Discharge Notice Notice Delivered To: Patient Relationship to Patient: Self Construction Code Administrator Name: Delivery Method: HAND - Hand Delivered Malena Days: Prior Verbal Notification: Recipient Understood Notice: Yes Recipient Signature: Yes Med Rec Note Co-signed by Attending: Coverage Notice Comment: IMM explained, signed, given, copy placed in MR Reviewer: DELIA Frias Notice Issued Date-Time: 11/01/2019 13:30 Notice Type: IM Discharge Notice Notice Delivered To: Patient Relationship to Patient: Self Construction Code Administrator Name: Delivery Method: HAND - Hand Delivered Malena Days: Prior Verbal Notification: Recipient Understood Notice: Yes Recipient Signature: Yes Med Rec Note Co-signed by Attending: Coverage Notice Comment: IMM explained, signed, given, copy placed in MR Reviewer: [id number] Frias Notice Issued Date-Time: 11/01/2019 16:00 Notice Type: Patient Choice Letter Notice Delivered To: Patient Relationship to Patient: Construction Code Administrator Name: Delivery Method: HAND - Hand Delivered Malena Days: Prior Verbal Notification: Recipient Understood Notice: Yes Recipient Signature: Yes Med Rec Note Co-signed by Attending: Coverage Notice Comment: SHERRY for [facility] HH. Declines Rehab Last DP export: 11/06/19 11:46 a Patient Name: RENEE HELM Page [id number] at 1452 All edits/amendments must be made on the electronic document DICTATION DATE: 11/06/191451 RN TELEHEALTH: EDWAR 11/06/191451 RPT#: [id number] DC DATE: STATUS: ADM IN [facility] [address] [place] [address] END OF REPORT
[2019-11-06 15:04] VITALS: BP 136/74
[2019-11-06 19:40] VITALS: BP 173/68
[2019-11-07] VITALS: BP 125/42
[2019-11-07 04:00] VITALS: BP 137/56
[2019-11-07 07:23] LABS: INR 1.18 (0.85-1.17); PROTIME 14.9 SECONDS (11.6-15.0)
[2019-11-07 07:25] LABS: ANION GAP 14.8 mmol/L (8-16); CALCIUM 8.6 mg/dL (8.5-10.1); CARBON DIOXIDE 27.2 mmol/L (21.0-32.0); CREATININE - SERUM 5.8 mg/dL (0.6-1.3)
[2019-11-07 07:32] LABS: BASOPHILS 0.1 % (0-2); EOSINOPHILS 3.9 % (0-7); HEMATOCRIT 33.3 % (36.0-48.0); HEMOGLOBIN 9.8 g/dL (12-16); IMMATURE GRANULOCYTES 0.4 % (0-5); MCH 27.6 pg (26.0-34.0); MCHC 29.4 g/dL (31.0-37.0); MCV 93.8 fL (80.0-100.0); MEAN PLATELET VOLUME 9.1 fL (7.4-10.4); MONOCYTES 9.7 % (2-11); NEUTROPHILS 67.9 % (40-80); PLATELET COUNT 342 10x3/uL (130-400); RBC 3.55 10x6/uL (4.00-5.40); RDW 16.7 % (11.5-14.5); WBC 7.6 10x3/uL (4.8-10.8)
--- NOTE | 2019-11-07 09:20 | NUR ---
LEAVING FOR DIALYSIS BY BED. WILL CONT. PLAN OF CARE.
[2019-11-07] MEDS ORDERED: LOVENOX120 MG/0.8 SC (10:26)
[2019-11-07] MEDS ORDERED: COUMADIN10 MG PO (10:27)
--- NOTE | 2019-11-07 11:35 | MORECARE ---
CASE MANAGEMENT DISCHARGE SUMMARY PATIENT: RENEE HELM UNIT: [id number] ADM DATE: 10/24/19 AGE: 69 : 49 SEX: F ROOM/BED: D.2113 AUTHOR: ASHLEY,DOC PHYSICIAN: REFERRING PHYSICIAN: JONA JORDAN MD DATE OF SERVICE: 11/07/19 Discharge Plan Patient Name: RENEE HELM Facility: [facility]:[place] : 1950 Planned Disposition: Home with Home Health Anticipated Discharge Date: 10/26/19 Discharge Date: Expected LOS: 2 Initial Reviewer: [id number] Initial Review Date: 10/26/2019 Generated: 11/07/19 12:34 pm Comments DCP- Discharge Planning Updated by [id number]: Huong Swiftkiel on 11/07/19 10:[address] Received discharge orders to [facility] Inpatient rehab. I called Rosalva Mcpherson, liaison for [facility], and she is awaiting physician to sign orders, then they will accept. I informed her that she would need coumadin/lovenox bridge until INR is 2-3. DC orders, summary, meds faxed to [facility]. DCP- Discharge Planning Updated by [id number]: Huong Altagracia on 11/06/19 1:[address] Patient's daughter, Grzegorz, called me to ask if I have gotten home health set up. I informed her that patient needed rehab. That she was unable to stand alone and she could not go to dialysis until she could stand alone. Grzegorz states we are going to take her in her wheelchair. States that they will use alessandro lift to get her in the chair. They do not have a wc accessible vehicle, therefore they will have to get the patient from w/c into the vehicle and out again. I informed Grzegorz how she was doing with PT and Grzegorz spoke with her mother on the phone and patient has now agreed for a referral to [facility]. I informed patient that she would need to participate in therapy to be accepted to rehab and she agrees to participate. CM will continue to follow and assist with discharge planning/needs. DCP- Discharge Planning Updated by [id number]: Huong Frias on 11/06/19 10:[address] I received a call from Bella that patient is not a candidate for [facility] inpatient rehab. I called Jil at [facility] in [place] and clinical faxed to see if she is a candidate for their inpatient rehab unit. I informed Jil that she must be able to stand, pivot and sit alone before dialysis can accept her back in [place]. They will review her clinical and call me with a decision. CM will continue to follow and assist with discharge planning/needs. DCP- Discharge Planning Updated by [id number]: Eunice Yadavlroy on 11/02/19 11:[address] CM returned call to daughter, who states "if the patient's HD cannot be set up due to patient's inability to stand and pivot, then she cannot come home." Daughter also states " will not agree to Hospice or SNF stay, the hospital will just have to keep her (patient)". Alessandro lift has been delivered to daughter's home. DCP- Discharge Planning Updated by [id number]: Huong Frias on 11/01/19 2:[address] I have spoken to patient's daughter multiple times on the phone today concerning discharge needs. She would like me to call [facility] for the alessandro lift. I called [facility] for the lift and order and clinical faxed. I spoke with Jesusita (dialysis coordinator) and informed her that the labs are back. Jesusita states the [place] dialysis center will accept her when she is able to stand, pivot and sit by herself. Jesusita states that the family will be unable to come with her to help with getting her in and out of the chair. Jesusita states she will check on a alessandro lift, but will still need to be able to stand and pivot on her own. I spoke with Nishant with PT and he states at this time, she is a total assist with 2 people to stand. I spoke with the patient and informed her of above. I informed her that she would need to go short term to a rehab to be able to go to dialysis. She refuses rehab. 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 I have spoken to Nikki Ruiz (my commodity supervisor) about this. SHERRY signed for declination of rehab. CM will continue to follow and assist with discharge planning/needs. [facility] [phone] Fax - [phone] [facility] P [phone] F [phone] DCP- Discharge Planning Updated by [id number]: Eunice Kelly on 10/29/19 4:[address] Contacted Jesusita Levine regarding new HD days in [place]. Acute Hepatitis panel and Hepatitis Surface Antibiodies Qual ordered per request Jesusita Levine. CM attempted to contact patient's daughter, Grzegorz Helm @[phone] & [phone], but was only able to leave a VM with a request a call 10/29 to my telephone number. CM will attempt to reach daughter 10/29. DCP- Discharge Planning Updated by [id number]: Reuben Silverman on 10/26/19 4:[address] Patient Name: RENEE HELM Admission Status: Elective Accout number: [id number] Admission Date: 10-24-2019 : 1950 Admission Diagnosis: Attending: NORRIS JORDAN Current LOS: 2 Anticipated DC Date: 10-26-2019 Planned Disposition: Home with Home Health Primary Insurance: MEDICARE A & B PLANNED EXTERNAL PROVIDER: NO PREFERENCE Discharge Planning Comments: CM RECEIVED ORDER FOR INPATIENT REHAB PRESCREENING, CALLED PT'S DAUGHTERGRZEGORZ AT [phone]. CM DISCUSSED REHAB OPTIONS, LOCATIONS AND PROVIDERS. GRZEGORZ STATES PT NOT HAPPY WITH REHAB AT [place] AND DOES NOT WANT TO GO TO ASSISTED FACILITY FOR REHAB. THEY WANT HOME HEALTH WITH NO PROVIDER PREFERNECE. PT WILL RETURN HOME WITH DAUGHTERGRZEGORZ. CM VERIFIED ADDRESS AND PHONE NUMBERS FOR HOME HEALTH. CHOICE COMPLETED FOR NO PREFERENCE ON HOME HEALTH PROVIDER, DECLINED INPATIENT AND SNF REHAB. IMPORTANT MESSAGE FROM MEDICARE PROVIDED AND EXPLAINED. COPY MAILED TO GRZEGORZ. GRZEGORZ TO GASTROINTESTINAL TECHNICIAN PT FOR TRANSPORTATION HOME. CM RECEIVED MESSAGE FROM JACKY, PT WILL NEED NEW OUTPATIENT DIALYSIS CLINIC ARRANGEMENT SHE HAS NOT HAD OUTPATIENT DIALYSIS IN 30 DAYS. PT WILL REQUIRE NEW LABS, XRAY AND REFERRAL. ORDERS OBTAINED, JESUSITA OF [facility] NOTIFIED. PT AND DAUGHTER REFUSED INPATIENT / SNF REHAB. PT WILL NEED NEW OUTPATIENT DIALYSIS CLINIC ARRANGEMENT. CM TO ARRANGE HOME HEALTH FOR DISCHARGE HOME WITH DAUGHTER WITH PHYSICIAN AGEEMENT AND ORDER; NO PROVIDER PREFERENCE. FAMILY TO TRANSPORT HOME AT DISCHARGE. Route Inspector: Reuben Silverman Coverage Notice Reviewer: [id number] Rich Silverman Notice Issued Date-Time: 10/26/2019 12:40 Notice Type: Patient Choice Letter Notice Delivered To: Family Member Relationship to Patient: Hallie Fish And Wildlife Technician Name: GRZEGORZ HELM Delivery Method: PHONE - Phone Malena Days: Prior Verbal Notification: Recipient Understood Notice: Yes Recipient Signature: Med Rec Note Co-signed by Attending: Coverage Notice Comment: NO HOME HEALTH PROVIDER PREFERENCE Reviewer: [id number] Rich Silverman Notice Issued Date-Time: 10/26/2019 12:40 Notice Type: IM Discharge Notice Notice Delivered To: Family Member Relationship to Patient: Daughter Fish And Wildlife Technician Name: GRZEGORZ HELM Delivery Method: CERT - Certified Mail Malena Days: Prior Verbal Notification: Recipient Understood Notice: Yes Recipient Signature: Med Rec Note Co-signed by Attending: Coverage Notice Comment: PHONE BY JENNIFER SILVERMAN CM WELL MAILED Reviewer: [id number] Frias Notice Issued Date-Time: 11/06/2019 14:39 Notice Type: Patient Choice Letter Notice Delivered To: Patient Relationship to Patient: Self Fish And Wildlife Technician Name: Delivery Method: HAND - Hand Delivered Malena Days: Prior Verbal Notification: Recipient Understood Notice: Yes Recipient Signature: Yes Med Rec Note Co-signed by Attending: Coverage Notice Comment: SHERRY FOR [facility]/INPAT REHAB Reviewer: [id number] Frias Notice Issued Date-Time: 11/06/2019 14:39 Notice Type: IM Discharge Notice Notice Delivered To: Patient Relationship to Patient: Self Fish And Wildlife Technician Name: Delivery Method: HAND - Hand Delivered Malena Days: Prior Verbal Notification: Recipient Understood Notice: Yes Recipient Signature: Yes Med Rec Note Co-signed by Attending: Coverage Notice Comment: IMM explained, signed, given, copy placed in MR Reviewer: [id number] Frias Notice Issued Date-Time: 11/01/2019 13:30 Notice Type: IM Discharge Notice Notice Delivered To: Patient Relationship to Patient: Self Fish And Wildlife Technician Name: Delivery Method: HAND - Hand Delivered Malena Days: Prior Verbal Notification: Recipient Understood Notice: Yes Recipient Signature: Yes Med Rec Note Co-signed by Attending: Coverage Notice Comment: IMM explained, signed, given, copy placed in MR Reviewer: [id number] Frias Notice Issued Date-Time: 11/01/2019 16:00 Notice Type: Patient Choice Letter Notice Delivered To: Patient Relationship to Patient: Fish And Wildlife Technician Name: Delivery Method: HAND - Hand Delivered Malena Days: Prior Verbal Notification: Recipient Understood Notice: Yes Recipient Signature: Yes Med Rec Note Co-signed by Attending: Coverage Notice Comment: SHERRY for [facility] and [facility] HH. Declines Rehab Last DP export: 11/06/19 1:52 p Patient Name: RENEE HELM Page [id number] at 1135 All edits/amendments must be made on the electronic document DICTATION DATE: 11/07/19 1134 MOTOR SCOOTER MECHANIC: EDWAR 11/07/19 1134 RPT#: [id number] DC DATE: STATUS: ADM IN [facility] [address] [place] [address] END OF REPORT
--- NOTE | 2019-11-07 13:02 | MORECARE ---
CASE MANAGEMENT DISCHARGE SUMMARY PATIENT: RENEE HELM UNIT: [id number] ADM DATE: 10/24/19 AGE: 69 : 48 SEX: F ROOM/BED: D.8113 AUTHOR: ASHLEY,DOC PHYSICIAN: REFERRING PHYSICIAN: JONA JORDAN MD DATE OF SERVICE: 11/07/19 Discharge Plan Patient Name: RENEE HELM Facility: [facility]:[place] : 1950 Planned Disposition: Home with Home Health Anticipated Discharge Date: 10/26/19 Discharge Date: Expected LOS: 2 Initial Reviewer: [id number] Initial Review Date: 10/26/2019 Generated: 11/07/19 2:02 pm Comments DCP- Discharge Planning Updated by [id number]: Huong Frias on 11/07/19 11:[address] Received confirmation that she has been accepted at Rehab per Dr. Yasmin Merchant. She will transport via [employer] with [facility] they have a contract with [employer] and will set it up for 2PM. college scouting coordinator and nurse notified. I have called patient's daughter, Grzegorz and she is in agreement. Discharge today to inpatient rehab at [facility]). DCP- Discharge Planning Updated by [id number]: Huong Frias on 11/07/19 10:[address] Received discharge orders to [facility] Inpatient rehab. I called Rosalva Mcpherson, liaison for [facility], and she is awaiting physician to sign orders, then they will accept. I informed her that she would need coumadin/lovenox bridge until INR is 2-3. DC orders, summary, meds faxed to [facility]. DCP- Discharge Planning Updated by [id number]: Huong Frias on 11/06/19 1:[address] Patient's daughter, Grzegorz, called me to ask if I have gotten home health set up. I informed her that patient needed rehab. That she was unable to stand alone and she could not go to dialysis until she could stand alone. Grzegorz states we are going to take her in her wheelchair. States that they will use alessandro lift to get her in the chair. They do not have a wc accessible vehicle, therefore they will have to get the patient from w/c into the vehicle and out again. I informed Grzegorz how she was doing with PT and Grzegorz spoke with her mother on the phone and patient has now agreed for a referral to [facility]. I informed patient that she would need to participate in therapy to be accepted to rehab and she agrees to participate. CM will continue to follow and assist with discharge planning/needs. DCP- Discharge Planning Updated by [id number]: Huong Frias on 11/06/19 10:[address] I received a call from Bella that patient is not a candidate for [facility] inpatient rehab. I called Jil at [facility] in [place] and clinical faxed to see if she is a candidate for their inpatient rehab unit. I informed Jil that she must be able to stand, pivot and sit alone before dialysis can accept her back in [place]. They will review her clinical and call me with a decision. CM will continue to follow and assist with discharge planning/needs. DCP- Discharge Planning Updated by [id number]: Eunice Yadavlroy on 11/02/19 11:[address] CM returned call to daughter, who states "if the patient's HD cannot be set up due to patient's inability to stand and pivot, then she cannot come home." Daughter also states " will not agree to Hospice or SNF stay, the hospital will just have to keep her (patient)". Alessandro lift has been delivered to daughter's home. DCP- Discharge Planning Updated by [id number]: Huong Frias on 11/01/19 2:[address] I have spoken to patient's daughter multiple times on the phone today concerning discharge needs. She would like me to call [facility] for the alessandro lift. I called Mauricio for the lift and order and clinical faxed. I spoke with Jesusita (dialysis coordinator) and informed her that the labs are back. Jesusita states the [place] dialysis center will accept her when she is able to stand, pivot and sit by herself. Jesusita states that the family will be unable to come with her to help with getting her in and out of the chair. Jesusita states she will check on a alessandro lift, but will still need to be able to stand and pivot on her own. I spoke with Nishant with PT and he states at this time, she is a total assist with 2 people to stand. I spoke with the patient and informed her of above. I informed her that she would need to go short term to a rehab to be able to go to dialysis. She refuses rehab. 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 I have spoken to Nikki Ruiz (my supervisor poultry processing) about this. SHERRY signed for declination of rehab. CM will continue to follow and assist with discharge planning/needs. [facility] [phone] Fax - [phone] [facility] P [phone] F [phone] DCP- Discharge Planning Updated by [id number]: Eunice Mendoza on 10/29/19 4:[address] Contacted Jesusita Levine regarding new HD days in [place]. Acute Hepatitis panel and Hepatitis Surface Antibiodies Qual ordered per request Jesusita Levine. CM attempted to contact patient's daughter, Grzegorz Helm @[phone] & [phone], but was only able to leave a VM with a request a call 10/29 to my telephone number. CM will attempt to reach daughter 10/29. DCP- Discharge Planning Updated by [id number]: Reuben Silverman on 10/26/19 4:[address] Patient Name: RENEE HELM Admission Status: Elective Accout number: [id number] Admission Date: 10-24-2019 : 1950 Admission Diagnosis: Attending: NORRIS JORDAN Current LOS: 2 Anticipated DC Date: 10-26-2019 Planned Disposition: Home with Home Health Primary Insurance: MEDICARE A & B PLANNED EXTERNAL PROVIDER: NO PREFERENCE Discharge Planning Comments: CM RECEIVED ORDER FOR INPATIENT REHAB PRESCREENING, CALLED PT'S DAUGHTERGRZEGORZ AT [phone]. CM DISCUSSED REHAB OPTIONS, LOCATIONS AND PROVIDERS. GRZEGORZ STATES PT NOT HAPPY WITH REHAB AT [facility] AND DOES NOT WANT TO GO TO [facility] FOR REHAB. THEY WANT HOME HEALTH WITH NO PROVIDER PREFERNECE. PT WILL RETURN HOME WITH DAUGHTERGRZEGORZ. CM VERIFIED ADDRESS AND PHONE NUMBERS FOR HOME HEALTH. CHOICE COMPLETED FOR NO PREFERENCE ON HOME HEALTH PROVIDER, DECLINED INPATIENT AND SNF REHAB. IMPORTANT MESSAGE FROM MEDICARE PROVIDED AND EXPLAINED. COPY MAILED TO ROBIN. ANGUIANO TO GEAR CUTTING MACHINE OPERATOR PT FOR TRANSPORTATION HOME. CM RECEIVED MESSAGE FROM JACKY, PT WILL NEED NEW OUTPATIENT DIALYSIS CLINIC ARRANGEMENT SHE HAS NOT HAD OUTPATIENT DIALYSIS IN 30 DAYS. PT WILL REQUIRE NEW LABS, XRAY AND REFERRAL. ORDERS OBTAINED, JESUSITA OF PATIENT PATHWAYS NOTIFIED. PT AND DAUGHTER REFUSED INPATIENT / SNF REHAB. PT WILL NEED NEW OUTPATIENT DIALYSIS CLINIC ARRANGEMENT. CM TO ARRANGE HOME HEALTH FOR DISCHARGE HOME WITH DAUGHTER WITH PHYSICIAN AGEEMENT AND ORDER; NO PROVIDER PREFERENCE. FAMILY TO TRANSPORT HOME AT DISCHARGE. Trash Collector Truck Driver: Reuben Silverman Coverage Notice Reviewer: [id number] Rich Silverman Notice Issued Date-Time: 10/26/2019 12:40 Notice Type: Patient Choice Letter Notice Delivered To: Family Member Relationship to Patient: Daughter Textile Broker Name: GRZEGORZ HELM Delivery Method: PHONE - Phone Malena Days: Prior Verbal Notification: Recipient Understood Notice: Yes Recipient Signature: Med Rec Note Co-signed by Attending: Coverage Notice Comment: NO HOME HEALTH PROVIDER PREFERENCE Reviewer: [id number] Rich Silverman Notice Issued Date-Time: 10/26/2019 12:40 Notice Type: IM Discharge Notice Notice Delivered To: Family Member Relationship to Patient: Daughter Textile Broker Name: GRZEGORZ HELM Delivery Method: CERT - Certified Mail Malena Days: Prior Verbal Notification: Recipient Understood Notice: Yes Recipient Signature: Med Rec Note Co-signed by Attending: Coverage Notice Comment: PHONE BY JENNIFER SILVERMAN CM WELL MAILED Reviewer: [id number] Rich Frias Notice Issued Date-Time: 11/06/2019 14:39 Notice Type: Patient Choice Letter Notice Delivered To: Patient Relationship to Patient: Self Textile Broker Name: Delivery Method: HAND - Hand Delivered Malena Days: Prior Verbal Notification: Recipient Understood Notice: Yes Recipient Signature: Yes Med Rec Note Co-signed by Attending: Coverage Notice Comment: [facility]Y [facility] Reviewer: [id number] Rich Frias Notice Issued Date-Time: 11/06/2019 14:39 Notice Type: IM Discharge Notice Notice Delivered To: Patient Relationship to Patient: Self Textile Broker Name: Delivery Method: HAND - Hand Delivered Malena Days: Prior Verbal Notification: Recipient Understood Notice: Yes Recipient Signature: Yes Med Rec Note Co-signed by Attending: Coverage Notice Comment: IMM explained, signed, given, copy placed in MR Reviewer: [id number] Rich Huong Frias Notice Issued Date-Time: 11/01/2019 13:30 Notice Type: IM Discharge Notice Notice Delivered To: Patient Relationship to Patient: Self Textile Broker Name: Delivery Method: HAND - Hand Delivered Malena Days: Prior Verbal Notification: Recipient Understood Notice: Yes Recipient Signature: Yes Med Rec Note Co-signed by Attending: Coverage Notice Comment: IMM explained, signed, given, copy placed in MR Reviewer: [id number] Rich Huong Frias Notice Issued Date-Time: 11/01/2019 16:00 Notice Type: Patient Choice Letter Notice Delivered To: Patient Relationship to Patient: Textile Broker Name: Delivery Method: HAND - Hand Delivered Malena Days: Prior Verbal Notification: Recipient Understood Notice: Yes Recipient Signature: Yes Med Rec Note Co-signed by Attending: Coverage Notice Comment: SHERRY for [facility]. Declines Rehab Last DP export: 11/07/19 10:35 a Patient Name: RENEE HELM Page [id number] at 1302 All edits/amendments must be made on the electronic document DICTATION DATE: 11/07/19 1302 CURRICULUM SUPERVISOR: EDWAR 11/07/19 1302 RPT#: [id number] DC DATE: STATUS: ADM IN [facility] [address] [place] [address] END OF REPORT
--- NOTE | 2019-11-07 13:32 | NUR ---
REPORT CALLED TO [facility].
--- NOTE | 2019-11-07 14:19 | NUR ---
BACK FROM DIALYSIS. IV AND TELEMETRY DCD. DC PLANS GIVEN. UNDERSTANDING VOICED.
--- NOTE | 2019-11-07 14:57 | NUR ---
LEAVING BY AMBULANCE VIA [facility]RETCHER.
--- NOTE | 2019-11-07 18:30 | MORECARE ---
CASE MANAGEMENT DISCHARGE SUMMARY PATIENT: RENEE HELM UNIT: [id number] ADM DATE: 10/24/19 AGE: 69 : 49 SEX: F ROOM/BED: D.7063 AUTHOR: ASHLEY,DOC PHYSICIAN: REFERRING PHYSICIAN: JONA JORDAN MD DATE OF SERVICE: 11/07/19 Discharge Plan Patient Name: RENEE HELM Facility: [facility]:[place] : 1950 Planned Disposition: Home with Home Health Anticipated Discharge Date: 10/26/19 Discharge Date: 11/07/2019 Expected LOS: 2 Initial Reviewer: [id number] Initial Review Date: 10/26/2019 Generated: 11/07/19 7:30 pm Comments DCP- Discharge Planning Updated by [id number]: Huong Frias on 11/07/19 11:[address] Received confirmation that she has been accepted at Rehab per Dr. Yasmin Merchant. She will transport via [employer] and [employer] with [facility] they have a contract with [employer] and will set it up for 2PM. home school coordinator and nurse notified. I have called patient's daughter, Grzegorz and she is in agreement. Discharge today to inpatient rehab at [facility]). DCP- Discharge Planning Updated by [id number]: Huong Frias on 11/07/19 10:[address] Received discharge orders to [facility] Inpatient rehab. I called Rosalva Mcpherson, liaison for [facility], and she is awaiting physician to sign orders, then they will accept. I informed her that she would need coumadin/lovenox bridge until INR is 2-3. DC orders, summary, meds faxed to [facility]. DCP- Discharge Planning Updated by [id number]: Huong Frias on 11/06/19 1:[address] Patient's daughter, Grzegorz, called me to ask if I have gotten home health set up. I informed her that patient needed rehab. That she was unable to stand alone and she could not go to dialysis until she could stand alone. Grzegorz states we are going to take her in her wheelchair. States that they will use alessandro lift to get her in the chair. They do not have a wc accessible vehicle, therefore they will have to get the patient from w/c into the vehicle and out again. I informed Grzegorz how she was doing with PT and Grzegorz spoke with her mother on the phone and patient has now agreed for a referral to [facility]. I informed patient that she would need to participate in therapy to be accepted to rehab and she agrees to participate. CM will continue to follow and assist with discharge planning/needs. DCP- Discharge Planning Updated by [email or web address]: Huong Frias on 11/06/19 10:[address] I received a call from Bella that patient is not a candidate for [facility] inpatient rehab. I called Jil at [facility] in [place] and clinical faxed to see if she is a candidate for their inpatient rehab unit. I informed Jil that she must be able to stand, pivot and sit alone before dialysis can accept her back in [place]. They will review her clinical and call me with a decision. CM will continue to follow and assist with discharge planning/needs. DCP- Discharge Planning Updated by [id number]: Eunice Yadavlroy on 11/02/19 11:[address] CM returned call to daughter, who states "if the patient's HD cannot be set up due to patient's inability to stand and pivot, then she cannot come home." Daughter also states " will not agree to Hospice or SNF stay, the hospital will just have to keep her (patient)". Alessandro lift has been delivered to daughter's home. DCP- Discharge Planning Updated by [id number]: Huong Frias on 11/01/19 2:[address] I have spoken to patient's daughter multiple times on the phone today concerning discharge needs. She would like me to call [facility] for the alessandro lift. I called Mauricio for the lift and order and clinical faxed. I spoke with Jesusita (dialysis coordinator) and informed her that the labs are back. Jesusita states the [place] dialysis center will accept her when she is able to stand, pivot and sit by herself. Jesusita states that the family will be unable to come with her to help with getting her in and out of the chair. Jesusita states she will check on a alessandro lift, but will still need to be able to stand and pivot on her own. I spoke with Nishant with PT and he states at this time, she is a total assist with 2 people to stand. I spoke with the patient and informed her of above. I informed her that she would need to go short term to a rehab to be able to go to dialysis. She refuses rehab. 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 I have spoken to Nikki Ruiz (my supervisor dumping) about this. SHERRY signed for declination of rehab. CM will continue to follow and assist with discharge planning/needs. [facility] [phone] Fax - [phone] [facility] P [phone] F [phone] DCP- Discharge Planning Updated by [id number]: Eunice Mendoza on 10/29/19 4:[address] Contacted Jesusita Levine regarding new HD days in [place]. Acute Hepatitis panel and Hepatitis Surface Antibiodies Qual ordered per request Jesusita Levine. CM attempted to contact patient's daughter, Grzegorz Helm @[phone] & [phone], but was only able to leave a VM with a request a call 10/29 to my telephone number. CM will attempt to reach daughter 10/29. DCP- Discharge Planning Updated by [id number]: Reuben Silverman on 10/26/19 4:[address] Patient Name: RENEE HELM Admission Status: Elective Accout number: [id number] Admission Date: 10-24-2019 : 1950 Admission Diagnosis: Attending: NORRIS JORDAN Current LOS: 2 Anticipated DC Date: 10-26-2019 Planned Disposition: Home with Home Health Primary Insurance: MEDICARE A & B PLANNED EXTERNAL PROVIDER: NO PREFERENCE Discharge Planning Comments: CM RECEIVED ORDER FOR INPATIENT REHAB PRESCREENING, CALLED PT'S DAUGHTERGRZEGORZ AT [phone]. CM DISCUSSED REHAB OPTIONS, LOCATIONS AND PROVIDERS. GRZEGORZ STATES PT NOT HAPPY WITH REHAB AT [place] AND DOES NOT WANT TO GO TO [facility] FOR REHAB. THEY WANT HOME HEALTH WITH NO PROVIDER PREFERNECE. PT WILL RETURN HOME WITH DAUGHTERGRZEGORZ. CM VERIFIED ADDRESS AND PHONE NUMBERS FOR HOME HEALTH. CHOICE COMPLETED FOR NO PREFERENCE ON HOME HEALTH PROVIDER, DECLINED INPATIENT AND SNF REHAB. IMPORTANT MESSAGE FROM MEDICARE PROVIDED AND EXPLAINED. COPY MAILED TO ROBIN. ANGUIANO TO BIRD TRAPPER PT FOR TRANSPORTATION HOME. CM RECEIVED MESSAGE FROM [facility], PT WILL NEED NEW OUTPATIENT DIALYSIS CLINIC ARRANGEMENT SHE HAS NOT HAD OUTPATIENT DIALYSIS IN 30 DAYS. PT WILL REQUIRE NEW LABS, XRAY AND REFERRAL. ORDERS OBTAINED, JESUSITA OF PATIENT [facility]WAYS NOTIFIED. PT AND DAUGHTER REFUSED INPATIENT / SNF REHAB. PT WILL NEED NEW OUTPATIENT DIALYSIS CLINIC ARRANGEMENT. CM TO ARRANGE HOME HEALTH FOR DISCHARGE HOME WITH DAUGHTER WITH PHYSICIAN AGEEMENT AND ORDER; NO PROVIDER PREFERENCE. FAMILY TO TRANSPORT HOME AT DISCHARGE. Jammer Hooker: Reuben Silverman Coverage Notice Reviewer: [id number] Rich Silverman Notice Issued Date-Time: 10/26/2019 12:40 Notice Type: Patient Choice Letter Notice Delivered To: Family Member Relationship to Patient: Daughter Crm Specialist Name: GRZEGORZ HELM Delivery Method: PHONE - Phone Malena Days: Prior Verbal Notification: Recipient Understood Notice: Yes Recipient Signature: Med Rec Note Co-signed by Attending: Coverage Notice Comment: NO HOME HEALTH PROVIDER PREFERENCE Reviewer: [id number] Rich Silverman Notice Issued Date-Time: 10/26/2019 12:40 Notice Type: IM Discharge Notice Notice Delivered To: Family Member Relationship to Patient: Daughter Crm Specialist Name: GRZEGORZ HELM Delivery Method: CERT - Certified Mail Malena Days: Prior Verbal Notification: Recipient Understood Notice: Yes Recipient Signature: Med Rec Note Co-signed by Attending: Coverage Notice Comment: PHONE BY JENNIFER SILVERMAN CM WELL MAILED Reviewer: [id number] Rich Frias Notice Issued Date-Time: 11/06/2019 14:39 Notice Type: Patient Choice Letter Notice Delivered To: Patient Relationship to Patient: Self Crm Specialist Name: Delivery Method: HAND - Hand Delivered Malena Days: Prior Verbal Notification: Recipient Understood Notice: Yes Recipient Signature: Yes Med Rec Note Co-signed by Attending: Coverage Notice Comment: SHERRY FOR [facility] Reviewer: [id number] Frias Notice Issued Date-Time: 11/06/2019 14:39 Notice Type: IM Discharge Notice Notice Delivered To: Patient Relationship to Patient: Self Crm Specialist Name: Delivery Method: HAND - Hand Delivered Malena Days: Prior Verbal Notification: Recipient Understood Notice: Yes Recipient Signature: Yes Med Rec Note Co-signed by Attending: Coverage Notice Comment: IMM explained, signed, given, copy placed in MR Reviewer: [id number] Rich Huong Frias Notice Issued Date-Time: 11/01/2019 13:30 Notice Type: IM Discharge Notice Notice Delivered To: Patient Relationship to Patient: Self Crm Specialist Name: Delivery Method: HAND - Hand Delivered Malena Days: Prior Verbal Notification: Recipient Understood Notice: Yes Recipient Signature: Yes Med Rec Note Co-signed by Attending: Coverage Notice Comment: IMM explained, signed, given, copy placed in MR Reviewer: [id number] Rich Huong Swiftkiel Notice Issued Date-Time: 11/01/2019 16:00 Notice Type: Patient Choice Letter Notice Delivered To: Patient Relationship to Patient: Crm Specialist Name: Delivery Method: HAND - Hand Delivered Malena Days: Prior Verbal Notification: Recipient Understood Notice: Yes Recipient Signature: Yes Med Rec Note Co-signed by Attending: Coverage Notice Comment: SHERRY for [facility] and [facility]. Declines Rehab Last DP export: 11/07/19 12:02 p Patient Name: RENEE HELM Page [id number] at 1830 All edits/amendments must be made on the electronic document DICTATION DATE: 11/07/191829 TECHNICAL SALES REPRESENTATIVE: EDWAR 11/07/191829 RPT#: [id number] DC DATE:11/07/19 STATUS: DIS IN [facility] [address] [place] [address] END OF REPORT
== END 2019-11-07 14:57 | disposition home health service (06) | DRG 377 ==
LOC: D.ICU 10:31 → D.M2 10:45 → D.CVICU 10:45 → D.ICU 10:45 → D.CVICU 10:49 → D.M2 10-25 18:47 → D.SDCHOLD 10-26 14:25 → D.M2 10-26 14:26
PROVIDERS: Family Medicine; Internal Medicine; Internal Medicine Gastroenterology; Internal Medicine Hematology & Oncology; Internal Medicine Nephrology; Internal Medicine Pulmonary Disease; ADMIT Emergency Medicine; ATTEND Emergency Medicine
PROC: 0DJD8ZZ Inspection of Lower Intestinal Tract, Via Natural or Artificial Opening Endoscopic (ICD-10-PCS; principal; 2019-10-25 09:30)
DX: K57.91 Diverticulosis of intestine, part unspecified, without perforation or abscess with bleeding (principal); I21.4 Non-ST elevation (NSTEMI) myocardial infarction; N18.6 End stage renal disease; G72.81 Critical illness myopathy; Z68.42 Body mass index [BMI] 45.0-49.9, adult; D62 Acute posthemorrhagic anemia; I12.0 Hypertensive chronic kidney disease with stage 5 chronic kidney disease or end stage renal disease; J98.11 Atelectasis; I25.10 Atherosclerotic heart disease of native coronary artery without angina pectoris; E66.01 Morbid (severe) obesity due to excess calories; E11.22 Type 2 diabetes mellitus with diabetic chronic kidney disease; E78.5 Hyperlipidemia, unspecified; D63.1 Anemia in chronic kidney disease; K64.8 Other hemorrhoids; I08.1 Rheumatic disorders of both mitral and tricuspid valves; J30.9 Allergic rhinitis, unspecified; M65.321 Trigger finger, right index finger; M65.351 Trigger finger, right little finger; M65.331 Trigger finger, right middle finger; M65.341 Trigger finger, right ring finger; M65.311 Trigger thumb, right thumb; I80.8 Phlebitis and thrombophlebitis of other sites; N25.0 Renal osteodystrophy; Z86.718 Personal history of other venous thrombosis and embolism

== ENCOUNTER → 2019-11-14 11:09 | Outpatient (CLI) | payer MEDICARE, BC ==
[2019-10-26 14:30] VITALS: BMI 45.6
[~2019-11-14 11:09] MED LIST changes: +ACETAMINOPHEN325 MG PO; +COUMADIN10 MG PO; +IMODIUM2 MG PO; +LIDODERM 5 %1 PATCH TRANSDERM; +LOVENOX120 MG/0.8 SC; +MIRALAX17 GM PO; +PROTONIX FOR OR40 MG PT; +VANCOMYCIN 1 GM/1 G1
== END | disposition home or self-care (01) ==
LOC: D.CT 09:30
PROVIDERS: ATTEND Internal Medicine Pulmonary Disease
DX: J90 Pleural effusion, not elsewhere classified (principal)